=== PATIENT | male | born 1955 | race Caucasian/White ===

== ENCOUNTER → 2024-02-13 10:38 | Outpatient (REF) | payer BC, SELFPAY ==
[2024-02-13 12:20] LABS: Urine Albumin Negative (Neg - Trace); Urine Bilirubin Negative (Negative); Urine Character Clear (Clear); Urine Color Yellow; Urine Glucose 3+ (Negative); Urine Ketone Negative (Negative); Urine Leukocyte Trace (Negative); Urine Nitrite Positive (Negative); Urine Occult Blood 3+ (Negative); Urine Urobilinogen Negative (Neg - 1+)
[2024-02-13 12:43] LABS: Urine Bacteria Few (Negative)
[2024-02-13 13:02] LABS: ALT (SGPT) 25 U/L (0-50); AST (SGOT) 32 U/L (17-59); Albumin 4.3 g/dl (3.5-5.0); Alkaline Phosphatase 52 U/L (38-126); Blood Urea Nitrogen 26 mg/dl (9-20); Carbon Dioxide 23 mmol/L (22-30); Chloride 101 mmol/L (98-107); Glucose 117 mg/dl (70-99); HDL Cholesterol 33 mg/dl; LDL Cholesterol, Calculated 50 mg/dl; Sodium 136 mmol/L (135-145); Total Bilirubin 0.7 mg/dl (0.2-1.3); Total Cholesterol 107 mg/dl (50-199); Total Protein 7.1 g/dl (6.3-8.2); Triglyceride 124 mg/dl (10-149); Very Low Density Lipoprotein 24 mg/dl (0-30); eGFR > 60.00
[2024-02-13 13:02] LABS: Microalbumin, Random Urine 5.5 mg/dl (0.6-1.7); Microalbumin/creatinine Ratio 38.2 mg/g
[2024-02-13 13:16] LABS: Glycohemoglobin (HgbA1c) 9.8 % (4.0-5.6)
== END ==
LOC: HWLAB 10:38
PROVIDERS: ATTENDING PHYSICIAN Internal Medicine
DX: I10 Essential (primary) hypertension (principal); E11.9 Type 2 diabetes mellitus without complications; Z79.4 Long term (current) use of insulin; E78.2 Mixed hyperlipidemia
CPT/HCPCS: 36415; 80053; 80061; 81003; 81015; 82043; 82570; 83036

== ENCOUNTER → 2024-06-02 10:12 | Outpatient (REF) | payer BC, SELFPAY ==
[2024-06-02 11:35] LABS: % Basophils 0.5 % (0-2); % Eosinophils 2.4 % (0-6); % Immature Granulocytes 0.2 % (0-0.5); % Lymphocytes 22.7 % (20.5-51.1); % Monocytes 10.3 % (1.7-9.3); % Neutrophils 63.9 % (42.2-75.2); Absolute Eosinophils 0.1 10^3/uL (0-0.7); Absolute Lymphocytes 1.3 10^3/uL (1.2-3.4); Absolute Monocytes 0.6 10^3/uL (0.1-0.6); Absolute Neutrophils 3.8 10^3/uL (1.4-6.5); Hematocrit 40.5 % (39.0-52.0); Hemoglobin 13.4 g/dL (13.0-18.0); Mean Corp Hgb Conc. 33.1 g/dL (33.0-37.0); Mean Corpuscular Hgb 29.5 pg (27.0-31.0); Mean Platelet Volume 10.1 fL (7.4-10.4); Nucleated Red Blood Cells % 0 % (-); Platelet Count 195 10^3/uL (130-400); Red Blood Cell Count 4.55 10^6/uL (4.70-6.10); Red Cell Dist. Width 13.9 % (11.5-14.5); White Blood Cell Count 5.9 10^3/uL (4.8-10.8)
[2024-06-02 12:11] LABS: ALT (SGPT) 481 U/L (0-50); AST (SGOT) 510 U/L (17-59); Albumin 4.5 g/dl (3.5-5.0); Alkaline Phosphatase 320 U/L (38-126); Blood Urea Nitrogen 21 mg/dl (9-20); Calcium 9.6 mg/dl (8.4-10.2); Carbon Dioxide 24 mmol/L (22-30); Chloride 101 mmol/L (98-107); Glucose 127 mg/dl (70-99); HDL Cholesterol 42 mg/dl; LDL Cholesterol, Calculated 44 mg/dl; Potassium 4.2 mmol/L (3.5-5.1); Sodium 137 mmol/L (135-145); Total Bilirubin 1.1 mg/dl (0.2-1.3); Total Cholesterol 117 mg/dl (50-199); Total Protein 7.2 g/dl (6.3-8.2); Triglyceride 158 mg/dl (10-149); Very Low Density Lipoprotein 31 mg/dl (0-30); eGFR > 60.00
[2024-06-02 12:15] LABS: Glycohemoglobin (HgbA1c) 8.8 % (4.0-5.6)
[2024-06-02 12:27] LABS: PSA, Total - Diagnostic 0.18 ng/ml (0.0-4.0)
[2024-06-02 15:21] LABS: Urine Albumin Trace (Neg - Trace); Urine Bilirubin Negative (Negative); Urine Character Clear (Clear); Urine Color Yellow; Urine Glucose 3+ (Negative); Urine Ketone Negative (Negative); Urine Leukocyte Trace (Negative); Urine Nitrite Positive (Negative); Urine Occult Blood Trace (Negative); Urine Specific Gravity 1.015 (<1.030); Urine Urobilinogen Negative (Neg - 1+)
[2024-06-02 15:53] LABS: Urine Bacteria Few (Negative); Urine Mucus Moderate; Urine Red Blood Cell 0-2 /HPF (0-2); Urine White Cell 30-40 /HPF (0-5)
[2024-06-02 16:37] LABS: Microalbumin, Random Urine 16.5 mg/dl (0.6-1.7); Microalbumin/creatinine Ratio 230.1 mg/g
== END ==
LOC: HWLAB 10:12
PROVIDERS: ATTENDING PHYSICIAN Family Medicine Geriatric Medicine; FAMILY PHYSICIAN Internal Medicine
DX: C61 Malignant neoplasm of prostate (principal); I10 Essential (primary) hypertension; E78.2 Mixed hyperlipidemia; E11.9 Type 2 diabetes mellitus without complications; Z79.4 Long term (current) use of insulin; R33.9 Retention of urine, unspecified
CPT/HCPCS: 36415; 80053; 80061; 81003; 81015; 82043; 82570; 83036; 84153; 85025

== ENCOUNTER → 2024-06-15 12:00 | Outpatient (REF) | payer BC, SELFPAY ==
[2024-06-15 16:00] LABS: % Basophils 0.3 % (0-2); % Eosinophils 1.3 % (0-6); % Immature Granulocytes 0.5 % (0-0.5); % Lymphocytes 14.3 % (20.5-51.1); % Monocytes 9.3 % (1.7-9.3); % Neutrophils 74.3 % (42.2-75.2); Absolute Eosinophils 0.1 10^3/uL (0-0.7); Absolute Lymphocytes 0.9 10^3/uL (1.2-3.4); Absolute Monocytes 0.6 10^3/uL (0.1-0.6); Absolute Neutrophils 4.7 10^3/uL (1.4-6.5); Hematocrit 37.9 % (39.0-52.0); Hemoglobin 12.8 g/dL (13.0-18.0); Mean Corp Hgb Conc. 33.8 g/dL (33.0-37.0); Mean Platelet Volume 11.8 fL (7.4-10.4); Nucleated Red Blood Cells % 0 % (-); Platelet Count 223 10^3/uL (130-400); Red Blood Cell Count 4.26 10^6/uL (4.70-6.10); Urine Albumin Trace (Neg - Trace); Urine Bilirubin 3+ (Negative); Urine Character Clear (Clear); Urine Color Yellow; Urine Glucose 3+ (Negative); Urine Ketone 1+ (Negative); Urine Leukocyte Trace (Negative); Urine Nitrite Positive (Negative); Urine Occult Blood 1+ (Negative); Urine Urobilinogen 1+ (Neg - 1+); White Blood Cell Count 6.4 10^3/uL (4.8-10.8)
[2024-06-15 16:13] LABS: Urine Bacteria Few (Negative)
[2024-06-15 16:15] LABS: ALT (SGPT) 370 U/L (0-50); AST (SGOT) 274 U/L (17-59); Albumin 4.3 g/dl (3.5-5.0); Alkaline Phosphatase 736 U/L (38-126); Blood Urea Nitrogen 28 mg/dl (9-20); Calcium 9.6 mg/dl (8.4-10.2); Carbon Dioxide 17 mmol/L (22-30); Chloride 107 mmol/L (98-107); Glucose 87 mg/dl (70-99); HDL Cholesterol 32 mg/dl; LDL Cholesterol, Calculated 138 mg/dl; Potassium 4.4 mmol/L (3.5-5.1); Sodium 139 mmol/L (135-145); Total Bilirubin 11.5 mg/dl (0.2-1.3); Total Cholesterol 221 mg/dl (50-199); Total Protein 7.5 g/dl (6.3-8.2); Triglyceride 257 mg/dl (10-149); Very Low Density Lipoprotein 51 mg/dl (0-30)
[2024-06-16 09:07] LABS: Glycohemoglobin (HgbA1c) 8.2 % (4.0-5.6)
== END ==
LOC: HWLAB 12:00
PROVIDERS: ATTENDING PHYSICIAN Internal Medicine
DX: E11.9 Type 2 diabetes mellitus without complications (principal); E78.2 Mixed hyperlipidemia; I10 Essential (primary) hypertension
CPT/HCPCS: 36415; 80053; 80061; 81003; 81015; 83036; 84443; 85025

== ENCOUNTER 2024-06-16 09:57 | Inpatient (IN) | payer BC, SELFPAY ==
[2024-06-16 05:46] VITALS: BP 138/78
--- NOTE | 2024-06-16 06:24 | ED.GENMED ---
History of Present Illness
General
Chief Complaint: Abdominal Symptoms
Source: patient, records, spouse, previous radiology exam and previous hospital records
Exam Limitations: none
Time Seen by Provider: 06/16/24 06:00
Nursing documentation reviewed up to this point in time: agreed with
History of Present Illness
History of Present Illness:
68-year-old male hypertensive diabetic CAD stents AAA nondrinker non-smoker presents with jaundice onset at least a week or so ago has had some dark urine, blood work yesterday was done abnormal referred to the ER for evaluation by his PCP patient
overall feels well, no history of hepatitis,
Past History
Past History
ED Past Medical History: HTN, Hypercholesterolemia and NIDDM
ED Past Surgical History: Cardiac and Other (Eye surgery. [place] teeth, AAA repair)
Social History
Tobacco: Non-smoker
Alcohol: None
Drug: None
Personal:
Living: with family
Employment: Employed
Family History
Family History: Other (Non Contributory)
Review of Systems
Review of Systems
All Other Systems: Not applicable
EENT: Reports other (Yellowing of the)
Respiratory: Reports no symptoms
Cardiac: Reports no symptoms
ABD/GI: Denies abdominal pain
: Reports dark urine
Musculoskeletal: Reports no symptoms
Skin: Reports other (Yellow skin); Denies itching
Neurological: Reports no symptoms
Endocrine: Reports no symptoms
Phy Exam
Physical Exam
Physical Exam:
Physical Exam
General: 68-year-old male looks jaundiced normal mental status
Neck: Yellow sclera
Heart: s1/s2 regular rate and rhythm, no murmur. equal radial pulses.
Lungs: no acute respiratory distress. clear bilaterally
Abdomen: Distended nontender
Neuro: alert and oriented. no focal neurological deficits
Skin: no rash
Psychiatric: well kept. interactive and cooperative
Extremities: no edema.
Course
Orders/Labs/Results
Orders:
Orders
06/16/24 06:19
US Abdomen Complete/Upper Urgent
Comment:
Reason For Exam: new jaundice
06/16/24 06:30
0.9% Sodium Chloride 1000 ml [Nss] 1,000 ml IV BOLUS
Vital Signs
Initial and Last Documented VS:
Initial Vital Signs
Temp Pulse Resp BP Pulse Ox
98.0 F 66 22 138/78 98
06/16/24 05:46 06/16/24 05:46 06/16/24 05:46 06/16/24 05:46 06/16/24 05:46
Last Documented Vital Signs
Temp Pulse Resp BP Pulse Ox
98.0 F 66 22 138/78 98
06/16/24 05:46 06/16/24 05:46 06/16/24 05:46 06/16/24 05:46 06/16/24 05:46
MDM/Problems Addressed
Differential Diagnosis Includes:
Labs from yesterday noted, will order imaging
*Critical Care Note
Total Time (30-74mins, 75-104mins- exclusive of procedures): Not Applicable
Update Note
Update Note:
Update labs yesterday noted ultrasound from today noted radiology suggested MRI MRCP for dilated CBD, message sent to hospitalist will admit for facilitated workup advanced imaging etc. this diagnosis is still not clear
ED Attending Note
-
Portions of this chart may have been created with voice recognition software.� Occasional wrong word or��sound alike� substitutions may have occurred due to the inherent limitations of voice recognition software.
Discharge Plan
Departure
Patient Disposition: Admit
Date of Disposition: 06/16/24
Time of Disposition: 07:39
Admit to: Med/Surg
Presentation/result/management discussed w/ accepting MD/DO: Hospitalist
Patient with high blood pressure during this ER visit?: No
Condition: Fair
Discharge Problem:
Painless jaundice
Prescriptions:
No Action
atorvastatin 40 MG tablet
40 mg PO DAILY
aspirin 81 MG tablet,delayed release (DR/EC)
81 mg PO DAILY
ferrous sulfate [FeroSul] 325 MG tablet
325 mg PO DAILY
metoprolol succinate [Toprol XL] 25 MG tablet extended release 24 hr
50 mg PO BID
hydralazine 50 MG tablet
50 mg PO BID
cholecalciferol (vitamin D3) 2,000 UNITS tablet
2,000 units PO DAILY
Xultophy 100/3.6 3 ML insulin pen
40 units SC DAILY
clopidogrel 75 MG tablet
75 mg PO DAILY Qty: 30 11RF
tamsulosin 0.4 MG capsule
0.4 mg PO DAILY Qty: 30 3RF
metformin 1,000 mg Tablet
1,000 mg PO BID
losartan 25 mg Tablet
25 mg PO DAILY
furosemide 20 mg Tablet
20 mg PO DAILY
icosapent ethyl [Vascepa] 1 gram Capsule
1 g PO BID
cephalexin 500 mg Capsule
500 mg PO Q6H
Jardiance 10 mg Tablet
10 mg PO DAILY
Referrals:
Gomez Gunderson MD [Family Provider] -
Interventions
Interventions:
*Risk Screen - Suicide Last Done: 06/16/24 05:46
*General Assessment Last Done: 06/16/24 06:42
*Neglect/Abuse Screening Last Done: 06/16/24 05:46
ED- Fall Risk Assessment Last Done: 06/16/24 06:42
QI-Cpqtkx-Wekrdnggca Assessment Last Done: 06/16/24 06:42
Discharge Date and Time
Print Language: CAP[place]
[2024-06-16] MEDS: NSS 1000 IV ×2 (07:33→11:56)
--- NOTE | 2024-06-16 08:58 | W.PN.UPDATE ---
Addendum entered and electronically signed by Sara Linda MD 06/17/24 14:15:
.
Original Note:
Update Note
Progress Note Update
68-year-old male with abdominal pain. He has jaundice for the past 1 week with dark urine. Blood work yesterday was abnormal therefore referred to ER.
Echo 223-normal LV size. Mild concentric LVH. Borderline normal. Left ventricular systolic function. Ejection fraction 50 to 52%. Hypokinesis of the basal to mid inferolateral and inferior dykes. Stage II diastolic dysfunction suggestive of
abnormal relaxation. Trace MR. Mild TR. Pulmonary artery pressure 41 mmHg.
I personally performed a history and physical exam of the patient and discussed management with the resident. I reviewed the resident's note and agree with the documented findings and plan of care HPI/CC.
Icterus
CVS: S1-S2 normal,SSM apex
Chest: CTA B/L
Abdomen: Soft, NT Bowel sounds present
Extremities: No edema, normal pulses
MATTRESS STRIPPER: Non focal exam
# Painless jaundice
Ultrasound Abdomen 06/16/2024-gallbladder sludge.
Confirmed cholelithiasis, gallbladder wall thickening or intrahepatic biliary duct dilatation. Enlarged CBD.
Will proceed with MRI/MRCP
N.p.o. until MRI done
GI evaluation
# Hyperlipidemia/atherosclerosis-hold atorvastatin. Continue with Vascepa, patient may need to supply on his own
# Diabetes-hold Jardiance, Ozempic and metformin as n.p.o.
Continue Lantus at a lower dose
Hemoglobin A1c 8.8
Patient took Ozempic this morning . Also took Jardiance, metformin and Lantus.
Watch Sugars while NPO
Check CA 19-9
# History of AAA repair March 2019 with redo July 2019 for leak and infection.Patient is on Keflex-continue twice daily
# Sleep apnea-continue CPAP
# Coronary artery disease with stents.Continue aspirin, atorvastatin.Hold Plavix in anticipation for GI procedure
# Chronic heart failure with preserved ejection fraction-Hold Lasix and Jardiance.Continue losartan
# Hypertension-continue losartan
# History of prostate cancer-Status post radiation-radiation oncology. Patient is in remission.continue Flomax.
# History of GI bleed
# Obesity per BMI
# DVT prophylaxis-Lovenox
# CODE STATUS-Full code
[2024-06-16 10:42] LABS: Hematocrit 37.4 % (39.0-52.0); Hemoglobin 12.8 g/dL (13.0-18.0); Mean Corp Hgb Conc. 34.2 g/dL (33.0-37.0); Mean Corpuscular Hgb 30.3 pg (27.0-31.0); Mean Corpuscular Volume 88.4 fL (80.0-94.0); Mean Platelet Volume 10.6 fL (7.4-10.4); Platelet Count 218 10^3/uL (130-400); Red Blood Cell Count 4.23 10^6/uL (4.70-6.10); Red Cell Dist. Width 16.9 % (11.5-14.5); White Blood Cell Count 6.7 10^3/uL (4.8-10.8)
[2024-06-16 10:45] VITALS: BP 144/72
[2024-06-16 10:54] VITALS: BP 133/70
[2024-06-16 10:55] VITALS: BMI 34.8
[2024-06-16 11:06] LABS: ALT (SGPT) 345 U/L (0-50); AST (SGOT) 252 U/L (17-59); Albumin 4.2 g/dl (3.5-5.0); Alkaline Phosphatase 653 U/L (38-126); Blood Urea Nitrogen 28 mg/dl (9-20); Calcium 9.2 mg/dl (8.4-10.2); Carbon Dioxide 20 mmol/L (22-30); Chloride 108 mmol/L (98-107); Estimated Creatinine Clearance 62 ml/min; Glucose 87 mg/dl (70-99); Potassium 4.3 mmol/L (3.5-5.1); Sodium 140 mmol/L (135-145); Total Bilirubin 11.4 mg/dl (0.2-1.3); Total Protein 7.3 g/dl (6.3-8.2)
--- NOTE | 2024-06-16 12:56 | CON.GI ---
Addendum entered and electronically signed by Andreina Ramos Do, MD 06/16/24 17:33:
I saw and examined the patient.
The NEEDLE STRAIGHTENER's note was reviewed and I agree with the note.
Comment: Fili is a 68yo M with h/o CAD s/p remote stents on plavix and remote prostate ca s/p XRT 2022 and DM on ozempic who was advise to come in for admission by PCP for elevated LFTs and painless jaundice. Denies wt loss. No abd pain. Vitals
stable. NTTP, NABS jaundice scleral icterus. Labs reviewed LFTs elevated mostly in cholestatic picture
Impression
- Painless jaundice
Ddx is pancreaticobiliary malignancy or infiltrative process
- CAD s/p stents
Last dose plavix 06/16 AM
- DM
- Remote prostate cancer
Recommendations
- Await MRI results
- Hold plavix. If ERCP/EUS is indicated would need 5 day washout
- Low fat diet post MRI
- Serial LFTs
Will follow with you
Original Note:
Consultation
-
Date/Time Consultation Requested: 06/16/24 0950
Date/Time Consultation Performed: 06/16/24 1300
Requesting Provider: Sara Sal MD
Performing Provider: WINSTON Call, Andreina Wilson MD
Reason for Consultation: painless jaundice
Medical History
Chief Complaint / HPI
Chief Complaint: jaundice
History of Present Illness:
Pt is 68yo presents with hx CAD with prior stents on Plavix, prostate CA with radiation in 2022, AAA repair, MSSA infection 2019 with chronic abx therapy, HTN, hypercholesterolemia, NIDDM on Ozempic with onset of jaundice, dark urine and pale
stools. On admission labs noted with bili 11.4, AST 252, ALT 345, and alk phos 653. 06/16 US abdomen Gallbladder sludge. No findings to confirm cholelithiasis, gallbladder wall thickening or intrahepatic biliary tract dilatation. Enlarged common
bile duct. Suggest MRI/MRCP for more complete evaluation. Pt denies hx liver issues in past. Intentional wt loss 40 lbs over last 5 years since cardiac stents.
Pt states he noted change in skin last week but symptoms persisted. He denies abdominal pain, nausea, vomiting, diarrhea, fever, diarrhea, constipation or bleeding. No prior EGD. Colonoscopy - walp with hemorrhoids, diverticulosis, 4 mm polyp
bx TA.
Past Medical History
Past Medical History: CAD, Cancer (prostate CA), HTN, NIDDM and Other (chronic abx use from infection in 2019 - MSSA)
Past Surgical History: Cardiac (stents ) and Other (eye surgery, wisdom teeth, AAA repair )
Social History
Tobacco: Non-Smoker
Alcohol: Former (years ago)
Drug: None
Personal:
Living: With Family
Employment: Employed
Family History
Family History: Other (no family hx colon CA, pancreatic CA)
Allergies / Home Medications
Allergy/AdvReac Type Severity Reaction Status Date / Time
cat dander Allergy SNEEZING/STUFFY Verified 06/16/24 05:48
NOSE
dog dander Allergy SNEEZING/STUFFY Verified 06/16/24 05:48
NOSE
house dust Allergy Nasal Verified 06/16/24 05:48
congestion/sneezing
ibuprofen [From Advil] Allergy ANGIOEDEMA Verified 06/16/24 05:48
lisinopril Allergy ANGIOEDEMA Verified 06/16/24 05:48
olmesartan [From Benicar] Allergy ANGIOEDEMA Verified 06/16/24 05:48
tomato Allergy ANGIOEDEMA Verified 06/16/24 05:48
�Medication �Instructions �Recorded
aspirin 81 mg tablet,delayed 81 mg PO DAILY 09/22/19
release
atorvastatin 40 mg tablet 40 mg PO DAILY 09/22/19
cholecalciferol (vitamin D3) 50 2,000 units PO DAILY 09/22/19
mcg (2,000 unit) tablet
ferrous sulfate 325 mg (65 mg 325 mg PO HS 09/22/19
iron) tablet (FeroSul)
hydralazine 50 mg tablet 50 mg PO BID 09/22/19
metoprolol succinate 25 mg 50 mg PO BID 09/22/19
tablet,extended release 24 hr
(Toprol XL)
clopidogrel 75 mg tablet 75 mg PO DAILY #30 tabs 09/25/19
cephalexin 500 mg capsule 500 mg PO TID 01/15/23
empagliflozin 10 mg tablet 10 mg PO DAILY 01/15/23
(Jardiance)
furosemide 20 mg tablet 20 mg PO DAILY 01/15/23
icosapent ethyl 1 gram capsule 2 g PO BID 01/15/23
(Vascepa)
losartan 25 mg tablet 25 mg PO DAILY 01/15/23
metformin 1,000 mg tablet 1,000 mg PO BID 01/15/23
insulin glargine 100 unit/mL (3 40 unit SC BID 06/16/24
mL) subcutaneous pen
semaglutide 1 mg/dose (4 mg/3 mL) 1 mg SC TU 06/16/24
subcutaneous pen injector (Ozempic)
tamsulosin 0.4 mg capsule 0.4 mg PO BID 06/16/24
therapeutic multivitamin 1 tab PO DAILY 06/16/24
Review of Systems
-
History Source: Patient
Constitutional: Reports Weight Loss (over time intentional loss)
EENT: Reports No Symptoms
Respiratory: Reports No Symptoms
Cardiac: Reports No Symptoms
Abdomen/GI: Reports Other (charles stools)
: Reports Dark Urine and Other (occasional difficulty with urinary stream)
Musculoskeletal: Reports No Symptoms
Skin: Reports Other (change in skin color )
Neurological: Reports Weakness
Endocrine: Reports No Symptoms
Hematologic/Lymphatic: Reports No Symptoms
Vital Signs
Temp Pulse Resp BP Pulse Ox
97.9 F 66 18 133/70 99
06/16/24 10:54 06/16/24 10:54 06/16/24 10:54 06/16/24 10:54 06/16/24 10:54
Physical Exam
Exam
General: Well Developed, Well Nourished and No Apparent Distress
HEENT: Normocephalic and Anicteric
Respiratory: Clear
Cardiac: Regular Rhythm
GI: Soft, Non Tender and Non Distended
Musculoskeletal: No Clubbing and No Cyanosis
Skin: Warm and Dry
Neuro: Awake, Alert and AO x 3
Psych: Calm
Results
WBC 6.7 10^3/uL (4.8-10.8) 06/16/24 10:34
Hgb 12.8 g/dL (13.0-18.0) L 06/16/24 10:34
Hct 37.4 % (39.0-52.0) L 06/16/24 10:34
MCV 88.4 fL (80.0-94.0) 06/16/24 10:34
Plt Count 218 10^3/uL (130-400) 06/16/24 10:34
Sodium 140 mmol/L (135-145) 06/16/24 10:34
Potassium 4.3 mmol/L (3.5-5.1) 06/16/24 10:34
Chloride 108 mmol/L (98-107) H 06/16/24 10:34
Carbon Dioxide 20 mmol/L (22-30) L 06/16/24 10:34
BUN 28 mg/dl (9-20) H 06/16/24 10:34
Creatinine 1.3 mg/dL (0.7-1.3) 06/16/24 10:34
Calcium 9.2 mg/dl (8.4-10.2) 06/16/24 10:34
Total Bilirubin 11.4 mg/dl (0.2-1.3) H 06/16/24 10:34
AST 252 U/L (17-59) H 06/16/24 10:34
ALT 345 U/L (0-50) H 06/16/24 10:34
Alkaline Phosphatase 653 U/L (38-126) H 06/16/24 10:34
Diagnostic Image Results:
06/16 US abdomen Gallbladder sludge. No findings to confirm cholelithiasis, gallbladder wall thickening or intrahepatic biliary tract dilatation. Enlarged common bile duct. Suggest MRI/MRCP for more complete evaluation.
12/19/22 CT Abd/pelvis W/wo Iv Cont
1. Stable tiny lucent lesion within the posterior left 10th rib with a well-circumscribed sclerotic rim, not significantly changed dating back to 03/04/2019 and favored benign.
2. No other suspicious osseous lesions or evidence for metastatic disease in the abdomen or pelvis.
Prior GI Procedures:
EGD: none
Colonoscopy: 12/29/2020 - Hemorrhoids found on perianal exam.
- Diverticulosis in the sigmoid colon.
- One 4 mm polyp at the hepatic flexure, removed with
a [employer] cold forceps. Resected and retrieved.
Assessment / Plan
-
Pt is 68yo presents with hx CAD with prior stents on Plavix, prostate CA with radiation in 2022, AAA repair, HTN, hypercholesterolemia, MSSA infection 2018 with chronic abx therapy, NIDDM on Ozempic with onset of jaundice, dark urine and pale
stools. On admission labs noted with bili 11.4, AST 252, ALT 345, and alk phos 653. 06/16 US abdomen Gallbladder sludge. No findings to confirm cholelithiasis, gallbladder wall thickening or intrahepatic biliary tract dilatation. Enlarged common
bile duct. Suggest MRI/MRCP for more complete evaluation. Pt denies hx liver issues in past. Intentional wt loss 40 lbs over last 5 years since cardiac stents.
-painless jaundice
-enlarged CBD on US
-CAD with prior stent on Plavix
-prostate Ca with radiation 2022
-NIDDM on Ozempic
-HTN
- hypercholesterolemia
-AAA repair
-pt with chronic abx therapy from MSSA infection in 2019
PLAN:
etiology of symptoms with concern for CBD obstructive process, stone, mass vs other
trend labs
await MRI for further evaluation
NPO
pending MRI results likely will need EUS/ERCP
Plavix hold last dose 06/16 per patient
pt remains on chronic abx since 2018
-
-
Thank you for consultation and allowing me to participate in the patient's care. Please call the cable installation manager GI physician during the after hours with any questions or concerns.
[2024-06-16 13:07] LABS: Glucose - Point of Care 91 mg/dl (70-99)
[2024-06-16] MEDS: NOVOLOG FLEXPEN-LOW RESISTANCE SC ×2 (13:18→18:06)
--- NOTE | 2024-06-16 13:32 | HPS.HSE ---
Family Physician
<Everett Cherry MD, Resident - Last Filed: 06/16/24 17:16>
-
Family Physician: Gomez Gunderson
Chief Complaint
<Everett Cherry MD, Resident - Last Filed: 06/16/24 17:16>
-
Jaundice/ Abnormal labs
History of Present Illness
68 year-old male with known past medical history of hypertension, diabetes, CAD s/p stents, AAA s/p repair and hyperlipidemia presented to the emergency department as per the recommendations from family doctor after he received abnormal blood work
results. Patient reports that he has been noticing yellowing of his skin and dark urination for more than 1 week now. He he had few straw-colored stools during last week. He denies any history of liver disease, hepatitis or alcohol abuse.
Patient reports overall he feels well except the yellowing of for his skin. He denies abdominal pain, nausea, vomiting, diarrhea, fever, diarrhea, constipation or bleeding. Intentional wt loss 40 lbs over last 5 years since cardiac stents.
Medical History
<Everett Cherry MD, Resident - Last Filed: 06/16/24 17:16>
Past Medical History
Past Medical History: Reports CAD (S/p stent), HTN, Hypercholesterolemia, NIDDM and Other (AAA s/p repair)
Past Surgical History: Reports Cardiac (Stent) and Other (AAA repair, wisdom tooth extraction, eye surgeries)
Social History
Tobacco: Non-smoker
Alcohol: None
Drug: None
Personal:
Living: With Family
Employment: Employed
Family History
Family History: Not pertinent
Allergies / Home Medications
Allergies reflects when Allergies were last updated in [facility].
Home Medications with original date entered in [facility]
Allergy/Medication List:
Home meds: Aspirin 81 mg p.o. daily
Atorvastatin 40 mg p.o. daily
Cephalexin 500 mg p.o. 3 times daily
Vitamin D3 2000 units p.o. daily
Clopidogrel 75 mg p.o. daily
Jardiance 10 mg p.o. daily
Ferrous sulfate 325 mg p.o. at bedtime
Furosemide 20 mg p.o. daily
Hydralazine 50 mg p.o. twice daily
Vascepa 2 g p.o. twice daily
Insulin glargine 40 units twice daily
Losartan 25 mg p.o. daily
Metformin 1000 mg p.o. twice daily
Metoprolol 50 mg p.o. twice daily
Ozempic 1 mg
Tamsulosin 0.4 mg p.o. twice daily
Multivitamin 1 tablet p.o. daily
Allergies:
Lisinopril, olmesartan, ibuprofen
Review of Systems
<Everett Cherry MD, Resident - Last Filed: 06/16/24 17:16>
-
History Source: Patient
Constitutional: Denies Fever or Sleep Disturbance
EENT: Denies Mouth Swelling
Respiratory: Denies Cough
Cardiac: Denies Chest Pain
Abdomen/GI: Denies Abdominal Pain
: Denies Dysuria or Frequency
Musculoskeletal: Denies Joint Pain
Neurological: Denies Dizzy or Headache
Endocrine: Denies Polyuria
Hematologic/Lymphatic: Denies Bleeding
Psych: Reports Calm
Physical Exam
<Everett Cherry MD, Resident - Last Filed: 06/16/24 17:16>
Vital Signs
Vital Signs
Temp Pulse Resp BP Pulse Ox
97.9 F 66 18 133/70 99
06/16/24 10:54 06/16/24 10:54 06/16/24 10:54 06/16/24 10:54 06/16/24 10:54
Physical Exam
General: Well Developed, Well Nourished, No Apparent Distress, Comfortable and Other (Yellowish discoloration of skin and sclera)
HEENT: NormoCephalic
Respiratory: Clear
Cardiac: S1/S2 and Regular Rhythm
GI: Soft and Non Tender
Skin: Warm and Dry
Neuro: Awake, Alert, Oriented and AO x 3
Psych: Calm
<Bobby Nayan Germain MD, Resident - Last Filed: 06/17/24 07:32>
Vital Signs
Home Medications
�Medication �Instructions �Recorded
aspirin 81 mg tablet,delayed 81 mg PO DAILY Blood Clot 09/22/19
release Prevention/Tx
atorvastatin 40 mg tablet 40 mg PO DAILY High Cholesterol 09/22/19
cholecalciferol (vitamin D3) 50 2,000 units PO DAILY Supplement 09/22/19
mcg (2,000 unit) tablet
ferrous sulfate 325 mg (65 mg 325 mg PO HS Supplement 09/22/19
iron) tablet (FeroSul)
hydralazine 50 mg tablet 50 mg PO BID Blood Pressure 09/22/19
metoprolol succinate 25 mg 50 mg PO BID Blood Pressure 09/22/19
tablet,extended release 24 hr
(Toprol XL)
cephalexin 500 mg capsule 500 mg PO TID Infection 01/15/23
empagliflozin 10 mg tablet 10 mg PO DAILY diabetes 01/15/23
(Jardiance)
furosemide 20 mg tablet 20 mg PO DAILY Fluid 01/15/23
Retention/Swelling
icosapent ethyl 1 gram capsule 2 g PO BID High Cholesterol 01/15/23
(Vascepa)
losartan 25 mg tablet 25 mg PO DAILY Blood Pressure 01/15/23
metformin 1,000 mg tablet 1,000 mg PO BID diabetes 01/15/23
clopidogrel 75 mg tablet 75 mg PO DAILY Blood Clot 06/16/24
Prevention/Tx
insulin glargine 100 unit/mL (3 40 unit SC BID diabetes 06/16/24
mL) subcutaneous pen
semaglutide 1 mg/dose (4 mg/3 mL) 1 mg SC TU diabetes 06/16/24
subcutaneous pen injector (Ozempic)
tamsulosin 0.4 mg capsule 0.4 mg PO BID Urinary Issue 06/16/24
therapeutic multivitamin 1 tab PO DAILY Supplement 06/16/24
Vital Signs
Temp Pulse Resp BP Pulse Ox
97.9 F 66 18 133/70 99
06/16/24 10:54 06/16/24 10:54 06/16/24 10:54 06/16/24 10:54 06/16/24 10:54
Laboratory Results
<Everett Cherry MD, Resident - Last Filed: 06/16/24 17:16>
-
06/16/24 10:34
06/16/24 10:34
Laboratory Results
Total Bilirubin 11.4 mg/dl (0.2-1.3) H 06/16/24 10:34
AST 252 U/L (17-59) H 06/16/24 10:34
ALT 345 U/L (0-50) H 06/16/24 10:34
Alkaline Phosphatase 653 U/L (38-126) H 06/16/24 10:34
Data Reviewed
<Everett Cherry MD, Resident - Last Filed: 06/16/24 17:16>
-
Ultrasound: Report Reviewed by me, Discussed with Physician and Discussed with Patient
Lab Data: Labs Reviewed by me, Discussed with Physician and Discussed with Patient
Impression/Plan
<Everett Cherry MD, Resident - Last Filed: 06/16/24 17:16>
-
#Painless Jaundice- unclear etiology
- stone vs mass?
- USG: Gallbladder sludge. No findings to confirm cholelithiasis, gallbladder wall thickening or intrahepatic biliary tract dilatation. Enlarged common bile duct.
- pending MRI
- Likely need EUS/ERCP
# Elevated LFTs
- Likely secondary to cholestatic jaundice
# UTI
- Patient on chronic Keflex s/p AAA repair 2018
# [id number] diabetes
# Hypertension
# CAD s/p stent
# AAA s/p repair�Keflex long-term
Code : Full
DVT prophylaxis: Lovenox
[2024-06-16 15:00] VITALS: BP 128/67
[2024-06-16] MEDS: NSS (PRESERVATIVE FREE) 0.25 ML IV (16:20)
[2024-06-16] MEDS: ATIVAN 0.5 MG IV (16:21)
[2024-06-16 17:57] LABS: Glucose - Point of Care 71 mg/dl (70-99)
[2024-06-16] MEDS: KEFLEX 500 MG PO ×2 (18:16→20:44)
[2024-06-16] MEDS: LOVENOX 40 MG SC (18:16)
[2024-06-16] MEDS: FLOMAX 0.4 MG PO (20:44)
[2024-06-16] MEDS: APRESOLINE 50 MG PO (20:44)
[2024-06-16] MEDS: TOPROL XL 50 MG PO (20:46)
[2024-06-16 21:50] LABS: Glucose - Point of Care 142 mg/dl (70-99)
[2024-06-16 23:34] VITALS: BP 109/65
--- NOTE | 2024-06-17 03:25 | DOWNTIME ---
There was a [employer] Client Gate Keeper Downtime on 06/17/2024 from 0100 to 06/17/2024 at 0255. Downtime documentation of patient's care, including medication administrations, has been reconciled in the electronic record per guidelines. Refer to the
patient's paper chart under the miscellaneous tab to see printed paper medication records and downtime forms.
--- NOTE | 2024-06-17 06:36 | W.PN.HOSP.TC ---
Addendum entered and electronically signed by Sara Linda MD 06/17/24 14:24:
.
Addendum entered and electronically signed by Sara Linda MD 06/17/24 14:18:
68-year-old male with abdominal pain. He has jaundice for the past 1 week with dark urine. Blood work yesterday was abnormal therefore referred to ER.
Echo 223-normal LV size. Mild concentric LVH. Borderline normal. Left ventricular systolic function. Ejection fraction 50 to 52%. Hypokinesis of the basal to mid inferolateral and inferior dykes. Stage II diastolic dysfunction suggestive of
abnormal relaxation. Trace MR. Mild TR. Pulmonary artery pressure 41 mmHg.
I personally performed a history and physical exam of the patient and discussed management with the resident. I reviewed the resident's note and agree with the documented findings and plan of care HPI/CC.
Icterus
Icterus
CVS: S1-S2 normal,SSM apex
Chest: CTA B/L
Abdomen: Soft, NT Bowel sounds present
Extremities: No edema, normal pulses
DELIVERY AIDE: Non focal exam
# Painless jaundice
Ultrasound Abdomen 06/16/2024-gallbladder sludge.
MRI indicated for pancreatic mass.
EUS scheduled for 06/22/2024
Holding Plavix till after the procedure patient also advised to hold Jardiance, Ozempic, metformin the day prior to the procedure
Hold Vascepa, statin
Patient to follow-up directions from scheduling regarding Lantus dosage
# Hyperlipidemia/atherosclerosis-hold atorvastatin. Hold Vascepa.
# Diabetes-hold Jardiance, Ozempic and metformin as n.p.o.
Continue Lantus at a lower dose
Hemoglobin A1c 8.8
Patient took Ozempic 06/16/2024.
# History of AAA repair March 2019 with redo July 2019 for leak and infection.Patient is on Keflex-continue twice daily
# Sleep apnea-continue CPAP
# Coronary artery disease with stents.Continue aspirin, hold atorvastatin.Hold Plavix in anticipation for GI procedure
# Chronic heart failure with preserved ejection fraction-Hold Lasix and continue Jardiance.Continue losartan
# Hypertension-continue losartan
# History of prostate cancer-Status post radiation-. Patient is in remission.continue Flomax.
# History of GI bleed
# Obesity per BMI
# DVT prophylaxis-Lovenox
# CODE STATUS-Full code
Discussed with GI
Discussed with patient's daughter and patient's at bedside
Plan of care EUS discussed
Total discharge coordination time more than 35 minutes
Original Note:
Today's Communication/Plan
-
ERCP as OP with GI
Assessment / Plan
Assessment / Plan
68yo M with h/o CAD s/p stents-on plavix and prostate ca s/p XRT 2022 and DM on ozempic, referred by PCP for elevated LFTs and painless jaundice.
#Painless Jaundice-
- likely pancreatic mass
- USG: Gallbladder sludge. No findings to confirm cholelithiasis, gallbladder wall thickening or intrahepatic biliary tract dilatation. Enlarged common bile duct.
- MRI: MR findings are highly suggestive of a mass lesion within the pancreatic neck and head, with resultant obstruction of the pancreatic duct..
- PET/ CT?
- GI recs: If ERCP/EUS OP
# Elevated LFTs
- Likely secondary to cholestatic jaundice
- AST, ALT trending down
# UTI
- Patient on chronic Keflex s/p AAA repair 2018
# Yer-bekpwot-kohbhzmbl diabetes
# Hypertension
# CAD s/p stent
# AAA s/p repair�Keflex long-term
Code : Full
DVT prophylaxis: Lovenox
Anticipated Discharge: Today
Subjective/Interval History
-
Date of Service: June 17, 2024
Objective Data
-
Labs:
Laboratory Results
06/17/24
06:00
WBC Pending
Hgb Pending
Hct Pending
Plt Count Pending
Sodium Pending
Potassium Pending
Chloride Pending
Carbon Dioxide Pending
BUN Pending
Creatinine Pending
Glucose Pending
Calcium Pending
Total Bilirubin Pending
AST Pending
ALT Pending
Alkaline Phosphatase Pending
Vital Signs:
Vital Signs
Temp Pulse Resp BP Pulse Ox
97.7 F 66 20 109/65 97
06/16/24 23:34 06/16/24 23:34 06/16/24 23:34 06/16/24 23:34 06/16/24 23:34
I&O
06/15/24 06/16/24 06/17/24
06:59 06:59 06:59
Intake Total 560 / 560
Balance 560 / 560
Review of Systems
-
History Source: Patient
Constitutional: Denies Fever
Respiratory: Denies Cough
Cardiac: Denies Chest Pain
Abdomen/GI: Denies Abdominal Pain
Genitourinary: Denies Dysuria
Musculoskeletal: Denies Joint Pain
Neuro: Denies Headache
Physical Exam
-
General: Well Developed, Well Nourished and Other (Yellowish discoloration of skin and sclera)
HEENT: Normocephalic and Atraumatic
Respiratory: Clear to Auscultation
Cardiac: Regular Rhythm and S1/S2
GI: Nontender
Skin: Warm and Dry
Neuro: Awake, Alert and Oriented
Psych: Calm
Data Reviewed
-
MRI: Report Reviewed by me, Discussed with Physician and Discussed with Patient
Labs: Labs Reviewed by me, Discussed with Physician and Discussed with Patient
[2024-06-17 07:00] VITALS: BP 140/75
[2024-06-17 07:35] LABS: ALT (SGPT) 293 U/L (0-50); AST (SGOT) 192 U/L (17-59); Albumin 3.6 g/dl (3.5-5.0); Alkaline Phosphatase 655 U/L (38-126); Blood Urea Nitrogen 24 mg/dl (9-20); Calcium 9.2 mg/dl (8.4-10.2); Carbon Dioxide 19 mmol/L (22-30); Chloride 110 mmol/L (98-107); Estimated Creatinine Clearance 73 ml/min; Glucose 97 mg/dl (70-99); Magnesium 2.1 mg/dl (1.6-2.3); Potassium 4.1 mmol/L (3.5-5.1); Sodium 140 mmol/L (135-145); Total Protein 6.6 g/dl (6.3-8.2); eGFR > 60.00
[2024-06-17 07:48] LABS: % Basophils 0.4 % (0-2); % Eosinophils 2.7 % (0-6); % Immature Granulocytes 0.4 % (0-0.5); % Lymphocytes 18.1 % (20.5-51.1); % Monocytes 12.1 % (1.7-9.3); % Neutrophils 66.3 % (42.2-75.2); Absolute Eosinophils 0.2 10^3/uL (0-0.7); Absolute Monocytes 0.7 10^3/uL (0.1-0.6); Absolute Neutrophils 3.8 10^3/uL (1.4-6.5); Hematocrit 34.3 % (39.0-52.0); Hemoglobin 11.6 g/dL (13.0-18.0); Mean Corp Hgb Conc. 33.8 g/dL (33.0-37.0); Mean Corpuscular Hgb 29.4 pg (27.0-31.0); Mean Corpuscular Volume 86.8 fL (80.0-94.0); Mean Platelet Volume 11.5 fL (7.4-10.4); Nucleated Red Blood Cells % 0 % (-); Platelet Count 225 10^3/uL (130-400); Red Blood Cell Count 3.95 10^6/uL (4.70-6.10); Red Cell Dist. Width 16.4 % (11.5-14.5); White Blood Cell Count 5.6 10^3/uL (4.8-10.8)
[2024-06-17 08:11] LABS: Glucose - Point of Care 212 mg/dl (70-99)
[2024-06-17] MEDS: TOPROL XL 50 MG PO (08:38)
[2024-06-17] MEDS: APRESOLINE 50 MG PO (08:38)
[2024-06-17] MEDS: VITAMIN D3 (cholecalciferol) 50 MCG PO (08:38)
[2024-06-17] MEDS: COZAAR 25 MG PO (08:38)
[2024-06-17] MEDS: ASPIR LOW (ENTERIC COATED) 81 MG PO (08:38)
[2024-06-17] MEDS: THERAGRAN 1 TABLET PO (08:38)
[2024-06-17] MEDS: KEFLEX 500 MG PO (08:38)
[2024-06-17] MEDS: FLOMAX 0.4 MG PO (08:38)
[2024-06-17] MEDS: LANTUS 0.2 UNITS SC (08:39)
[2024-06-17] MEDS: NOVOLOG FLEXPEN-LOW RESISTANCE 2 UNITS SC (08:48)
[2024-06-17] MEDS: NSS 1000 IV (10:40)
[2024-06-17 12:02] LABS: Glucose - Point of Care 156 mg/dl (70-99)
[2024-06-17] MEDS: NOVOLOG FLEXPEN-LOW RESISTANCE 1 UNITS SC (12:32)
--- NOTE | 2024-06-17 12:48 | W.PN.GI.CBS2 ---
Today's Communication / Plan
-
D/c today
OP ERCP/EUS with Dr Burgos has been scheduled for Friday 06/22
Continue to hold plavix
Assessment / Plan
-
Pt is 68yo presents with hx CAD with prior stents on Plavix, prostate CA with radiation in 2022, AAA repair, HTN, hypercholesterolemia, MSSA infection 2019 with chronic abx therapy, NIDDM on Ozempic with onset of jaundice, dark urine and pale
stools. On admission labs noted with bili 11.4, AST 252, ALT 345, and alk phos 653. 06/16 US abdomen Gallbladder sludge. No findings to confirm cholelithiasis, gallbladder wall thickening or intrahepatic biliary tract dilatation. Enlarged common
bile duct. Suggest MRI/MRCP for more complete evaluation. Pt denies hx liver issues in past. Intentional wt loss 40 lbs over last 5 years since cardiac stents.
Impression
-painless jaundice from pancreatic mass
-enlarged CBD on US
-CAD with prior stent on Plavix
-prostate Ca with radiation 2022
-NIDDM on Ozempic
-HTN
- hypercholesterolemia
-AAA repair
-pt with chronic abx therapy from MSSA infection in 2018
Recommendations
- Results of MRI d/w pt. and daughter who are also employees at updated as well by me
- Given concern for new pancreatic cancer recommend ERCP and EUS with Dr Burgos
- Will need plavix 5 day washout
- Scheduled outpatient for Friday 06/22
- He is known to oncology for his prosate ca and will follow up with them. OP PET if indicated can be coordinated through their offices.
Pt family and hospitalist updated. Ok from GI perspective for hosp d/c today off plavix
GI will sign off please call for questions
Total Time Spent with Patient (in minutes): 58 mins of d/c planning done with coordinating with family and Dr Burgos
Subjective
Subjective
Date of Service: June 17, 2024
Tolerating diet. No abd pain/N/V. Denies itching.
Objective
Data Reviewed
Laboratory Data:
Laboratory Results
06/17/24 06:44
06/17/24 06:44
Laboratory Results
Magnesium 2.1 mg/dl (1.6-2.3) 06/17/24 06:44
Total Bilirubin 11.0 mg/dl (0.2-1.3) H 06/17/24 06:44
AST 192 U/L (17-59) H 06/17/24 06:44
ALT 293 U/L (0-50) H 06/17/24 06:44
Alkaline Phosphatase 655 U/L (38-126) H 06/17/24 06:44
Vital Signs and I&O:
Vital Signs
Temp Pulse Resp BP Pulse Ox
97.8 F 66 18 140/75 99
06/17/24 07:00 06/17/24 07:00 06/17/24 07:00 06/17/24 07:00 06/17/24 11:08
I&O
06/16/24 06/17/24 06/18/24
06:59 06:59 06:59
Intake Total 560 / 560
Balance 560 / 560
Physical Exam
Physical Exam
GEN: No acute distress, conversant, pleasant
HEENT: +icteric, extraocular movements intact, clear oropharynx without exudates
GI: soft, non-distended, obese not tender to palpation, normal active bowel sounds, no hepatosplenomegaly
EXT: warm, well perfused, no edema bilaterally
NEURO: AAOx3, non-focal
--- NOTE | 2024-06-17 13:36 | W.DCSUMMARY ---
Discharge Summary
Discharge Data
Date of Admission: 06/16/24
Date of Discharge: 06/17/24
-
Pending Results: Yes
Additional Pending Results:
CA 19-9
Hospital Course
Discharging Physician : Everett Cherry MD ; Sara Linda MD
Disposition : Home
Primary care physician : Gomez Gunderson
Principal Discharge diagnosis : Painless jaundice�pancreatic mass
Chronic Discharge diagnosis : Coronary artery disease s/p stent, hypertension, hypercholesterolemia, diabetes, AAA s/p repair
Hospital Course : 68-year-old male presented to the ER with yellowing of his skin and dark urination for more than 1 week, recent abnormal blood work results and further recommendations from the family doctor. Physical exam showed visible
yellowing of his skin and sclera. Labs showed elevated LFTs and bilirubin of 11.4. Ultrasound was performed which showed gallbladder sludge, MRI was done for further evaluation which showed mass within pancreatic neck and head, further workup was
warranted. He was followed by GI during his stay and he was scheduled an outpatient EUS/ERCP appointment with Dr. Burgos on 06/22. He was advised to hold Plavix Ozempic with Cipro until after the procedure Jardiance and metformin on the day of the
procedure and day before. He verified understanding
Important imaging findings : Abdominal ultrasound:
FINDINGS: The liver is top normal in size, measuring 17.1 cm with a smooth capsular contour and homogeneous echogenicity. There is no focal hepatic lesion or intrahepatic biliary dilation. The gallbladder is physiologically distended with fluid and
shows no shadowing calculi or wall thickening. Some gallbladder sludge is noted. No sonographic Sal's sign was elicited with examination. The common duct is enlarged at 1.2 cm. The pancreas, abdominal aorta and IVC are obscured, most likely by
overlying bowel gas. The spleen is normal in size and shows no focal abnormality. No signs of hydronephrosis, mass or calculi are seen in either kidney. The right kidney measured 10.3 cm in greatest length; the left kidney measured 12.6 cm in
greatest length. No free fluid is seen in the abdomen.
IMPRESSION: Gallbladder sludge. No findings to confirm cholelithiasis, gallbladder wall thickening or intrahepatic biliary tract dilatation. Enlarged common bile duct. Suggest MRI/MRCP for more complete evaluation.
Pancreas, abdominal aorta and IVC significantly obscured, most likely by overlying bowel gas.
Abdominal MRI:
FINDINGS: MRI of the abdomen is performed, consisting of navigator triggered coronal thin section fast spin-echo T2, respiratory triggered axial fast spin-echo T2 without and with fat saturation, axial T1-weighted gradient-echo in phase and out of
phase, axial diffusion-weighted, and dynamic contrast-enhanced axial fat saturated 3-D T1 weighted gradient echo sequence. Additionally, MRCP images are obtained, consisting of thin section heavily T2-weighted images, and multiple radial thick
section coronal oblique heavily T2-weighted images.
Trace amount of pleural fluid within the dependent portion of the lower chest bilaterally. There is no significant pericardial effusion identified.
Best seen on dynamic postcontrast images, within the head and neck of the pancreas, there is a focal area of decreased enhancement, with adjacent obstruction of the pancreatic duct, with the pancreatic duct measuring up to 5.8 mm in diameter.
The area of decreased enhancement within the pancreas measures approximately 3.7 cm AP by 2.5 cm transverse by 3.0 cm craniocaudal. There is tapered narrowing of the distal common bile duct within the head of the pancreas with dilation of the common
hepatic duct and the intrahepatic bile ducts as well as the gallbladder.
These findings very likely represent pancreatic carcinoma with resultant obstruction of the pancreatic duct. The carcinoma probably infiltrates around the common bile duct in the head of the pancreas resulting in tapered narrowing.
Additionally, the presumed carcinoma has mass effect upon the junction of the SMV with the main portal vein, along its right anterior margin, and appears to slightly invade the SMV.
There is no evidence for mass effect or encasement of the SMA.
The splenic vein remains patent. The main portal vein remains patent. The more inferior SMV is also patent
Small foci of decreased T2-weighted signal along the posterior aspect of the gallbladder, which probably corresponds to sludge seen on earlier ultrasound. Thin rim of increased T2-weighted signal surrounding the gallbladder lumen, suggesting mild
gallbladder wall thickening and/or pericholecystic edema, which is nonspecific.
On diffusion-weighted sequence image 120 of series 701, there is a subtle 3 mm focus of slightly increased diffusion-weighted signal. No corresponding finding can be seen within the liver on T2 weighted images or postcontrast images. Additionally,
there is a subtle 4 mm focus of increased diffusion-weighted signal in the right anterolateral liver, on page 25 of diffusion-weighted images, and appears to have subtle increased T2-weighted signal on image 25 of series 401, and a small focus of
arterial phase enhancement. This is nonspecific, but a small metastatic lesion cannot be excluded.
No other focal hepatic lesions are evident by MRI.
Spleen appears within normal limits.
Both adrenal glands appear normal.
No significant abnormality of the kidneys.
There is tortuosity of the abdominal aorta and evidence for atherosclerotic disease with no significant dilation.
There is a lymph node in the portal caval region, and this lymph node measures 2.7 cm transverse by 1.3 cm AP. This lymph node is slightly enlarged although still nonspecific, and could be a neoplastic lymph node, but could also be a reactive
inflammatory lymph node, especially in this region.
No other significantly enlarged abdominal lymph nodes are identified.
Mild levoconvex scoliosis of the lumbar spine. No gross evidence to suggest bony metastatic disease.
IMPRESSION: MR findings are highly suggestive of a mass lesion within the pancreatic neck and head, with resultant obstruction of the pancreatic duct. This very likely represents pancreatic carcinoma.
There is narrowing of the common bile duct within the head of the pancreas, which would suggest that this presumed carcinoma likely infiltrates around the common bile duct resulting in dilation.
There is mass effect and probable invasion of the right anterolateral margin of the SMV, at the junction with the main portal vein.
There are 2 subtle foci of increased diffusion-weighted signal within the liver as described. See above description. These are nonspecific but subtle metastatic lesions to the liver cannot be excluded. As warranted, further evaluation with PET/CT
scan may be helpful.
Enlarged lymph node in the portacaval region. This lymph node is nonspecific and could represent a neoplastic lymph node but could also be a reactive inflammatory lymph node.
Procedure findings : Schedule for EUS/ERCP as outpatient since he is on Plavix and needed to be held before the procedure.
Discharge Plan
-
Patient Disposition: Home (Routine Discharge)
Discharge Diagnosis/Procedures: Painless jaundice-likely secondary to pancreatic mass
Condition: Fair
Diet: As tolerated and Regular
Activity: No restrictions
Driving Restrictions: As prior to admission
Bathing Restrictions: OK to Shower
Activity Restrictions/Additional Instructions:
Hold Plavix till procedure. Hold Jardiance and metformin day prior to and on the day of procedure. Hold Vascepa, atorvastatin, Ozempic. Also follow instructions from the jewel waxer regarding Lantus insulin dose on the night prior and day of the
procedure.
Referrals:
Gomez Gunderson MD [Family Provider] - in less than 1 week
Campos Burgos MD [Active] - (06/22 for ERCP and EUS. Office will call day prior with timing)
Additional Discharge Medication Instructions: APPT: 06/22 for ERCP and EUS. Office will call day prior with timing
Hold Plavix until after ERCP/EUS on 06/22
Hold Vascepa until after ERCP/EUS on 06/22
Hold Ozempic until after ERCP/EUS on 06/22-review with prescribing physician before resuming.
Hold metformin and Jardiance on 06/21 and 06/22 only
Prescriptions:
Continued
aspirin 81 MG tablet,delayed release (DR/EC)
81 mg PO DAILY
ferrous sulfate [FeroSul] 325 MG tablet
325 mg PO HS
metoprolol succinate [Toprol XL] 25 MG tablet extended release 24 hr
50 mg PO BID
hydralazine 50 MG tablet
50 mg PO BID
cholecalciferol (vitamin D3) 2,000 UNITS tablet
2,000 units PO DAILY
losartan 25 mg Tablet
25 mg PO DAILY
furosemide 20 mg Tablet
20 mg PO DAILY
cephalexin 500 mg Capsule
500 mg PO TID
therapeutic multivitamin Tablet
1 tab PO DAILY
insulin glargine 100 unit/mL (3 mL) Insulin Pen
40 unit SC BID
tamsulosin 0.4 MG capsule
0.4 mg PO BID
Held
atorvastatin 40 MG tablet
40 mg PO DAILY
Hold Instructions: Resume on 07/01/24. till liver tests are normal.
metformin 1,000 mg Tablet
1,000 mg PO BID
Hold Instructions: Resume on 06/23/24. Appt scheduled for eus/ercp 06/22, hold the medication for 06/21 and 06/22 only
icosapent ethyl [Vascepa] 1 gram Capsule
2 g PO BID
Hold Instructions: Resume on 06/23/24. Appt scheduled for eus/ercp 06/22
Jardiance 10 mg Tablet
10 mg PO DAILY
Hold Instructions: Resume on 06/23/24. Hold the medication for 06/21 adnd06/22 only
Ozempic 1 mg/dose (4 mg/3 mL) Pen Injector
1 mg SC TU
Hold Instructions: Resume on 06/23/24. eus/ercp appt scheduled for 06/22
clopidogrel 75 MG tablet
75 mg PO DAILY
Hold Instructions: Resume on 06/22/24. Then resume when OK with GI doctor
Discharge Orders:
Discharge Patient (As Directed); Ordered 06/17/24
Ordered By: Everett Cherry
Discharge Date and Time
Discharge Date/Time: 06/17/24 15:02
Print Language: LATVIAN
[2024-06-17 14:49] VITALS: BP 147/83
--- NOTE | 2024-06-17 14:54 | CM ---
IA obtained by case management manager.
Lives in split level home. Independent and drives.
Will be driving home. No needs at this time.
PCP: Gomez Gunderson
Pharmacy: [facility]
Plan: Patient to return to home. No needs at this time.
--- NOTE | 2024-06-17 15:05 | PTCARENOTE ---
Discharge instructions and medication list reviewed to patients satisfaction. No further questions. IV site removed. Pt ambulated off floor with .
== END 2024-06-17 15:02 | disposition home or self-care (01) | DRG 442 ==
LOC: 3 WEST ACU 09:57
PROVIDERS: ADMITTING PHYSICIAN Hospitalist; CONSULT PHYSICIAN Internal Medicine Gastroenterology; EMERGENCY PHYSICIAN Emergency Medicine; FAMILY PHYSICIAN Internal Medicine
DX: R17 Unspecified jaundice (principal); N39.0 Urinary tract infection, site not specified
CPT/HCPCS: 74183; 76700; 80053; 82962; 83735; 85025; 85027; 86301; 96360; 99285; A9575

== ENCOUNTER 2024-06-22 09:37 | Day surgery (SDC) | payer BC, SELFPAY ==
[2024-06-22 12:09] VITALS: BMI 34.5
[2024-06-22 12:12] VITALS: BMI 34.5
[2024-06-22 12:20] VITALS: BP 137/69
[2024-06-22 12:33] LABS: Glucose - Point of Care 164 mg/dl (70-99)
[2024-06-22 15:57] VITALS: BP 133/72; BP 137/69
[2024-06-22 16:00] VITALS: BP 134/80
[2024-06-22 16:06] LABS: Glucose - Point of Care 146 mg/dl (70-99)
[2024-06-22 16:15] VITALS: BP 126/68
[2024-06-22 16:35] VITALS: BP 140/72
[2024-06-22 17:10] VITALS: BP 138/71
== END 2024-06-22 17:17 | disposition home or self-care (01) ==
LOC: SDS 09:37
PROVIDERS: ATTENDING PHYSICIAN Internal Medicine Gastroenterology
DX: C25.0 Malignant neoplasm of head of pancreas (principal); K86.89 Other specified diseases of pancreas; K83.8 Other specified diseases of biliary tract; R74.8 Abnormal levels of other serum enzymes; R17 Unspecified jaundice; R93.3 Abnormal findings on diagnostic imaging of other parts of digestive tract
CPT/HCPCS: 43274; 43238; 43262; 88172; 88173; 88305; 74330; 76000; 82962; 88177; 93005; C1769; C2617

== ENCOUNTER → 2024-06-29 11:28 | Outpatient (REF) | payer BC, SELFPAY ==
[2024-06-29 16:13] LABS: ALT (SGPT) 169 U/L (0-50); AST (SGOT) 67 U/L (17-59); Albumin 4.3 g/dl (3.5-5.0); Alkaline Phosphatase 362 U/L (38-126); Blood Urea Nitrogen 21 mg/dl (9-20); Calcium 9.6 mg/dl (8.4-10.2); Carbon Dioxide 25 mmol/L (22-30); Chloride 104 mmol/L (98-107); Glucose 174 mg/dl (70-99); Potassium 4.5 mmol/L (3.5-5.1); Sodium 138 mmol/L (135-145); Total Bilirubin 3.4 mg/dl (0.2-1.3); Total Protein 7.3 g/dl (6.3-8.2); eGFR > 60.00
== END ==
LOC: HWLAB 11:28
PROVIDERS: ATTENDING PHYSICIAN Internal Medicine Gastroenterology; FAMILY PHYSICIAN Internal Medicine
DX: K83.1 Obstruction of bile duct (principal)
CPT/HCPCS: 36415; 80053

== ENCOUNTER → 2024-07-08 11:25 | Outpatient (REF) | payer BC, SELFPAY ==
[2024-07-08 16:12] LABS: % Basophils 0.3 % (0-2); % Eosinophils 1.9 % (0-6); % Immature Granulocytes 0.3 % (0-0.5); % Lymphocytes 28.1 % (20.5-51.1); % Monocytes 9.8 % (1.7-9.3); % Neutrophils 59.6 % (42.2-75.2); Absolute Eosinophils 0.1 10^3/uL (0-0.7); Absolute Lymphocytes 1.6 10^3/uL (1.2-3.4); Absolute Monocytes 0.6 10^3/uL (0.1-0.6); Absolute Neutrophils 3.4 10^3/uL (1.4-6.5); Hematocrit 35.1 % (39.0-52.0); Hemoglobin 11.4 g/dL (13.0-18.0); Mean Corp Hgb Conc. 32.5 g/dL (33.0-37.0); Mean Corpuscular Hgb 30.7 pg (27.0-31.0); Mean Corpuscular Volume 94.6 fL (80.0-94.0); Mean Platelet Volume 10.4 fL (7.4-10.4); Nucleated Red Blood Cells % 0 % (-); Platelet Count 226 10^3/uL (130-400); Red Blood Cell Count 3.71 10^6/uL (4.70-6.10); Red Cell Dist. Width 16.1 % (11.5-14.5); White Blood Cell Count 5.7 10^3/uL (4.8-10.8)
[2024-07-08 16:22] LABS: ALT (SGPT) 61 U/L (0-50); AST (SGOT) 45 U/L (17-59); Albumin 4.2 g/dl (3.5-5.0); Alkaline Phosphatase 159 U/L (38-126); Blood Urea Nitrogen 24 mg/dl (9-20); Calcium 9.2 mg/dl (8.4-10.2); Carbon Dioxide 26 mmol/L (22-30); Chloride 103 mmol/L (98-107); Glucose 171 mg/dl (70-99); Potassium 4.2 mmol/L (3.5-5.1); Sodium 136 mmol/L (135-145); Total Bilirubin 2.1 mg/dl (0.2-1.3); Total Protein 6.9 g/dl (6.3-8.2); eGFR > 60.00
[2024-07-11 10:04] LABS: CA 19-9 <2 U/mL (<=35)
== END ==
LOC: HWLAB 11:25
PROVIDERS: ATTENDING PHYSICIAN Internal Medicine Hematology & Oncology; FAMILY PHYSICIAN Internal Medicine
DX: C25.0 Malignant neoplasm of head of pancreas (principal)
CPT/HCPCS: 36415; 80053; 85025; 86301

== ENCOUNTER → 2024-07-23 12:57 | Outpatient (REF) | payer BC, SELFPAY | LOC: PET 12:57 | PROVIDERS: ATTENDING PHYSICIAN Internal Medicine Hematology & Oncology | DX: C25.0 Malignant neoplasm of head of pancreas (principal) | CPT/HCPCS: 78815; A9552 ==

== ENCOUNTER → 2024-07-24 08:39 | Outpatient (REF) | payer BC, SELFPAY ==
[2024-07-24 08:58] VITALS: BP 150/83; BP_SYST 71
[2024-07-24] MEDS: ANCEF 10 IV (09:18)
[2024-07-24 11:13] VITALS: BP 137/70; BP_SYST 70
== END ==
LOC: RADI 08:39
PROVIDERS: ATTENDING PHYSICIAN Internal Medicine Hematology & Oncology; FAMILY PHYSICIAN Internal Medicine
DX: C25.0 Malignant neoplasm of head of pancreas (principal)
CPT/HCPCS: 36561; 76937; 77001; 99152; 99153; C1788

== ENCOUNTER → 2024-08-25 16:15 | Outpatient (REF) | payer BC, SELFPAY ==
[2024-08-25 15:19] LABS: % Basophils 0.1 % (0-2); % Eosinophils 1.5 % (0-6); % Lymphocytes 18.1 % (20.5-51.1); % Neutrophils 72.3 % (42.2-75.2); Absolute Eosinophils 0.1 10^3/uL (0-0.7); Absolute Lymphocytes 1.2 10^3/uL (1.2-3.4); Absolute Monocytes 0.5 10^3/uL (0.1-0.6); Absolute Neutrophils 4.9 10^3/uL (1.4-6.5); Hemoglobin 13.3 g/dL (13.0-18.0); Mean Corp Hgb Conc. 33.3 g/dL (33.0-37.0); Mean Corpuscular Hgb 31.5 pg (27.0-31.0); Mean Corpuscular Volume 94.8 fL (80.0-94.0); Mean Platelet Volume 10.1 fL (7.4-10.4); Platelet Count 172 10^3/uL (130-400); Red Blood Cell Count 4.22 10^6/uL (4.70-6.10); Red Cell Dist. Width 12.7 % (11.5-14.5); White Blood Cell Count 6.8 10^3/uL (4.8-10.8)
[2024-08-25 15:57] LABS: ALT (SGPT) 32 U/L (0-50); AST (SGOT) 33 U/L (17-59); Albumin 4.3 g/dl (3.5-5.0); Alkaline Phosphatase 70 U/L (38-126); Blood Urea Nitrogen 15 mg/dl (9-20); Calcium 9.1 mg/dl (8.4-10.2); Carbon Dioxide 27 mmol/L (22-30); Chloride 101 mmol/L (98-107); Glucose 186 mg/dl (70-99); Potassium 4.2 mmol/L (3.5-5.1); Sodium 141 mmol/L (135-145); Total Bilirubin 0.5 mg/dl (0.2-1.3); Total Protein 6.7 g/dl (6.3-8.2); eGFR > 60.00
== END ==
LOC: OIDL 16:15
PROVIDERS: ATTENDING PHYSICIAN Internal Medicine Hematology & Oncology
DX: C25.0 Malignant neoplasm of head of pancreas (principal)
CPT/HCPCS: 80053; 85025

== ENCOUNTER → 2024-09-11 10:13 | Outpatient (REF) | payer MEDICARE, OTHER, SELFPAY ==
[2024-09-11 12:40] LABS: Hematocrit 40.7 % (39.0-52.0); Hemoglobin 13.3 g/dL (13.0-18.0); Mean Corp Hgb Conc. 32.7 g/dL (33.0-37.0); Mean Corpuscular Hgb 29.8 pg (27.0-31.0); Mean Corpuscular Volume 91.1 fL (80.0-94.0); Mean Platelet Volume 10.3 fL (7.4-10.4); Platelet Count 166 10^3/uL (130-400); Red Blood Cell Count 4.47 10^6/uL (4.70-6.10); Red Cell Dist. Width 12.5 % (11.5-14.5); White Blood Cell Count 9.9 10^3/uL (4.8-10.8)
[2024-09-11 12:42] LABS: Urine Albumin Trace (Neg - Trace); Urine Bilirubin Negative (Negative); Urine Character Clear (Clear); Urine Color Yellow; Urine Glucose 3+ (Negative); Urine Ketone Negative (Negative); Urine Leukocyte Negative (Negative); Urine Nitrite Positive (Negative); Urine Occult Blood 2+ (Negative); Urine Specific Gravity 1.015 (<1.030); Urine Urobilinogen Negative (Neg - 1+)
[2024-09-11 12:51] LABS: Urine Hyaline Cast 0-2 /LPF (0-2)
[2024-09-11 12:52] LABS: Urine Bacteria Many (Negative); Urine White Cell 16-20 /HPF (0-5)
[2024-09-11 13:34] LABS: Absolute Neutrophils -Man Diff 6.3 10^3/uL (1.4-6.5); Band Neutrophils 12 % (0-3); Eosinophils 1 % (0-6); Lymphocytes 27 % (20-51); Metamyelocytes 1 % (-); Monocytes 7 % (2-9); Segmented Neutrophils 52 % (42-75)
[2024-09-11 13:35] LABS: Platelets Checked YES
[2024-09-11 13:37] LABS: ALT (SGPT) 24 U/L (0-50); AST (SGOT) 26 U/L (17-59); Alkaline Phosphatase 109 U/L (38-126); Blood Urea Nitrogen 13 mg/dl (9-20); Calcium 9.1 mg/dl (8.4-10.2); Carbon Dioxide 25 mmol/L (22-30); Chloride 102 mmol/L (98-107); Glucose 131 mg/dl (70-99); HDL Cholesterol 21 mg/dl; LDL Cholesterol, Calculated 6 mg/dl; Normal RBC Morphology Yes; Potassium 4.3 mmol/L (3.5-5.1); Sodium 141 mmol/L (135-145); Total Bilirubin 0.1 mg/dl (0.2-1.3); Total Cholesterol 64 mg/dl (50-199); Total Protein 6.5 g/dl (6.3-8.2); Triglyceride 185 mg/dl (10-149); Very Low Density Lipoprotein 37 mg/dl (0-30); eGFR > 60.00
[2024-09-11 13:40] LABS: Total Cells Counted 100
[2024-09-11 13:55] LABS: TSH Reflex To Free T4 2.68 uIU/ml (0.47-4.68)
[2024-09-11 14:15] LABS: Glycohemoglobin (HgbA1c) 7.6 % (4.0-5.6)
== END ==
LOC: HWLAB 10:13
PROVIDERS: ATTENDING PHYSICIAN Internal Medicine Hematology & Oncology; FAMILY PHYSICIAN Internal Medicine
DX: E11.9 Type 2 diabetes mellitus without complications (principal); E78.2 Mixed hyperlipidemia; I10 Essential (primary) hypertension; C25.0 Malignant neoplasm of head of pancreas
CPT/HCPCS: 36415; 80053; 80061; 81003; 81015; 83036; 84443; 85025

== ENCOUNTER → 2024-09-18 09:24 | Outpatient (REF) | payer MEDICARE, OTHER, SELFPAY ==
[2024-09-18 13:09] LABS: Urine Albumin Trace (Neg - Trace); Urine Bilirubin Negative (Negative); Urine Character Clear (Clear); Urine Color Yellow; Urine Glucose 3+ (Negative); Urine Ketone Negative (Negative); Urine Leukocyte Negative (Negative); Urine Nitrite Positive (Negative); Urine Occult Blood Trace (Negative); Urine Specific Gravity 1.015 (<1.030); Urine Urobilinogen Negative (Neg - 1+)
[2024-09-18 15:06] LABS: Urine Mucus Few
[2024-09-18 15:07] LABS: Urine Amorphous Seen; Urine Squamous Cell 0-2 /LPF (Few)
[2024-09-18 15:08] LABS: Urine Red Blood Cell 0-2 /HPF (0-2)
[2024-09-18 15:09] LABS: Urine Bacteria Moderate (Negative)
== END ==
LOC: HWLAB 09:24
PROVIDERS: ATTENDING PHYSICIAN Nurse Practitioner Adult Health; FAMILY PHYSICIAN Internal Medicine
DX: C25.0 Malignant neoplasm of head of pancreas (principal); E78.00 Pure hypercholesterolemia, unspecified
CPT/HCPCS: 81003; 81015; 87077; 87086; 87186

== ENCOUNTER → 2024-09-25 10:06 | Outpatient (REF) | payer MEDICARE, OTHER, SELFPAY ==
[2024-09-25 11:38] LABS: Hematocrit 39.4 % (39.0-52.0); Hemoglobin 13.2 g/dL (13.0-18.0); Mean Corp Hgb Conc. 33.5 g/dL (33.0-37.0); Mean Corpuscular Hgb 30.8 pg (27.0-31.0); Mean Corpuscular Volume 92.1 fL (80.0-94.0); Mean Platelet Volume 11.3 fL (7.4-10.4); Platelet Count 107 10^3/uL (130-400); Red Blood Cell Count 4.28 10^6/uL (4.70-6.10); Red Cell Dist. Width 12.3 % (11.5-14.5); White Blood Cell Count 4.8 10^3/uL (4.8-10.8)
[2024-09-25 11:40] LABS: ALT (SGPT) 23 U/L (0-50); AST (SGOT) 25 U/L (17-59); Albumin 3.8 g/dl (3.5-5.0); Alkaline Phosphatase 95 U/L (38-126); Blood Urea Nitrogen 17 mg/dl (9-20); Calcium 8.9 mg/dl (8.4-10.2); Carbon Dioxide 26 mmol/L (22-30); Chloride 101 mmol/L (98-107); Glucose 198 mg/dl (70-99); Potassium 4.1 mmol/L (3.5-5.1); Sodium 140 mmol/L (135-145); Total Bilirubin 0.2 mg/dl (0.2-1.3); Total Protein 6.3 g/dl (6.3-8.2); eGFR > 60.00
[2024-09-25 12:03] LABS: % Basophils 0.4 % (0-2); % Eosinophils 6.2 % (0-6); % Immature Granulocytes 5.4 % (0-0.5); % Lymphocytes 38.3 % (20.5-51.1); % Monocytes 14.8 % (1.7-9.3); % Neutrophils 34.9 % (42.2-75.2); Absolute Eosinophils 0.3 10^3/uL (0-0.7); Absolute Immature Granulocytes 0.3 10^3/uL (0-0.05); Absolute Lymphocytes 1.8 10^3/uL (1.2-3.4); Absolute Monocytes 0.7 10^3/uL (0.1-0.6); Absolute Neutrophils 1.7 10^3/uL (1.4-6.5); Nucleated Red Blood Cells % 0.4 % (-)
== END ==
LOC: HWLAB 10:06
PROVIDERS: ATTENDING PHYSICIAN Internal Medicine Hematology & Oncology; FAMILY PHYSICIAN Internal Medicine
DX: C25.0 Malignant neoplasm of head of pancreas (principal)
CPT/HCPCS: 36415; 80053; 85025

== ENCOUNTER 2024-10-01 20:47 | Inpatient (IN) | payer MEDICARE, OTHER, SELFPAY ==
[2024-10-01] VITALS (11 sets, daily range): BP systolic 81–152; BP diastolic 46–89; BMI 33.8; BMI 33.1
--- NOTE | 2024-10-01 17:26 | EDRN ---
Attempt to place acuna x4 failed. DAWNA Leon made aware.
[2024-10-01] MEDS: DILAUDID 0.5 MG IV (17:36)
--- NOTE | 2024-10-01 17:39 | EDRN ---
When RN scanned medication order placed for IV Dilaudid would not save when scanning patient's bracelet. When going to save medication it would state Dr. Mott was in chart. Dr. Mott is not signed up for patient. Medication
order was placed by DAWNA Villalobos, Verbal order entered by RN per verbal order from DAWNA Villalobos.
--- NOTE | 2024-10-01 17:49 | ED.GENMED ---
History of Present Illness
General
Chief Complaint: Urinary Symptoms
Source: patient
Time Seen by Provider: 10/01/24 17:38
History of Present Illness
History of Present Illness:
68yoM with a history of pancreatic cancer on chemotherapy as well as prior prostate cancer s/p radiation which finished in May 2023 presenting for evaluation of urinary retention. He has been unable to urinate since 10am this morning. He states he
has the urge to urinate but he is unable to. He is also having suprapubic discomfort. He is chronically on Flomax for urinary issues. He is chronically on Keflex and was recently on Cipro from 09/23/24-09/27/24 for a Pseudomonas UTI. He denies any
fevers, chills, vomiting.
Past History
Past History
ED Past Medical History: HTN, Hypercholesterolemia and NIDDM
ED Past Surgical History: Cardiac and Other (Eye surgery. [place] teeth, AAA repair)
Social History
Tobacco: Non-smoker
Alcohol: None
Drug: None
Personal:
Living: with family
Employment: Employed
Family History
Family History: Other (Non Contributory)
Phy Exam
Physical Exam
Physical Exam:
See above
General Physical Exam
General age: appears stated age
General Skin: warm and dry
General Habitus: elderly
General Mental: alert
ENT Exam
ENT Exam: normocephalic
Pulmonary Exam
Pulmonary Exam: no respiratory distress
Gastrointestinal Exam
Gastrointestinal Exam: soft and other (+Suprapubic tenderness with palpable bladder)
Genitourinary Exam Male
Exam Male: circumcised and other (Blood noted at urethral meatus)
[place] Coma Scale
Eye Opening: Spontaneous
Verbal Response: Oriented
Motor Response: Obeys Commands
GCS Total Score: 15
Skin Exam
Skin Exam: normal color and warm/dry
Psychiatric Exam
Psychiatric Exam: normal mood/affect
Course
Orders/Labs/Results
Orders:
Orders
10/01/24 17:02
Lidocaine 2% [Lidocaine Uro-Jet 2%] 1 syringe .ROUTE .STK-MED ONE
10/01/24 17:22
HYDROmorphone [Dilaudid] 0.5 mg IV NOW STA
10/01/24 17:35
HYDROmorphone [Dilaudid] 0.5 mg IV NOW STA
10/01/24 18:07
Electrocardiogram (*1) Urgent
Reason for Study: Syncope
EKG- Treatment ONCE
10/01/24 18:20
Complete Blood Count/With Diff Urgent
Comprehensive Metabolic Panel Urgent
PTT Urgent
Prothrombin Time Urgent
10/01/24 18:25
0.9% Sodium Chloride 500 ml [Nss] 500 ml IV BOLUS
10/01/24 19:32
Ciprofloxacin 400 mg/[id number] [Cipro 400 mg] 200 ml IV NOW
10/01/24 19:48
0.9% Sodium Chloride 500 ml [Nss] 500 ml IV BOLUS
10/01/24 20:24
Admit/Transfer Patient As Directed
Co-Sign Provider:
Level of Care: Inpatient admission
Assign to:: Medical/Surgical
Physician / Group: antolin
Diagnosis: urinary retention
Reason for Hospitalization: urinary retention
Expected length of stay greater than two midnights?: Yes
ELOS- Estimated Length of Stay in days: 2
I certify the patient meets the requirements for IP care: Yes
Code Status As Directed
Resuscitation Status: Full Code
PRN Pain Medication Management As Directed
May give lesser potent ordered pain med per pt: Yes
preference::
Protocol:: Medication orders for pain may be administered in a
manner that supports deferring to patient preference
when the pt is:
- Requesting an ordered lesser potent pain medication.
Least to most potent pain medications are defined
as: acetaminophen < NSAID < tramadol < opioids
(morphine, oxycodone, hydromorphone).
- Requesting a lesser dose of the same medication IF
ORDERED.
- Requesting a less intrusive route of administration
if both routes are prescribed by the provider (PO <
IV).
10/01/24 21:26
Urinalysis Reflex To Culture Urgent
Date Specimen was Collected: 10/01/24
Time Specimen was Collected: 20:00
Urine Microscopic Reflex Cult Urgent
Abnormal Lab Results
10/01/24 10/01/24
18:20 18:22
WBC 49.2 H* 10^3/uL
(4.8-10.8)
RBC 4.35 L 10^6/uL
(4.70-6.10)
Hct 38.4 L %
(39.0-52.0)
MPV 10.5 H fL
(7.4-10.4)
Abs Immat Gran (auto) 2.5 H 10^3/uL
(0-0.05)
Absolute Neuts (auto) 41.9 H 10^3/uL
(1.4-6.5)
Absolute Lymphs (auto) 3.9 H 10^3/uL
(1.2-3.4)
Absolute Monos (auto) 0.9 H 10^3/uL
(0.1-0.6)
Immature Gran % 5.0 H %
(0-0.5)
Neutrophils % 85.2 H %
(42.2-75.2)
Lymphocytes % 7.8 L %
(20.5-51.1)
Carbon Dioxide 19 L mmol/L
(22-30)
BUN 25 H mg/dl
(9-20)
Glucose 189 H mg/dl
(70-99)
Alkaline Phosphatase 152 H U/L
(38-126)
POC Glucose 205 H mg/dl
(70-99)
10/01/24 18:20
10/01/24 18:20
Vital Signs
Initial and Last Documented VS:
Initial Vital Signs
Temp Pulse Resp BP Pulse Ox
98.0 F 83 16 152/89 98
10/01/24 16:32 10/01/24 16:32 10/01/24 16:32 10/01/24 16:32 10/01/24 16:32
Last Documented Vital Signs
Temp Pulse Resp BP Pulse Ox
98.0 F 77 21 102/59 96
10/01/24 16:32 10/01/24 21:30 10/01/24 21:30 10/01/24 21:30 10/01/24 21:30
MDM/Problems Addressed
Differential Diagnosis Includes:
68yoM here with acute urinary retention. Has not urinated since 10am this morning. Hx of prostate cancer s/p radiation. Recent Pseudomonas UTI treated with Cipro. Currently undergoing chemotherapy for pancreatic cancer. VSS. He appears uncomfortable
but is non-toxic. Palpable bladder on exam. Bladder scan >640cc. Nursing staff attempted multiple times to place Combs catheter prior to my initial assessment without success. Blood noted at urethral meatus. Differential diagnosis includes but is
not limited to: urinary retention, BPH, urethral stricture
Initial ED plan: Urology consulted for catheter placement. Will avoid further attempts in ED to minimize trauma.
*EKG
Interpreted by ED Provider?: Yes
EKG Intrepretation Date: 10/01/24
Heart Rate: 76
Rate: normal
Rhythm: sinus, PAC's and PVC's
[place]: left axis deviation
Interval: normal interval
QRS Pattern: normal QRS
Ischemia: non-specific ST changes
*Critical Care Note
Total Time (30-74mins, 75-104mins- exclusive of procedures): Not Applicable
Update Note
Update Note:
While waiting for urology to come to bedside, patient had a syncopal episode while on the toilet. Patient noted to be pale and diaphoretic after this incident. Labs and EKG obtained. White count is significantly elevated at 49 although he did
receive Rolvedon injection earlier today. EKG shows NSR with PVCs without acute ischemic changes. Urology able to place Combs catheter and urine is dark yellow. IV Cipro given for prophylaxis given manipulation per urology recommendation. BP
remains soft 80s/50s while in ED. Fluid bolus ordered. Will admit for observation.
ED Attending Note
-
Portions of this chart may have been created with voice recognition software.� Occasional wrong word or��sound alike� substitutions may have occurred due to the inherent limitations of voice recognition software.
Discharge Plan
Departure
Patient Disposition: Admit
Date of Disposition: 10/01/24
Time of Disposition: 19:53
Presentation/result/management discussed w/ accepting MD/DO: Hospitalist
Discharge Problem:
Acute urinary retention, Syncope, Hypotension
Interventions
Interventions:
*Risk Screen - Suicide Last Done: 10/01/24 16:32
*General Assessment Last Done: 10/01/24 17:37
*Neglect/Abuse Screening Last Done: 10/01/24 16:32
ED- Fall Risk Assessment Last Done: 10/01/24 18:01
ED-Male Genitourinary Assessment Last Done: 10/01/24 17:41
--- NOTE | 2024-10-01 18:21 | EDRN ---
This RN called to room, pt sitting on toilet leaning head against 's abdomen. Pt diaphoretic and pale in color. Pt responding slowly to verbal stimuli. This RN called for assistance in room, stretcher brought into BR and with assistance of 4
other staff members patient moved to stretcher. Pt was able to stand by self and move to strecher with assistance of staff. Pt reports that he was attempting to urinate and was baring down, large amount of hematuria noted in toliet. EKG performed
and pt placed on monitor, LABs sent and 500 bolus ordered d/t MAP of 61. Pt currently pending urologist consult.
[2024-10-01 18:24] LABS: Glucose - Point of Care 205 mg/dl (70-99)
[2024-10-01] MEDS: NSS 500 IV ×2 (18:25→20:05)
[2024-10-01 18:41] LABS: Hematocrit 38.4 % (39.0-52.0); Mean Corp Hgb Conc. 33.9 g/dL (33.0-37.0); Mean Corpuscular Hgb 29.9 pg (27.0-31.0); Mean Corpuscular Volume 88.3 fL (80.0-94.0); Mean Platelet Volume 10.5 fL (7.4-10.4); Platelet Count 142 10^3/uL (130-400); Red Blood Cell Count 4.35 10^6/uL (4.70-6.10); Red Cell Dist. Width 13.2 % (11.5-14.5); White Blood Cell Count 49.2 10^3/uL (4.8-10.8)
--- NOTE | 2024-10-01 18:42 | EDRN ---
Dr. Wen at bedside.
[2024-10-01 18:45] LABS: INR 1.14; PT 14.6 Sec (11.4-14.6)
[2024-10-01 18:46] LABS: APTT 29.9 Sec (23.4-35.0)
[2024-10-01 18:50] LABS: ALT (SGPT) 34 U/L (0-50); AST (SGOT) 54 U/L (17-59); Alkaline Phosphatase 152 U/L (38-126); Blood Urea Nitrogen 25 mg/dl (9-20); Calcium 8.7 mg/dl (8.4-10.2); Carbon Dioxide 19 mmol/L (22-30); Chloride 103 mmol/L (98-107); Glucose 189 mg/dl (70-99); Potassium 3.8 mmol/L (3.5-5.1); Sodium 142 mmol/L (135-145); Total Bilirubin 0.3 mg/dl (0.2-1.3); Total Protein 6.6 g/dl (6.3-8.2); eGFR > 60.00
[2024-10-01 19:13] LABS: % Basophils 0.1 % (0-2); % Eosinophils 0.1 % (0-6); % Lymphocytes 7.8 % (20.5-51.1); % Monocytes 1.8 % (1.7-9.3); % Neutrophils 85.2 % (42.2-75.2); Absolute Eosinophils 0.1 10^3/uL (0-0.7); Absolute Immature Granulocytes 2.5 10^3/uL (0-0.05); Absolute Lymphocytes 3.9 10^3/uL (1.2-3.4); Absolute Monocytes 0.9 10^3/uL (0.1-0.6); Absolute Neutrophils 41.9 10^3/uL (1.4-6.5); Nucleated Red Blood Cells % 0 % (-)
--- NOTE | 2024-10-01 19:44 | CONS.URO ---
Consultation
-
Performing Provider: Peffer
Reason for Consultation: Difficult acuna
Medical History
History of Present Illness
68M hx of prostate cancer s/p radiation
Now on chemotherapy for pancreatic cancer
Had chemo today and unable to void for most of the day
Presented to ER and staff unable to place a catheter after multiple tries. Significant blood per meatus after.
He has not had significant voiding issues recently but was treated for a positive urine culture (asymptomatic) in the past two weeks - pseudomonas
He had one prior day of voiding trouble recently but most of the time feels his stream is good and he empties well
Past Medical History
Past Medical History: Hypercholesterolemia, NIDDM and Other (Prostate cancer, pancreatic cancer)
Social History
Tobacco: Non-smoker
Alcohol: None
Drug: None
Family History
Family History: Reviewed & Not Pertinent
Allergies/Home Medications
Allergies
Allergy/AdvReac Type Severity Reaction Status Date / Time
cat dander Allergy SNEEZING/STUFFY Verified 10/01/24 16:34
NOSE
dog dander Allergy SNEEZING/STUFFY Verified 10/01/24 16:34
NOSE
house dust Allergy Nasal Verified 10/01/24 16:34
congestion/sneezing
ibuprofen [From Advil] Allergy ANGIOEDEMA Verified 10/01/24 16:34
lisinopril Allergy ANGIOEDEMA Verified 10/01/24 16:34
olmesartan [From Benicar] Allergy ANGIOEDEMA Verified 10/01/24 16:34
tomato Allergy ANGIOEDEMA Verified 10/01/24 16:34
Home Medications
�Medication �Instructions �Recorded �Confirmed �Type
aspirin 81 mg tablet,delayed 81 mg PO DAILY Blood Clot 09/22/19 10/01/24 History
release Prevention/Tx
atorvastatin 40 mg tablet 40 mg PO DAILY High Cholesterol 09/22/19 10/01/24 History
ferrous sulfate 325 mg (65 mg 325 mg PO HS Supplement 09/22/19 10/01/24 History
iron) tablet (FeroSul)
hydralazine 50 mg tablet 50 mg PO BID Blood Pressure 09/22/19 10/01/24 History
metoprolol succinate 25 mg 50 mg PO BID Blood Pressure 09/22/19 10/01/24 History
tablet,extended release 24 hr
(Toprol XL)
cephalexin 500 mg capsule 500 mg PO TID Infection 01/15/23 10/01/24 History
empagliflozin 10 mg tablet 10 mg PO DAILY diabetes 01/15/23 10/01/24 History
(Jardiance)
furosemide 20 mg tablet 20 mg PO DAILY Fluid 01/15/23 10/01/24 History
Retention/Swelling
icosapent ethyl 1 gram capsule 2 g PO BID High Cholesterol 01/15/23 10/01/24 History
(Vascepa)
losartan 25 mg tablet 25 mg PO DAILY Blood Pressure 01/15/23 10/01/24 History
metformin 1,000 mg tablet 1,000 mg PO BID diabetes 01/15/23 10/01/24 History
clopidogrel 75 mg tablet 75 mg PO DAILY Blood Clot 06/16/24 10/01/24 History
Prevention/Tx
semaglutide 1 mg/dose (4 mg/3 mL) 1 mg SC TU diabetes 06/16/24 10/01/24 History
subcutaneous pen injector (Ozempic)
tamsulosin 0.4 mg capsule 0.4 mg PO BID Urinary Issue 06/16/24 10/01/24 History
therapeutic multivitamin 1 tab PO DAILY Supplement 06/16/24 10/01/24 History
cholecalciferol (vitamin D3) 50 50 mcg PO QPM 10/01/24 10/01/24 History
mcg (2,000 unit) tablet
insulin glargine-yfgn 100 unit/mL 40 unit SC BID 10/01/24 10/01/24 History
(3 mL) subcutaneous pen (Semglee
(insulin glargine-yfgn) Pen)
Physical Exam
Vital Signs
Vital Signs
Temp Pulse Resp BP Pulse Ox
98.0 F 76 7 100/49 96
10/01/24 16:32 10/01/24 19:00 10/01/24 19:00 10/01/24 19:00 10/01/24 19:00
Lab / Testing Results
Laboratory Results
10/01/24 18:20
10/01/24 18:20
Physical Exam
General: Well Developed, Well Nourished and No Apparent Distress
Respiratory: Clear
GI: Soft and Non Tender
Genito-urinary: Other (blood per meatus)
Neuro: AO x 3
Psych: Calm and Intact Judgement
Assessment / Plan
-
68M with prostate cancer s/p radiation
On chemotherapy for pancreatic cancer and recently treated asymptomatic pseudomonas urine colonization
Presenting with acute urinary retention due to urethral stricture, likely radiation induced
- Bedside cystoscopy performed showing large posterior false passage at bulbar urethra and low to moderate grade 12Fr urethral stricture which was dilated to 20Fr before placement of 18Fr [place] catheter
- Some blood per meatus around the catheter or hematuria can be expected
- Okay to resume Plavix if bleeding stops by tomorrow AM, otherwise hold x5 days
- Maintain catheter for 2 weeks prior to trial of void in the office
- May require further procedures to manage stricture disease depending on voiding function post catheter removal
- Recommend dose of cipro or levaquin for prophylaxis from manipulation
- Send UA/culture. Urine does not appear infected
Data Reviewed
-
Lab Data: Labs Reviewed
--- NOTE | 2024-10-01 20:27 | HPS.HSE ---
Family Physician
-
Family Physician: Gomez Gunderson
Chief Complaint
-
urinary retention
History of Present Illness
68-year-old male past medical history of prostate cancer status post radiation, pancreatic answer on chemotherapy currently which he received from Saturday to , CAD status post stent, abdominal aortic aneurysm status post repair,
hypertension, hypercholesterolemia, diabetes, presenting for urinary retention. He has been unable to urinate since 10 AM this morning. He has the urge to urinate but is unable to.
He takes chronic Keflex and was recently treated with ciprofloxacin from 09/23 to 09/27 for Pseudomonas UTI he denies any urinary symptoms, fevers or chills or nausea or vomiting.
He was given a dose of Rolvedon injection today.
Patient denies smoking or alcohol use.
Medical History
Past Medical History
Past Medical History: Reports Other (prostate cancer status post radiation, pancreatic answer on chemotherapy currently which he received from Saturday to , CAD status post stent, abdominal aortic aneurysm status post repair, hypertension,
hypercholesterolemia, diabetes)
Past Surgical History: Reports Other (Cardiac stents, AAA repair )
Social History
Tobacco: Non-smoker
Alcohol: None
Drug: None
Family History
Family History: Not pertinent
Allergies / Home Medications
Allergies reflects when Allergies were last updated in [facility].
Home Medications with original date entered in [facility]
Allergy/Medication List:
Allergies
Allergy/AdvReac Type Severity Reaction Status Date / Time
cat dander Allergy SNEEZING/STUFFY Verified 10/01/24 16:34
NOSE
dog dander Allergy SNEEZING/STUFFY Verified 10/01/24 16:34
NOSE
house dust Allergy Nasal Verified 10/01/24 16:34
congestion/sneezing
ibuprofen [From Advil] Allergy ANGIOEDEMA Verified 10/01/24 16:34
lisinopril Allergy ANGIOEDEMA Verified 10/01/24 16:34
olmesartan [From Benicar] Allergy ANGIOEDEMA Verified 10/01/24 16:34
tomato Allergy ANGIOEDEMA Verified 10/01/24 16:34
Home Medications
aspirin 81 mg tablet,delayed release 81 mg PO DAILY Blood Clot Prevention/Tx 09/22/19
atorvastatin 40 mg tablet 40 mg PO DAILY High Cholesterol 09/22/19
ferrous sulfate 325 mg (65 mg iron) tablet (FeroSul) 325 mg PO HS Supplement 09/22/19
hydralazine 50 mg tablet 50 mg PO BID Blood Pressure 09/22/19
metoprolol succinate 25 mg tablet,extended release 24 hr (Toprol XL) 50 mg PO BID Blood Pressure 09/22/19
cephalexin 500 mg capsule 500 mg PO TID Infection 01/15/23
empagliflozin 10 mg tablet (Jardiance) 10 mg PO DAILY diabetes 01/15/23
furosemide 20 mg tablet 20 mg PO DAILY Fluid Retention/Swelling 01/15/23
icosapent ethyl 1 gram capsule (Vascepa) 2 g PO BID High Cholesterol 01/15/23
losartan 25 mg tablet 25 mg PO DAILY Blood Pressure 01/15/23
metformin 1,000 mg tablet 1,000 mg PO BID diabetes 01/15/23
clopidogrel 75 mg tablet 75 mg PO DAILY Blood Clot Prevention/Tx 06/16/24
semaglutide 1 mg/dose (4 mg/3 mL) subcutaneous pen injector (Ozempic) 1 mg SC TU diabetes 06/16/24
tamsulosin 0.4 mg capsule 0.4 mg PO BID Urinary Issue 06/16/24
therapeutic multivitamin 1 tab PO DAILY Supplement 06/16/24
cholecalciferol (vitamin D3) 50 mcg (2,000 unit) tablet 50 mcg PO QPM 10/01/24
insulin glargine-yfgn 100 unit/mL (3 mL) subcutaneous pen (Semglee (insulin glargine-yfgn) Pen) 40 unit SC BID 10/01/24
Review of Systems
-
History Source: Patient
A 12 point ROS was completed and negative except as noted: Yes
Constitutional: Reports No Symptoms
EENT: Reports No Symptoms
Respiratory: Reports No Symptoms
Cardiac: Reports No Symptoms
Abdomen/GI: Reports No Symptoms
: Reports See HPI
Musculoskeletal: Reports No Symptoms
Skin: Reports No Symptoms
Neurological: Reports No Symptoms
Endocrine: Reports No Symptoms
Hematologic/Lymphatic: Reports No Symptoms
Psych: Reports No Symptoms
Physical Exam
Vital Signs
Vital Signs
Temp Pulse Resp BP Pulse Ox
98.0 F 76 7 100/49 96
10/01/24 16:32 10/01/24 19:00 10/01/24 19:00 10/01/24 19:00 10/01/24 19:00
Physical Exam
General: Well Developed, Well Nourished and No Apparent Distress
HEENT: NormoCephalic, Moist mucous membranes and Atraumatic
Respiratory: Clear
Cardiac: S1/S2 and Regular Rhythm; No Murmur or Rub
GI: Soft, Non Tender, Non Distended and Normal Bowel Sounds; No Organomegaly
Rectal: Deferred by Provider
Musculoskeletal: No Clubbing, No Cyanosis and No Edema
Skin: No Rash
Neuro: Nonfocal/grossly intact
Laboratory Results
-
10/01/24 18:20
10/01/24 18:20
Laboratory Results
PT 14.6 Sec (11.4-14.6) 10/01/24 18:20
INR 1.14 10/01/24 18:20
APTT 29.9 Sec (23.4-35.0) 10/01/24 18:20
Total Bilirubin 0.3 mg/dl (0.2-1.3) 10/01/24 18:20
AST 54 U/L (17-59) 10/01/24 18:20
ALT 34 U/L (0-50) 10/01/24 18:20
Alkaline Phosphatase 152 U/L (38-126) H 10/01/24 18:20
Data Reviewed
-
Lab Data: Labs Reviewed by me
Old Records: Reviewed
Impression/Plan
-
IMPRESSION:
PLAN:
# Acute urinary retention secondary to urethral stricture likely secondary to radiation
# History of prostate cancer status post radiation
-Urology performed bedside cystoscopy showing large posterior false passage bulbar urethra and low to moderate grade 12 [place] urethral stricture which was dilated to 20 [place] before placement of 18 [place] catheter with some hematuria after
-Urinalysis pending
-Ciprofloxacin dose given for manipulation prophylaxis
-Urology recommending to hold Plavix for 5 days unless bleeding stops by tomorrow in which case can be resumed
-Maintain catheter for 2 weeks
-Continue tamsulosin
-Continue chronic Keflex
# Leukocytosis secondary to Rolvedon versus less likely UTI
-Urinalysis pending
# Recent Pseudomonas UTI
-Completed 5-day course of ciprofloxacin
-Urinalysis pending
CAD status post stent
-Continue aspirin
-Hold Plavix
History of abdominal aortic aneurysm status post repair
Essential hypertension
-Hold hydralazine, losartan
-Continue metoprolol
Hypercholesterolemia
-Continue statin
-Continue Vascepa
Type 2 diabetes
-Continue Semglee 40 units twice daily
-Insulin sliding scale
-Hold metformin
-Hold Jardiance
Chronic lower extremity edema
-Hold Lasix
Full code
DVT prophylaxis�SCDs
Diabetic diet
[2024-10-01 21:35] LABS: Urine Albumin Trace (Neg - Trace); Urine Bilirubin Negative (Negative); Urine Character Clear (Clear); Urine Color Yellow; Urine Glucose 3+ (Negative); Urine Ketone Negative (Negative); Urine Leukocyte Negative (Negative); Urine Nitrite Negative (Negative); Urine Occult Blood 4+ (Negative); Urine Urobilinogen Negative (Neg - 1+)
[2024-10-01 21:55] LABS: Urine Red Blood Cell >100 /HPF (0-2)
[2024-10-01 21:56] LABS: Urine White Cell 0-2 /HPF (0-5)
--- NOTE | 2024-10-01 23:18 | PTCARENOTE ---
Pt arrived onto floor @2318. Pt AAOx3 and able to walk into room without assistance. Pt with no complaints of pain or SOB at this time. Pt oriented to room and call wen; will continue to monitor
[2024-10-01] MEDS: KEFLEX 500 MG PO (23:49)
[2024-10-01] MEDS: CIPRO 400 MG 200 IV (23:50)
[2024-10-01] MEDS: FEOSOL 325 MG PO (23:50)
[2024-10-02 00:13] VITALS: BP 112/71
[2024-10-02 06:39] LABS: Glucose - Point of Care 140 mg/dl (70-99)
[2024-10-02] MEDS: NOVOLOG FLEXPEN-LOW RESISTANCE SC (06:58)
[2024-10-02] MEDS: TOPROL XL PO (07:39)
[2024-10-02] MEDS: LIPITOR 40 MG PO (07:39)
[2024-10-02] MEDS: ASPIR LOW (ENTERIC COATED) 81 MG PO (07:39)
[2024-10-02] MEDS: FLOMAX 0.4 MG PO ×2 (07:39→20:59)
[2024-10-02] MEDS: THERAGRAN 1 TABLET PO (07:39)
[2024-10-02] MEDS: KEFLEX 500 MG PO ×3 (07:39→21:00)
[2024-10-02 07:45] VITALS: BP 120/63
[2024-10-02 08:25] LABS: ALT (SGPT) 29 U/L (0-50); AST (SGOT) 39 U/L (17-59); Alkaline Phosphatase 150 U/L (38-126); Blood Urea Nitrogen 22 mg/dl (9-20); Calcium 8.4 mg/dl (8.4-10.2); Carbon Dioxide 24 mmol/L (22-30); Chloride 104 mmol/L (98-107); Estimated Creatinine Clearance 71 ml/min; Glucose 117 mg/dl (70-99); Potassium 3.6 mmol/L (3.5-5.1); Sodium 141 mmol/L (135-145); Total Bilirubin < 0.1 mg/dl (0.2-1.3); Total Protein 5.3 g/dl (6.3-8.2); eGFR > 60.00
[2024-10-02 08:27] LABS: Hematocrit 32.3 % (39.0-52.0); Mean Corp Hgb Conc. 34.1 g/dL (33.0-37.0); Mean Corpuscular Hgb 31.1 pg (27.0-31.0); Mean Corpuscular Volume 91.2 fL (80.0-94.0); Red Blood Cell Count 3.54 10^6/uL (4.70-6.10); Red Cell Dist. Width 12.9 % (11.5-14.5); White Blood Cell Count 37.7 10^3/uL (4.8-10.8)
[2024-10-02] MEDS: NSS 1000 IV ×2 (10:04)
[2024-10-02 10:43] LABS: Platelet Count 84 10^3/uL (130-400)
[2024-10-02 10:46] LABS: % Basophils 0.4 % (0-2); % Eosinophils 0.2 % (0-6); % Immature Granulocytes 2.4 % (0-0.5); % Lymphocytes 5.3 % (20.5-51.1); % Monocytes 0.8 % (1.7-9.3); % Neutrophils 90.9 % (42.2-75.2); Absolute Basophils 0.2 10^3/uL (0-0.2); Absolute Eosinophils 0.1 10^3/uL (0-0.7); Absolute Immature Granulocytes 0.9 10^3/uL (0-0.05); Absolute Monocytes 0.3 10^3/uL (0.1-0.6); Absolute Neutrophils 34.3 10^3/uL (1.4-6.5); Nucleated Red Blood Cells % 0 % (-)
--- NOTE | 2024-10-02 10:55 | CM ---
regional commercial sales manager reviewed patient's chart and met with patient and patient lives with spouse in a split level home, patient is independent with adl's and ambulation, no dme, patient drives, patient to return to home at discharge and may benefit from
visiting nurses, employment evaluator/case manager reached out to [facility] liaison.
PCP: Dr. Gomez Gunderson
Pharmacy: [facility] in [place]
Plan; [facility]
[2024-10-02 11:36] LABS: Glucose - Point of Care 210 mg/dl (70-99)
--- NOTE | 2024-10-02 11:38 | VNURNOTE ---
Home Health Liaison met with patient and Andria at bedside to discuss [facility] nurse/therapy, visits, schedule and homebound status. Patient is agreeable and understands that visits at home will be 2-3 x per week to assess and teach medical
management and acuna care.
[facility] brochure provided with contact information. Patient is aware that [facility] will contact them for start of care in 1-2 days after discharge from .
[facility] referral completed in [facility].
--- NOTE | 2024-10-02 12:42 | W.PN.HOSP.TC ---
Today's Communication/Plan
-
DC planning
Assessment / Plan
Assessment / Plan
# Acute urinary retention secondary to urethral stricture likely secondary to radiation
# History of prostate cancer status post radiation
-Urology performed bedside cystoscopy 10/01 showing large posterior false passage bulbar urethra and low to moderate grade 12 [place] urethral stricture which was dilated to 20 [place] before placement of 18 [place] catheter with some hematuria after
-Urinalysis shows hematuria but no pyuria.
-Ciprofloxacin dose given for manipulation prophylaxis
-Urology recommending to hold Plavix for 5 days unless bleeding stops by today in which case can be resumed
-Maintain catheter for 2 weeks
-Continue tamsulosin
- Pt on chronic Keflex prophylaxis after bacteremia infection apparently
# Leukocytosis secondary to Rolvedon versus less likely UTI
-Urinalysis pending
# Recent Pseudomonas UTI
-Completed 5-day course of ciprofloxacin
CAD status post stent
-Continue aspirin
-Hold Plavix
History of abdominal aortic aneurysm status post repair
Essential hypertension
-Hold hydralazine, losartan for now .
-Continue metoprolol
Hypercholesterolemia
-Continue statin
-Continue Vascepa
Type 2 diabetes
-Continue Semglee 40 units twice daily
-Insulin sliding scale
-Hold metformin
-Hold Jardiance
Chronic lower extremity edema
-Hold Lasix
Full code
DVT prophylaxis�SCDs
Diabetic diet
DC home when ok from urology standpoint.
Anticipated Discharge: Today
Subjective/Interval History
-
Date of Service: October 02, 2024
Denies any fresh bleeding from penile urethra.
No fever or chills.
No nausea vomiting.
No abdominal pain.
Objective Data
-
Labs:
Laboratory Results
10/02/24
07:03
WBC 37.7 H
Hgb 11.0 L
Hct 32.3 L
Plt Count 84 L D
Sodium 141
Potassium 3.6
Chloride 104
Carbon Dioxide 24
BUN 22 H
Creatinine 1.1
Glucose 117 H
Calcium 8.4
Total Bilirubin < 0.1 L
AST 39
ALT 29
Alkaline Phosphatase 150 H
Vital Signs:
Vital Signs
Temp Pulse Resp BP Pulse Ox
98.4 F 72 18 120/63 95
10/02/24 07:45 10/02/24 07:45 10/02/24 07:45 10/02/24 07:45 10/02/24 07:45
I&O
10/01/24 10/02/24 10/03/24
06:59 06:59 06:59
Output Total 2199 / 2199
Balance -0 / -2199
Review of Systems
-
Respiratory: Denies Trouble Breathing
Cardiac: Denies Chest Pain
Neuro: Denies Dizzy
Physical Exam
-
General: No Apparent Distress
HEENT: Moist Mucous Membranes
Respiratory: Non Labored Respirations; Negative Accessory Resp Muscle Use
Cardiac: Regular Rhythm and S1/S2
GI: Soft and Nontender
Genito-urinary: Bloody Urine; Negative Combs
Neuro: AO x 3
Psych: Calm; Negative Confused
Data Reviewed
-
Labs: Labs Reviewed by me
[2024-10-02] MEDS: NOVOLOG FLEXPEN-LOW RESISTANCE 2 UNITS SC ×2 (12:47→17:55)
[2024-10-02 15:42] VITALS: BP 133/71
[2024-10-02 16:50] LABS: Glucose - Point of Care 238 mg/dl (70-99)
[2024-10-02] MEDS: VITAMIN D3 (cholecalciferol) 50 MCG PO (17:54)
[2024-10-02] MEDS: TOPROL XL 50 MG PO (20:59)
[2024-10-02] MEDS: FEOSOL 325 MG PO (21:00)
[2024-10-02 21:56] LABS: Glucose - Point of Care 297 mg/dl (70-99)
[2024-10-02] MEDS: NSS IV (22:10)
[2024-10-02] MEDS: LANTUS 0.4 UNITS SC (22:11)
[2024-10-02 23:00] VITALS: BP 142/79
--- NOTE | 2024-10-03 06:10 | PTCARENOTE ---
Pt slept well overnight with at bedside. No issues to report. Combs draining clear yellow urine. Vital signs stable. Pt tolerating PO, IVF capped. Will continue to monitor.
[2024-10-03] MEDS: NSS IV (06:11)
[2024-10-03 06:12] LABS: Hematocrit 31.9 % (39.0-52.0); Hemoglobin 10.6 g/dL (13.0-18.0); Mean Corp Hgb Conc. 33.2 g/dL (33.0-37.0); Mean Corpuscular Hgb 30.3 pg (27.0-31.0); Mean Corpuscular Volume 91.1 fL (80.0-94.0); Mean Platelet Volume 10.8 fL (7.4-10.4); Red Cell Dist. Width 12.8 % (11.5-14.5); White Blood Cell Count 30.4 10^3/uL (4.8-10.8)
[2024-10-03 06:13] LABS: Platelet Count 65 10^3/uL (130-400)
[2024-10-03 07:00] VITALS: BP 143/74
[2024-10-03 07:44] LABS: Glucose - Point of Care 158 mg/dl (70-99)
[2024-10-03] MEDS: NOVOLOG FLEXPEN-LOW RESISTANCE 1 UNITS SC ×2 (07:46→12:32)
[2024-10-03] MEDS: KEFLEX 500 MG PO (07:47)
[2024-10-03] MEDS: LANTUS 0.4 UNITS SC (07:47)
[2024-10-03] MEDS: ASPIR LOW (ENTERIC COATED) 81 MG PO (07:47)
[2024-10-03] MEDS: FLOMAX 0.4 MG PO (07:48)
[2024-10-03] MEDS: THERAGRAN 1 TABLET PO (07:48)
[2024-10-03] MEDS: TOPROL XL 50 MG PO (07:48)
[2024-10-03] MEDS: LIPITOR 40 MG PO (07:48)
--- NOTE | 2024-10-03 11:33 | CM ---
Plan: Discharge to Home today with [facility]
will transport home
IMM benefit explained; form signed @ 1130
[2024-10-03 11:48] LABS: Glucose - Point of Care 193 mg/dl (70-99)
--- NOTE | 2024-10-03 14:13 | W.PN.HOSP.TC ---
Today's Communication/Plan
-
DC
Assessment / Plan
Assessment / Plan
# Acute urinary retention secondary to urethral stricture likely secondary to radiation
# History of prostate cancer status post radiation
-Urology performed bedside cystoscopy 10/01 showing large posterior false passage bulbar urethra and low to moderate grade 12 Somali urethral stricture which was dilated to 20 Somali before placement of 18 Somali catheter with some hematuria after
-Urinalysis shows hematuria but no pyuria.
-Ciprofloxacin dose given for manipulation prophylaxis
-Urology recommending to hold Plavix for 5 days unless bleeding stops. With min bleeding at tip , will hold plavix till 5 days and resume.
-Maintain catheter for 2 weeks
-Continue tamsulosin
- Pt on chronic Keflex prophylaxis after bacteremia infection apparently
# Leukocytosis secondary to Rolvedon versus less likely UTI
-Urinalysis with hematuria only, no pyuria
# Thrombocytopenia - suspect sec to chemo. Has blood work next week . Advised to follow with onc.
# Recent Pseudomonas UTI
-Completed 5-day course of ciprofloxacin
CAD status post stent
-Continue aspirin
-Hold Plavix 5 days
History of abdominal aortic aneurysm status post repair
Essential hypertension
-Hold hydralazine, losartan for now .
-Continue metoprolol
Hypercholesterolemia
-Continue statin
-Continue Vascepa
Type 2 diabetes
-Continue Semglee 40 units twice daily
-Insulin sliding scale
-cw metformin
-With UTI issue ,i would dc Jardiance
Chronic lower extremity edema
-cw Lasix
Full code
DVT prophylaxis�SCDs
Diabetic diet
DC home today
Total time of dc 32 min
Anticipated Discharge: Today
Subjective/Interval History
-
Date of Service: October 03, 2024
Very min bleeding from penile urethra this morning
No fever or chills
Objective Data
-
Labs:
Laboratory Results
10/03/24
04:57
WBC 30.4 H
Hgb 10.6 L
Hct 31.9 L
Plt Count 65 L D
Vital Signs:
Vital Signs
Temp Pulse Resp BP Pulse Ox
98.4 F 76 21 142/79 95
10/02/24 23:00 10/02/24 23:00 10/02/24 23:00 10/02/24 23:00 10/03/24 00:27
I&O
10/02/24 10/03/24 10/04/24
06:59 06:59 05:59
Intake Total 1860 / 1860
Output Total 2200 / 0 2099 / 2099
Balance -2200 / -2200 -240 / -240
Review of Systems
-
Constitutional: Denies Fever
EENT: Denies Sore Throat
Respiratory: Denies Cough or Trouble Breathing
Cardiac: Denies Chest Pain
Abdomen/GI: Denies Abdominal Pain, Nausea, Vomiting or Diarrhea
Neuro: Denies Dizzy
Physical Exam
-
General: Comfortable
Respiratory: Non Labored Respirations; Negative Accessory Resp Muscle Use
Cardiac: Regular Rhythm and S1/S2
GI: Soft, Nontender, Nondistended and Normal Bowel Sounds
Genito-urinary: Clear Urine, Combs and Other (tip of the catheter with old dried up blood)
Neuro: AO x 3
Data Reviewed
-
Labs: Labs Reviewed by me
[2024-10-03 15:52] VITALS: BP 136/82
== END 2024-10-03 16:00 | disposition home health service (06) | DRG 436 ==
LOC: 4 WEST ACU 20:47
PROVIDERS: Physician Assistant; ADMITTING PHYSICIAN Hospitalist; ATTENDING PHYSICIAN Internal Medicine; EMERGENCY PHYSICIAN Emergency Medicine; FAMILY PHYSICIAN Internal Medicine; OTHER PHYSICIAN Urology
DX: C25.9 Malignant neoplasm of pancreas, unspecified (principal); N39.0 Urinary tract infection, site not specified; Z95.5 Presence of coronary angioplasty implant and graft; I25.10 Atherosclerotic heart disease of native coronary artery without angina pectoris; I10 Essential (primary) hypertension; E78.00 Pure hypercholesterolemia, unspecified; E11.9 Type 2 diabetes mellitus without complications; D69.6 Thrombocytopenia, unspecified; N35.919 Unspecified urethral stricture, male, unspecified site; Z85.46 Personal history of malignant neoplasm of prostate; Z92.3 Personal history of irradiation
CPT/HCPCS: 51798; 80053; 81003; 81015; 82962; 85025; 85027; 85610; 85730; 93005; 96361; 96374; 99285

== ENCOUNTER → 2024-10-09 12:11 | Outpatient (REF) | payer MEDICARE, OTHER, SELFPAY ==
[2024-10-09 16:21] LABS: ALT (SGPT) 23 U/L (0-50); AST (SGOT) 31 U/L (17-59); Albumin 3.9 g/dl (3.5-5.0); Alkaline Phosphatase 123 U/L (38-126); Blood Urea Nitrogen 12 mg/dl (9-20); Calcium 9.1 mg/dl (8.4-10.2); Carbon Dioxide 23 mmol/L (22-30); Chloride 103 mmol/L (98-107); Glucose 130 mg/dl (70-99); Potassium 4.5 mmol/L (3.5-5.1); Sodium 139 mmol/L (135-145); Total Bilirubin 0.3 mg/dl (0.2-1.3); Total Protein 6.6 g/dl (6.3-8.2); eGFR > 60.00
[2024-10-09 16:32] LABS: Hematocrit 33.3 % (39.0-52.0); Hemoglobin 11.1 g/dL (13.0-18.0); Mean Corp Hgb Conc. 33.3 g/dL (33.0-37.0); Mean Corpuscular Hgb 30.6 pg (27.0-31.0); Mean Corpuscular Volume 91.7 fL (80.0-94.0); Mean Platelet Volume 12.2 fL (7.4-10.4); Platelet Count 122 10^3/uL (130-400); Red Blood Cell Count 3.63 10^6/uL (4.70-6.10); Red Cell Dist. Width 13.2 % (11.5-14.5); White Blood Cell Count 7.1 10^3/uL (4.8-10.8)
[2024-10-09 16:33] LABS: Absolute Neutrophils -Man Diff 3.6 10^3/uL (1.4-6.5); Band Neutrophils 10 % (0-3); Eosinophils 3 % (0-6); Lymphocytes 24 % (20-51); Metamyelocytes 4 % (-); Monocytes 16 % (2-9); Myelocytes 1 % (-); Normal RBC Morphology No; Nucleated Red Blood Cells 3 (-); Platelets Checked Yes; Segmented Neutrophils 42 % (42-75)
[2024-10-09 16:34] LABS: Macrocytosis Slight; Total Cells Counted 100
== END ==
LOC: HWLAB 12:11
PROVIDERS: ATTENDING PHYSICIAN Internal Medicine Hematology & Oncology; FAMILY PHYSICIAN Internal Medicine
DX: C25.0 Malignant neoplasm of head of pancreas (principal)
CPT/HCPCS: 36415; 80053; 85025

== ENCOUNTER 2024-10-19 06:20 | Inpatient (IN) | payer MEDICARE, OTHER, SELFPAY ==
[2024-10-19] VITALS (11 sets, daily range): BP systolic 112–180; BP diastolic 62–100
--- NOTE | 2024-10-19 03:12 | ED.GENMED ---
History of Present Illness
General
Chief Complaint: Abdominal Pain
Source: patient, spouse and previous hospital records (Hospitalization June of this year for evaluation of painless jaundice, diagnosed with pancreatic carcinoma. Hospitalization October 01 of this year for acute urinary retention related to
urethral stricture)
Exam Limitations: none
Time Seen by Provider: 10/19/24 03:03
Nursing documentation reviewed up to this point in time: agreed with
History of Present Illness
History of Present Illness:
This is a 68-year-old gentleman who has history of prostate cancer status post radiation 2022. More recently diagnosed with pancreatic cancer June of this year receives chemotherapy from Saturday to and just completed his fourth round of
chemotherapy this past , October 15.
Most recently hospitalized here October 01 with acute urinary retention related to urethral stricture requiring urology instrumentation for urethral dilation and Combs catheter placement.
Combs catheter was removed on October 14. He has been voiding uneventfully since.
He presents this morning with complaints of severe right upper quadrant pain radiating to his right flank region that began around 9:30 PM last night, persistent throughout the night, unrelieved with antiacid/Gas-X. He passed a normal/large bowel
movement yesterday morning proceeded with some loose stool but has been passing his stools normally throughout the day. He denies nausea nor vomiting, no cough nor shortness of breath, no fever no chills. No history of similar episodes of right
upper quadrant pain. Patient describes the pain as 'an air bubble that will not move'
Past History
Past History
ED Past Medical History: Asthma, CAD, Cancer (Prostate cancer, pancreatic cancer), HTN, Hypercholesterolemia, IDDM, NIDDM and Other (Obstructive sleep apnea)
ED Past Surgical History: Cardiac and Other (Eye surgery. [place] teeth, AAA repair)
Social History
Tobacco: Non-smoker
Alcohol: None
Drug: None
Personal:
Living: with family
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
Family History
Family History: Other (Non Contributory)
Phy Exam
Physical Exam
Physical Exam:
GENERAL: 68-year-old gentleman appears his stated age, awake and alert, pleasant, appears in moderate distress related to pain. Cooperative. is accompanying.
EYE: pupils equal and reactive. anicteric
NECK: Supple, nontender, no meningismus, no significant adenopathy.
ENT: oral mucosa is moist. No rhinorrhea.
CARDIAC: Regular rate and rhythm. no murmur.
LUNGS: Clear breath sounds bilaterally, no acute respiratory distress, no wheezes/rales/rhonchi
ABDOMEN: Rotund, soft, nondistended, minimal tenderness right upper quadrant with deep palpation only, no r/g, no cvat. normoactive BS.
NEUROLOGICAL: Alert and oriented x3, no focal neuro deficits.
SKIN: Warm and dry, mildly pale in color, skin intact. No rash.
MUSCULOSKELETAL: No C/C/E. peripheral pulses are full and equal b/l. No palpable tenderness.
PSYCH: Normal and appropriate interaction.
Course
Orders/Labs/Results
Orders:
Orders
10/19/24 02:28
Electrocardiogram (*1) Urgent
Reason for Study: Abdominal Pain
EKG- Treatment ONCE
IV Insert/Care/Rem.- Treatment PRN
10/19/24 02:50
Complete Blood Count/With Diff Urgent
Urinalysis Reflex To Culture Urgent
Date Specimen was Collected: 10/19/24
Time Specimen was Collected: 02:28
10/19/24 03:12
0.9% Sodium Chloride 1000 ml [Nss] 1,000 ml IV BOLUS
HYDROmorphone [Dilaudid] 1 mg .ROUTE .STK-MED ONE
HYDROmorphone [Dilaudid] 1 mg IV NOW STA
10/19/24 03:27
CT Angio Abd/Pelvis w/wo IV [CT Abd/pelvis Angio W/wo Iv] Urgent
Comment:
Reason For Exam: severe RUQ-R back pain hx AAA, pancreatic ca
10/19/24 03:41
Comprehensive Metabolic Panel Urgent
Comment: REDRAW
Lactic Acid Urgent
Lipase Urgent
10/19/24 04:58
HYDROmorphone [Dilaudid] 1 mg IV NOW STA
10/19/24 05:20
0.9% Sodium Chloride 1000 ml [Nss] 1,000 ml IV 200 mls/hr
Piperacillin/Tazo 4.5 Gram [Zosyn] 4.5 gram in 100 ml IV NOW
10/19/24 06:09
Admit/Transfer Patient As Directed
Co-Sign Provider:
Level of Care: Inpatient admission
Assign to:: Telemetry
Physician / Group: Martin
Diagnosis: Acute Cholecystitis
Reason for Telemetry: Arrhythmia
Date to Stop Telemetry: 10/22/24
Time to Stop Telemetry: 11:00
Reason for Hospitalization: Acute Cholecystitis
Expected length of stay greater than two midnights?: Yes
ELOS- Estimated Length of Stay in days: 3
I certify the patient meets the requirements for IP care: Yes
PRN Pain Medication Management As Directed
May give lesser potent ordered pain med per pt: Yes
preference::
Protocol:: Medication orders for pain may be administered in a
manner that supports deferring to patient preference
when the pt is:
- Requesting an ordered lesser potent pain medication.
Least to most potent pain medications are defined
as: acetaminophen < NSAID < tramadol < opioids
(morphine, oxycodone, hydromorphone).
- Requesting a lesser dose of the same medication IF
ORDERED.
- Requesting a less intrusive route of administration
if both routes are prescribed by the provider (PO <
IV).
10/19/24 06:11
Code Status As Directed
Resuscitation Status: Full Code
10/19/24 07:14
Acetaminophen [Tylenol] 650 mg PO Q4HPRN PRN
10/22/24 11:00
DC Protocol for Telemetry ONCE
Abnormal Lab Results
10/19/24 10/19/24
02:50 03:41
WBC 30.8 H 10^3/uL
(4.8-10.8)
RBC 3.72 L 10^6/uL
(4.70-6.10)
Hgb 11.5 L g/dL
(13.0-18.0)
Hct 33.3 L %
(39.0-52.0)
Plt Count 62 L 10^3/uL
(130-400)
MPV 11.8 H fL
(7.4-10.4)
Abs Immat Gran (auto) 0.9 H 10^3/uL
(0-0.05)
Absolute Neuts (auto) 28.7 H 10^3/uL
(1.4-6.5)
Absolute Lymphs (auto) 0.7 L 10^3/uL
(1.2-3.4)
Immature Gran % 2.8 H %
(0-0.5)
Neutrophils % 93.3 H %
(42.2-75.2)
Lymphocytes % 2.2 L %
(20.5-51.1)
Monocytes % 0.7 L %
(1.7-9.3)
BUN 21 H mg/dl
(9-20)
Glucose 236 H mg/dl
(70-99)
Calcium 8.2 L mg/dl
(8.4-10.2)
Alkaline Phosphatase 264 H U/L
(38-126)
Total Protein 6.2 L g/dl
(6.3-8.2)
Lipase 18 L U/L
(23-300)
10/19/24 02:50
10/19/24 03:41
Vital Signs
Initial and Last Documented VS:
Initial Vital Signs
Temp Pulse Resp BP Pulse Ox
97.7 F 101 18 180/98 97
10/19/24 02:22 10/19/24 02:22 10/19/24 02:22 10/19/24 02:22 10/19/24 02:22
Last Documented Vital Signs
Temp Pulse Resp BP Pulse Ox
97.7 F 105 20 158/96 98
10/19/24 02:22 10/19/24 06:00 10/19/24 06:00 10/19/24 06:00 10/19/24 06:00
MDM/Problems Addressed
Differential Diagnosis Includes:
Concern for acute biliary colic/cholecystitis, renal colic, small bowel obstruction, ischemic bowel, diverticulitis, progression of pancreatic cancer.
Patient has history of AAA repair 2019. Concern for recurrent AAA is a possibility.
Will medicate for pain.
Labs are pending. Will add lactic acid.
Will plan for CT angiogram abdomen pelvis with and without contrast
Chronic conditions affecting care: DM, HTN, Previous abdomnial surgery, Immunosuppressed and Cancer
*Radiology
Radiology exam reviewed: radiology read reviewed (CAT scan shows plastic, bile duct stent in place with mild pneumobilia. Ill-defined mass consistent with pancreatic cancer in the pancreatic head. There is a new moderate wall thickening of the
gallbladder with surrounding inflammatory changes concerning for developing acute cholecystitis.)
*Pulse Oximetry
Patient hypoxic: no
*EKG
Interpreted by ED Provider?: Yes
Comparison EKG: no changes
Rate: normal
Rhythm: sinus and PVC's (Frequent unifocal PVCs)
[place]: normal axis
Interval: normal interval
QRS Pattern: normal QRS
Ischemia: no ischemia
*Team Assembly Line Machine Operator Interpretation
Rate: normal
Interpretation: normal
Rhythm: sinus and PVC's
*Critical Care Note
Total Time (30-74mins, 75-104mins- exclusive of procedures): Not Applicable
Update Note
Update Note:
Patient is much more comfortable after 2 IV doses of Dilaudid.
Labs are remarkable for significantly elevated white blood cell count of 30 but similar sporadic elevations noted and generally related to his Neupogen like medication he receives after chemo.
Alkaline phosphatase moderately elevated 264, was normal earlier this month. All other LFTs within normal limits.
CAT scan concerning for new finding of acute cholecystitis. Moderate wall thickening of the gallbladder with surrounding inflammatory changes.
Will initiate IV antibiotic and plan to admit to hospitalist service.
ED Attending Note
-
Portions of this chart may have been created with voice recognition software.� Occasional wrong word or��sound alike� substitutions may have occurred due to the inherent limitations of voice recognition software.
Discharge Plan
Departure
Patient Disposition: Admit
Date of Disposition: 10/19/24
Time of Disposition: 05:34
Admit to: Med/Surg
Admit to doctor: Martin
Presentation/result/management discussed w/ accepting MD/DO: Hospitalist
Condition: Fair
Discharge Problem:
Acute cholecystitis, Pancreatic cancer
Interventions
Interventions:
*Risk Screen - Suicide Last Done: 10/19/24 02:17
*General Assessment Last Done: 10/19/24 03:15
*Neglect/Abuse Screening Last Done: 10/19/24 02:17
ED- Fall Risk Assessment Last Done: 10/19/24 03:15
*ED COVID-19 Vaccine History Last Done: 10/19/24 03:15
LP-Ggbuec-Wihjoxrhts Assessment Last Done: 10/19/24 03:15
[2024-10-19 03:16] LABS: % Basophils 0.6 % (0-2); % Eosinophils 0.4 % (0-6); % Immature Granulocytes 2.8 % (0-0.5); % Lymphocytes 2.2 % (20.5-51.1); % Monocytes 0.7 % (1.7-9.3); % Neutrophils 93.3 % (42.2-75.2); Absolute Basophils 0.2 10^3/uL (0-0.2); Absolute Eosinophils 0.1 10^3/uL (0-0.7); Absolute Immature Granulocytes 0.9 10^3/uL (0-0.05); Absolute Lymphocytes 0.7 10^3/uL (1.2-3.4); Absolute Monocytes 0.2 10^3/uL (0.1-0.6); Absolute Neutrophils 28.7 10^3/uL (1.4-6.5); Hematocrit 33.3 % (39.0-52.0); Hemoglobin 11.5 g/dL (13.0-18.0); Mean Corp Hgb Conc. 34.5 g/dL (33.0-37.0); Mean Corpuscular Hgb 30.9 pg (27.0-31.0); Mean Corpuscular Volume 89.5 fL (80.0-94.0); Mean Platelet Volume 11.8 fL (7.4-10.4); Nucleated Red Blood Cells % 0 % (-); Platelet Count 62 10^3/uL (130-400); Red Blood Cell Count 3.72 10^6/uL (4.70-6.10); Red Cell Dist. Width 13.9 % (11.5-14.5); White Blood Cell Count 30.8 10^3/uL (4.8-10.8)
[2024-10-19] MEDS: DILAUDID 1 MG IV ×4 (03:16→18:38)
[2024-10-19] MEDS: NSS 1000 IV ×2 (03:16→05:31)
[2024-10-19 04:18] LABS: Lactic Acid 1.6 mmol/L (0.7-2.0)
[2024-10-19 04:19] LABS: ALT (SGPT) 25 U/L (0-50); AST (SGOT) 39 U/L (17-59); Albumin 3.7 g/dl (3.5-5.0); Alkaline Phosphatase 264 U/L (38-126); Blood Urea Nitrogen 21 mg/dl (9-20); Calcium 8.2 mg/dl (8.4-10.2); Carbon Dioxide 22 mmol/L (22-30); Chloride 103 mmol/L (98-107); Glucose 236 mg/dl (70-99); Lipase 18 U/L (23-300); Potassium 4.4 mmol/L (3.5-5.1); Sodium 138 mmol/L (135-145); Total Bilirubin 0.5 mg/dl (0.2-1.3); Total Protein 6.2 g/dl (6.3-8.2); eGFR > 60.00
[2024-10-19] MEDS: ZOSYN 100 IV (05:31)
--- NOTE | 2024-10-19 06:14 | HPS.HSE ---
Family Physician
-
Family Physician: Gomez Gunderson
Chief Complaint
-
Abd Pain
History of Present Illness
Patient is a 68y M with PMH significant for hypertension, DM-II and pancreatic cancer on chemotherapy who presents to ED complaining of RUQ pain. Patient states that he started to have pain on the R of his abdomen last PM around 21:00. He felt
'bloated' and took meds in an attempt to move his bowels - including Fleets enema. This resulted in a very small BM, but no change in his pain. Patient relates that he had had a single loose BM on Saturday morning and he took Imodium following this.
He complained of nausea without emesis. He noted that pain seemed to localize to the RUQ with radiation straight through to the R flank.
With persistent pain throughout the night, patient presented to the ED for further evaluation and treatment.
Patient has complicated PMH with pancreatic cancer, prior CBD stent, AAA repair, etc - however, he notes that he has never had symptoms similar to these in the past.
In the ED, patient is resting comfortably s/p narcotic pain medication.
Medical History
Past Medical History
Past Medical History: Reports Other
Additional Past Medical History:
Pancreatic Cancer Currently on Chemo
Prostate Cancer s/p XRT
Hypertension
DM-II
Urinary Retention
ASCVD
AAA / Infected AAA Graft
Past Surgical History: Reports Other
Additional Past Surgical History:
PTCA with Stent
AAA Endostent
Open AAA Repair
EUS with Pancreatic Biopsy
ERCP with CBD Stent
Social History
Tobacco: Non-smoker
Alcohol: None
Drug: None
Family History
Family History: Not pertinent
Allergies / Home Medications
Allergies reflects when Allergies were last updated in [facility].
Home Medications with original date entered in [facility]
Allergy/Medication List:
Allergies
Allergy/AdvReac Type Severity Reaction Status Date / Time
cat dander Allergy SNEEZING/STUFFY Verified 10/19/24 02:17
NOSE
dog dander Allergy SNEEZING/STUFFY Verified 10/19/24 02:17
NOSE
house dust Allergy Nasal Verified 10/19/24 02:17
congestion/sneezing
ibuprofen [From Advil] Allergy ANGIOEDEMA Verified 10/19/24 02:17
lisinopril Allergy ANGIOEDEMA Verified 10/19/24 02:17
olmesartan [From Benicar] Allergy ANGIOEDEMA Verified 10/19/24 02:17
tomato Allergy ANGIOEDEMA Verified 10/19/24 02:17
Home Medications
aspirin 81 mg tablet,delayed release 81 mg PO DAILY Blood Clot Prevention/Tx 09/22/19
atorvastatin 40 mg tablet 40 mg PO DAILY High Cholesterol 09/22/19
ferrous sulfate 325 mg (65 mg iron) tablet (FeroSul) 325 mg PO HS Supplement 09/22/19
metoprolol succinate 25 mg tablet,extended release 24 hr (Toprol XL) 50 mg PO BID PRN Blood Pressure 09/22/19
cephalexin 500 mg capsule 500 mg PO TID Infection 01/15/23
empagliflozin 10 mg tablet (Jardiance) 10 mg PO DAILY diabetes 01/15/23
furosemide 20 mg tablet 20 mg PO DAILY Fluid Retention/Swelling 01/15/23
icosapent ethyl 1 gram capsule (Vascepa) 2 g PO BID High Cholesterol 01/15/23
losartan 25 mg tablet 25 mg PO DAILY Blood Pressure 01/15/23
metformin 1,000 mg tablet 1,000 mg PO BID diabetes 01/15/23
clopidogrel 75 mg tablet 75 mg PO DAILY Blood Clot Prevention/Tx 06/16/24
semaglutide 1 mg/dose (4 mg/3 mL) subcutaneous pen injector (Ozempic) 1 mg SC WE diabetes 06/16/24
tamsulosin 0.4 mg capsule 0.4 mg PO BID Urinary Issue 06/16/24
therapeutic multivitamin 1 tab PO DAILY Supplement 06/16/24
cholecalciferol (vitamin D3) 50 mcg (2,000 unit) tablet 50 mcg PO QPM Supplement 10/01/24
insulin glargine-yfgn 100 unit/mL (3 mL) subcutaneous pen (Semglee (insulin glargine-yfgn) Pen) 40 unit SC BID PRN Diabetes 10/01/24
Review of Systems
-
History Source: Patient
A 12 point ROS was completed and negative except as noted: Yes
Constitutional: Denies Fever or Chills
Respiratory: Denies Cough or Trouble Breathing
Cardiac: Denies Chest Pain or Palpitations
Abdomen/GI: Reports Abdominal Pain and Nausea; Denies Vomiting or Diarrhea
: Reports Flank Pain; Denies Dysuria or Frequency
Neurological: Denies Dizzy or Headache
Psych: Denies Depression or Anxiety
Physical Exam
Vital Signs
Vital Signs
Temp Pulse Resp BP Pulse Ox
97.7 F 105 20 158/96 98
10/19/24 02:22 10/19/24 06:00 10/19/24 06:00 10/19/24 06:00 10/19/24 06:00
Physical Exam
General: Other (68y M in no acute distress.)
HEENT: Moist mucous membranes and PERRLA
Respiratory: Other (Decreased at bases - otherwise clear.)
Cardiac: S1/S2 and Tachycardia; No Murmur
GI: Soft, Non Distended, Normal Bowel Sounds and Other (Mild RUQ tenderness without rebound / guarding.)
Musculoskeletal: No Clubbing, No Cyanosis and No Edema
Neuro: AO x 3
Laboratory Results
-
10/19/24 02:50
10/19/24 03:41
Laboratory Results
Lactic Acid 1.6 mmol/L (0.7-2.0) 10/19/24 03:41
Total Bilirubin 0.5 mg/dl (0.2-1.3) 10/19/24 03:41
AST 39 U/L (17-59) 10/19/24 03:41
ALT 25 U/L (0-50) 10/19/24 03:41
Alkaline Phosphatase 264 U/L (38-126) H 10/19/24 03:41
Lipase 18 U/L (23-300) L 10/19/24 03:41
Impression/Plan
-
A/P: Patient is a 68y M with PMH significant for HTN, DM-II and pancreatic cancer on chemotherapy who presents to ED complaining of abdominal pain since last PM.
Acute Cholecystitis
Sepsis secondary to the above
- Admit for further evaluation and treatment.
- Patient presents with leukocytosis, tachycardia, tachypnea and CT scan / symptoms suggestive of acute cholecystitis.
- Has known pancreatic head mass / cancer and plastic stent in the CBD (placed 06/22/24).
- NPO, IVFs, supportive care.
- IV abx with Zosyn for now.
- Surgery evaluation for additional recommendations. ? cholecystectomy v IR for percutaneous drainage.
- Follow for any new / worsening symptoms.
Pancreatic Cancer on Chemotherapy
Leukocytosis
Thrombocytopenia
- Stable. Most recent chemo was this past week - ending on .
- He did receive Rolvedon on as well (G-CSF) which is likely contributing to his current leukocytosis.
- Low platelets likely secondary to chemo - follow levels and consider transfusion if needed prior to procedure(s).
- Follow for any new issues/ complaints.
Benign Hypertension
- Stable. Patient states that he stopped taking his metoprolol as his BP at home was running low.
- Will continue to hold for now.
- Follow BP and restart medications if needed.
DM-II
- Stable. Similarly, patient notes that he stopped taking his insulin 'unless needed'.
- Glucose is elevated on today's labs.
- A1C during last visit (09/2024) was 7.6%.
- Resume basal insulin at decreased dose for now.
- Follow glucose and cover with SSI as needed.
- Adjust regimen for glycemic control.
- Hold PO medications for now.
- Would discontinue Ozempic entirely in this patient with pancreatic cancer, biliary disease, etc.
Infected AAA
- History of endovascular repair complicated by bacteremia and requiring open repair.
- Now on lifelong suppression abx with cephalexin.
- Hold acutely while on alternate abx - resume cephalexin once Zosyn stopped / completed.
ASCVD
- Stable. No chest pain, dyspnea, etc.
- Continue ASA without interruption.
- Hold Plavix for now pending intervention(s).
- Monitor on telemetry.
Urinary Retention
History of Prostate Cancer s/p XRT
- Recent hospitalization for urinary retention requiring Combs decompression.
- Patient states that Combs was removed on 10/14 and he has been urinating without difficulty since that time.
- Continue tamsulosin.
- Bladder scan protocol.
DVT Prophylaxis: SCDs
Code Status: Full
[2024-10-19] MEDS: TYLENOL 650 MG PO ×3 (07:27→23:14)
--- NOTE | 2024-10-19 08:10 | PTCARENOTE ---
pt arrive to unit AAOx[facility]. pt ambulated from stretcher, to bathroom, voided, then returned to bed with no difficulty. history obtained, telemetry applied. -. pt c/o 05/11 pain in RUQ
--- NOTE | 2024-10-19 09:01 | CON.GS ---
Addendum entered and electronically signed by Michele Bradley MD 10/19/24 16:22:
Correction the patient is not on Eliquis but Plavix alone and his last dose was 10/18/2024.
Addendum entered and electronically signed by Michele Bradley MD 10/19/24 16:14:
I saw and examined the patient independently.
The [employer] Administrator's note was reviewed and I agree with the note, assessment and plan except where noted below.
Comment: This is a 5-year-old male with a history of prostate cancer, CAD on Eliquis and Plavix (last doses were Saturday morning), open AAA repair, known pancreatic cancer with abutment of the SMV (making this borderline resectable) on neoadjuvant
chemotherapy with plastic biliary stent placed in June who now presents with right upper quadrant pain and tenderness with CT imaging concerning for cholelithiasis and questionable acute cholecystitis. On exam there is no abdominal tenderness
present.
Somewhat difficult picture given questionable ACC in the setting of known pancreatic cancer. While surgical resection of the gallbladder might be extensive the most expedient, it would certainly delay his chemotherapy which given the extent of his
disease is the brady to possible surgical rule resection. I did reach out to his surgeon at [place], Dr Wiley to discuss his case over the phone. His preference would be to manage this with antibiotics alone and if necessary percutaneous
cholecystostomy tube, which I think is reasonable.
HIDA scan is positive however given the presence of a biliary stent this does not confirm that the cystic duct is truly obstructed.
Continue IV antibiotics.
Okay for full liquid low-fat diet
Continue to trend CBC, CMP.
Continue to hold anticoagulation, okay for DVT prophylaxis.
General surgery will continue to follow
Original Note:
Medical History
-
Chief Complaint: RUQ pain
History of Present Illness:
68 yo male with a history of prostate ca tx with XRT, CAD tx with stent, AAA repaired surgically, pancreatic cancer on active chemo (last chemo was with Rolvedon on 10/15) with prior ERCP for placement of stent in June for malignant
obstruction following with [facility] for chemo with plans to follow up for likely surgery after chemotherapy at [facility] who presents with RUQ which began last night around 2100. He also was feeling bloated and tried an enema to see if having a
BM would help but it did not. He had nausea but no vomiting. He notes that the pain is persistent and feels like somebody hit him in the upper abdomen. On exam, there is no abdominal tenderness present. He denies bladder or bowel changes. No
jaundice is present.
Past Medical History
Past Medical History: CAD (s/p stent (on plavix LD 10/18)), Cancer (prostate s/p XRT, pancreatic on chemotherapy), HTN, Hypercholesterolemia, NIDDM and Other (urinary retention, SAM, Pulmonary HTN)
Past Surgical History: Cardiac (stents, AAA endostent and open repair), Tonsilectomy and Other (EUS with pancreatic biopsy, ERCP with stent placement for malignant obstruction 06/2024)
Social History
Tobacco: Non-Smoker
Alcohol: None
Family History
Family History: Reviewed & Not Pertinent
Allergies / Home Medications
Allergy/AdvReac Type Severity Reaction Status Date / Time
cat dander Allergy SNEEZING/STUFFY Verified 10/19/24 02:17
NOSE
dog dander Allergy SNEEZING/STUFFY Verified 10/19/24 02:17
NOSE
house dust Allergy Nasal Verified 10/19/24 02:17
congestion/sneezing
ibuprofen [From Advil] Allergy ANGIOEDEMA Verified 10/19/24 02:17
lisinopril Allergy ANGIOEDEMA Verified 10/19/24 02:17
olmesartan [From Benicar] Allergy ANGIOEDEMA Verified 10/19/24 02:17
tomato Allergy ANGIOEDEMA Verified 10/19/24 02:17
�Medication �Instructions �Recorded �Confirmed �Type
aspirin 81 mg tablet,delayed 81 mg PO DAILY Blood Clot 09/22/19 10/19/24 History
release Prevention/Tx
atorvastatin 40 mg tablet 40 mg PO DAILY High Cholesterol 09/22/19 10/19/24 History
ferrous sulfate 325 mg (65 mg 325 mg PO HS Supplement 09/22/19 10/19/24 History
iron) tablet (FeroSul)
metoprolol succinate 25 mg 50 mg PO BIDPRN PRN Blood Pressure 09/22/19 10/19/24 History
tablet,extended release 24 hr
(Toprol XL)
cephalexin 500 mg capsule 500 mg PO TID Infection 01/15/23 10/19/24 History
empagliflozin 10 mg tablet 10 mg PO DAILY diabetes 01/15/23 10/19/24 History
(Jardiance)
furosemide 20 mg tablet 20 mg PO DAILY Fluid 01/15/23 10/19/24 History
Retention/Swelling
icosapent ethyl 1 gram capsule 2 g PO BID High Cholesterol 01/15/23 10/19/24 History
(Vascepa)
losartan 25 mg tablet 25 mg PO DAILY Blood Pressure 01/15/23 10/19/24 History
metformin 1,000 mg tablet 1,000 mg PO BID diabetes 01/15/23 10/19/24 History
semaglutide 1 mg/dose (4 mg/3 mL) 1 mg SC WE diabetes 06/16/24 10/19/24 History
subcutaneous pen injector (Ozempic)
tamsulosin 0.4 mg capsule 0.4 mg PO BID Urinary Issue 06/16/24 10/19/24 History
therapeutic multivitamin 1 tab PO DAILY Supplement 06/16/24 10/19/24 History
cholecalciferol (vitamin D3) 50 50 mcg PO QPM Supplement 10/01/24 10/19/24 History
mcg (2,000 unit) tablet
insulin glargine-yfgn 100 unit/mL 40 unit SC BIDPRN PRN Diabetes 10/01/24 10/19/24 History
(3 mL) subcutaneous pen (Semglee
(insulin glargine-yfgn) Pen)
Folfirinox 1 dose SC Q14D 10/19/24 10/19/24 History
clopidogrel 75 mg tablet (Plavix) 75 mg PO DAILY 10/19/24 10/19/24 History
eflapegrastim-xnst 13.2 mg/0.6 mL 13.2 mg SC Q14D 10/19/24 10/19/24 History
subcutaneous syringe (Rolvedon)
loperamide 2 mg tablet 2 mg PO BIDPRN PRN diarrhea 10/19/24 10/19/24 History
simethicone 80 mg chewable tablet 80 mg PO BIDPRN PRN gas 10/19/24 10/19/24 History
Review of Systems
-
History Source: Patient
All other systems: Negative unless noted
A 10 point review of systems was completed, and was negative except as per HPI.
Physical Exam
Vital Signs
Temp Pulse Resp BP Pulse Ox
98.4 F 105 18 160/98 93
10/19/24 08:09 10/19/24 08:09 10/19/24 08:09 10/19/24 08:09 10/19/24 08:09
10/18/24 10/19/24 10/20/24
06:59 06:59 06:59
Actual Weight 96.3 kg
Body Mass Index (BMI) 0.0
Lab Results
10/19/24 02:50
10/19/24 03:41
WBC 30.8 10^3/uL (4.8-10.8) H 10/19/24 02:50
Hgb 11.5 g/dL (13.0-18.0) L 10/19/24 02:50
Hct 33.3 % (39.0-52.0) L 10/19/24 02:50
Plt Count 62 10^3/uL (130-400) L 10/19/24 02:50
Abs Immat Gran (auto) 0.9 10^3/uL (0-0.05) H 10/19/24 02:50
Neutrophils % 93.3 % (42.2-75.2) H 10/19/24 02:50
Physical Exam
General: No Apparent Distress and Other (Chronically ill appearing)
HEENT: Normocephalic
Respiratory: Non Labored Respirations
GI: Soft, Non Tender and Non Distended
Skin: Warm, Dry and Other (pale)
Neuro: Awake, Alert and AO x 3
Psych: Calm
Assessment / Plan
-
68 yo male with a history of prostate ca tx with XRT, CAD tx with stent, CAD on plavix (LD 10/18), AAA repaired surgically, pancreatic cancer on active chemo (last chemo was with Rolvedon on 10/15) with prior ERCP for placement of stent in
June for malignant obstruction following with [facility] for chemo with plans to follow up for likely surgery after chemotherapy at [facility] with Dr Devin Wiley who presents with RUQ which began last night around 2100. He also was feeling
bloated and tried an enema to see if having a BM would help but it did not. He had nausea but no vomiting. Abdominal exam without tenderness present.
CT imaging reviewed: Cholelithiasis present with possible inflammatory changes, but not significant. Stent in good position. Not tender on exam
Leukocytosis present in the setting of recent Rolvedon dosing and similar to prior levels after this medication. Unreliable as marker for infection.
Normal bilirubin and transaminases
Afebrile. Stable VS but does have mild tachycardia initially which has resolved (He did report he missed dose of Toprol [facility])
Unclear his pain is secondary to cholecystitis given his exam and CT imaging findings.
--Keep NPO for testing
--Recommend additional imaging with MRCP vs HIDA. Given history of claustrophobia with mris, will check HIDA and follow
--Analgesics as needed
--Hold Plavix in case procedure warranted
[2024-10-19] MEDS: NOVOLOG FLEXPEN-MODERATE RESISTANCE SC (09:16)
[2024-10-19] MEDS: ASPIR LOW (ENTERIC COATED) 81 MG PO (09:16)
[2024-10-19] MEDS: PROTONIX IV 40 MG IV (09:16)
[2024-10-19] MEDS: FLOMAX 0.4 MG PO ×2 (09:16→20:50)
[2024-10-19] MEDS: LR 1000 IV ×2 (09:19→18:39)
[2024-10-19 11:55] LABS: Glucose - Point of Care 161 mg/dl (70-99)
[2024-10-19] MEDS: NOVOLOG FLEXPEN-MODERATE RESISTANCE 1 UNITS SC ×3 (12:02→23:01)
[2024-10-19] MEDS: ZOSYN 50 IV ×3 (12:02→23:16)
--- NOTE | 2024-10-19 12:26 | CM ---
Adm dx - acute cholecystitis
Met with pt and his at bedside
Pt reports he lives with his in a split-level home; 1 step to enter, 10 steps to 2nd fl
Retired, active, drives
DME - none
SNF - denies past hx
HH - [facility] in past
Has ride at discharge
PCP - [facility] Gunderson
Pharm - [facility] - [address]
Plan - anticipate home no needs when medically ready
--- NOTE | 2024-10-19 13:30 | W.PN.HOSP.TC ---
Today's Communication/Plan
-
Antibiotics
HIDA scan
Assessment / Plan
Assessment / Plan
Physical Exam
General: Other (68y M in no acute distress.)
HEENT: Moist mucous membranes and PERRLA
Respiratory: CTAB
Cardiac: S1/S2 and Tachycardia; No Murmur
GI: Soft, Non Distended, Normal Bowel Sounds and Other (Mild RUQ tenderness without rebound / guarding.)
Musculoskeletal: No Clubbing, No Cyanosis and No Edema
Neuro: AO x 3
A/P: Patient is a 68y M with PMH significant for HTN, DM-II and pancreatic cancer on chemotherapy who presents to ED complaining of abdominal pain since last PM.
Suspected Acute Cholecystitis
Transaminitis
Sepsis secondary to the above
- Has known pancreatic head mass / cancer and plastic stent in the CBD (placed 06/22/24).
- NPO, IVFs, supportive care.
- IV abx with Zosyn for now
- HIDA scan for better visualization
- Plavix on Hold
- Surgery evaluation for additional recommendations. ? cholecystectomy v IR for percutaneous drainage.
- Follow for any new / worsening symptoms.
Pancreatic Cancer on Chemotherapy
Leukocytosis
Thrombocytopenia
- Stable. Most recent chemo was this past week - ending on .
- He did receive Rolvedon on as well (G-CSF) which is likely contributing to his current leukocytosis.
- Low platelets likely secondary to chemo - follow levels and consider transfusion if needed prior to procedure(s).
- Follow for any new issues/ complaints.
Benign Hypertension
- Stable. Patient states that he stopped taking his metoprolol as his BP at home was running low.
- Will continue to hold for now.
- Follow BP and restart medications if needed.
DM-II
- Stable. Similarly, patient notes that he stopped taking his insulin 'unless needed'.
- A1C during last visit (09/2024) was 7.6%.
- Resume basal insulin at decreased dose for now.
- Follow glucose and cover with SSI as needed.
- Adjust regimen for glycemic control.
- Hold PO medications for now.
- Would discontinue Ozempic entirely in this patient with pancreatic cancer, biliary disease, etc.
Infected AAA
- History of endovascular repair complicated by bacteremia and requiring open repair.
- Now on lifelong suppression abx with cephalexin.
- Hold acutely while on alternate abx - resume cephalexin once Zosyn stopped / completed.
ASCVD
- Stable. No chest pain, dyspnea, etc.
- Continue ASA without interruption.
- Hold Plavix for now pending intervention(s).
- Monitor on telemetry.
Urinary Retention
History of Prostate Cancer s/p XRT
- Recent hospitalization for urinary retention requiring Combs decompression.
- Patient states that Combs was removed on 10/14 and he has been urinating without difficulty since that time.
- Continue tamsulosin.
- Bladder scan protocol.
DVT Prophylaxis: HSQ
Code Status: Full
Anticipated Discharge: > 48 hours
Subjective/Interval History
-
Date of Service: October 19, 2024
ruq pain - going towards the back
Objective Data
-
Labs:
Laboratory Results
10/19/24 10/19/24
02:50 03:41
WBC 30.8 H
Hgb 11.5 L
Hct 33.3 L
Plt Count 62 L
Sodium Cancelled 138
Potassium Cancelled 4.4
Chloride Cancelled 103
Carbon Dioxide Cancelled 22
BUN Cancelled 21 H
Creatinine Cancelled 0.9
Glucose Cancelled 236 H
Calcium Cancelled 8.2 L
Total Bilirubin Cancelled 0.5
AST Cancelled 39
ALT Cancelled 25
Alkaline Phosphatase Cancelled 264 H
Vital Signs:
Vital Signs
Temp Pulse Resp BP Pulse Ox
99.2 F 96 18 156/83 96
10/19/24 11:18 10/19/24 11:18 10/19/24 11:18 10/19/24 11:18 10/19/24 11:18
Review of Systems
-
History Source: Patient
All other systems: Not reviewed unless documented
Data Reviewed
-
CT Scan: Image personally visualized and interpreted and Report Reviewed by me
Labs: Labs Reviewed by me
--- NOTE | 2024-10-19 16:07 | PTCARENOTE ---
1551 HIDA Scan pre medication vital signs Temp 99.0 HR 96 RR 18 Bp 141/85 pox room air 94%. Morphine 2mg IV given as per order at 1553. Vital signs post medication administration at 1555 HR 98 RR 18 Bp 138/78 pox room air 92%. Patient denies
complaints.
[2024-10-19 18:12] LABS: Glucose - Point of Care 196 mg/dl (70-99)
[2024-10-19] MEDS: HEPARIN 5000 UNITS SC (20:49)
[2024-10-19 22:50] LABS: Glucose - Point of Care 175 mg/dl (70-99)
[2024-10-19] MEDS: LANTUS 0.2 UNITS SC (22:53)
[2024-10-20 04:00] VITALS: BP 124/69
[2024-10-20] MEDS: LR 1000 IV (04:01)
[2024-10-20 04:36] VITALS: BMI 32.1
[2024-10-20] MEDS: ZOSYN 50 IV ×2 (05:13→12:05)
[2024-10-20 05:36] LABS: Hematocrit 28.5 % (39.0-52.0); Hemoglobin 9.3 g/dL (13.0-18.0); Mean Corp Hgb Conc. 32.6 g/dL (33.0-37.0); Mean Corpuscular Hgb 29.9 pg (27.0-31.0); Mean Corpuscular Volume 91.6 fL (80.0-94.0); Mean Platelet Volume 12.5 fL (7.4-10.4); Platelet Count 39 10^3/uL (130-400); Red Blood Cell Count 3.11 10^6/uL (4.70-6.10); White Blood Cell Count 6.6 10^3/uL (4.8-10.8)
[2024-10-20 05:57] LABS: ALT (SGPT) 19 U/L (0-50); AST (SGOT) 26 U/L (17-59); Albumin 3.1 g/dl (3.5-5.0); Alkaline Phosphatase 148 U/L (38-126); Blood Urea Nitrogen 17 mg/dl (9-20); Calcium 7.9 mg/dl (8.4-10.2); Carbon Dioxide 24 mmol/L (22-30); Chloride 103 mmol/L (98-107); Direct Bilirubin 0.3 mg/dl (0.0-0.4); Estimated Creatinine Clearance 78 ml/min; Glucose 145 mg/dl (70-99); Potassium 4.6 mmol/L (3.5-5.1); Sodium 138 mmol/L (135-145); Total Bilirubin 0.9 mg/dl (0.2-1.3); Total Protein 5.5 g/dl (6.3-8.2); eGFR > 60.00
[2024-10-20 06:17] LABS: Glucose - Point of Care 148 mg/dl (70-99)
[2024-10-20] MEDS: NOVOLOG FLEXPEN-MODERATE RESISTANCE SC (06:39)
[2024-10-20 07:16] VITALS: BP 135/77
--- NOTE | 2024-10-20 07:41 | W.PN.GS2 ---
Today's Communication / Plan
-
-- Clears, ADAT to LFD
-- Abx: Zosyn, though symptoms have resolved would tentatively plan for 10 day course of Augmentin, consider ID consult given current suppressive outpatient regimen with Keflex
-- OK to resume Plavix if tolerating diet
-- Outpatient follow-up with Surg Onc at [facility]
Assessment / Plan
-
Patient is a 68 yo M p/w symptomatic cholelithiasis, likely biliary colic given current resolution of symptoms
AVSS
Labs notable for normalization and WBC, bilirubin and LFTs remain normal, downtrending ALP
The natural history and pathophysiology of biliary stone disease previously discussed. Current workup was reviewed including CT scan and HIDA scan. Discussions yesterday with Surgical Dncologist at [place] (Dr. Wiley) recommendation for
management with antibiotics and if symptoms recur, persist, or worsen recommend management of his gallbladder with a cholecystostomy tube.
-- Clears, ADAT to LFD
-- Abx: Zosyn, though symptoms have resolved would tentatively plan for 10 day course of Augmentin, consider ID consult given current suppressive outpatient regimen with Keflex
-- OK to resume Plavix if tolerating diet
-- Outpatient follow-up with Surg Onc at [facility]
Subjective Data
-
Date of Service: October 20, 2024
No complaints. Pain improved and resolved. No nausea or vomiting. No fevers. Initial tach began on Saturday evening resolved yesterday evening, approximately 24 hours. No history of prior attacks. No jaundice, pale stools, or tea colored urine.
Objective Data
-
Intake and Output
10/19/24 10/20/24 10/21/24
06:59 06:59 06:59
Intake Total 1300 / 1300
Balance 1300 / 1300
Intake:
IV fluids (Total) 1200 / 1200
IV piggybacks 100 / 100
Other:
Number of approximated LARGE 2
amounts of urine
Vital Signs
Temp Pulse Resp BP Pulse Ox
98.8 F 87 18 124/69 95
10/20/24 04:00 10/20/24 04:00 10/20/24 04:00 10/20/24 04:00 10/20/24 04:00
Lab Results
10/20/24 04:37
10/20/24 04:37
Calcium 7.9 mg/dl (8.4-10.2) L 10/20/24 04:37
Total Bilirubin 0.9 mg/dl (0.2-1.3) 10/20/24 04:37
Direct Bilirubin 0.3 mg/dl (0.0-0.4) 10/20/24 04:37
AST 26 U/L (17-59) 10/20/24 04:37
ALT 19 U/L (0-50) 10/20/24 04:37
Alkaline Phosphatase 148 U/L (38-126) H 10/20/24 04:37
Total Protein 5.5 g/dl (6.3-8.2) L 10/20/24 04:37
Albumin 3.1 g/dl (3.5-5.0) L 10/20/24 04:37
Physical Exam
-
Gen: NAD
Abd: soft, NT/ND/obese, non-peritoneal, negative Sal's sign, prior midline incision well healed
[2024-10-20] MEDS: NSS (PRESERVATIVE FREE) 10 ML IV (08:37)
[2024-10-20] MEDS: FLOMAX 0.4 MG PO (08:37)
[2024-10-20] MEDS: ASPIR LOW (ENTERIC COATED) 81 MG PO (08:37)
[2024-10-20] MEDS: PROTONIX IV 40 MG IV (08:37)
[2024-10-20] MEDS: HEPARIN 5000 UNITS SC (08:38)
[2024-10-20 09:50] LABS: Glucose - Point of Care 159 mg/dl (70-99)
[2024-10-20 11:20] VITALS: BP 113/61
--- NOTE | 2024-10-20 11:52 | W.PN.HOSP.TC ---
Today's Communication/Plan
-
Surgery spoke to [facility] for further plans - recommendation for management with antibiotics and if symptoms recur, persist, or worsen recommend management of his gallbladder with a cholecystostomy tube
- Augmentin x 10 days
-OK to resume Plavix if tolerating diet
-- Outpatient follow-up with Surg Onc at [facility]
-Spoke to ID; can resume cephalexin once Augmentin course has been completed
F/u CBC outpatient monitoring plt
Hold lasix, losartan
F/u PCP, Surg/Onc outpatient
Assessment / Plan
Assessment / Plan
Physical Exam
General: Other (68y M in no acute distress.)
HEENT: Moist mucous membranes and PERRLA
Respiratory: CTAB
Cardiac: S1/S2 and Tachycardia; No Murmur
GI: Soft, Non Distended, Normal Bowel Sounds and Other (Mild RUQ tenderness without rebound / guarding.)
Musculoskeletal: No Clubbing, No Cyanosis and No Edema
Neuro: AO x 3
A/P: Patient is a 68y M with PMH significant for HTN, DM-II and pancreatic cancer on chemotherapy who presents to ED complaining of abdominal pain since last PM.
symptomatic cholelithiasis, likely biliary colic
Transaminitis
Sepsis secondary to the above
- Has known pancreatic head mass / cancer and plastic stent in the CBD (placed 06/22/24).
-Pain resolved
- Surgery spoke to [facility] for further plans - recommendation for management with antibiotics and if symptoms recur, persist, or worsen recommend management of his gallbladder with a cholecystostomy tube
- Augmentin x 10 days
-OK to resume Plavix if tolerating diet
-- Outpatient follow-up with Surg Onc at [facility]
-Spoke to ID; can resume cephalexin once Augmentin course has been completed
Pancreatic Cancer on Chemotherapy
Leukocytosis
Thrombocytopenia
- Stable. Most recent chemo was this past week - ending on .
- He did receive Rolvedon on as well (G-CSF) which is likely contributing to his current leukocytosis.
- Low platelets likely secondary to chemo - follow levels and consider transfusion if needed prior to procedure(s).
- Follow for any new issues/ complaints.
Follow-up CBC outpatient
Benign Hypertension
- Stable. Patient states that he stopped taking his metoprolol as his BP at home was running low.
- Hold losartan, Lasix for now
� Metoprolol is already on as needed
� Can restart Lasix if noticing lower extremity edema, weight gain
- Follow BP and restart medications if needed.
DM-II
- Stable. Similarly, patient notes that he stopped taking his insulin 'unless needed'.
- A1C during last visit (09/2024) was 7.6%.
- Follow glucose and cover with SSI as needed.
- Adjust regimen for glycemic control.
- Resume home medications as patient now eating normally
- Would discontinue Ozempic entirely in this patient with pancreatic cancer, biliary disease, etc.
Infected AAA
- History of endovascular repair complicated by bacteremia and requiring open repair.
- Now on lifelong suppression abx with cephalexin.
- Hold acutely while on Augmentin; resume cephalexin once Augmentin completed; spoke to ID, called patient to reaffirm plan.
ASCVD
- Stable. No chest pain, dyspnea, etc.
- Continue ASA without interruption.
- Plavix
- Monitor on telemetry.
Urinary Retention
History of Prostate Cancer s/p XRT
- Recent hospitalization for urinary retention requiring Combs decompression.
- Patient states that Combs was removed on 10/14 and he has been urinating without difficulty since that time.
- Continue tamsulosin.
- Bladder scan protocol.
DVT Prophylaxis: HSQ
Code Status: Full
More than 30 minutes spent in discharge including
Final examination of the patient
Summarizing hospital stay
Instructions for continuing care to all relevant caregivers
Preparation of discharge records, prescriptions, and referral forms
Total time spent (37 in minutes):
Anticipated Discharge: Today
Subjective/Interval History
-
Date of Service: October 20, 2024
pain resolved
Objective Data
-
Labs:
Laboratory Results
10/20/24
04:37
WBC 6.6
Hgb 9.3 L
Hct 28.5 L
Plt Count 39 L D
Sodium 138
Potassium 4.6
Chloride 103
Carbon Dioxide 24
BUN 17
Creatinine 1.0
Glucose 145 H
Calcium 7.9 L
Total Bilirubin 0.9
AST 26
ALT 19
Alkaline Phosphatase 148 H
Vital Signs:
Vital Signs
Temp Pulse Resp BP Pulse Ox
98 F 94 16 113/61 95
10/20/24 11:20 10/20/24 11:20 10/20/24 11:20 10/20/24 11:20 10/20/24 11:20
I&O
10/19/24 10/20/24 10/21/24
06:59 06:59 06:59
Intake Total 1300 / 1300
Balance 1300 / 1300
Review of Systems
-
History Source: Patient
All other systems: Not reviewed unless documented
Data Reviewed
-
CT Scan: Image personally visualized and interpreted and Report Reviewed by me
Labs: Labs Reviewed by me
[2024-10-20] MEDS: NOVOLOG FLEXPEN-MODERATE RESISTANCE 1 UNITS SC (12:07)
--- NOTE | 2024-10-20 12:08 | W.DS.TRANS ---
DC Summary - [employer]
-
Discharge Instructions:
Discharge Diagnosis/Procedures symptomatic cholelithiasis, likely biliary colic
Diet Low Fat,Diabetic, Carb Controlled
Activity As tolerated
Blood Work cbc in 3 days with PCP/Oncology (Platelets Lower
- 39 on day of DC(has been seen in 60s lately))
Other Services OT,PT
Instructions:
Stand-Alone Forms:
Changes to Home Medications: Yes
Discharge Medications:
DC Medications w/original date entered in [facility]
aspirin 81 mg tablet,delayed release 81 mg PO DAILY Blood Clot Prevention/Tx 09/22/19
atorvastatin 40 mg tablet 40 mg PO DAILY High Cholesterol 09/22/19
ferrous sulfate 325 mg (65 mg iron) tablet (FeroSul) 325 mg PO HS Supplement 09/22/19
metoprolol succinate 25 mg tablet,extended release 24 hr (Toprol XL) 50 mg PO BIDPRN PRN Blood Pressure 09/22/19
cephalexin 500 mg capsule 500 mg PO TID Infection 01/15/23
empagliflozin 10 mg tablet (Jardiance) 10 mg PO DAILY diabetes 01/15/23
furosemide 20 mg tablet 20 mg PO DAILY Fluid Retention/Swelling 01/15/23
icosapent ethyl 1 gram capsule (Vascepa) 2 g PO BID High Cholesterol 01/15/23
losartan 25 mg tablet 25 mg PO DAILY Blood Pressure 01/15/23
metformin 1,000 mg tablet 1,000 mg PO BID diabetes 01/15/23
tamsulosin 0.4 mg capsule 0.4 mg PO BID Urinary Issue 06/16/24
therapeutic multivitamin 1 tab PO DAILY Supplement 06/16/24
cholecalciferol (vitamin D3) 50 mcg (2,000 unit) tablet 50 mcg PO QPM Supplement 10/01/24
insulin glargine-yfgn 100 unit/mL (3 mL) subcutaneous pen (Semglee (insulin glargine-yfgn) Pen) 40 unit SC BIDPRN PRN Diabetes 10/01/24
Folfirinox 1 dose SC Q14D 10/19/24
clopidogrel 75 mg tablet (Plavix) 75 mg PO DAILY 10/19/24
eflapegrastim-xnst 13.2 mg/0.6 mL subcutaneous syringe (Rolvedon) 13.2 mg SC Q14D 10/19/24
loperamide 2 mg tablet 2 mg PO BIDPRN PRN diarrhea 10/19/24
simethicone 80 mg chewable tablet 80 mg PO BIDPRN PRN gas 10/19/24
acetaminophen 325 mg tablet 650 mg (2 x 325 mg) PO Q4HPRN PRN Mild Pain / Temp > 101F #60 tabs 10/20/24
amoxicillin 875 mg-potassium clavulanate 125 mg tablet 1 tab PO Q12H 10 days #20 tabs 10/20/24
Home Medication Changes
acetaminophen 325 mg tablet 650 mg (2 x 325 mg) PO Q4HPRN PRN Mild Pain / Temp > 101F #60 tabs 10/20/24
amoxicillin 875 mg-potassium clavulanate 125 mg tablet 1 tab PO Q12H 10 days #20 tabs 10/20/24
Pending Results: No
--- NOTE | 2024-10-20 12:56 | CM ---
Pt for discharge today
Has ride home -
Discussed IMM
Plan - home no needs
== END 2024-10-20 14:07 | disposition home or self-care (01) | DRG 872 ==
LOC: 2 SOUTH 06:20
PROVIDERS: ADMITTING PHYSICIAN Hospitalist; ATTENDING PHYSICIAN Internal Medicine; CONSULT PHYSICIAN Surgery; EMERGENCY PHYSICIAN Emergency Medicine; FAMILY PHYSICIAN Internal Medicine
DX: A41.9 Sepsis, unspecified organism (principal); C25.9 Malignant neoplasm of pancreas, unspecified; I10 Essential (primary) hypertension; E11.65 Type 2 diabetes mellitus with hyperglycemia; I25.10 Atherosclerotic heart disease of native coronary artery without angina pectoris; Z95.5 Presence of coronary angioplasty implant and graft; D69.6 Thrombocytopenia, unspecified; Z79.82 Long term (current) use of aspirin; I71.40 Abdominal aortic aneurysm, without rupture, unspecified; K80.20 Calculus of gallbladder without cholecystitis without obstruction
CPT/HCPCS: 74174; 78226; 80053; 82248; 82962; 83605; 83690; 85025; 85027; 87040; 93005; 96361; 96365; 96375; 96376; 99285; A9537; Q9967

== ENCOUNTER → 2024-10-23 09:56 | Outpatient (REF) | payer MEDICARE, OTHER, SELFPAY ==
[2024-10-23 11:24] LABS: ALT (SGPT) 33 U/L (0-50); AST (SGOT) 35 U/L (17-59); Albumin 3.6 g/dl (3.5-5.0); Alkaline Phosphatase 184 U/L (38-126); Blood Urea Nitrogen 10 mg/dl (9-20); Calcium 8.6 mg/dl (8.4-10.2); Carbon Dioxide 20 mmol/L (22-30); Chloride 106 mmol/L (98-107); Glucose 187 mg/dl (70-99); Potassium 4.1 mmol/L (3.5-5.1); Sodium 139 mmol/L (135-145); Total Bilirubin 0.3 mg/dl (0.2-1.3); Total Protein 6.3 g/dl (6.3-8.2); eGFR > 60.00
[2024-10-23 11:42] LABS: % Basophils 1.4 % (0-2); % Eosinophils 7.9 % (0-6); % Immature Granulocytes 2.8 % (0-0.5); % Lymphocytes 34.7 % (20.5-51.1); % Monocytes 16.7 % (1.7-9.3); % Neutrophils 36.5 % (42.2-75.2); Absolute Eosinophils 0.2 10^3/uL (0-0.7); Absolute Immature Granulocytes 0.1 10^3/uL (0-0.05); Absolute Lymphocytes 0.8 10^3/uL (1.2-3.4); Absolute Monocytes 0.4 10^3/uL (0.1-0.6); Absolute Neutrophils 0.8 10^3/uL (1.4-6.5); Hematocrit 28.2 % (39.0-52.0); Hemoglobin 9.5 g/dL (13.0-18.0); Mean Corp Hgb Conc. 33.7 g/dL (33.0-37.0); Mean Corpuscular Hgb 30.4 pg (27.0-31.0); Mean Corpuscular Volume 90.1 fL (80.0-94.0); Mean Platelet Volume 11.1 fL (7.4-10.4); Nucleated Red Blood Cells % 0.9 % (-); Platelet Count 90 10^3/uL (130-400); Red Blood Cell Count 3.13 10^6/uL (4.70-6.10); Red Cell Dist. Width 14.1 % (11.5-14.5); White Blood Cell Count 2.2 10^3/uL (4.8-10.8)
== END ==
LOC: HWLAB 09:56
PROVIDERS: ATTENDING PHYSICIAN Internal Medicine Hematology & Oncology; FAMILY PHYSICIAN Internal Medicine
DX: C25.0 Malignant neoplasm of head of pancreas (principal)
CPT/HCPCS: 36415; 80053; 85025

== ENCOUNTER → 2024-10-26 16:10 | Outpatient (REF) | payer MEDICARE, OTHER, SELFPAY ==
[2024-10-26 09:40] LABS: % Basophils 0.6 % (0-2); % Eosinophils 2.9 % (0-6); % Immature Granulocytes 3.8 % (0-0.5); % Lymphocytes 10.8 % (20.5-51.1); % Neutrophils 71.9 % (42.2-75.2); Absolute Basophils 0.1 10^3/uL (0-0.2); Absolute Eosinophils 0.4 10^3/uL (0-0.7); Absolute Immature Granulocytes 0.5 10^3/uL (0-0.05); Absolute Lymphocytes 1.4 10^3/uL (1.2-3.4); Absolute Monocytes 1.3 10^3/uL (0.1-0.6); Hematocrit 30.5 % (39.0-52.0); Hemoglobin 9.8 g/dL (13.0-18.0); Mean Corp Hgb Conc. 32.1 g/dL (33.0-37.0); Mean Corpuscular Hgb 30.2 pg (27.0-31.0); Mean Corpuscular Volume 93.8 fL (80.0-94.0); Mean Platelet Volume 10.8 fL (7.4-10.4); Nucleated Red Blood Cells % 0.4 % (-); Platelet Count 149 10^3/uL (130-400); Red Blood Cell Count 3.25 10^6/uL (4.70-6.10); Red Cell Dist. Width 14.5 % (11.5-14.5); White Blood Cell Count 12.5 10^3/uL (4.8-10.8)
== END ==
LOC: OIDL 16:10
PROVIDERS: ATTENDING PHYSICIAN Nurse Practitioner Adult Health
DX: C25.0 Malignant neoplasm of head of pancreas (principal)
CPT/HCPCS: 85025

== ENCOUNTER → 2024-11-06 10:03 | Outpatient (REF) | payer MEDICARE, OTHER, SELFPAY ==
[2024-11-06 13:13] LABS: % Basophils 0.8 % (0-2); % Immature Granulocytes 0.8 % (0-0.5); % Lymphocytes 13.3 % (20.5-51.1); % Monocytes 9.4 % (1.7-9.3); % Neutrophils 72.7 % (42.2-75.2); Absolute Basophils 0.1 10^3/uL (0-0.2); Absolute Eosinophils 0.4 10^3/uL (0-0.7); Absolute Immature Granulocytes 0.1 10^3/uL (0-0.05); Absolute Lymphocytes 1.8 10^3/uL (1.2-3.4); Absolute Monocytes 1.2 10^3/uL (0.1-0.6); Absolute Neutrophils 9.6 10^3/uL (1.4-6.5); Hematocrit 35.2 % (39.0-52.0); Hemoglobin 11.2 g/dL (13.0-18.0); Mean Corp Hgb Conc. 31.8 g/dL (33.0-37.0); Mean Corpuscular Hgb 29.6 pg (27.0-31.0); Mean Corpuscular Volume 93.1 fL (80.0-94.0); Mean Platelet Volume 10.9 fL (7.4-10.4); Nucleated Red Blood Cells % 0.2 % (-); Platelet Count 191 10^3/uL (130-400); Red Blood Cell Count 3.78 10^6/uL (4.70-6.10); Red Cell Dist. Width 16.2 % (11.5-14.5); White Blood Cell Count 13.2 10^3/uL (4.8-10.8)
[2024-11-06 16:24] LABS: ALT (SGPT) 25 U/L (0-50); AST (SGOT) 32 U/L (17-59); Albumin 4.4 g/dl (3.5-5.0); Alkaline Phosphatase 245 U/L (38-126); Blood Urea Nitrogen 19 mg/dl (9-20); Calcium 9.1 mg/dl (8.4-10.2); Carbon Dioxide 23 mmol/L (22-30); Chloride 102 mmol/L (98-107); Glucose 154 mg/dl (70-99); Potassium 4.7 mmol/L (3.5-5.1); Sodium 140 mmol/L (135-145); Total Bilirubin 0.3 mg/dl (0.2-1.3); Total Protein 7.3 g/dl (6.3-8.2); eGFR > 60.00
== END ==
LOC: HWLAB 10:03
PROVIDERS: ATTENDING PHYSICIAN Internal Medicine Hematology & Oncology; FAMILY PHYSICIAN Internal Medicine
DX: C25.0 Malignant neoplasm of head of pancreas (principal)
CPT/HCPCS: 36415; 80053; 85025

== ENCOUNTER → 2024-11-23 11:46 | Outpatient (REF) | payer MEDICARE, OTHER, SELFPAY ==
[2024-11-23 16:25] LABS: ALT (SGPT) 93 U/L (0-50); AST (SGOT) 94 U/L (17-59); Albumin 3.9 g/dl (3.5-5.0); Alkaline Phosphatase 363 U/L (38-126); Blood Urea Nitrogen 12 mg/dl (9-20); Calcium 8.6 mg/dl (8.4-10.2); Carbon Dioxide 23 mmol/L (22-30); Chloride 101 mmol/L (98-107); Glucose 196 mg/dl (70-99); Potassium 3.6 mmol/L (3.5-5.1); Sodium 135 mmol/L (135-145); Total Bilirubin 0.3 mg/dl (0.2-1.3); Total Protein 6.7 g/dl (6.3-8.2); eGFR > 60.00
[2024-11-23 17:13] LABS: Hematocrit 31.3 % (39.0-52.0); Hemoglobin 9.6 g/dL (13.0-18.0); Mean Corp Hgb Conc. 30.7 g/dL (33.0-37.0); Mean Corpuscular Hgb 29.8 pg (27.0-31.0); Mean Corpuscular Volume 97.2 fL (80.0-94.0); Mean Platelet Volume 10.9 fL (7.4-10.4); Platelet Count 115 10^3/uL (130-400); Red Blood Cell Count 3.22 10^6/uL (4.70-6.10); Red Cell Dist. Width 20.3 % (11.5-14.5); White Blood Cell Count 9.1 10^3/uL (4.8-10.8)
[2024-11-23 17:20] LABS: Absolute Neutrophils -Man Diff 5.4 10^3/uL (1.4-6.5); Band Neutrophils 0 % (0-3); Eosinophils 10 % (0-6); Lymphocytes 16 % (20-51); Monocytes 14 % (2-9); Platelets Checked Yes; Segmented Neutrophils 60 % (42-75)
[2024-11-23 17:22] LABS: Anisocytosis 2+; Macrocytosis 1+; Normal RBC Morphology No
[2024-11-23 17:23] LABS: Total Cells Counted 100
== END ==
LOC: HWLAB 11:46
PROVIDERS: ATTENDING PHYSICIAN Internal Medicine Hematology & Oncology; FAMILY PHYSICIAN Internal Medicine
DX: C25.0 Malignant neoplasm of head of pancreas (principal)
CPT/HCPCS: 36415; 80053; 85025

== ENCOUNTER → 2024-12-01 11:11 | Outpatient (REF) | payer MEDICARE, OTHER, SELFPAY ==
[2024-12-01 16:19] LABS: Hematocrit 29.4 % (39.0-52.0); Hemoglobin 8.8 g/dL (13.0-18.0); Mean Corp Hgb Conc. 29.9 g/dL (33.0-37.0); Mean Corpuscular Hgb 29.5 pg (27.0-31.0); Mean Corpuscular Volume 98.7 fL (80.0-94.0); Mean Platelet Volume 11.5 fL (7.4-10.4); Platelet Count 162 10^3/uL (130-400); Red Blood Cell Count 2.98 10^6/uL (4.70-6.10); Red Cell Dist. Width 21.1 % (11.5-14.5)
[2024-12-01 16:31] LABS: ALT (SGPT) 177 U/L (0-50); AST (SGOT) 97 U/L (17-59); Albumin 3.9 g/dl (3.5-5.0); Alkaline Phosphatase 1184 U/L (38-126); Blood Urea Nitrogen 14 mg/dl (9-20); Calcium 8.6 mg/dl (8.4-10.2); Carbon Dioxide 25 mmol/L (22-30); Chloride 100 mmol/L (98-107); Glucose 139 mg/dl (70-99); HDL Cholesterol 44 mg/dl; Iron 67 ug/dl (49-181); Sodium 136 mmol/L (135-145); Total Bilirubin 0.4 mg/dl (0.2-1.3); Total Cholesterol 100 mg/dl (50-199); Total Protein 6.9 g/dl (6.3-8.2); eGFR > 60.00
[2024-12-01 16:41] LABS: Percent Saturation 19 % (20-50); Total Iron Binding Capacity 341 ug/dl (261-462)
[2024-12-01 16:46] LABS: Urine Albumin Negative (Neg - Trace); Urine Bilirubin Negative (Negative); Urine Character Clear (Clear); Urine Color Yellow; Urine Glucose 3+ (Negative); Urine Ketone Negative (Negative); Urine Leukocyte Negative (Negative); Urine Nitrite Negative (Negative); Urine Occult Blood Negative (Negative); Urine Urobilinogen Negative (Neg - 1+)
[2024-12-01 16:58] LABS: PSA, Total - Diagnostic 0.14 ng/ml (0.0-4.0); TSH Reflex To Free T4 2.51 uIU/ml (0.47-4.68)
[2024-12-01 17:07] LABS: % Basophils 0.9 % (0-2); % Eosinophils 3.9 % (0-6); % Immature Granulocytes 1.9 % (0-0.5); % Lymphocytes 9.5 % (20.5-51.1); % Monocytes 6.6 % (1.7-9.3); % Neutrophils 77.2 % (42.2-75.2); Absolute Basophils 0.1 10^3/uL (0-0.2); Absolute Eosinophils 0.4 10^3/uL (0-0.7); Absolute Immature Granulocytes 0.2 10^3/uL (0-0.05); Absolute Lymphocytes 1.1 10^3/uL (1.2-3.4); Absolute Monocytes 0.7 10^3/uL (0.1-0.6); Absolute Neutrophils 8.5 10^3/uL (1.4-6.5); Nucleated Red Blood Cells % 0 % (-)
[2024-12-01 17:34] LABS: Folate > 20.0 ng/ml (2.76-20); Vitamin B12 > 1000 pg/ml (239-931)
[2024-12-01 17:57] LABS: LDL Cholesterol, Calculated 22 mg/dl; Triglyceride 174 mg/dl (10-149); Very Low Density Lipoprotein 34 mg/dl (0-30)
[2024-12-02 08:14] LABS: Glycohemoglobin (HgbA1c) 7.6 % (4.0-5.6)
== END ==
LOC: HWLAB 11:11
PROVIDERS: ATTENDING PHYSICIAN Internal Medicine Hematology & Oncology; FAMILY PHYSICIAN Internal Medicine; REFERRING PHYSICIAN Family Medicine Geriatric Medicine
DX: C61 Malignant neoplasm of prostate (principal); C25.0 Malignant neoplasm of head of pancreas; E11.9 Type 2 diabetes mellitus without complications; E78.2 Mixed hyperlipidemia; I10 Essential (primary) hypertension; C25.9 Malignant neoplasm of pancreas, unspecified
CPT/HCPCS: 36415; 80053; 80061; 81003; 82607; 82728; 82746; 83036; 83540; 83550; 84153; 84443; 85025

== ENCOUNTER → 2024-12-14 13:04 | Outpatient (REF) | payer MEDICARE, OTHER, SELFPAY ==
[2024-12-14 14:19] LABS: % Basophils 0.5 % (0-2); % Eosinophils 8.2 % (0-6); % Immature Granulocytes 0.5 % (0-0.5); % Lymphocytes 6.7 % (20.5-51.1); % Monocytes 9.1 % (1.7-9.3); Absolute Basophils 0.1 10^3/uL (0-0.2); Absolute Eosinophils 1.1 10^3/uL (0-0.7); Absolute Immature Granulocytes 0.1 10^3/uL (0-0.05); Absolute Lymphocytes 0.9 10^3/uL (1.2-3.4); Absolute Monocytes 1.2 10^3/uL (0.1-0.6); Absolute Neutrophils 9.6 10^3/uL (1.4-6.5); Hematocrit 27.6 % (39.0-52.0); Hemoglobin 8.7 g/dL (13.0-18.0); Mean Corp Hgb Conc. 31.5 g/dL (33.0-37.0); Mean Corpuscular Hgb 31.4 pg (27.0-31.0); Mean Corpuscular Volume 99.6 fL (80.0-94.0); Mean Platelet Volume 11.3 fL (7.4-10.4); Nucleated Red Blood Cells % 0 % (-); Platelet Count 160 10^3/uL (130-400); Red Blood Cell Count 2.77 10^6/uL (4.70-6.10); Red Cell Dist. Width 20.9 % (11.5-14.5); White Blood Cell Count 12.8 10^3/uL (4.8-10.8)
[2024-12-14 14:54] LABS: ALT (SGPT) 67 U/L (0-50); AST (SGOT) 48 U/L (17-59); Albumin 3.5 g/dl (3.5-5.0); Alkaline Phosphatase 651 U/L (38-126); Blood Urea Nitrogen 11 mg/dl (9-20); Calcium 8.7 mg/dl (8.4-10.2); Carbon Dioxide 20 mmol/L (22-30); Chloride 104 mmol/L (98-107); Glucose 112 mg/dl (70-99); Total Bilirubin 0.4 mg/dl (0.2-1.3); Total Protein 6.5 g/dl (6.3-8.2); eGFR > 60.00
[2024-12-14 14:59] LABS: Sodium 136 mmol/L (135-145)
== END ==
LOC: REG 13:04
PROVIDERS: ATTENDING PHYSICIAN Internal Medicine Gastroenterology; FAMILY PHYSICIAN Internal Medicine; OTHER PHYSICIAN Internal Medicine Hematology & Oncology
DX: R19.7 Diarrhea, unspecified (principal); C25.0 Malignant neoplasm of head of pancreas
CPT/HCPCS: 36415; 80053; 85025

== ENCOUNTER → 2024-12-16 07:20 | Outpatient (REF) | payer MEDICARE, OTHER, SELFPAY ==
[2024-12-18 14:12] LABS: Pancreatic Elastase, Fecal <10 ug/g (>=100)
== END ==
LOC: RCS 07:20
PROVIDERS: ATTENDING PHYSICIAN Internal Medicine Cardiovascular Disease; FAMILY PHYSICIAN Internal Medicine Gastroenterology
DX: I42.9 Cardiomyopathy, unspecified (principal)
CPT/HCPCS: 36415; 82653; 87324; 87449; 93306; 93356

== ENCOUNTER → 2024-12-16 17:34 | Outpatient (REF) | payer MEDICARE, OTHER, SELFPAY | LOC: MRI 17:34 | PROVIDERS: ATTENDING PHYSICIAN Radiology Radiation Oncology; FAMILY PHYSICIAN Internal Medicine | DX: C25.0 Malignant neoplasm of head of pancreas (principal) | CPT/HCPCS: 74183; A9575 ==

== ENCOUNTER 2024-12-18 06:45 | Day surgery (SDC) | payer MEDICARE, OTHER, SELFPAY ==
--- NOTE | 2024-12-16 15:14 | PTCARENOTE ---
Patients 12/14 hgb 8.7- reviewed by Dr. Conte- no additional interventions required
[2024-12-18] VITALS (7 sets, daily range): BP systolic 110–149; BP diastolic 73–84
[2024-12-18] MEDS: NORMOSOL-R/PLASMALYTE-A 1000 IV (09:22)
[2024-12-18 09:23] LABS: Glucose - Point of Care 197 mg/dl (70-99)
[2024-12-18] MEDS: NOVOLOG vial 2 UNITS SC (09:41)
[2024-12-18 12:04] LABS: Glucose - Point of Care 175 mg/dl (70-99)
== END 2024-12-18 13:30 | disposition home or self-care (01) ==
LOC: SDS 06:45
PROVIDERS: ATTENDING PHYSICIAN Urology
DX: C61 Malignant neoplasm of prostate (principal); N35.919 Unspecified urethral stricture, male, unspecified site; R33.9 Retention of urine, unspecified
CPT/HCPCS: 52284; 52276; C1889; 82962; C1726; C1769

== ENCOUNTER 2024-12-29 22:29 | Inpatient (IN) | payer MEDICARE, OTHER, SELFPAY ==
--- NOTE | 2024-12-29 14:34 | ED.GENMED ---
ED Provider Triage
<Kaylan Butterfield SPRING FORMER - Last Filed: 12/29/24 14:37>
-
Patient seen by provider in Triage?: Seen in Triage
Attestation: A medical screening examination has been initiated by a qualified medical provider. Based on the assessment performed at this time, it has been determined that an emergent medical condition may exist and the patient has been informed
that further medical evaluation and possible additional diagnostic testing may be needed.
HPI: 69-year-old male receiving radiation treatment for pancreatic cancer at [facility], was getting his radiation treatment earlier but could not tolerate laying down for the radiation yesterday due to an upper respiratory infection. He states
cough started 4 days ago. Denies nausea vomiting, denies fever or chills. He feels short of breath when he lays down. Pulse ox in triage is 89% on room air O2 2 L nasal cannula
GENERAL: Alert , in no apparent distress
EYE: No visual abnormalities.
NECK: Trachea midline
ENT: No visible abnormalities.
LUNGS: No acute respiratory distress
NEUROLOGICAL: Alert and oriented
SKIN: Skin intact. No visible changes.
MUSCULOSKELETAL: Moving extremities normally
PSYCH: Normal and appropriate interaction.
This is a medical evaluation conducted in person to initiate diagnostic evaluation and provide initial therapeutics. Please see further documentation by the treating clinician.
History of Present Illness
<Kaylan Butterfield SPRING FORMER - Last Filed: 12/29/24 14:37>
General
Chief Complaint: Breathing Problem
Time Seen by Provider: 12/29/24 16:27
<Ayo Roberto PA-C - Last Filed: 12/29/24 19:35>
General
Source: patient, records and physician
History of Present Illness
History of Present Illness:
69-year-old male with past medical history of prostate cancer with possible metastases to the liver, AAA status postrepair, CAD, hypertension, hyperlipidemia, diabetes presenting to the ER from his radiation oncology appointment for evaluation of
worsening shortness of breath, found to be hypoxic to 85% on room air and was unable to tolerate laying flat. Patient notes that over the last 4 or 5 days he has been having gradually worsening shortness of breath, bilateral lower extremity edema
and inability to tolerate laying down. He also endorses some exertional dyspnea. At nighttime patient reports that when he would put his CPAP machine on he would have significant relief of his shortness of breath. He has been having fluctuating
weight but is not sure what to attribute this to. Denies any fevers or other infectious symptoms. No known sick contacts. Patient does note he recently had a surgical procedure to fix a urethral stricture last week as well.
Past History
<Kaylan Butterfield SPRING FORMER - Last Filed: 12/29/24 14:37>
Past History
ED Past Medical History: Asthma, CAD, Cancer (Prostate cancer, pancreatic cancer), HTN, Hypercholesterolemia, IDDM, NIDDM and Other (Obstructive sleep apnea)
ED Past Surgical History: Cardiac and Other (Eye surgery. [place] teeth, AAA repair)
Social History
Tobacco: Non-smoker
Alcohol: None
Drug: None
Personal:
Living: with family
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
Family History
Family History: Other (Non Contributory)
Review of Systems
<Ayo Roberto PA-C - Last Filed: 12/29/24 19:35>
Review of Systems
All Other Systems: ROS reviewed and negative except as documented in HPI and ROS
Phy Exam
<Ayo Roberto PA-C - Last Filed: 12/29/24 19:35>
Physical Exam
Physical Exam:
GENERAL: Alert , in no apparent distress
HEAD: NCAT
EYE: clear conjunctiva
NECK: Supple
ENT: o/p clr, mmm.
CARDIAC: Borderline tachycardic rate and rhythm, no murmur
LUNGS: Diminished lung sounds at the bases bilateral, increased respiratory rate, no accessory muscle use, speaking full sentences. 85% O2 on room air, currently on 4 L via nasal cannula satting at 96%
ABDOMEN: Soft, without focal tenderness, no r/g, no cvat
NEUROLOGICAL: Alert and oriented
SKIN: Warm and dry, skin intact.
MUSCULOSKELETAL: Bilateral 1+ pitting edema to the knees, well perfused.
PSYCH: Normal and appropriate interaction.
Scores
<Ayo Roberto PA-C - Last Filed: 12/29/24 19:35>
Heart Failure Risk
Heart Failure Risk Score: Yes
History of Stroke or TIA: No
History of intubation for respiratory distress: No
Heart rate on ED arrival >/= 110: No
SaO2 <90% on arrival on room air: Yes
HR >/=110 during 3min walk test (or too ill to perform test): Yes
ECG has acute ischemic changes: No
Urea >/=12mmol/L (BUN 33.6mg/dL): No
Serum CO2>/=35mmol/L: No
Troponin I or T elevated to SC Level (0.4mg/dL): No
NT-proBNP >/=5,000ng/L (5,000pg/ml): No
HF Risk Score: 3
Admission Status: HIGH RISK 15.9% Consider SNF treatment or admission to hospital
Heart Score for Chest Pain Patients
STEMI patient?: Not applicable
Withdrawal Assessment of Alcohol
Withdrawal Assessment Completed?: Not applicable
Sepsis
<Ayo Roberto PA-C - Last Filed: 12/29/24 19:35>
Sepsis Screening
Sepsis Assessment: Sepsis Ruled Out
Sepsis Screen
Sepsis Screen: Sepsis Ruled Out
Date: 12/29/24
Time: 19:35
Course
<Kayaln Butterfield SPRING FORMER - Last Filed: 12/29/24 14:37>
Orders/Labs/Results
Orders:
Orders
12/29/24 14:47
Complete Blood Count/With Diff Urgent
Comprehensive Metabolic Panel Urgent
12/29/24 16:27
COVID-19 Antigen Urgent
Source: Nasal Swab
Influenza A+B Rapid Molecular Urgent
SHANTAL Source: Nasal Swab
Specimen Description:
Respiratory Syncytial Virus Urgent
SHANTAL Source: Nasal Swab
Specimen Description:
Date Specimen was Collected: 12/29/24
Time Specimen was Collected: 16:11
12/29/24 16:39
CT Chest PE Study Urgent
Comment:
Reason For Exam: cough, hypoxia, SOB, edema, hx cancer
NT-proBNP Urgent
12/29/24 16:47
Electrocardiogram (*1) Urgent
Reason for Study: Shortness of Breath
EKG- Treatment ONCE
12/29/24 19:00
Furosemide [Lasix] 40 mg IV NOW STA
Abnormal Lab Results
12/29/24
14:47
WBC 4.7 L 10^3/uL
(4.8-10.8)
RBC 3.12 L 10^6/uL
(4.70-6.10)
Hgb 9.8 L g/dL
(13.0-18.0)
Hct 31.7 L %
(39.0-52.0)
MCV 101.6 H fL
(80.0-94.0)
MCH 31.4 H pg
(27.0-31.0)
MCHC 30.9 L g/dL
(33.0-37.0)
RDW 17.9 H %
(11.5-14.5)
Absolute Lymphs (auto) 0.8 L 10^3/uL
(1.2-3.4)
Lymphocytes % 16.3 L %
(20.5-51.1)
Glucose 263 H mg/dl
(70-99)
Alkaline Phosphatase 212 H U/L
(38-126)
12/29/24 14:47
12/29/24 14:47
Vital Signs
Initial and Last Documented VS:
Initial Vital Signs
Temp Pulse Resp BP Pulse Ox
97.6 F 97 23 159/79 89
12/29/24 14:36 12/29/24 14:36 12/29/24 14:36 12/29/24 14:36 12/29/24 14:36
Last Documented Vital Signs
Temp Pulse Resp BP Pulse Ox
97.6 F 88 23 159/79 90
12/29/24 14:36 12/29/24 17:35 12/29/24 14:36 12/29/24 14:36 12/29/24 17:35
<Ayo Roberto PA-C - Last Filed: 12/29/24 19:35>
Orders/Labs/Results
Orders:
Orders
12/29/24 14:47
Complete Blood Count/With Diff Urgent
Comprehensive Metabolic Panel Urgent
12/29/24 16:27
COVID-19 Antigen Urgent
Source: Nasal Swab
Influenza A+B Rapid Molecular Urgent
SHANTAL Source: Nasal Swab
Specimen Description:
Respiratory Syncytial Virus Urgent
SHANTAL Source: Nasal Swab
Specimen Description:
Date Specimen was Collected: 12/29/24
Time Specimen was Collected: 16:11
12/29/24 16:39
CT Chest PE Study Urgent
Comment:
Reason For Exam: cough, hypoxia, SOB, edema, hx cancer
NT-proBNP Urgent
12/29/24 16:47
Electrocardiogram (*1) Urgent
Reason for Study: Shortness of Breath
EKG- Treatment ONCE
12/29/24 19:00
Furosemide [Lasix] 40 mg IV NOW STA
Abnormal Lab Results
12/29/24
14:47
WBC 4.7 L 10^3/uL
(4.8-10.8)
RBC 3.12 L 10^6/uL
(4.70-6.10)
Hgb 9.8 L g/dL
(13.0-18.0)
Hct 31.7 L %
(39.0-52.0)
MCV 101.6 H fL
(80.0-94.0)
MCH 31.4 H pg
(27.0-31.0)
MCHC 30.9 L g/dL
(33.0-37.0)
RDW 17.9 H %
(11.5-14.5)
Absolute Lymphs (auto) 0.8 L 10^3/uL
(1.2-3.4)
Lymphocytes % 16.3 L %
(20.5-51.1)
Glucose 263 H mg/dl
(70-99)
Alkaline Phosphatase 212 H U/L
(38-126)
12/29/24 14:47
12/29/24 14:47
Vital Signs
Initial and Last Documented VS:
Initial Vital Signs
Temp Pulse Resp BP Pulse Ox
97.6 F 97 23 159/79 89
12/29/24 14:36 12/29/24 14:36 12/29/24 14:36 12/29/24 14:36 12/29/24 14:36
Last Documented Vital Signs
Temp Pulse Resp BP Pulse Ox
97.6 F 88 23 159/79 90
12/29/24 14:36 12/29/24 17:35 12/29/24 14:36 12/29/24 14:36 12/29/24 17:35
<Ayo Roberto PA-C - Last Filed: 12/29/24 19:35>
MDM/Problems Addressed
Differential Diagnosis Includes:
DVT/PE high on differential given patient's known cancer history combined with recent surgical procedure, CHF, valvular dysfunction, cardiomyopathy, peripheral vascular disease, infectious etiology such as flu or pneumonia
MDM/Problems Addressed:
69-year-old male presenting the emergency department at request of his radiation oncologist for evaluation of hypoxia and inability to lay flat during his radiation treatment today. Patient found to be 85% on room air at radiation oncology
appointment and was the same here. Placed on 4 L via nasal cannula with good response. Patient does still remain tachypneic however. He endorses cough over the last for 5 days. No fevers or infectious symptoms. Stat CT chest to rule out PE
ordered given his risk factor. Anticipate admission given his hypoxia on arrival.
Chronic conditions affecting care: CAD and Cancer
Acute Exacerbation and/or Progression of Chronic Illness: Cancer
<Ayo Roberto PA-C - Last Filed: 12/29/24 19:35>
*Radiology
Radiology exam reviewed: radiology read reviewed
*Pulse Oximetry
Patient hypoxic: yes
*Critical Care Note
Total Time (30-74mins, 75-104mins- exclusive of procedures): Not Applicable
<Ayo Roberto PA-C - Last Filed: 12/29/24 19:35>
Patient Management
Discussion with other providers: Hospitalist
Escalation/DeEscalation of care consider admission/obs:
Patient CT scan shows bilateral pleural effusions. No evidence for pulmonary embolism. Lasix ordered. Hospitalist team was notified and accepts for continued evaluation and treatment. Patient remained stable on 4 L nasal cannula.
ED Attending Note
<Kaylan Butterfield NP - Last Filed: 12/29/24 14:37>
-
Portions of this chart may have been created with voice recognition software.� Occasional wrong word or��sound alike� substitutions may have occurred due to the inherent limitations of voice recognition software.
Discharge Plan
Departure
Patient Disposition: Admit
Date of Disposition: 12/29/24
Time of Disposition: 19:20
Presentation/result/management discussed w/ accepting MD/DO: Hospitalist
Discharge Problem:
Pleural effusion, Hypoxia, Prostate cancer
Prescriptions:
No Action
aspirin 81 MG tablet,delayed release (DR/EC)
81 mg PO DAILY
ferrous sulfate [FeroSul] 325 MG tablet
325 mg PO HS
metoprolol succinate [Toprol XL] 25 MG tablet extended release 24 hr
25 mg PO BIDPRN PRN (Reason: Blood Pressure)
metformin 1,000 mg Tablet
1,000 mg PO BID
losartan 25 mg Tablet
25 mg PO DAILY
furosemide 20 mg Tablet
20 mg PO DAILY
icosapent ethyl [Vascepa] 1 gram Capsule
2 g PO BID
cephalexin 500 mg Capsule
500 mg PO TID
Jardiance 10 mg Tablet
10 mg PO DAILY
therapeutic multivitamin Tablet
1 tab PO DAILY
tamsulosin 0.4 MG capsule
0.4 mg PO BID
cholecalciferol (vitamin D3) 50 mcg (2,000 unit) Tablet
50 mcg PO QPM
insulin glargine-yfgn [Semglee(insulin glarg-yfgn)Pen] 100 unit/mL (3 mL) insulin pen
20 unit SC BIDPRN PRN (Reason: Diabetes)
loperamide 2 mg Tablet
2 mg PO BIDPRN PRN (Reason: diarrhea)
clopidogrel [Plavix] 75 mg Tablet
75 mg PO DAILY
simethicone 80 mg Tablet,Chewable
80 mg PO BIDPRN PRN (Reason: gas)
Rolvedon 13.2 mg/0.6 mL Syringe
13.2 mg SC Q14D
Folfirinox liquid
1 dose SC Q14D
Rx Instructions:
(FOLFIRINOX): Oxaliplatin 182mg IV, Leucovorin 856mg IV, Irinotecan 320mg IV, and Fluorouracil pump 5140mg IV which is over 46hrs every 14 days, last doses were 10/13/24, next doses 10/27/24
acetaminophen 325 mg Tablet
650 mg PO Q4HPRN PRN (Reason: Mild Pain / Temp > 101F) Qty: 60 0RF
atorvastatin 20 mg Tablet
20 mg PO DAILY
Referrals:
Gomez Gunderson MD [Family Provider] -
Interventions
Interventions:
*Risk Screen - Suicide Last Done: 12/29/24 17:00
*General Assessment Last Done: 12/29/24 17:00
*Neglect/Abuse Screening Last Done: 12/29/24 17:00
ED- Cardiac Assessment Last Done: 12/29/24 17:00
ED- Pulmonary Assessment Last Done: 12/29/24 17:00
Discharge Date and Time
Print Language: FIJIAN
[2024-12-29 14:36] VITALS: BP 159/79
[2024-12-29 15:02] LABS: % Basophils 0.6 % (0-2); % Eosinophils 5.9 % (0-6); % Immature Granulocytes 0.2 % (0-0.5); % Lymphocytes 16.3 % (20.5-51.1); % Monocytes 8.2 % (1.7-9.3); % Neutrophils 68.8 % (42.2-75.2); Absolute Eosinophils 0.3 10^3/uL (0-0.7); Absolute Lymphocytes 0.8 10^3/uL (1.2-3.4); Absolute Monocytes 0.4 10^3/uL (0.1-0.6); Absolute Neutrophils 3.3 10^3/uL (1.4-6.5); Hematocrit 31.7 % (39.0-52.0); Hemoglobin 9.8 g/dL (13.0-18.0); Mean Corp Hgb Conc. 30.9 g/dL (33.0-37.0); Mean Corpuscular Hgb 31.4 pg (27.0-31.0); Mean Corpuscular Volume 101.6 fL (80.0-94.0); Mean Platelet Volume 10.3 fL (7.4-10.4); Nucleated Red Blood Cells % 0 % (-); Platelet Count 177 10^3/uL (130-400); Red Blood Cell Count 3.12 10^6/uL (4.70-6.10); Red Cell Dist. Width 17.9 % (11.5-14.5); White Blood Cell Count 4.7 10^3/uL (4.8-10.8)
[2024-12-29 15:46] LABS: ALT (SGPT) 24 U/L (0-50); AST (SGOT) 35 U/L (17-59); Albumin 3.6 g/dl (3.5-5.0); Alkaline Phosphatase 212 U/L (38-126); Blood Urea Nitrogen 15 mg/dl (9-20); Calcium 8.5 mg/dl (8.4-10.2); Carbon Dioxide 23 mmol/L (22-30); Chloride 103 mmol/L (98-107); Glucose 263 mg/dl (70-99); Potassium 4.2 mmol/L (3.5-5.1); Sodium 137 mmol/L (135-145); Total Bilirubin 0.4 mg/dl (0.2-1.3); Total Protein 6.6 g/dl (6.3-8.2); eGFR > 60.00
[2024-12-29 16:19] LABS: Anisocytosis 2+; Macrocytosis 2+; Normal RBC Morphology No
[2024-12-29 16:20] LABS: Ovalocytes Occasional; Tear Drop Red Blood Cells 1+
[2024-12-29 17:05] LABS: NT-proBNP 1630 pg/ml
[2024-12-29 17:14] LABS: COVID-19 Antigen Negative (Negative)
[2024-12-29 17:31] VITALS: BMI 35.9
[2024-12-29] MEDS: LASIX 40 MG IV (19:29)
--- NOTE | 2024-12-29 20:26 | HPS.HSE ---
Family Physician
-
Family Physician: Gomez Gunderson
Chief Complaint
-
cough tickle in throat when lying down unable to complete radiation
History of Present Illness
69-year-old male complaining of cough with tickle in his throat for the past 2 days. He reports he was due to have radiation yesterday and today but was unable to lie flat due to cough and tickle in his throat. He had outpatient CT PE study
showing bilateral pleural effusions. He was diagnosed with pancreatic cancer June 15, 2024 he had a 3 drug regimen chemotherapy starting August to November 2024 he started Xeloda 3 times in the morning and 3 times in the p.m. along with
supposing to have radiation yesterday and today. He also had recent urethral stricture repair on 12/18 complicated with blood clots and prolonged Combs catheter until 12/26 when he passed his void study after removal. He had history of prostate
cancer with prostate XRT, Urethral strictures, CAD status post stent, HTN, HLD, DM2, AAA repair status post infection with washout on chronic lifelong Keflex, pancreatic cancer Dx June 15, 2024 chemo August to November 2024 was due for radiation
12/28/2024 unable to complete due to bilateral pleural effusions however he did start his Xeloda 3 times in the a.m. and 3 times in the p.m., anxiety
Medical History
Past Medical History
Past Medical History: Reports Other
Additional Past Medical History:
Pancreatic Cancer Dx June 15, 2024 3 drug regimen chemo due for radiation 12/28/2024 unable due to bilateral pleural effusions
Urethral restriction status post stricture repair 12/18/2024 complicated with clots prolonged catheter until
Prostate Cancer s/p XRT
Hypertension
DM-II
Urinary Retention
ASCVD
AAA / Infected AAA Graft on lifelong Keflex
Anxiety
Past Surgical History: Reports Other
Additional Past Surgical History:
PTCA with Stent
AAA Endostent
Open AAA Repair
EUS with Pancreatic Biopsy
ERCP with CBD Stent
Social History
Tobacco: Non-smoker
Alcohol: None
Drug: None
Personal:
Living: With Family ( Shazia)
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
Family History
Family History: Not pertinent
Allergies / Home Medications
Allergies reflects when Allergies were last updated in [employer].
Home Medications with original date entered in [employer]
Allergy/Medication List:
Allergies
Allergy/AdvReac Type Severity Reaction Status Date / Time
cat dander Allergy SNEEZING/STUFFY Verified 12/29/24 14:39
NOSE
dog dander Allergy SNEEZING/STUFFY Verified 12/29/24 14:39
NOSE
house dust Allergy Nasal Verified 12/29/24 14:39
congestion/sneezing
ibuprofen [From Advil] Allergy ANGIOEDEMA Verified 12/29/24 14:39
lisinopril Allergy ANGIOEDEMA Verified 12/29/24 14:39
olmesartan [From Benicar] Allergy ANGIOEDEMA Verified 12/29/24 14:39
tomato Allergy ANGIOEDEMA Verified 12/29/24 14:39
Home Medications
aspirin 81 mg tablet,delayed release 81 mg PO DAILY Blood Clot Prevention/Tx 09/22/19
ferrous sulfate 325 mg (65 mg iron) tablet (FeroSul) 325 mg PO HS Supplement 09/22/19
metoprolol succinate 25 mg tablet,extended release 24 hr (Toprol XL) 25 mg PO BIDPRN PRN Blood Pressure 09/22/19
empagliflozin 10 mg tablet (Jardiance) 10 mg PO DAILY diabetes 01/15/23
icosapent ethyl 1 gram capsule (Vascepa) 2 g PO BID High Cholesterol 01/15/23
metformin 1,000 mg tablet 1,000 mg PO BID diabetes 01/15/23
tamsulosin 0.4 mg capsule 0.4 mg PO BID Urinary Issue 06/16/24
therapeutic multivitamin 1 tab PO DAILY Supplement 06/16/24
cholecalciferol (vitamin D3) 50 mcg (2,000 unit) tablet 50 mcg PO QPM Supplement 10/01/24
insulin glargine-yfgn 100 unit/mL (3 mL) subcutaneous pen (Semglee (insulin glargine-yfgn) Pen) 20 unit SC BIDPRN PRN Diabetes 10/01/24
clopidogrel 75 mg tablet (Plavix) 75 mg PO DAILY 10/19/24
loperamide 2 mg tablet 2 mg PO BIDPRN PRN diarrhea 10/19/24
simethicone 80 mg chewable tablet 80 mg PO BIDPRN PRN gas 10/19/24
acetaminophen 325 mg tablet 650 mg (2 x 325 mg) PO Q4HPRN PRN Mild Pain / Temp > 101F #60 tabs 10/20/24
atorvastatin 20 mg tablet 20 mg PO DAILY 12/17/24
cephalexin 500 mg capsule 500 mg PO TID 12/29/24
furosemide 20 mg tablet (Lasix) 20 mg PO DAILY 12/29/24
lorazepam 0.5 mg tablet 0.5 mg PO DAILYPRN PRN anxiety 12/29/24
Review of Systems
-
History Source: Patient and Family ( at bedside)
A 12 point ROS was completed and negative except as noted: Yes
Constitutional: Denies Fever or Chills
EENT: Denies Tearing or Mouth Swelling
Respiratory: Reports Cough, Trouble Breathing and Other (Orthopnea)
Cardiac: Denies Chest Pain, Diaphoresis or Palpitations
Abdomen/GI: Denies Abdominal Pain, Nausea, Vomiting, Diarrhea or Constipated
: Denies Dysuria, Frequency, Flank Pain, Incontinence or Difficulty Voiding
Musculoskeletal: Denies Joint Pain or Edema
Skin: Denies Itching or Rash
Neurological: Denies Dizzy, Headache or Weakness
Endocrine: Reports No Symptoms
Hematologic/Lymphatic: Reports No Symptoms
Psych: Reports Calm
Physical Exam
Vital Signs
Vital Signs
Temp Pulse Resp BP Pulse Ox
97.6 F 88 23 159/79 90
12/29/24 14:36 12/29/24 17:35 12/29/24 14:36 12/29/24 14:36 12/29/24 17:35
Physical Exam
General: Comfortable and Conversant; No Pain, Fever or Chills
HEENT: NormoCephalic, Anicteric, Moist mucous membranes, PERRLA, [place] Conjunctivae, No Ptosis and Other (Port present right upper chest wall)
Respiratory: Rales (Bilateral bases of lungs)
Cardiac: S1/S2 and Regular Rhythm; No Murmur, Rub, Gallop or Peripheral Edema
Breast: Deferred by me
GI: Soft, Non Tender, Non Distended, Normal Bowel Sounds and No Hepatosplenomegaly
Rectal: Deferred by Provider
Genito-urinary: Deferred by me
Musculoskeletal: No Clubbing, No Cyanosis and No Edema
Skin: Warm and Dry; No Rash or Jaundice
Neuro: AO x 3, No Motor Deficits, Nonfocal/grossly intact and Cranial Nerves Intact; No Slurred Speech, Facial Droop, Tremors or Sedated
Psych: Calm
Laboratory Results
-
12/29/24 14:47
12/29/24 14:47
Laboratory Results
Total Bilirubin 0.4 mg/dl (0.2-1.3) 12/29/24 14:47
AST 35 U/L (17-59) 12/29/24 14:47
ALT 24 U/L (0-50) 12/29/24 14:47
Alkaline Phosphatase 212 U/L (38-126) H 12/29/24 14:47
Data Reviewed
-
Lab Data: Labs Reviewed by me
Impression/Plan
-
Impression/plan:
Admit to telemetry
#Acute hypoxic respiratory insufficiency secondary to bilateral pleural effusion
-Consult IR for thoracentesis with cytology
-I/O, daily weights
-Monitor pulse oximetry
-cont Lasix [address] chest PE study:
1. Suboptimal opacification of the pulmonary arteries. No evidence for central pulmonary embolism.
2. Moderate bilateral pleural effusions, new since examination of October 19, 2024.
3. Groundglass and parenchymal airspace opacities within both lungs, findings highly suggestive of pulmonary edema pattern.
4. 6 mm nodule within the lingula, stable from examination of October 19, 2024. This nodule is also stable compared to examination of
December 19, 2022 and likely a benign pulmonary nodule.
#Pancreatic cancer Dx June 15, 2024
Status post chemo August - November 2024 3 drug regimen per patient
-Started Xeloda 12/27/2024 3 times in the a.m., 3 times p.m.
-Was due for radiation to start 12/27/2024 and 12/28/24 unable to lie down due to bilateral pleural effusions
-Consult ONC
#Urethral stricture
#Status post urethral stricture repair on 12/18/[address] Talavera
-required Combs catheter until 12/23/24 complicated with clots and post void studies
#History of prostate cancer status post XRT
#Hx urinary retention
-Continue Flomax 0.4 mg at bedtime
-Bladder scan protocol
#Anemia macrocytic
Hgb 9.8 appears baseline
-Follow CBC
#HTN�benign
BP 159/79
2D echo 12/16/2024 EF 50-55%, stage II diastolic dysfunction, mild LVH, basal to mid inferior and inferior lateral hypokinesis mild to moderate TR pulm arterial pressure 47 mmHg
#DM 2
BS263
Accu-Cheks with SSI low, check HgbA1c
HgbA1c was 7.6 on 09/20/2024
-Continue Lantus 10 units at bedtime versus twice daily Lantus 20 units as needed(pharmacy will need to clarify this Lantus dose)
Patient had Ozempic DC'd in October in setting of pancreatic cancer
-Hold metformin 2000 mg twice daily, Jardiance 10 mg daily
#CAD status post cardiac stent
Continue Plavix, aspirin, statin
#Infected AAA Hx
History of endovascular repair complicated by bacteremia requiring open repair
On lifelong cephalexin 500 mg 3 times daily
#HLD
-Continue Vascepa 2 g twice daily, atorvastatin 20 mg daily
#Anxiety
Continue lorazepam 0.5 mg daily as needed anxiety
DVT prophylaxis
Subcu Lovenox
Full code
--- NOTE | 2024-12-29 22:15 | W.PN.UPDATE ---
Update Note
Progress Note Update
This is an addendum to the H&P written by Bee Benjamin on 12/29/2024.� Patient seen and examined independently with GED TUTOR.
69-year-old male past medical history of pancreatic cancer status post therapy on Xeloda, ureteral stricture status post suture repair, prostate cancer status post radiation, urinary retention, macrocytic anemia, hypertension, type 2 diabetes, CAD
status post and, infected abdominal aortic aneurysm history status post endovascular repair complicated by bacteremia and open repair, hyperlipidemia, anxiety, presenting with tickle in throat and orthopnea and cough.
He was supposed to have radiation yesterday but could not lie down for radiation.�
CT PE chest shows moderate bilateral pleural effusions, groundglass parenchymal airspace opacities in both lungs suggestive of pulm edema.
Cardiac BNP of 1600.
Patient with bilateral pleural effusions/pulm edema secondary to acute CHF exacerbation.� 40 IV Lasix daily.� IR for thoracentesis.
[2024-12-29 23:35] VITALS: BP 144/82; BMI 34.1
[2024-12-30] VITALS (8 sets, daily range): BP systolic 82–146; BP diastolic 62–87; BMI 34.1; BMI 33.8
[2024-12-30 00:18] LABS: Glucose - Point of Care 368 mg/dl (70-99)
[2024-12-30] MEDS: KEFLEX 500 MG PO ×4 (00:54→22:13)
[2024-12-30] MEDS: FEOSOL 325 MG PO ×2 (00:55→22:13)
[2024-12-30] MEDS: FLOMAX 0.4 MG PO ×3 (00:55→22:13)
[2024-12-30] MEDS: LANTUS 0.1 UNITS SC (00:56)
--- NOTE | 2024-12-30 05:44 | PTCARENOTE ---
pt is aaox3, no c/o pain. ekg completed. pt is on 2L at 98%. pt original agreed to wear cpap, but then stated he would bring in his own. instructed to bring in home chemo medication. pt is oriented to rom w/ call wen in reach
--- NOTE | 2024-12-30 07:02 | PTCARENOTE ---
pt was sitting in chair and had a 10 beat run of v-tach. VSS. pt states he feels fine.
--- NOTE | 2024-12-30 08:02 | CON.ONC ---
Impression
Impression
Moderate pleural effusions
Locally advanced pancreatic cancer
History of prostate cancer
Plan
Plan
Patient started on diuretic therapy and IR has been consulted for diagnostic and therapeutic thoracentesis.
FOLFIRINOX itself is not typically associated with pleural effusions although still we need to rule out nonmalignant causes such as CHF, etc.
Await cytology. If malignant cytology found, this would clearly make patient stage IV and ineligible for curative surgery and ineligible for continuing total neoadjuvant therapy CINDY prior to curative surgery.
He would most likely need to switch to alternative salvage systemic therapy either gemcitabine + Abraxane or potentially a targeted therapy depending on his NexGen sequencing.
If pleural effusions however are benign (fani with elevated pro-BNP), recommend optimizing treatment so that he can resume radiation with the potential for curative intent treatment. For now agree with diuretic therapy and thoracentesis. Cardiology
has also been consulted.
Patient History
History of Present Illness
CC: Shortness of breath and cough while lying flat. Unable to tolerate radiation
HPI: 69-year-old male with locally advanced pancreatic cancer June 2024 when he presented with painless jaundice. He had encasement of the SMV. Patient was treated with 7 cycles of FOLFIRINOX chemotherapy 09/01-11/27/2024 and according to patient,
follow-up MRI ordered by his surgeon showed a radiographic improvement of the PET is consistent with a partial remission (I do not see that report suspect done at outside institution, suspect [facility]). Plan was to initiate chemoradiation with
capecitabine to continue to allow for improvement in possible eventual surgical resection with curative intent. Patient was evaluated by Dr. Devin Wiley at [facility] surgical oncology 11/23/2024.
Patient was evaluated and seen by Dr. Inga Domingo ([facility]) and was complaining of cough with tickle in his throat for the past 2 days. He reports he was due to have radiation but was unable to lie flat due to cough and tickle in
his throat. He had outpatient CT PE study showing bilateral pleural effusions. H
He also had recent urethral stricture repair on 12/18 complicated with blood clots and prolonged Combs catheter until 12/26 when he passed his void study after removal. He had history of prostate cancer with prostate XRT.
Past-Medical/Surgical History
PMH:
Locally advanced pancreatic cancer
Prostate cancer status post radiation
Urethral strictures
CAD status post stent
Hypertension
DM-II
Urinary Retention
ASCVD
AAA / Infected AAA Graft on lifelong Keflex
Anxiety
SAM on CPAP
PSH:
AAA stents
AAA graft
Cardiac stents
Social History
Patient denies ever using tobacco.
Current alcohol user. Patient reports an average of <1 drinks per week.
Denies any illicit drug use.
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
Patient has not had any occupational exposure.
Marital Status: Patient is
Family Medical History
mother and grandmother - lung cancer
Patient Medication
�Medication �Instructions �Recorded �Confirmed �Last Taken �Type
aspirin 81 mg tablet,delayed 81 mg PO DAILY Blood Clot 09/22/19 12/29/24 12/29/24 History
release Prevention/Tx
ferrous sulfate 325 mg (65 mg 325 mg PO HS Supplement 09/22/19 12/29/24 12/28/24 History
iron) tablet (FeroSul)
metoprolol succinate 25 mg 25 mg PO BIDPRN PRN Blood Pressure 09/22/19 12/29/24 10/14/24 History
tablet,extended release 24 hr
(Toprol XL)
empagliflozin 10 mg tablet 10 mg PO DAILY diabetes 01/15/23 12/29/24 12/29/24 History
(Jardiance)
icosapent ethyl 1 gram capsule 2 g PO BID High Cholesterol 01/15/23 12/29/24 12/29/24 History
(Vascepa)
metformin 1,000 mg tablet 1,000 mg PO BID diabetes 01/15/23 12/29/24 12/29/24 History
tamsulosin 0.4 mg capsule 0.4 mg PO BID Urinary Issue 06/16/24 12/29/24 12/29/24 History
therapeutic multivitamin 1 tab PO DAILY Supplement 06/16/24 12/29/24 12/29/24 History
cholecalciferol (vitamin D3) 50 50 mcg PO QPM Supplement 10/01/24 12/29/24 12/28/24 History
mcg (2,000 unit) tablet
insulin glargine-yfgn 100 unit/mL 20 unit SC BIDPRN PRN Diabetes 10/01/24 12/29/24 12/16/24 18:00 History
(3 mL) subcutaneous pen (Semglee
(insulin glargine-yfgn) Pen)
clopidogrel 75 mg tablet (Plavix) 75 mg PO DAILY 10/19/24 12/29/24 12/29/24 History
loperamide 2 mg tablet 2 mg PO BIDPRN PRN diarrhea 10/19/24 12/29/24 12/29/24 History
simethicone 80 mg chewable tablet 80 mg PO BIDPRN PRN gas 10/19/24 12/29/24 12/13/24 History
acetaminophen 325 mg tablet 650 mg (2 x 325 mg) PO Q4HPRN PRN 10/20/24 12/29/24 12/27/24 Rx
Mild Pain / Temp > 101F #60 tabs
atorvastatin 20 mg tablet 20 mg PO DAILY 12/17/24 12/29/24 12/29/24 History
cephalexin 500 mg capsule 500 mg PO TID 12/29/24 12/29/24 12/29/24 History
furosemide 20 mg tablet (Lasix) 20 mg PO DAILY 12/29/24 12/29/24 12/29/24 History
lorazepam 0.5 mg tablet 0.5 mg PO DAILYPRN PRN anxiety 12/29/24 12/29/24 12/29/24 History
Active Medications
Generic Name Dose Route Start Last Admin
Trade Name Freq PRN Reason Stop Dose Admin
Acetaminophen 650 mg 12/29/24 23:49
Acetaminophen 325 Mg Tablet PO 01/26/25 23:48
Q4HPRN PRN
Mild Pain / Temp > 101F
Aspirin 81 mg 12/30/24 08:00
Aspirin 81 Mg (Enteric Coated) Tablet PO 01/27/25 07:59
DAILY DELILAH
Atorvastatin Calcium 20 mg 12/30/24 08:00
Atorvastatin (Lipitor) 20 Mg Tablet PO 01/27/25 07:59
DAILY DELILAH
Cephalexin HCl 500 mg 12/30/24 08:00
Cephalexin 500 Mg Capsule PO
TID DELILAH
Cholecalciferol 50 mcg 12/30/24 18:00
Cholecalciferol (Vitamin D3) 50 Mcg Tablet (2,000 Units) PO 01/27/25 17:59
QPM DELILAH
Clopidogrel Bisulfate 75 mg 12/30/24 08:00
Clopidogrel 75 Mg Tablet PO 01/27/25 07:59
DAILY DELILAH
Dextrose 12.5 grams 12/29/24 23:49
Dextrose 50% (0.5 Grams/Ml) 50 Ml Syringe IV 01/26/25 23:48
[id number] PRN
hypoglycemia
Protocol
Enoxaparin Sodium 40 mg 12/30/24 18:00
Enoxaparin Sodium 40 Mg/0.4 Ml Syringe SC 01/27/25 17:59
QPM DELILAH
Ferrous Sulfate 325 mg 12/30/24 22:00
Ferrous Sulfate 325 Mg Tablet PO 01/27/25 21:59
HS DELILAH
Furosemide 40 mg 12/30/24 08:00
Furosemide 40 Mg (10 Mg/Ml) 4 Ml Vial IV 01/27/25 07:59
DAILY DELILAH
Glucagon 1 mg 12/29/24 23:49
Glucagon 1 Mg Vial IM 01/26/25 23:48
PRN PRN
hypoglycemia
Protocol
Insulin Glargine 10 units/ 0.1 mls @ 0 mls/hr 12/30/24 22:00
Device SC 01/27/25 21:59
HS DELILAH
As Directed
Insulin Aspart 0 units 12/30/24 07:30
Insulin Aspart Low Resistance 300 Units/3 Ml Pen.Injctr SC 01/27/25 07:29
AC DELILAH
Protocol
Lorazepam 0.5 mg 12/29/24 23:49
Lorazepam 0.5 Mg Tablet PO 01/26/25 23:48
DAILYPRN PRN
anxiety
Metoprolol Succinate 25 mg 12/29/24 23:49
Metoprolol 25 Mg Extended Release Tablet PO 01/26/25 23:48
BIDPRN PRN
Blood Pressure
Multivitamins Therapeutic 1 tablet 12/30/24 08:00
Multivitamin Tablet PO 01/27/25 07:59
DAILY DELILAH
Non-Formulary Medication 2 grams 12/30/24 08:00
Icosapent Ethyl [Vascepa] PO 01/27/25 07:59
BID DELILAH
Sodium Chloride 0 flush 12/30/24 05:00
Sodium Chloride 0.9% (Flush) Syringe IV 01/27/25 04:59
PER PROTOCOL DELILAH
Tamsulosin HCl 0.4 mg 12/30/24 08:00
Tamsulosin 0.4 Mg Capsule PO 01/27/25 07:59
BID DELILAH
Physical Exam
-
General: Well Developed, Well Nourished, No Apparent Distress and Comfortable
HEENT: Negative Jaundice
Cardiology: S1 and S2
Pulmonary: Other (Decreased and dull 1/3 B/L)
GI: Soft and Normal Bowel Sounds
Extremities: No C/C/E
Psych: Calm
Labs
Lab Results
WBC 4.7 10^3/uL (4.8-10.8) L 12/29/24 14:47
RBC 3.12 10^6/uL (4.70-6.10) L 12/29/24 14:47
Hgb 9.8 g/dL (13.0-18.0) L 12/29/24 14:47
Hct Cancelled 12/30/24 15:00
MCV 101.6 fL (80.0-94.0) H 12/29/24 14:47
MCH 31.4 pg (27.0-31.0) H 12/29/24 14:47
MCHC 30.9 g/dL (33.0-37.0) L 12/29/24 14:47
RDW 17.9 % (11.5-14.5) H 12/29/24 14:47
Plt Count 177 10^3/uL (130-400) 12/29/24 14:47
MPV 10.3 fL (7.4-10.4) 12/29/24 14:47
Abs Immat Gran (auto) 0.0 10^3/uL (0-0.05) 12/29/24 14:47
Absolute Neuts (auto) 3.3 10^3/uL (1.4-6.5) 12/29/24 14:47
Absolute Lymphs (auto) 0.8 10^3/uL (1.2-3.4) L 12/29/24 14:47
Absolute Monos (auto) 0.4 10^3/uL (0.1-0.6) 12/29/24 14:47
Absolute Eos (auto) 0.3 10^3/uL (0-0.7) 12/29/24 14:47
Absolute Basos (auto) 0.0 10^3/uL (0-0.2) 12/29/24 14:47
Immature Gran % 0.2 % (0-0.5) 12/29/24 14:47
Neutrophils % 68.8 % (42.2-75.2) 12/29/24 14:47
Lymphocytes % 16.3 % (20.5-51.1) L 12/29/24 14:47
Monocytes % 8.2 % (1.7-9.3) 12/29/24 14:47
Eosinophils % 5.9 % (0-6) 12/29/24 14:47
Basophils % 0.6 % (0-2) 12/29/24 14:47
Creatinine 0.9 mg/dL (0.7-1.3) 12/29/24 14:47
Laboratory Tests
12/29/24
16:39
Unm-[id number] Pept 1630
Vital Signs
Vital Signs
Temp Pulse Resp BP Pulse Ox
98.1 F 73 18 122/62 95
12/30/24 07:00 12/30/24 07:00 12/30/24 07:00 12/30/24 07:00 12/30/24 07:00
[2024-12-30 08:20] LABS: % Basophils 0.5 % (0-2); % Eosinophils 9.5 % (0-6); % Immature Granulocytes 0.3 % (0-0.5); % Lymphocytes 22.9 % (20.5-51.1); % Monocytes 10.3 % (1.7-9.3); % Neutrophils 56.5 % (42.2-75.2); Absolute Eosinophils 0.4 10^3/uL (0-0.7); Absolute Lymphocytes 0.9 10^3/uL (1.2-3.4); Absolute Monocytes 0.4 10^3/uL (0.1-0.6); Absolute Neutrophils 2.2 10^3/uL (1.4-6.5); Hematocrit 29.2 % (39.0-52.0); Mean Corp Hgb Conc. 30.8 g/dL (33.0-37.0); Mean Corpuscular Hgb 31.3 pg (27.0-31.0); Mean Corpuscular Volume 101.4 fL (80.0-94.0); Mean Platelet Volume 10.9 fL (7.4-10.4); Nucleated Red Blood Cells % 0 % (-); Platelet Count 171 10^3/uL (130-400); Red Blood Cell Count 2.88 10^6/uL (4.70-6.10); Red Cell Dist. Width 17.5 % (11.5-14.5); White Blood Cell Count 3.9 10^3/uL (4.8-10.8)
[2024-12-30 08:40] LABS: ALT (SGPT) 23 U/L (0-50); AST (SGOT) 32 U/L (17-59); Albumin 3.6 g/dl (3.5-5.0); Alkaline Phosphatase 192 U/L (38-126); Blood Urea Nitrogen 14 mg/dl (9-20); Calcium 8.6 mg/dl (8.4-10.2); Carbon Dioxide 28 mmol/L (22-30); Chloride 102 mmol/L (98-107); Estimated Creatinine Clearance 87 ml/min; Glucose 201 mg/dl (70-99); HDL Cholesterol 38 mg/dl; LDL Cholesterol, Calculated 44 mg/dl; Magnesium 2.3 mg/dl (1.6-2.3); Sodium 139 mmol/L (135-145); Total Bilirubin 0.3 mg/dl (0.2-1.3); Total Cholesterol 111 mg/dl (50-199); Total Protein 6.6 g/dl (6.3-8.2); Triglyceride 149 mg/dl (10-149); Very Low Density Lipoprotein 29 mg/dl (0-30); eGFR > 60.00
[2024-12-30] MEDS: ASPIR LOW (ENTERIC COATED) 81 MG PO (09:06)
[2024-12-30] MEDS: THERAGRAN 1 TABLET PO (09:06)
[2024-12-30] MEDS: LIPITOR 20 MG PO (09:06)
[2024-12-30] MEDS: PLAVIX 75 MG PO (09:07)
[2024-12-30 09:18] LABS: Glucose - Point of Care 212 mg/dl (70-99)
[2024-12-30 09:20] LABS: LDH 189 U/L (120-246)
[2024-12-30 10:28] LABS: Body Fluid pH 7.43
[2024-12-30 10:33] LABS: Body Fluid Mononuclear 92.3 %; Body Fluid Polymorphonuclear 7.7 %; Body Fluid WBC 908 /CUMM
[2024-12-30 10:40] LABS: Body Fluid Second Tech EM
[2024-12-30 10:46] LABS: Body Fluid Amylase < 30 U/L; Body Fluid Glucose 214 mg/dl; Body Fluid LDH 173 U/L; Body Fluid Protein 2.7 g/dl; Body Fluid Triglycerides < 30 mg/dl
[2024-12-30] MEDS: NON-FORMULARY ITEM 2 GRAMS PO ×2 (10:46→16:53)
[2024-12-30] MEDS: LASIX 40 MG IV (10:47)
[2024-12-30] MEDS: NOVOLOG FLEXPEN-LOW RESISTANCE 2 UNITS SC (11:11)
--- NOTE | 2024-12-30 11:39 | CM ---
Patient off floor.
IA completed with spouse.
Patient lives with spouse in a split level home with 1 step to enter.
Patient works and drives.
Patient independent prior to admission.
Had [facility] in the past.
Denies home care needs at this time.
PCP: Jalyn
Pharmacy: [facility]
Plan: home no needs anticipated.
--- NOTE | 2024-12-30 12:00 | CON.CAR ---
Consultation
Consultation Request
Date/Time Consultation Requested: 12/30/2024 8: 00
Date/Time Consultation Performed: 12/30/2024 11: 40
Requesting Provider: Pedro
Performing Provider: Branden
Reason for Consultation: CHF
Medical History
-
Chief Complaint: Cough and shortness of breath with lying flat
History of Present Illness:
Fili has history of stage IIb pancreatic cancer, CAD status post stent of mid circumflex and RCA in 2019, AAA s/p repair in 2019, CHF, hypertension, nonsustained V. tach, diabetes, MSSA bacteremia, sleep apnea, prostate cancer, ureteral stricture.
He has had approximately 15 pound weight gain over the past couple weeks. He also has noted difficulty with coughing and short of breath with lying flat. He was getting radiation therapy was unable to lie flat. Subsequent CAT scan revealed
evidence of CHF. He feels better since admission. He is status post left thoracentesis.
Past Medical History
Past Medical History: Other (See HPI)
Past Surgical History: Other (Eye strabismus surgery, tonsillectomy, AAA repair 2019)
Social History
Tobacco: Non-Smoker
Alcohol: None
Drug: None
Personal:
Living: With Family
Employment: Employed
Family History
Family History: Other (Mother of lung cancer, father at age 44 from [place])
Allergies / Home Medications
Allergy/AdvReac Type Severity Reaction Status Date / Time
cat dander Allergy SNEEZING/STUFFY Verified 12/29/24 14:39
NOSE
dog dander Allergy SNEEZING/STUFFY Verified 12/29/24 14:39
NOSE
house dust Allergy Nasal Verified 12/29/24 14:39
congestion/sneezing
ibuprofen [From Advil] Allergy ANGIOEDEMA Verified 12/29/24 14:39
lisinopril Allergy ANGIOEDEMA Verified 12/29/24 14:39
olmesartan [From Benicar] Allergy ANGIOEDEMA Verified 12/29/24 14:39
tomato Allergy ANGIOEDEMA Verified 12/29/24 14:39
�Medication �Instructions �Recorded �Confirmed �Type
aspirin 81 mg tablet,delayed 81 mg PO DAILY Blood Clot 09/22/19 12/29/24 History
release Prevention/Tx
ferrous sulfate 325 mg (65 mg 325 mg PO HS Supplement 09/22/19 12/29/24 History
iron) tablet (FeroSul)
metoprolol succinate 25 mg 25 mg PO BIDPRN PRN Blood Pressure 09/22/19 12/29/24 History
tablet,extended release 24 hr
(Toprol XL)
empagliflozin 10 mg tablet 10 mg PO DAILY diabetes 01/15/23 12/29/24 History
(Jardiance)
icosapent ethyl 1 gram capsule 2 g PO BID High Cholesterol 01/15/23 12/29/24 History
(Vascepa)
metformin 1,000 mg tablet 1,000 mg PO BID diabetes 01/15/23 12/29/24 History
tamsulosin 0.4 mg capsule 0.4 mg PO BID Urinary Issue 06/16/24 12/29/24 History
therapeutic multivitamin 1 tab PO DAILY Supplement 06/16/24 12/29/24 History
cholecalciferol (vitamin D3) 50 50 mcg PO QPM Supplement 10/01/24 12/29/24 History
mcg (2,000 unit) tablet
insulin glargine-yfgn 100 unit/mL 20 unit SC BIDPRN PRN Diabetes 10/01/24 12/29/24 History
(3 mL) subcutaneous pen (Semglee
(insulin glargine-yfgn) Pen)
clopidogrel 75 mg tablet (Plavix) 75 mg PO DAILY 10/19/24 12/29/24 History
loperamide 2 mg tablet 2 mg PO BIDPRN PRN diarrhea 10/19/24 12/29/24 History
simethicone 80 mg chewable tablet 80 mg PO BIDPRN PRN gas 10/19/24 12/29/24 History
acetaminophen 325 mg tablet 650 mg (2 x 325 mg) PO Q4HPRN PRN 10/20/24 12/29/24 Rx
Mild Pain / Temp > 101F #60 tabs
atorvastatin 20 mg tablet 20 mg PO DAILY 12/17/24 12/29/24 History
cephalexin 500 mg capsule 500 mg PO TID 12/29/24 12/29/24 History
furosemide 20 mg tablet (Lasix) 20 mg PO DAILY 12/29/24 12/29/24 History
lorazepam 0.5 mg tablet 0.5 mg PO DAILYPRN PRN anxiety 12/29/24 12/29/24 History
Review of Systems
-
History Source: Patient
All other systems: Negative unless noted
Constitutional: Weight Gain
EENT: No Symptoms
Respiratory: Cough and Trouble Breathing
Cardiac: No Symptoms
Abdomen/GI: No Symptoms
: Other (He had recent ureteral stricture surgery)
Musculoskeletal: No Symptoms
Skin: No Symptoms
Neurological: No Symptoms
Endocrine: No Symptoms
Hematologic/Lymphatic: No Symptoms
Physical Exam
Vital Signs
Temp Pulse Resp BP Pulse Ox
98.1 F 82 14 143/75 94
12/30/24 09:48 12/30/24 09:48 12/30/24 09:48 12/30/24 10:47 12/30/24 09:48
Lab Results
12/30/24 15:00
12/30/24 15:00
Ffn-E-Fkrdygmdgyd Pept 1630 pg/ml 12/29/24 16:39
General: Well developed, well nourished in NAD.
Neck: Supple, no JVD, HJR, carotids +2 B/L, no bruits bilaterally.
Heart: Non displaced PMI, RRR, no murmurs, No S3, S4, no rubs.
Lungs: Scattered rhonchi
Abdomen: Normal bowel sounds, soft, non-tender, non-distended.
Extremities: No clubbing, cyanosis or edema bilaterally.
Neuro: Grossly nonfocal, awake, alert and oriented x3.
Impression / Plan
-
Impression:
Acute diastolic CHF
Pleural effusion status post thoracentesis
Stage IIb pancreatic cancer
Hyperlipidemia
Hypertension
Diabetes
History of nonsustained V. tach
CAD status post RCA and circumflex stent 2018
AAA status postrepair in 2019
Sleep apnea
Prostate cancer
Echocardiogram 12/16/2024: Ejection fraction 50 to 55%, basal to mid inferior and inferolateral hypokinesis, PA systolic 47 mmHg with mild to moderate TR
Plan:
Continue IV Lasix and assess response
His weight went up as high as 232 pounds at home and is currently 222 pounds. His dry weight is approximately 215 pounds
Discussed with patient and family at bedside
Data Reviewed
-
EKG: Tracing Personally Visualized and interpreted
Radiology: Report Reviewed by me
CT Scan: Report Reviewed by me
Medical Tests (Nuc Med, Echo etc): Report Reviewed by me
Labs: Labs Reviewed by me
Old Records: Reviewed
[2024-12-30 12:55] LABS: Glucose - Point of Care 460 mg/dl (70-99)
[2024-12-30 13:32] LABS: Glucose 404 mg/dl (70-99)
[2024-12-30] MEDS: NOVOLOG FLEXPEN-LOW RESISTANCE 6 UNITS SC (14:04)
[2024-12-30] MEDS: NOVOLOG FLEXPEN 3 UNITS SC (14:04)
--- NOTE | 2024-12-30 15:01 | W.PN.HOSP.TC ---
Today's Communication/Plan
-
see outlined plan below
Assessment / Plan
Assessment / Plan
Assessment:
Acute hypoxic respiratory insufficiency secondary to bilateral pleural effusion, acute CHF
- wean O2 as able
- s/p L thoracentesis 12/30, 750 cc removed
Acute HFpEF
- Echocardiogram 12/16/2024: Ejection fraction 50 to 55%, basal to mid inferior and inferolateral hypokinesis, PA systolic 47 mmHg with mild to moderate TR
- continue IV Lasix; requires intensive monitoring of I/Os, weights, lytes
Stage IIb pancreatic cancer
- follows with Dr. Campbell
- on Xeloda
- radiation planned
- Whipple planned with [facility]
- Onc following
type 2 DM
- uncontrolled
- A1c: pending
- SSI
- continue Lantus, add aspart
- holding Metformin, Jardiance for now
- ADVERTISING ASSISTANT consulted
Hx of urethral stricture s/p stricture repair 12/18/24 (Dr. Talavera)
History of prostate cancer status post XRT
- continue Flomax; Bladder scans
Anemia macrocytic
- follow CBC
Essential HTN
- continue BB
CAD s/p stents
- continue ASA/Plavix/Statin/BB
HX of infected AAA
History of endovascular repair complicated by bacteremia requiring open repair
- on lifelong Keflex suppression therapy
HLD
Anxiety
DVT ppx: Lovenox
Code: Full
Anticipated Discharge: > 48 hours
Subjective/Interval History
-
Date of Service: December 30, 2024
s/p L thoracentesis
feels much improved but still having LE edema
no SOB or CP
Objective Data
-
Labs:
Laboratory Results
01/29/25 01/29/25 01/29/25
07:54 12:53 15:00
WBC 3.9 L
Hgb 9.0 L
Hct 29.2 L Cancelled
Plt Count 171
Sodium 139
Potassium 4.0
Chloride 102
Carbon Dioxide 28
BUN 14
Creatinine 0.9
Glucose 201 H 404 H Cancelled
Calcium 8.6
Total Bilirubin 0.3
AST 32
ALT 23
Alkaline Phosphatase 192 H
Vital Signs:
Vital Signs
Temp Pulse Resp BP Pulse Ox
98.3 F 86 18 129/68 98
12/30/24 12:00 12/30/24 12:00 12/30/24 12:00 12/30/24 12:00 12/30/24 12:00
I&O
12/29/24 12/30/24 12/31/24
06:59 06:59 06:59
Intake Total 960 / 960
Balance 960 / 960
Physical Exam
-
General: No Apparent Distress
HEENT: Normocephalic and Atraumatic
Respiratory: Crackles and Decreased Breath Sounds
Cardiac: Regular Rhythm and S1/S2
GI: Soft
Musculoskeletal: Edema, Right Lower Extrem and Edema, Left Lower Extrem
Neuro: AO x 3
Psych: Calm
Data Reviewed
-
Total Time Spent with Patient (in minutes): 51
Labs: Labs Reviewed by me
[2024-12-30] MEDS: LOVENOX 40 MG SC (16:53)
[2024-12-30] MEDS: VITAMIN D3 (cholecalciferol) 50 MCG PO (16:53)
[2024-12-30 17:03] LABS: Glucose - Point of Care 261 mg/dl (70-99)
[2024-12-30] MEDS: ROBITUSSIN DM 10 ML PO ×2 (17:07→22:20)
[2024-12-30] MEDS: NOVOLOG FLEXPEN-LOW RESISTANCE 3 UNITS SC (18:16)
[2024-12-30] MEDS: NOVOLOG FLEXPEN 5 UNITS SC (18:16)
[2024-12-30] MEDS: OCEAN, SALINE MIST 2 SPRAYS NASAL (18:31)
[2024-12-30] MEDS: DUONEB 3 ML INH (18:37)
[2024-12-30 21:50] LABS: Glucose - Point of Care 188 mg/dl (70-99)
[2024-12-30] MEDS: LANTUS 0.15 UNITS SC (22:13)
--- NOTE | 2024-12-30 23:45 | PTCARENOTE ---
Pt assessed as per flow sheet. Pt denies pain and SOB. Tubigrips removed HS. Pt states he sleeps in recliner and will elevate legs. Instructed to move extremities periodically. No s/s of distress assessed. Will continue to monitor.
[2024-12-31] VITALS (8 sets, daily range): BP systolic 113–132; BP diastolic 61–73; BMI 33.2
--- NOTE | 2024-12-31 07:28 | PN.DE.MGMTRT ---
Insulin Management
- -
12/31/2024 Diabetes Management Consult
Patient admitted 12/29 c/o SOB, unable to lay flat, found to have acute hypoxic respiratory insufficiency, pleural effusions. PMH Prostate CA, Pancreatic CA, asthma, HTN, HCL, diabetes, SAM, AAA. Prior to admission was taking Semglee 20 units BID,
Jardiance 10 mg daily and metformin 1000 BID. A1C in 2023 7.6. Cr .9, eGFR > 60 today.
Patient is awake, alert and oriented, oob in chair, at bedside able to discuss diabetes care. He states since he has not been taking Semglee. There was one evening he took it because his HS blood sugar was > 150 but has not taken it
since. He has a working glucose monitor and has been testing regularly and reporting his results to Dr Velazquez, primary.
Currently he is receiving 5 units of novolog AC and 15 units lantus @ hs. Glucose range 12/30 was 188 to 460.
Will restart Farxiga 10 mg now and daily ( Jardiance 25 mg at home) and resume metformin 1000 mg BID with dinner.
Discussed with patients nurse.
Will follow
Diabetes History
- -
Type of Diabetes: 2
Pre-Admission Diabetes Regimen
12/30/24
07:54
Creatinine 0.9
Insulin Pump Settings
IP Diabetes Regimen
12/30/24 12/30/24 12/30/24
07:54 09:07 12:44
Glucose 201 H
POC Glucose 212 H 460 H*
12/30/24 12/30/24 12/30/24
12:53 15:00 16:52
Glucose 404 H Cancelled
POC Glucose 261 H
12/30/24
21:38
Glucose
POC Glucose 188 H
Meal type: Breakfast
Meal type: Breakfast
Amount consumed: 100%
Amount consumed: 100%
Patient Education
[2024-12-31 07:54] LABS: % Basophils 0.4 % (0-2); % Eosinophils 8.2 % (0-6); % Immature Granulocytes 0.4 % (0-0.5); % Lymphocytes 21.5 % (20.5-51.1); % Monocytes 11.1 % (1.7-9.3); % Neutrophils 58.4 % (42.2-75.2); Absolute Eosinophils 0.4 10^3/uL (0-0.7); Absolute Monocytes 0.5 10^3/uL (0.1-0.6); Absolute Neutrophils 2.7 10^3/uL (1.4-6.5); Hematocrit 27.7 % (39.0-52.0); Hemoglobin 8.2 g/dL (13.0-18.0); Mean Corp Hgb Conc. 29.6 g/dL (33.0-37.0); Mean Corpuscular Hgb 29.9 pg (27.0-31.0); Mean Corpuscular Volume 101.1 fL (80.0-94.0); Mean Platelet Volume 10.7 fL (7.4-10.4); Nucleated Red Blood Cells % 0 % (-); Platelet Count 163 10^3/uL (130-400); Red Blood Cell Count 2.74 10^6/uL (4.70-6.10); Red Cell Dist. Width 17.2 % (11.5-14.5); White Blood Cell Count 4.6 10^3/uL (4.8-10.8)
[2024-12-31] MEDS: ASPIR LOW (ENTERIC COATED) 81 MG PO (08:00)
[2024-12-31] MEDS: FLOMAX 0.4 MG PO ×2 (08:00→19:58)
[2024-12-31] MEDS: PLAVIX 75 MG PO (08:00)
[2024-12-31] MEDS: LIPITOR 20 MG PO (08:00)
[2024-12-31] MEDS: THERAGRAN 1 TABLET PO (08:00)
[2024-12-31] MEDS: LASIX 40 MG IV (08:01)
[2024-12-31] MEDS: KEFLEX 500 MG PO ×3 (08:01→22:36)
[2024-12-31] MEDS: NON-FORMULARY ITEM 2 GRAMS PO ×2 (08:06→18:00)
[2024-12-31 08:16] LABS: ALT (SGPT) 22 U/L (0-50); AST (SGOT) 32 U/L (17-59); Albumin 3.3 g/dl (3.5-5.0); Alkaline Phosphatase 176 U/L (38-126); Blood Urea Nitrogen 14 mg/dl (9-20); Calcium 8.1 mg/dl (8.4-10.2); Carbon Dioxide 30 mmol/L (22-30); Chloride 101 mmol/L (98-107); Estimated Creatinine Clearance 77 ml/min; Glucose 151 mg/dl (70-99); Magnesium 2.2 mg/dl (1.6-2.3); Potassium 4.1 mmol/L (3.5-5.1); Sodium 137 mmol/L (135-145); Total Bilirubin 0.5 mg/dl (0.2-1.3); Total Protein 6.2 g/dl (6.3-8.2); eGFR > 60.00
--- NOTE | 2024-12-31 08:20 | W.PN.ONC2 ---
Documented by User: WINSTON Zambrano 12/31/24 10:46
Today's Communication / Plan
-
follow pleural fluid cytology
Impression
Impression
Moderate pleural effusions
Locally advanced pancreatic cancer
History of prostate cancer
Plan
Plan
Patient started on diuretic therapy and IR has been consulted for diagnostic and therapeutic thoracentesis.
FOLFIRINOX itself is not typically associated with pleural effusions although still we need to rule out nonmalignant causes such as CHF, etc.
Await cytology. If malignant cytology found, this would clearly make patient stage IV and ineligible for curative surgery and ineligible for continuing total neoadjuvant therapy CINDY prior to curative surgery.
He would most likely need to switch to alternative salvage systemic therapy either gemcitabine + Abraxane or potentially a targeted therapy depending on his NexGen sequencing.
If pleural effusions however are benign (fani with elevated pro-BNP), recommend optimizing treatment so that he can resume radiation with the potential for curative intent treatment. For now agree with diuretic therapy and thoracentesis. Cardiology
has also been consulted.
Subjective/Objective
Subjective
no new complaints
Vital Signs:
Vital Signs
Temp Pulse Resp BP Pulse Ox
97.5 F 85 16 130/72 96
12/31/24 07:30 12/31/24 08:01 12/31/24 07:30 12/31/24 08:01 12/31/24 07:30
Lab Results:
Laboratory Data
WBC 4.6 10^3/uL (4.8-10.8) L 12/31/24 07:20
Hgb 8.2 g/dL (13.0-18.0) L 12/31/24 07:20
Plt Count 163 10^3/uL (130-400) 12/31/24 07:20
eGFR > 60.00 12/31/24 07:20
Physical Exam
General: Well Developed, Well Nourished, No Apparent Distress and Comfortable
HEENT: Negative Jaundice
Cardiology: S1 and S2
Pulmonary: Other (Decreased and dull 1/3 B/L)
GI: Soft and Normal Bowel Sounds
Extremities: No C/C/E
Psych: Calm

Documented by User: Josué Campbell DO 12/31/24 11:12
Today's Communication / Plan
-
Follow pleural fluid cytology
Patient's respond has been dramatic in the most recent month decreasing from nearly 4 cm to 1.1 as imaged on MRI we will discuss with surgery [facility] if cytology negative
Subjective/Objective
Subjective
No new complaints. Sitting in a chair no significant shortness of breath.
[2024-12-31 08:39] LABS: Glucose - Point of Care 165 mg/dl (70-99)
--- NOTE | 2024-12-31 08:48 | PTOTSP ---
Patient independent with all transfers and ambulation. No skilled PT needs, will sign off.
[2024-12-31] MEDS: NOVOLOG FLEXPEN-LOW RESISTANCE 1 UNITS SC (09:25)
[2024-12-31] MEDS: NOVOLOG FLEXPEN 5 UNITS SC ×3 (09:26→17:59)
[2024-12-31] MEDS: FARXIGA 10 MG PO (10:19)
[2024-12-31] MEDS: ROBITUSSIN DM 10 ML PO ×3 (10:19→22:43)
[2024-12-31] MEDS: DUONEB 3 ML INH (10:24)
[2024-12-31 12:58] LABS: Glucose - Point of Care 373 mg/dl (70-99)
[2024-12-31] MEDS: NOVOLOG FLEXPEN-LOW RESISTANCE 5 UNITS SC (13:02)
--- NOTE | 2024-12-31 13:06 | CM ---
Patient seen bedside with spouse.
Patient denies home care needs.
Plan: home once medically stable, no needs anticipated.
--- NOTE | 2024-12-31 14:38 | W.PN.HOSP.TC ---
Today's Communication/Plan
-
continue IV Lasix
possible dc in 24 hours
Assessment / Plan
Assessment / Plan
Assessment:
Acute hypoxic respiratory insufficiency secondary to bilateral pleural effusion, acute CHF
- now weaned to RA
- s/p L thoracentesis 12/30, 750 cc removed
Acute HFpEF
- Echocardiogram 12/16/2024: Ejection fraction 50 to 55%, basal to mid inferior and inferolateral hypokinesis, PA systolic 47 mmHg with mild to moderate TR
- continue IV Lasix; requires intensive monitoring of I/Os, weights, lytes
- dry weight 215 lbs, currently 217 lbs
Stage IIb pancreatic cancer
- follows with Dr. Campbell
- on Xeloda
- radiation planned
- Whipple planned with [facility]
- Onc following
- await thora cytology
type 2 DM
- uncontrolled
- A1c: 8.1%
- SSI
- continue Lantus, continue aspart
- resume Metformin, Jardiance
- STRATEGY INTERN following
Hx of urethral stricture s/p stricture repair 12/18/24 (Dr. Talavera)
History of prostate cancer status post XRT
- continue Flomax; Bladder scans
Anemia macrocytic
- follow CBC
Essential HTN
- continue BB
CAD s/p stents
- continue ASA/Plavix/Statin/BB
HX of infected AAA
History of endovascular repair complicated by bacteremia requiring open repair
- on lifelong Keflex suppression therapy
HLD
Anxiety
DVT ppx: Lovenox
Code: Full
Anticipated Discharge: Within 24 hours
Subjective/Interval History
-
Date of Service: December 31, 2024
no complaints
off O2
Objective Data
-
Labs:
Laboratory Results
12/31/24
07:20
WBC 4.6 L
Hgb 8.2 L
Hct 27.7 L
Plt Count 163
Sodium 137
Potassium 4.1
Chloride 101
Carbon Dioxide 30
BUN 14
Creatinine 1.0
Glucose 151 H
Calcium 8.1 L
Total Bilirubin 0.5
AST 32
ALT 22
Alkaline Phosphatase 176 H
Vital Signs:
Vital Signs
Temp Pulse Resp BP Pulse Ox
98.0 F 85 18 129/61 98
12/31/24 11:42 12/31/24 11:42 12/31/24 11:42 12/31/24 11:42 12/31/24 11:42
I&O
12/30/24 12/31/24 01/01/25
06:59 06:59 06:59
Intake Total 960 / 960 960 / 960
Balance 960 / 960 960 / 960
Physical Exam
-
General: No Apparent Distress
HEENT: Normocephalic and Atraumatic
Respiratory: Negative Wheezes
Cardiac: Regular Rhythm
GI: Soft
Genito-urinary: No Costovertebral Tender
Musculoskeletal: Edema, Right Lower Extrem and Edema, Left Lower Extrem
Neuro: AO x 3
Psych: Calm
Data Reviewed
-
Total Time Spent with Patient (in minutes): 51
Labs: Labs Reviewed by me
--- NOTE | 2024-12-31 15:52 | W.PN.CARDCBS ---
Today's Communication / Plan
-
RECOMMENDATIONS
-Discharge on 40mg of furosemide
-We will try to arrange followup
Impression / Plan
-
Impression:
Acute diastolic CHF
Pleural effusion status post thoracentesis
Stage IIb pancreatic cancer
Hyperlipidemia
Hypertension
Diabetes
History of nonsustained V. tach
CAD status post RCA and circumflex stent 2018
AAA status postrepair in 2019
Sleep apnea
Prostate cancer
Echocardiogram 12/16/2024: Ejection fraction 50 to 55%, basal to mid inferior and inferolateral hypokinesis, PA systolic 47 mmHg with mild to moderate TR
Plan:
Can probably switch to p.o. furosemide as he is close to his baseline weight.
Would probably discharge on 40 mg of furosemide. The patient is quite vigilant with monitoring his home blood pressures and home weights.
Family states that he has not been urinating a lot with the 20 mg dose we will see how he does on the 40 mg dose with close follow-up of home weights.
Will try to get him in for HF followup
Discussed with patient and family at bedside
Progress Note - Lamina Searcher
Subjective
Date of Service: December 31, 2024
Feeling well. Close to baseline
Objective
Labs:
12/31/24 07:20
12/31/24 07:20
Labs
Hgb 8.2 g/dL (13.0-18.0) L 12/31/24 07:20
Hct 27.7 % (39.0-52.0) L 12/31/24 07:20
Plt Count 163 10^3/uL (130-400) 12/31/24 07:20
Sodium 137 mmol/L (135-145) 12/31/24 07:20
Potassium 4.1 mmol/L (3.5-5.1) 12/31/24 07:20
BUN 14 mg/dl (9-20) 12/31/24 07:20
Creatinine 1.0 mg/dL (0.7-1.3) 12/31/24 07:20
Glucose 151 mg/dl (70-99) H 12/31/24 07:20
Vital Signs and I&O:
Vital Signs
Temp Pulse Resp BP Pulse Ox
98.0 F 85 18 129/61 98
12/31/24 11:42 12/31/24 11:42 12/31/24 11:42 12/31/24 11:42 12/31/24 11:42
Vital Signs
Temp Pulse Resp BP Pulse Ox
98.0 F 85 18 129/61 98
12/31/24 11:42 12/31/24 11:42 12/31/24 11:42 12/31/24 11:42 12/31/24 11:42
Intake & Output
12/28/24 12/29/24 12/30/24 12/31/24
23:59 23:59 23:59 23:59
Intake Total 1440 / 1440 480 / 480
Balance 1440 / 1440 480 / 480
Physical Exam
Physical Exam
GEN: AAO x 3. No acute distress
HEENT: NC/AT, sclera are anicteric
LUNGS: Clear. No wheezing
CV: Regular rate and rhythm. Normal S1/S2. No S3, No S4. Murmur: None
EXT: No CCE
[2024-12-31 17:34] LABS: Glucose - Point of Care 268 mg/dl (70-99)
[2024-12-31] MEDS: GLUCOPHAGE 1000 MG PO (17:58)
[2024-12-31] MEDS: VITAMIN D3 (cholecalciferol) 50 MCG PO (17:58)
[2024-12-31] MEDS: LOVENOX 40 MG SC (17:58)
[2024-12-31] MEDS: NOVOLOG FLEXPEN-LOW RESISTANCE 3 UNITS SC (17:59)
[2024-12-31] MEDS: FEOSOL 325 MG PO (22:36)
[2024-12-31] MEDS: LANTUS 0.15 UNITS SC (22:40)
[2024-12-31 22:54] LABS: Glucose - Point of Care 194 mg/dl (70-99)
[2025-01-01 03:24] VITALS: BP 114/59
[2025-01-01 05:46] VITALS: BMI 32.8
--- NOTE | 2025-01-01 07:18 | PN.DE.MGMTRT ---
Insulin Management
- -
01/01/2025 Diabetes Management follow up
Patient admitted 12/29 c/o SOB, unable to lay flat, found to have acute hypoxic respiratory insufficiency, pleural effusions. PMH Prostate CA, Pancreatic CA, asthma, HTN, HCL, diabetes, SAM, AAA. Prior to admission was taking Semglee 20 units BID,
Jardiance 10 mg daily and metformin 1000 BID. He states since he has not been taking Semglee. There was one evening he took it because his HS blood sugar was > 150 but has not taken it since. He has a working glucose monitor and has been
testing regularly and reporting his results to Dr Velazquez, primary. A1C in 2023 was 7.6%, Cr .9, eGFR > 60 today.
Patient is awake, alert and oriented, oob in chair, at bedside able to discuss diabetes care.
Farxiga 10mg daily (Jardiance 25 mg at home) and Metformin 1000 mg BID were resumed yesterday.
Currently he is receiving 5 units of NovoLog AC and 15 units Lantus @ hs.
Glucose range 12/31 was 165 to 373, requiring additional corrective insulin.
Will increase Lantus to 18 units @ HS and AC NovoLog to 8 units. cont low corrective with meals
Will cont to follow. Dose change discussed with pt and .
Diabetes History
- -
Type of Diabetes: 2 requiring insulin
Pre-Admission Diabetes Regimen
12/31/24
07:20
Creatinine 1.0
Insulin Pump Settings
IP Diabetes Regimen
12/31/24 12/31/24 12/31/24
07:20 08:27 12:47
Glucose 151 H
POC Glucose 165 H 373 H
12/31/24 12/31/24
17:22 22:42
Glucose
POC Glucose 268 H 194 H
Meal type: Dinner
Meal type: Breakfast
Amount consumed: 100%
Amount consumed: 100%
Patient Education
[2025-01-01 07:33] VITALS: BP 111/64
--- NOTE | 2025-01-01 07:59 | W.PN.ONC2 ---
Today's Communication / Plan
-
-
Impression
Impression
Moderate pleural effusions
Locally advanced pancreatic cancer
History of prostate cancer
Plan
Plan
Patient started on diuretic therapy and IR has been consulted for diagnostic and therapeutic thoracentesis.
FOLFIRINOX itself is not typically associated with pleural effusions although still we need to rule out nonmalignant causes such as CHF, etc.
Await cytology. If malignant cytology found, this would clearly make patient stage IV and ineligible for curative surgery and ineligible for continuing total neoadjuvant therapy CINDY prior to curative surgery.
He would most likely need to switch to alternative salvage systemic therapy either gemcitabine + Abraxane or potentially a targeted therapy depending on his NexGen sequencing.
If pleural effusions however are benign (fani with elevated pro-BNP), recommend optimizing treatment so that he can resume radiation with the potential for curative intent treatment. For now agree with diuretic therapy and thoracentesis. Cardiology
has also been consulted.
Subjective/Objective
Subjective
no new complaints
Vital Signs:
Vital Signs
Temp Pulse Resp BP Pulse Ox
97.8 F 73 14 111/64 98
01/01/25 07:33 01/01/25 07:33 01/01/25 07:33 01/01/25 07:33 01/01/25 07:33
Lab Results:
Laboratory Data
WBC 4.6 10^3/uL (4.8-10.8) L 12/31/24 07:20
Hgb 8.2 g/dL (13.0-18.0) L 12/31/24 07:20
Plt Count 163 10^3/uL (130-400) 12/31/24 07:20
eGFR > 60.00 12/31/24 07:20
Physical Exam
General: Well Developed, Well Nourished, No Apparent Distress and Comfortable
HEENT: Negative Jaundice
Cardiology: S1 and S2
Pulmonary: Other (Decreased and dull 1/3 B/L)
GI: Soft and Normal Bowel Sounds
Extremities: No C/C/E
Psych: Calm
[2025-01-01 08:38] LABS: % Basophils 0.6 % (0-2); % Eosinophils 8.3 % (0-6); % Immature Granulocytes 0.3 % (0-0.5); % Lymphocytes 26.1 % (20.5-51.1); % Monocytes 10.8 % (1.7-9.3); % Neutrophils 53.9 % (42.2-75.2); Absolute Eosinophils 0.3 10^3/uL (0-0.7); Absolute Lymphocytes 0.9 10^3/uL (1.2-3.4); Absolute Monocytes 0.4 10^3/uL (0.1-0.6); Absolute Neutrophils 1.9 10^3/uL (1.4-6.5); Hematocrit 27.6 % (39.0-52.0); Hemoglobin 8.5 g/dL (13.0-18.0); Mean Corp Hgb Conc. 30.8 g/dL (33.0-37.0); Mean Corpuscular Hgb 30.5 pg (27.0-31.0); Mean Corpuscular Volume 98.9 fL (80.0-94.0); Mean Platelet Volume 10.7 fL (7.4-10.4); Nucleated Red Blood Cells % 0 % (-); Platelet Count 164 10^3/uL (130-400); Red Blood Cell Count 2.79 10^6/uL (4.70-6.10); Red Cell Dist. Width 16.8 % (11.5-14.5); White Blood Cell Count 3.6 10^3/uL (4.8-10.8)
[2025-01-01] MEDS: FARXIGA 10 MG PO (08:57)
[2025-01-01] MEDS: KEFLEX 500 MG PO (08:57)
[2025-01-01] MEDS: GLUCOPHAGE 1000 MG PO (08:57)
[2025-01-01] MEDS: NOVOLOG FLEXPEN-LOW RESISTANCE 2 UNITS SC (08:57)
[2025-01-01] MEDS: THERAGRAN 1 TABLET PO (08:58)
[2025-01-01] MEDS: LIPITOR 20 MG PO (08:58)
[2025-01-01] MEDS: FLOMAX 0.4 MG PO (08:58)
[2025-01-01] MEDS: ASPIR LOW (ENTERIC COATED) 81 MG PO (08:58)
[2025-01-01] MEDS: PLAVIX 75 MG PO (08:58)
[2025-01-01] MEDS: LASIX 40 MG IV (08:58)
[2025-01-01] MEDS: NON-FORMULARY ITEM 2 GRAMS PO (08:59)
[2025-01-01 09:04] LABS: ALT (SGPT) 24 U/L (0-50); AST (SGOT) 34 U/L (17-59); Albumin 3.7 g/dl (3.5-5.0); Alkaline Phosphatase 174 U/L (38-126); Blood Urea Nitrogen 17 mg/dl (9-20); Calcium 8.1 mg/dl (8.4-10.2); Carbon Dioxide 27 mmol/L (22-30); Chloride 101 mmol/L (98-107); Estimated Creatinine Clearance 85 ml/min; Glucose 194 mg/dl (70-99); Potassium 4.1 mmol/L (3.5-5.1); Sodium 136 mmol/L (135-145); Total Bilirubin 0.6 mg/dl (0.2-1.3); Total Protein 6.7 g/dl (6.3-8.2); eGFR > 60.00
[2025-01-01 09:05] LABS: Glucose - Point of Care 225 mg/dl (70-99)
[2025-01-01] MEDS: NOVOLOG FLEXPEN 5 UNITS SC (09:08)
--- NOTE | 2025-01-01 09:49 | W.PN.HOSP.TC ---
Today's Communication/Plan
-
dc home
Assessment / Plan
Assessment / Plan
Assessment:
Acute hypoxic respiratory insufficiency secondary to bilateral pleural effusion, acute CHF
- now weaned to RA
- s/p L thoracentesis 12/30, 750 cc removed
Acute HFpEF
- Echocardiogram 12/16/2024: Ejection fraction 50 to 55%, basal to mid inferior and inferolateral hypokinesis, PA systolic 47 mmHg with mild to moderate TR
- s/p IV Lasix course; now on oral Lasix 40mg daily
- OP Cardiology f/u
Stage IIb pancreatic cancer
- follows with Dr. Campbell
- on Xeloda
- radiation planned
- [facility] planned with [facility]
- Onc following
- await thora cytology
type 2 DM
- uncontrolled
- A1c: 8.1%
- SSI
- continue Lantus, continue aspart
- resume Metformin, Jardiance
- WELL LOGGING OPERATOR MUD ANALYSIS following
Hx of urethral stricture s/p stricture repair 12/18/24 (Dr. Talavera)
History of prostate cancer status post XRT
- continue Flomax; Bladder scans
Anemia macrocytic
- follow CBC
Essential HTN
- continue BB
CAD s/p stents
- continue ASA/Plavix/Statin/BB
HX of infected AAA
History of endovascular repair complicated by bacteremia requiring open repair
- on lifelong Keflex suppression therapy
HLD
Anxiety
DVT ppx: Lovenox
Code: Full
More than 30 minutes spent in discharge including
Final examination of the patient
Summarizing hospital stay
Instructions for continuing care to all relevant caregivers
Preparation of discharge records, prescriptions, and referral forms
Total time spent (in minutes):41
Anticipated Discharge: Today
Subjective/Interval History
-
Date of Service: January 01, 2025
denies any new complaints
Objective Data
-
Labs:
Laboratory Results
01/01/25
08:24
WBC 3.6 L
Hgb 8.5 L
Hct 27.6 L
Plt Count 164
Sodium 136
Potassium 4.1
Chloride 101
Carbon Dioxide 27
BUN 17
Creatinine 0.9
Glucose 194 H
Calcium 8.1 L
Total Bilirubin 0.6
AST 34
ALT 24
Alkaline Phosphatase 174 H
Vital Signs:
Vital Signs
Temp Pulse Resp BP Pulse Ox
97.8 F 73 14 111/62 98
01/01/25 07:33 01/01/25 07:33 01/01/25 07:33 01/01/25 08:58 01/01/25 07:33
I&O
12/31/24 01/01/25 01/02/25
06:59 06:59 06:59
Intake Total 960 / 960 960 / 960
Balance 960 / 960 960 / 960
Physical Exam
-
General: No Apparent Distress
HEENT: Normocephalic and Atraumatic
Respiratory: Negative Wheezes
Cardiac: Regular Rhythm and S1/S2
GI: Soft
Genito-urinary: No Costovertebral Tender
Musculoskeletal: No Edema
Neuro: AO x 3
Psych: Calm
Data Reviewed
-
Total Time Spent with Patient (in minutes): 41
Labs: Labs Reviewed by me
--- NOTE | 2025-01-01 09:56 | W.DS.TRANS ---
DC Summary - Herb Counselor
-
Discharge Instructions:
Discharge Diagnosis/Procedures acute CHF, uncontrolled diabetes
Diet 2 Gram Sodium,Restrict fluids to 64 oz,Diabetic,
Carb Controlled
Activity As tolerated
Specialty Instructions Weigh Daily
Instructions: *DCA Heart Failure Instructions
Stand-Alone Forms:
Changes to Home Medications: No
Discharge Medications:
DC Medications w/original date entered in [employer]
aspirin 81 mg tablet,delayed release 81 mg PO DAILY Blood Clot Prevention/Tx 09/22/19
ferrous sulfate 325 mg (65 mg iron) tablet (FeroSul) 325 mg PO HS Supplement 09/22/19
metoprolol succinate 25 mg tablet,extended release 24 hr (Toprol XL) 25 mg PO BIDPRN PRN Blood Pressure 09/22/19
empagliflozin 10 mg tablet (Jardiance) 10 mg PO DAILY diabetes 01/15/23
icosapent ethyl 1 gram capsule (Vascepa) 2 g PO BID High Cholesterol 01/15/23
metformin 1,000 mg tablet 1,000 mg PO BID diabetes 01/15/23
tamsulosin 0.4 mg capsule 0.4 mg PO BID Urinary Issue 06/16/24
therapeutic multivitamin 1 tab PO DAILY Supplement 06/16/24
cholecalciferol (vitamin D3) 50 mcg (2,000 unit) tablet 50 mcg PO QPM Supplement 10/01/24
clopidogrel 75 mg tablet (Plavix) 75 mg PO DAILY 10/19/24
loperamide 2 mg tablet 2 mg PO BIDPRN PRN diarrhea 10/19/24
simethicone 80 mg chewable tablet 80 mg PO BIDPRN PRN gas 10/19/24
acetaminophen 325 mg tablet 650 mg (2 x 325 mg) PO Q4HPRN PRN Mild Pain / Temp > 101F #60 tabs 10/20/24
atorvastatin 20 mg tablet 20 mg PO DAILY 12/17/24
cephalexin 500 mg capsule 500 mg PO TID 12/29/24
lorazepam 0.5 mg tablet 0.5 mg PO DAILYPRN PRN anxiety 12/29/24
furosemide 40 mg tablet (Lasix) 40 mg PO DAILY #30 tabs 01/01/25
insulin aspart U-100 100 unit/mL (3 mL) subcutaneous pen 8 unit (0.08 mL) SC AC #15 mL 01/01/25
insulin glargine 100 unit/mL (3 mL) subcutaneous pen (Lantus Solostar U-100 Insulin) 18 unit (0.18 mL) SC HS #18 mL 01/01/25
Home Medication Changes
Pending Results: Yes
Additional Pending Results:
thoracentesis cytology
Total time spent discharging patient (in min): 41
--- NOTE | 2025-01-01 10:52 | CM ---
Patient seen bedside.
Patient for d/c home today.
Denies home care needs.
IMM completed.
Plan: home no needs.
[2025-01-01 10:58] VITALS: BP 128/70
--- NOTE | 2025-01-04 11:48 | W.HF.CON ---
Heart Failure
- LV Function
Left ventricular function study result: LV Ejection fraction >/= 50% (ECHO 12/16/24)
Ejection Fraction Percentage: 50-55
- ARNI
Patient already on ARNI: No
Heart Failure ARNI Not Indicated: LV Ejection Fraction >/= 40%
- ACEI/ARB
Patient already on ACEI/ARB: No
Heart Failure ACEI/ARB Not Indicated: LV Ejection Fraction > 40%
- Beta Jayy
Patient already on Evidence Based Beta Jayy: Yes
- Mineralocorticord Receptor Antagonist
Patient already on MRA: No
Heart Failure MRA Not Indicated: LV Ejection Fraction > 40%
- SGLT-2 Inhibitor
Patient already on SGLT-2 Inhibitor: Yes
- NYHA CHF Classification
NYHA CHF Classification Level: Class III - Symptoms w/ min exertion, interferes w/ nml daily activity
- ACC/AHA Stage
ACC/AHA Stage: Stage C: Symptomatic Heart Failure
== END 2025-01-01 11:13 | disposition home or self-care (01) | DRG 291 ==
LOC: 1 ACUTE 22:29
PROVIDERS: Clinical Nurse Specialist Family Health; Physician Assistant Medical; Radiology Vascular & Interventional Radiology; Registered Nurse; ADMITTING PHYSICIAN Hospitalist; ATTENDING PHYSICIAN Internal Medicine; EMERGENCY PHYSICIAN Emergency Medicine; FAMILY PHYSICIAN Internal Medicine; OTHER PHYSICIAN Internal Medicine Cardiovascular Disease; OTHER PHYSICIAN Internal Medicine Hematology & Oncology
PROC: 0W9B3ZZ Drainage of Left Pleural Cavity, Percutaneous Approach (ICD-10-PCS; 2024-12-30)
PROC: 5A09357 Assistance with Respiratory Ventilation, Less than 24 Consecutive Hours, Continuous Positive Airway Pressure (ICD-10-PCS; 2025-01-01)
DX: I11.0 Hypertensive heart disease with heart failure (principal); I50.31 Acute diastolic (congestive) heart failure; C25.9 Malignant neoplasm of pancreas, unspecified; J91.8 Pleural effusion in other conditions classified elsewhere; I25.10 Atherosclerotic heart disease of native coronary artery without angina pectoris; G47.33 Obstructive sleep apnea (adult) (pediatric); F41.9 Anxiety disorder, unspecified; E78.00 Pure hypercholesterolemia, unspecified; E11.65 Type 2 diabetes mellitus with hyperglycemia; D63.0 Anemia in neoplastic disease; R09.02 Hypoxemia; R06.89 Other abnormalities of breathing; Z95.5 Presence of coronary angioplasty implant and graft; Z92.3 Personal history of irradiation; Z92.21 Personal history of antineoplastic chemotherapy; Z88.8 Allergy status to other drugs, medicaments and biological substances; Z86.79 Personal history of other diseases of the circulatory system; Z85.46 Personal history of malignant neoplasm of prostate; Z79.82 Long term (current) use of aspirin; Z79.84 Long term (current) use of oral hypoglycemic drugs; Z79.4 Long term (current) use of insulin; Z79.02 Long term (current) use of antithrombotics/antiplatelets; Z79.899 Other long term (current) drug therapy; Z95.828 Presence of other vascular implants and grafts; Z11.52 Encounter for screening for COVID-19
CPT/HCPCS: 88305; 32555; 71045; 71275; 80053; 80061; 82150; 82945; 82947; 82962; 83615; 83735; 83880; 83986; 84157; 84478; 85025; 87015; 87070; 87102; 87116; 87205; 87206; 87502; 87807; 87811; 88112; 89051; 93005; 94640; 96374; 97161; 97165; 99285; Q9967

== ENCOUNTER → 2025-01-07 10:58 | Outpatient (REF) | payer MEDICARE, OTHER, SELFPAY ==
[2025-01-07 15:27] LABS: % Basophils 0.8 % (0-2); % Eosinophils 6.8 % (0-6); % Lymphocytes 29.1 % (20.5-51.1); % Monocytes 13.3 % (1.7-9.3); Absolute Eosinophils 0.2 10^3/uL (0-0.7); Absolute Monocytes 0.5 10^3/uL (0.1-0.6); Absolute Neutrophils 1.8 10^3/uL (1.4-6.5); Hematocrit 31.2 % (39.0-52.0); Hemoglobin 9.5 g/dL (13.0-18.0); Mean Corp Hgb Conc. 30.4 g/dL (33.0-37.0); Mean Corpuscular Hgb 30.9 pg (27.0-31.0); Mean Corpuscular Volume 101.6 fL (80.0-94.0); Mean Platelet Volume 11.2 fL (7.4-10.4); Nucleated Red Blood Cells % 0 % (-); Platelet Count 149 10^3/uL (130-400); Red Blood Cell Count 3.07 10^6/uL (4.70-6.10); Red Cell Dist. Width 16.3 % (11.5-14.5); White Blood Cell Count 3.5 10^3/uL (4.8-10.8)
[2025-01-07 15:34] LABS: ALT (SGPT) 22 U/L (0-50); AST (SGOT) 30 U/L (17-59); Albumin 3.7 g/dl (3.5-5.0); Alkaline Phosphatase 168 U/L (38-126); Blood Urea Nitrogen 17 mg/dl (9-20); Calcium 8.9 mg/dl (8.4-10.2); Carbon Dioxide 29 mmol/L (22-30); Chloride 103 mmol/L (98-107); Glucose 133 mg/dl (70-99); Potassium 4.3 mmol/L (3.5-5.1); Sodium 138 mmol/L (135-145); Total Bilirubin 0.3 mg/dl (0.2-1.3); Total Protein 7.3 g/dl (6.3-8.2); eGFR > 60.00
== END ==
LOC: HWLAB 10:58
PROVIDERS: ATTENDING PHYSICIAN Internal Medicine Hematology & Oncology; FAMILY PHYSICIAN Internal Medicine; REFERRING PHYSICIAN Physician Assistant
DX: C25.0 Malignant neoplasm of head of pancreas (principal); I50.30 Unspecified diastolic (congestive) heart failure
CPT/HCPCS: 36415; 80053; 85025

== ENCOUNTER → 2025-01-15 15:01 | Outpatient (REF) | payer MEDICARE, OTHER, SELFPAY ==
[2025-01-15 15:54] LABS: % Eosinophils 4.1 % (0-6); % Immature Granulocytes 0.3 % (0-0.5); % Lymphocytes 16.9 % (20.5-51.1); % Monocytes 8.6 % (1.7-9.3); % Neutrophils 70.1 % (42.2-75.2); Absolute Eosinophils 0.1 10^3/uL (0-0.7); Absolute Lymphocytes 0.5 10^3/uL (1.2-3.4); Absolute Monocytes 0.3 10^3/uL (0.1-0.6); Absolute Neutrophils 2.2 10^3/uL (1.4-6.5); Hematocrit 30.1 % (39.0-52.0); Hemoglobin 9.6 g/dL (13.0-18.0); Mean Corp Hgb Conc. 31.9 g/dL (33.0-37.0); Mean Corpuscular Hgb 31.4 pg (27.0-31.0); Mean Corpuscular Volume 98.4 fL (80.0-94.0); Mean Platelet Volume 10.9 fL (7.4-10.4); Nucleated Red Blood Cells % 0 % (-); Platelet Count 125 10^3/uL (130-400); Red Blood Cell Count 3.06 10^6/uL (4.70-6.10); Red Cell Dist. Width 15.3 % (11.5-14.5); White Blood Cell Count 3.1 10^3/uL (4.8-10.8)
[2025-01-15 15:57] LABS: ALT (SGPT) 22 U/L (0-50); AST (SGOT) 30 U/L (17-59); Albumin 3.9 g/dl (3.5-5.0); Alkaline Phosphatase 134 U/L (38-126); Blood Urea Nitrogen 18 mg/dl (9-20); Calcium 8.6 mg/dl (8.4-10.2); Carbon Dioxide 24 mmol/L (22-30); Chloride 103 mmol/L (98-107); Glucose 208 mg/dl (70-99); Potassium 4.4 mmol/L (3.5-5.1); Sodium 136 mmol/L (135-145); Total Bilirubin 0.5 mg/dl (0.2-1.3); eGFR > 60.00
== END ==
LOC: REG 15:01
PROVIDERS: ATTENDING PHYSICIAN Internal Medicine Hematology & Oncology
DX: C25.0 Malignant neoplasm of head of pancreas (principal)
CPT/HCPCS: 36415; 80053; 85025

== ENCOUNTER → 2025-01-22 11:44 | Outpatient (REF) | payer MEDICARE, OTHER, SELFPAY ==
[2025-01-22 15:27] LABS: % Basophils 0.3 % (0-2); % Eosinophils 2.8 % (0-6); % Immature Granulocytes 0.3 % (0-0.5); % Lymphocytes 10.4 % (20.5-51.1); % Monocytes 11.1 % (1.7-9.3); % Neutrophils 75.1 % (42.2-75.2); Absolute Eosinophils 0.1 10^3/uL (0-0.7); Absolute Lymphocytes 0.3 10^3/uL (1.2-3.4); Absolute Monocytes 0.3 10^3/uL (0.1-0.6); Absolute Neutrophils 2.2 10^3/uL (1.4-6.5); Hematocrit 30.8 % (39.0-52.0); Hemoglobin 9.7 g/dL (13.0-18.0); Mean Corp Hgb Conc. 31.5 g/dL (33.0-37.0); Mean Corpuscular Hgb 30.9 pg (27.0-31.0); Mean Corpuscular Volume 98.1 fL (80.0-94.0); Mean Platelet Volume 11.1 fL (7.4-10.4); Nucleated Red Blood Cells % 0 % (-); Platelet Count 129 10^3/uL (130-400); Red Blood Cell Count 3.14 10^6/uL (4.70-6.10); Red Cell Dist. Width 15.9 % (11.5-14.5); White Blood Cell Count 2.9 10^3/uL (4.8-10.8)
[2025-01-22 15:33] LABS: ALT (SGPT) 20 U/L (0-50); AST (SGOT) 29 U/L (17-59); Albumin 3.8 g/dl (3.5-5.0); Alkaline Phosphatase 117 U/L (38-126); Blood Urea Nitrogen 14 mg/dl (9-20); Calcium 8.7 mg/dl (8.4-10.2); Carbon Dioxide 21 mmol/L (22-30); Chloride 107 mmol/L (98-107); Glucose 136 mg/dl (70-99); Potassium 3.9 mmol/L (3.5-5.1); Sodium 137 mmol/L (135-145); Total Bilirubin 0.5 mg/dl (0.2-1.3); eGFR > 60.00
== END ==
LOC: HWLAB 11:44
PROVIDERS: ATTENDING PHYSICIAN Internal Medicine Hematology & Oncology; FAMILY PHYSICIAN Internal Medicine
DX: C25.0 Malignant neoplasm of head of pancreas (principal)
CPT/HCPCS: 36415; 80053; 85025

== ENCOUNTER → 2025-01-29 11:49 | Outpatient (REF) | payer MEDICARE, OTHER, SELFPAY ==
[2025-01-29 16:00] LABS: % Eosinophils 3.2 % (0-6); % Immature Granulocytes 0.5 % (0-0.5); % Monocytes 13.6 % (1.7-9.3); % Neutrophils 72.7 % (42.2-75.2); Absolute Eosinophils 0.1 10^3/uL (0-0.7); Absolute Lymphocytes 0.2 10^3/uL (1.2-3.4); Absolute Monocytes 0.3 10^3/uL (0.1-0.6); Absolute Neutrophils 1.6 10^3/uL (1.4-6.5); Hematocrit 31.2 % (39.0-52.0); Hemoglobin 9.8 g/dL (13.0-18.0); Mean Corp Hgb Conc. 31.4 g/dL (33.0-37.0); Mean Corpuscular Hgb 31.7 pg (27.0-31.0); Mean Platelet Volume 11.1 fL (7.4-10.4); Nucleated Red Blood Cells % 0 % (-); Platelet Count 111 10^3/uL (130-400); Red Blood Cell Count 3.09 10^6/uL (4.70-6.10); Red Cell Dist. Width 16.6 % (11.5-14.5); White Blood Cell Count 2.2 10^3/uL (4.8-10.8)
[2025-01-29 16:03] LABS: ALT (SGPT) 19 U/L (0-50); AST (SGOT) 27 U/L (17-59); Albumin 3.7 g/dl (3.5-5.0); Alkaline Phosphatase 118 U/L (38-126); Blood Urea Nitrogen 20 mg/dl (9-20); Calcium 8.6 mg/dl (8.4-10.2); Carbon Dioxide 25 mmol/L (22-30); Chloride 103 mmol/L (98-107); Glucose 229 mg/dl (70-99); Potassium 4.2 mmol/L (3.5-5.1); Sodium 136 mmol/L (135-145); Total Bilirubin 0.4 mg/dl (0.2-1.3); Total Protein 6.7 g/dl (6.3-8.2); eGFR > 60.00
== END ==
LOC: HWLAB 11:49
PROVIDERS: ATTENDING PHYSICIAN Internal Medicine Hematology & Oncology; FAMILY PHYSICIAN Internal Medicine
DX: C25.0 Malignant neoplasm of head of pancreas (principal)
CPT/HCPCS: 36415; 80053; 85025

== ENCOUNTER → 2025-02-05 10:58 | Outpatient (REF) | payer MEDICARE, OTHER, SELFPAY ==
[2025-02-05 15:21] LABS: % Eosinophils 5.4 % (0-6); % Lymphocytes 12.8 % (20.5-51.1); % Monocytes 19.6 % (1.7-9.3); % Neutrophils 62.2 % (42.2-75.2); Absolute Eosinophils 0.1 10^3/uL (0-0.7); Absolute Lymphocytes 0.2 10^3/uL (1.2-3.4); Absolute Monocytes 0.3 10^3/uL (0.1-0.6); Absolute Neutrophils 0.9 10^3/uL (1.4-6.5); Hematocrit 32.2 % (39.0-52.0); Hemoglobin 10.4 g/dL (13.0-18.0); Mean Corp Hgb Conc. 32.3 g/dL (33.0-37.0); Mean Corpuscular Hgb 32.3 pg (27.0-31.0); Mean Platelet Volume 10.7 fL (7.4-10.4); Nucleated Red Blood Cells % 0 % (-); Platelet Count 77 10^3/uL (130-400); Red Blood Cell Count 3.22 10^6/uL (4.70-6.10); Red Cell Dist. Width 17.2 % (11.5-14.5); White Blood Cell Count 1.5 10^3/uL (4.8-10.8)
[2025-02-05 15:29] LABS: ALT (SGPT) 25 U/L (0-50); AST (SGOT) 36 U/L (17-59); Albumin 4.2 g/dl (3.5-5.0); Alkaline Phosphatase 123 U/L (38-126); Blood Urea Nitrogen 15 mg/dl (9-20); Calcium 8.8 mg/dl (8.4-10.2); Carbon Dioxide 24 mmol/L (22-30); Chloride 104 mmol/L (98-107); Glucose 94 mg/dl (70-99); Potassium 4.3 mmol/L (3.5-5.1); Sodium 138 mmol/L (135-145); Total Bilirubin 0.6 mg/dl (0.2-1.3); Total Protein 7.2 g/dl (6.3-8.2); eGFR > 60.00
== END ==
LOC: HWLAB 10:58
PROVIDERS: ATTENDING PHYSICIAN Internal Medicine Hematology & Oncology; FAMILY PHYSICIAN Internal Medicine
DX: C25.0 Malignant neoplasm of head of pancreas (principal)
CPT/HCPCS: 36415; 80053; 85025

== ENCOUNTER → 2025-02-12 11:24 | Outpatient (REF) | payer MEDICARE, OTHER, SELFPAY ==
[2025-02-12 16:36] LABS: Urine Albumin 1+ (Neg - Trace); Urine Bilirubin Negative (Negative); Urine Character Clear (Clear); Urine Color Yellow; Urine Glucose 4+ (Negative); Urine Ketone Negative (Negative); Urine Leukocyte Negative (Negative); Urine Nitrite Negative (Negative); Urine Occult Blood 2+ (Negative); Urine Urobilinogen Negative (Neg - 1+)
[2025-02-12 16:51] LABS: ALT (SGPT) 20 U/L (0-50); AST (SGOT) 29 U/L (17-59); Albumin 4.1 g/dl (3.5-5.0); Alkaline Phosphatase 112 U/L (38-126); Blood Urea Nitrogen 12 mg/dl (9-20); Calcium 8.7 mg/dl (8.4-10.2); Carbon Dioxide 21 mmol/L (22-30); Chloride 106 mmol/L (98-107); Glucose 129 mg/dl (70-99); HDL Cholesterol 37 mg/dl; LDL Cholesterol, Calculated 23 mg/dl; Sodium 138 mmol/L (135-145); Total Bilirubin 0.6 mg/dl (0.2-1.3); Total Cholesterol 89 mg/dl (50-199); Triglyceride 149 mg/dl (10-149); Very Low Density Lipoprotein 29 mg/dl (0-30); eGFR > 60.00
[2025-02-12 17:28] LABS: Urine Bacteria Few (Negative); Urine Red Blood Cell 26-30 /HPF (0-2); Urine Squamous Cell 0-2 /LPF (Few); Urine White Cell 0-2 /HPF (0-5)
[2025-02-12 17:30] LABS: % Basophils 0.5 % (0-2); % Eosinophils 4.4 % (0-6); % Lymphocytes 8.4 % (20.5-51.1); % Monocytes 17.7 % (1.7-9.3); Absolute Eosinophils 0.1 10^3/uL (0-0.7); Absolute Lymphocytes 0.2 10^3/uL (1.2-3.4); Absolute Monocytes 0.4 10^3/uL (0.1-0.6); Absolute Neutrophils 1.4 10^3/uL (1.4-6.5); Hematocrit 32.1 % (39.0-52.0); Hemoglobin 10.2 g/dL (13.0-18.0); Mean Corp Hgb Conc. 31.8 g/dL (33.0-37.0); Mean Corpuscular Hgb 31.8 pg (27.0-31.0); Nucleated Red Blood Cells % 0 % (-); Platelet Count 87 10^3/uL (130-400); Red Blood Cell Count 3.21 10^6/uL (4.70-6.10); Red Cell Dist. Width 17.5 % (11.5-14.5)
[2025-02-13 09:26] LABS: Glycohemoglobin (HgbA1c) 7.9 % (4.0-5.6)
== END ==
LOC: HWLAB 11:24
PROVIDERS: ATTENDING PHYSICIAN Internal Medicine Hematology & Oncology; FAMILY PHYSICIAN Internal Medicine
DX: C25.0 Malignant neoplasm of head of pancreas (principal); E11.9 Type 2 diabetes mellitus without complications; E78.2 Mixed hyperlipidemia; I10 Essential (primary) hypertension
CPT/HCPCS: 36415; 80053; 80061; 81003; 81015; 83036; 84443; 85025

== ENCOUNTER 2025-02-24 06:16 | Day surgery (SDC) | payer MEDICARE, OTHER, SELFPAY ==
[2025-02-24] VITALS (8 sets, daily range): BP systolic 99–143; BP diastolic 64–89; BMI 32.8
[2025-02-24 09:43] LABS: Glucose - Point of Care 161 mg/dl (70-99)
[2025-02-24 11:40] LABS: Glucose - Point of Care 156 mg/dl (70-99)
[2025-02-24 13:25] LABS: Glucose - Point of Care 156 mg/dl (70-99)
== END 2025-02-24 14:51 | disposition home or self-care (01) ==
LOC: SDS 06:16
PROVIDERS: ATTENDING PHYSICIAN Internal Medicine Gastroenterology
DX: C25.0 Malignant neoplasm of head of pancreas (principal); K83.1 Obstruction of bile duct; T85.590A Other mechanical complication of bile duct prosthesis, initial encounter; Y83.1 Surgical operation with implant of artificial internal device as the cause of abnormal reaction of the patient, or of later complication, without mention of misadventure at the time of the procedure
CPT/HCPCS: 43276 ×2; 74330; 76000; 82962; C1726; C1769; C1874; C2617; C2625

== ENCOUNTER → 2025-04-01 11:28 | Outpatient (REF) | payer MEDICARE, OTHER, SELFPAY | LOC: DHSLP 11:28 | PROVIDERS: ATTENDING PHYSICIAN Internal Medicine Critical Care Medicine; FAMILY PHYSICIAN Internal Medicine | DX: G47.33 Obstructive sleep apnea (adult) (pediatric) (principal) | CPT/HCPCS: 95800 ==

== ENCOUNTER → 2025-04-02 10:09 | Outpatient (REF) | payer MEDICARE, OTHER, SELFPAY ==
[2025-04-02 16:28] LABS: HDL Cholesterol 42 mg/dl; LDL Cholesterol, Calculated 33 mg/dl; Total Cholesterol 97 mg/dl (50-199); Triglyceride 110 mg/dl (10-149); Very Low Density Lipoprotein 22 mg/dl (0-30)
== END ==
LOC: HWLAB 10:09
PROVIDERS: ATTENDING PHYSICIAN Internal Medicine Cardiovascular Disease; FAMILY PHYSICIAN Internal Medicine
DX: I42.9 Cardiomyopathy, unspecified (principal); E66.9 Obesity, unspecified
CPT/HCPCS: 36415; 80061

== ENCOUNTER 2025-04-03 00:15 | Emergency (ER) | payer MEDICARE, OTHER, SELFPAY ==
[2025-04-03 00:28] VITALS: BP 121/69
--- NOTE | 2025-04-03 02:14 | ED.GENMED ---
History of Present Illness
General
Chief Complaint: Nose Bleed
Source: patient
Exam Limitations: none
Time Seen by Provider: 04/03/25 01:54
History of Present Illness
History of Present Illness:
69-year-old male with history of prostate cancer currently in clinical trial through [facility] on aspirin and Plavix presents with right sided nosebleed onset several hours prior to the exam. He states he got stop several times at home but he keeps
rebleeding. No other complaints at this time
Past History
Past History
ED Past Medical History: Asthma, CAD, Cancer (Prostate cancer, pancreatic cancer), HTN, Hypercholesterolemia, IDDM, NIDDM and Other (Obstructive sleep apnea)
ED Past Surgical History: Cardiac and Other (Eye surgery. [place] teeth, AAA repair)
Social History
Tobacco: Non-smoker
Alcohol: None
Drug: None
Personal:
Living: with family
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
Family History
Family History: Other (Non Contributory)
Phy Exam
Physical Exam
Physical Exam:
General: Well-appearing male no acute respiratory distress
HEENT normocephalic atraumatic
Right nasal cavity examined friable membranes over the anterior septal wall. There is 1 vessel that looks like the source of bleeding but not actively bleeding. No blood in the posterior pharynx
Course
Vital Signs
Initial and Last Documented VS:
Initial Vital Signs
Temp Pulse Resp BP Pulse Ox
98.8 F 70 20 121/69 98
04/03/25 00:28 04/03/25 00:28 04/03/25 00:28 04/03/25 00:28 04/03/25 00:28
Last Documented Vital Signs
Temp Pulse Resp BP Pulse Ox
98.8 F 70 18 129/76 98
04/03/25 00:28 04/03/25 02:24 04/03/25 02:24 04/03/25 02:24 04/03/25 02:24
MDM/Problems Addressed
Differential Diagnosis Includes:
Acute anterior epistaxis. The nose was packed with a piece of cotton soaked with lidocaine and epinephrine. Will attempt to cauterize
*Critical Care Note
Total Time (30-74mins, 75-104mins- exclusive of procedures): Not Applicable
Update Note
Update Note:
Attempted cauterization was unsuccessful. The patient had further bleeding. I then tried a 4.5 cm Merisel sponge however this seemed to saturate. This was replaced by a 5.5 cm anterior Rhino Rocket. No further bleeding was noted. He is not
swallowing any blood. Recommend follow-up with ENT. Stable for discharge
ED Attending Note
-
Portions of this chart may have been created with voice recognition software.� Occasional wrong word or��sound alike� substitutions may have occurred due to the inherent limitations of voice recognition software.
Discharge Plan
Departure
Patient Disposition: Home (Routine Discharge)
Date of Disposition: 04/03/25
Time of Disposition: 03:28
Patient with high blood pressure during this ER visit?: No
Discharge Problem:
Acute anterior epistaxis
Prescriptions:
No Action
aspirin 81 MG tablet,delayed release (DR/EC)
81 mg PO DAILY
ferrous sulfate [FeroSul] 325 MG tablet
325 mg PO HS
metoprolol succinate [Toprol XL] 25 MG tablet extended release 24 hr
25 mg PO BIDPRN PRN (Reason: Blood Pressure)
metformin 1,000 mg Tablet
1,000 mg PO BID
icosapent ethyl [Vascepa] 1 gram Capsule
2 g PO BID
Jardiance 10 mg Tablet
10 mg PO DAILY
therapeutic multivitamin Tablet
1 tab PO DAILY
tamsulosin 0.4 MG capsule
0.4 mg PO BID
cholecalciferol (vitamin D3) 50 mcg (2,000 unit) Tablet
50 mcg PO QPM
loperamide 2 mg Tablet
2 mg PO BIDPRN PRN (Reason: diarrhea)
clopidogrel [Plavix] 75 mg Tablet
75 mg PO DAILY
simethicone 80 mg Tablet,Chewable
80 mg PO BIDPRN PRN (Reason: gas)
acetaminophen 325 mg Tablet
650 mg PO Q4HPRN PRN (Reason: Mild Pain / Temp > 101F) Qty: 60 0RF
atorvastatin 20 mg Tablet
20 mg PO DAILY
lorazepam 0.5 mg Tablet
0.5 mg PO DAILYPRN PRN (Reason: anxiety)
cephalexin 500 mg Capsule
500 mg PO TID
furosemide [Lasix] 40 mg tablet
40 mg PO DAILY Qty: 30 0RF
insulin aspart U-100 100 unit/mL (3 mL) Insulin Pen
8 unit SC AC Qty: 15 0RF
insulin glargine [Lantus Solostar U-100 Insulin] 100 unit/mL (3 mL) insulin pen
18 unit SC HS Qty: 18 0RF
Referrals:
Gomez Gunderson MD [Family Provider] -
Nancy Carvalho MD [Active] -
Activity Restrictions/Additional Instructions:
Please follow-up with ENT for next available appointment. Return if needed otherwise. Leave packing in until seen by ENT.
Interventions
Interventions:
*Risk Screen - Suicide Last Done: 04/03/25 00:28
*General Assessment Last Done: 04/03/25 00:28
*Neglect/Abuse Screening Last Done: 04/03/25 00:28
*ED- Fall Risk Assessment Last Done: 04/03/25 00:28
*ED COVID-19 Vaccine History Last Done: 04/03/25 00:28
ED-EENT Assessment Last Done: 04/03/25 01:57
Discharge Date and Time
Print Language: ROMANIAN
[2025-04-03 02:24] VITALS: BP 129/76
[2025-04-03 05:52] VITALS: BP 126/78
[2025-04-03 05:55] VITALS: BP 126/78
== END 2025-04-03 05:56 | disposition home or self-care (01) ==
LOC: EMR 00:15
PROVIDERS: EMERGENCY PHYSICIAN Emergency Medicine; FAMILY PHYSICIAN Internal Medicine
DX: R04.0 Epistaxis (principal); J45.909 Unspecified asthma, uncomplicated; I25.10 Atherosclerotic heart disease of native coronary artery without angina pectoris; I10 Essential (primary) hypertension; E78.00 Pure hypercholesterolemia, unspecified; E11.9 Type 2 diabetes mellitus without complications; G47.33 Obstructive sleep apnea (adult) (pediatric); Z79.02 Long term (current) use of antithrombotics/antiplatelets; Z85.07 Personal history of malignant neoplasm of pancreas; Z85.46 Personal history of malignant neoplasm of prostate
CPT/HCPCS: 99282; 30901

== ENCOUNTER 2025-05-27 10:02 | Outpatient (RCR) | payer MEDICARE, OTHER, SELFPAY | END 2025-05-27 23:59 | disposition home or self-care (01) | LOC: RPT 10:02 | PROVIDERS: ATTENDING PHYSICIAN Internal Medicine Hematology & Oncology | DX: C25.0 Malignant neoplasm of head of pancreas (principal); G62.0 Drug-induced polyneuropathy; R53.0 Neoplastic (malignant) related fatigue; R15.2 Fecal urgency; Z73.6 Limitation of activities due to disability; M62.81 Muscle weakness (generalized); C78.7 Secondary malignant neoplasm of liver and intrahepatic bile duct; Z85.46 Personal history of malignant neoplasm of prostate; Z98.890 Other specified postprocedural states | CPT/HCPCS: 97014; 97110; 97112; 97140; 97163; 97530 ==

== ENCOUNTER 2025-06-28 08:48 | Outpatient (RCR) | payer MEDICARE, OTHER, SELFPAY | END 2025-06-28 23:59 | disposition home or self-care (01) | LOC: RPT 08:48 | PROVIDERS: ATTENDING PHYSICIAN Internal Medicine Hematology & Oncology | DX: C25.0 Malignant neoplasm of head of pancreas (principal); G62.0 Drug-induced polyneuropathy; R53.0 Neoplastic (malignant) related fatigue; R15.2 Fecal urgency; Z73.6 Limitation of activities due to disability; M62.81 Muscle weakness (generalized); C78.7 Secondary malignant neoplasm of liver and intrahepatic bile duct; Z85.46 Personal history of malignant neoplasm of prostate; Z98.890 Other specified postprocedural states | CPT/HCPCS: 97110; 97140; 97164; 97530 ==

== ENCOUNTER 2025-07-19 08:58 | Outpatient (RCR) | payer MEDICARE, OTHER, SELFPAY | END 2025-07-19 23:59 | disposition home or self-care (01) | LOC: RPT 08:58 | PROVIDERS: ATTENDING PHYSICIAN Internal Medicine Hematology & Oncology | DX: C25.0 Malignant neoplasm of head of pancreas (principal); G62.0 Drug-induced polyneuropathy; R53.0 Neoplastic (malignant) related fatigue; R15.2 Fecal urgency; Z73.6 Limitation of activities due to disability; M62.81 Muscle weakness (generalized); C78.7 Secondary malignant neoplasm of liver and intrahepatic bile duct; Z85.46 Personal history of malignant neoplasm of prostate; Z98.890 Other specified postprocedural states | CPT/HCPCS: 97110; 97530 ==

== ENCOUNTER 2025-07-20 06:06 | Day surgery (SDC) | payer MEDICARE, OTHER, SELFPAY ==
[2025-07-20 08:35] VITALS: BMI 32.8
[2025-07-20 08:36] VITALS: BMI 32.8
[2025-07-20 08:42] LABS: Glucose - Point of Care 130 mg/dl (70-99)
[2025-07-20 08:47] VITALS: BP 124/83
[2025-07-20 10:42] VITALS: BP 114/60
[2025-07-20 10:45] VITALS: BP 110/59
[2025-07-20 10:47] LABS: Glucose - Point of Care 149 mg/dl (70-99)
[2025-07-20 11:00] VITALS: BP 120/64
[2025-07-20 11:13] VITALS: BP 124/54
[2025-07-20 11:15] VITALS: BP 127/69
== END 2025-07-20 11:25 | disposition home or self-care (01) ==
LOC: SDS 06:06
PROVIDERS: ATTENDING PHYSICIAN Internal Medicine Gastroenterology
DX: Z46.59 Encounter for fitting and adjustment of other gastrointestinal appliance and device (principal); C25.0 Malignant neoplasm of head of pancreas; C78.7 Secondary malignant neoplasm of liver and intrahepatic bile duct
CPT/HCPCS: 43260; 74330; 76000; 82962; C1769

== ENCOUNTER → 2025-08-19 14:24 | Outpatient (REF) | payer MEDICARE, OTHER, SELFPAY | LOC: CLAB 14:24 | PROVIDERS: ATTENDING PHYSICIAN Urology | DX: N39.0 Urinary tract infection, site not specified (principal) | CPT/HCPCS: 87086 ==

== ENCOUNTER → 2025-08-26 14:59 | Outpatient (REF) | payer MEDICARE, OTHER, SELFPAY | LOC: HWRCS 14:59 | PROVIDERS: ATTENDING PHYSICIAN Physician Assistant Medical; FAMILY PHYSICIAN Internal Medicine | DX: I50.30 Unspecified diastolic (congestive) heart failure (principal) | CPT/HCPCS: 93306 ==

== ENCOUNTER → 2025-08-27 12:22 | Outpatient (REF) | payer MEDICARE, OTHER, SELFPAY ==
[2025-08-27 16:01] LABS: Blood Urea Nitrogen 17 mg/dl (9-20); Calcium 8.3 mg/dl (8.4-10.2); Carbon Dioxide 26 mmol/L (22-30); Chloride 107 mmol/L (98-107); Glucose 181 mg/dl (70-99); Potassium 4.5 mmol/L (3.5-5.1); Sodium 139 mmol/L (135-145); eGFR > 60.00
== END ==
LOC: HWLAB 12:22
PROVIDERS: ATTENDING PHYSICIAN Physician Assistant Medical; FAMILY PHYSICIAN Internal Medicine
DX: I50.30 Unspecified diastolic (congestive) heart failure (principal); E87.6 Hypokalemia
CPT/HCPCS: 36415; 80048; 83880

== ENCOUNTER 2025-11-09 05:51 | Inpatient (IN) | payer MEDICARE, OTHER, SELFPAY ==
[2025-11-09] VITALS (16 sets, daily range): BP systolic 90–131; BP diastolic 43–68; BMI 37.3; BMI 35.8
[2025-11-09 03:58] LABS: Hematocrit 22.8 % (39.0-52.0); Hemoglobin 7.4 g/dL (13.0-18.0); Mean Corp Hgb Conc. 32.5 g/dL (33.0-37.0); Mean Corpuscular Volume 95.4 fL (80.0-94.0); Platelet Count 28 10^3/uL (130-400); Red Cell Dist. Width 18.9 % (11.5-14.5)
[2025-11-09 04:17] LABS: ALT (SGPT) 56 U/L (0-50); AST (SGOT) 67 U/L (17-59); Albumin 3.3 g/dl (3.5-5.0); Alkaline Phosphatase 739 U/L (38-126); Blood Urea Nitrogen 45 mg/dl (9-20); Calcium 8.5 mg/dl (8.4-10.2); Carbon Dioxide 17 mmol/L (22-30); Chloride 108 mmol/L (98-107); Estimated Creatinine Clearance 40 ml/min; Glucose 170 mg/dl (70-99); Potassium 5.1 mmol/L (3.5-5.1); Sodium 133 mmol/L (135-145); Total Protein 6.8 g/dl (6.3-8.2); eGFR 34.81
--- NOTE | 2025-11-09 04:19 | ED.GENMED ---
History of Present Illness
General
Chief Complaint: Breathing Problem
Time Seen by Provider: 11/09/25 03:38
History of Present Illness
History of Present Illness:
70-year-old male with history of pancreatic cancer on chemotherapy, diabetes, CHF presenting to the emergency department for fluid retention. Patient reports issues with fluid retention while on chemotherapy, however usually improves over time.
Last chemotherapy was Saturday, 6 days ago. He follows with Efrem Sawant. The fluid has been persistent to the lower extremities. 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 Patient is typically on
40 mg twice daily, however has since been changed to 60 mg twice daily. He has seen no change in symptoms. He now reports some orthopnea this evening. Denies chest pain. Denies dyspnea at rest. Denies any recent fevers. Denies additional acute
medical complaints
Past History
Past History
ED Past Medical History: Asthma, CAD, Cancer (Prostate cancer, pancreatic cancer), HTN, Hypercholesterolemia, IDDM, NIDDM and Other (Obstructive sleep apnea)
ED Past Surgical History: Cardiac and Other (Eye surgery. [place] teeth, AAA repair)
Social History
Tobacco: Non-smoker
Alcohol: None
Drug: None
Personal:
Living: with family
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
Family History
Family History: Other (Non Contributory)
Phy Exam
Physical Exam
Physical Exam:
General: Well-appearing, no clinical signs of dehydration, nontoxic and in no acute distress
HEENT: protecting airway
Neck: appears supple
CV: Normal heart rate, regular rhythm
Resp: No accessory muscle use, no increased work of breathing, lungs clear to auscultation bilaterally
Abd: Soft and non-distended, no tenderness to palpation
Extremities: No deformities, +3 pitting edema bilaterally
Neuro: alert, no focal neurologic deficit
: deferred
Rectal: deferred
Psych: Normal affect
Skin: Intact
Scores
Heart Failure Risk
Heart Failure Risk Score: Yes
History of Stroke or TIA: No
History of intubation for respiratory distress: No
Heart rate on ED arrival >/= 110: No
SaO2 <90% on arrival on room air: No
HR >/=110 during 3min walk test (or too ill to perform test): No
ECG has acute ischemic changes: No
Urea >/=12mmol/L (BUN 33.6mg/dL): No
Serum CO2>/=35mmol/L: No
Troponin I or T elevated to IA Level (0.4mg/dL): Yes
NT-proBNP >/=5,000ng/L (5,000pg/ml): Yes
HF Risk Score: 3
Admission Status: HIGH RISK 15.9% Consider SNF treatment or admission to hospital
Course
Orders/Labs/Results
Orders:
Orders
11/09/25 03:32
Electrocardiogram (*1) Urgent
Reason for Study: Other
Other Reason for Exam: Respiratory Distress
Cardiac Monitoring- Treatment ONCE
EKG- Treatment ONCE
IV Insert/Care/Rem.- Treatment PRN
CR Chest - 2 Views Urgent
Comment:
Reason For Exam: respiratory distress
O2 Therapy [RESP] Urgent
Titrate/Wean O2 to maintain O2 sat greater than (%): 93
Special Instructions: TO MAINTAIN CONTINUOUS O2 SATS >/= 93%
Pulse Ox/cont/shift [RESP] Urgent
Quantity: 1
Special Instructions: continuous pulse ox
11/09/25 03:39
Complete Blood Count/With Diff Urgent
Comprehensive Metabolic Panel Urgent
NT-proBNP Urgent
Troponin I Urgent
11/09/25 04:51
Furosemide [Lasix] 40 mg IV NOW STA
11/09/25 05:39
Admit/Transfer Patient As Directed
Co-Sign Provider:
Level of Care: Inpatient admission
Assign to:: Telemetry
Physician / Group: Chuck Silva
Diagnosis: Heart failure
Reason for Telemetry: Acute Heart Failure
Date to Stop Telemetry: 11/12/25
Time to Stop Telemetry: 11:00
Reason for Hospitalization: heart failure
Expected length of stay greater than two midnights?: Yes
ELOS- Estimated Length of Stay in days: 2
I certify the patient meets the requirements for IP care: Yes
PRN Pain Medication Management As Directed
May give lesser potent ordered pain med per pt: Yes
preference::
Protocol:: Medication orders for pain may be administered in a
manner that supports deferring to patient preference
when the pt is:
- Requesting an ordered lesser potent pain medication.
Least to most potent pain medications are defined
as: acetaminophen < NSAID < tramadol < opioids
(morphine, oxycodone, hydromorphone).
- Requesting a lesser dose of the same medication IF
ORDERED.
- Requesting a less intrusive route of administration
if both routes are prescribed by the provider (PO <
IV).
11/09/25 05:42
Code Status As Directed
Resuscitation Status: Full Code
11/09/25 16:00
Furosemide [Lasix] 40 mg IV BID AT 0800,1600
11/12/25 11:00
DC Protocol for Telemetry ONCE
Abnormal Lab Results
11/09/25
03:39
WBC 21.7 H 10^3/uL
(4.8-10.8)
RBC 2.39 L 10^6/uL
(4.70-6.10)
Hgb 7.4 L g/dL
(13.0-18.0)
Hct 22.8 L %
(39.0-52.0)
MCV 95.4 H fL
(80.0-94.0)
MCHC 32.5 L g/dL
(33.0-37.0)
RDW 18.9 H %
(11.5-14.5)
Plt Count 28 L* 10^3/uL
(130-400)
Abs Immat Gran (auto) 1.0 H 10^3/uL
(0-0.05)
Absolute Neuts (auto) 19.8 H 10^3/uL
(1.4-6.5)
Absolute Lymphs (auto) 0.3 L 10^3/uL
(1.2-3.4)
Immature Gran % 4.8 H %
(0-0.5)
Neutrophils % 91.4 H %
(42.2-75.2)
Lymphocytes % 1.3 L %
(20.5-51.1)
Monocytes % 1.2 L %
(1.7-9.3)
Sodium 133 L mmol/L
(135-145)
Chloride 108 H mmol/L
(98-107)
Carbon Dioxide 17 L mmol/L
(22-30)
BUN 45 H mg/dl
(9-20)
Creatinine 2.0 H mg/dL
(0.7-1.3)
Glucose 170 H mg/dl
(70-99)
AST 67 H U/L
(17-59)
ALT 56 H U/L
(0-50)
Alkaline Phosphatase 739 H U/L
(38-126)
Troponin I 0.142 H* ng/ml
Albumin 3.3 L g/dl
(3.5-5.0)
11/09/25 03:39
11/09/25 03:39
Vital Signs
Initial and Last Documented VS:
Initial Vital Signs
Temp Pulse Resp BP Pulse Ox
97.8 F 102 24 120/66 98
11/09/25 03:25 11/09/25 03:25 11/09/25 03:25 11/09/25 03:25 11/09/25 03:25
Last Documented Vital Signs
Temp Pulse Resp BP Pulse Ox
97.8 F 91 27 106/66 97
11/09/25 03:25 11/09/25 05:45 11/09/25 05:45 11/09/25 05:31 11/09/25 05:45
MDM/Problems Addressed
MDM/Problems Addressed:
70-year-old male with history of pancreatic cancer with mets to liver on chemotherapy, CHF, diabetes presenting for fluid retention. Vital signs on arrival are significant for mild tachycardia.
On exam patient is in no acute distress, no respiratory distress. Patient however does have signs of volume overload on exam with 3+ pitting edema to the lower extremities. Concern for reaction from chemotherapy versus concomitant congestive heart
failure. Patient swelling is symmetric without concern for DVT. Plan for laboratory analysis and chest x-ray imaging. Patient notes that despite medication increase at home, no improvement of his symptoms. Likely admission for IV diuresis
04:50 - Patient's labs show elevation of creatinine and BUN. Also low platelet count and high white count which is from recent chemotherapy. Patient was able to pull up his labs from 11/03. At that time creatinine was 1.3 and platelet count was
84. Patient with elevation of troponin and BNP, again concern for rest of heart failure. Chest x-ray with mild pulmonary edema. Will start patient on IV Lasix and plan for admission
*Pulse Oximetry
SaO2: 96
Oxygen Mode of Delivery: Room air
Patient hypoxic: no
*EKG
Interpreted by ED Provider?: Yes
EKG Intrepretation Date: 11/09/25
EKG Intrepretation Time: 04:24
Interpretation: normal
Heart Rate: 95
Rate: normal
Rhythm: sinus and PVC's
[place]: normal axis
Interval: normal interval
QRS Pattern: normal QRS
Ischemia: no ischemia
*Critical Care Note
Total Time (30-74mins, 75-104mins- exclusive of procedures): Not Applicable
ED Attending Note
-
Portions of this chart may have been created with voice recognition software.� Occasional wrong word or��sound alike� substitutions may have occurred due to the inherent limitations of voice recognition software.
Discharge Plan
Departure
Patient Disposition: Admit
Date of Disposition: 11/09/25
Time of Disposition: 04:59
Presentation/result/management discussed w/ accepting MD/DO: Hospitalist
Patient with high blood pressure during this ER visit?: No
Condition: Fair
Discharge Problem:
Bilateral edema of lower extremity, Orthopnea
Interventions
Interventions:
*Risk Screen - Suicide Last Done: 11/09/25 03:25
*General Assessment Last Done: 11/09/25 03:40
*Neglect/Abuse Screening Last Done: 11/09/25 03:25
*ED COVID-19 Vaccine History Last Done: 11/09/25 03:40
*ED Influenza Vaccine History Last Done: 11/09/25 03:40
[facility] Fall Risk Assessment Tool Last Done: 11/09/25 03:46
ED- Cardiac Assessment Last Done: 11/09/25 03:41
ED- Pulmonary Assessment Last Done: 11/09/25 04:11
[2025-11-09 04:34] LABS: Nucleated Red Blood Cells % 0 % (-); Troponin I 0.142 ng/ml
--- NOTE | 2025-11-09 05:09 | HPS.HSE ---
Family Physician
-
Family Physician: Gomez Gunderson
Chief Complaint
-
edema/sob
History of Present Illness
70 male history of pancreatic cancer actively undergoing chemotherapy at [facility], diabetes, HFrEF with known EF of 40 to 45% and stage III diastolic dysfunction who presents with evidence of volume overload with bilateral lower
extremity swelling and orthopnea. Last chemotherapy on 11 03. States typically after chemotherapy he develops volume overload usually improves however at this time did not. Lasix was increased recently from 40 mg to twice daily to 60 mg twice
daily without improvement.
He states that his lowest weight was September 15 at 215 pound. Now he is 238 pounds.
Medical History
Past Medical History
Past Medical History: Reports Other
Additional Past Medical History:
Pancreatic cancer
Hypertension
Urethral stricture
Type 2 diabetes
HFpEF
CAD s/p PCI
Past Surgical History: Reports Other (triple a)
Additional Past Surgical History:
whipple procedure
Social History
Alcohol: None
Family History
Family History: Not pertinent
Allergies / Home Medications
Allergies reflects when Allergies were last updated in [facility].
Home Medications with original date entered in [facility]
Allergy/Medication List:
Allergies
Allergy/AdvReac Type Severity Reaction Status Date / Time
cat dander Allergy SNEEZING/STUFFY Verified 11/09/25 03:28
NOSE
dog dander Allergy SNEEZING/STUFFY Verified 11/09/25 03:28
NOSE
house dust Allergy Nasal Verified 11/09/25 03:28
congestion/sneezing
ibuprofen (From Advil) Allergy ANGIOEDEMA Verified 11/09/25 03:28
lisinopril Allergy ANGIOEDEMA Verified 11/09/25 03:28
olmesartan (From Benicar) Allergy ANGIOEDEMA Verified 11/09/25 03:28
tomato Allergy ANGIOEDEMA Verified 11/09/25 03:28
Home Medications
aspirin 81 mg tablet,delayed release 81 mg PO DAILY Blood Clot Prevention/Tx 09/22/19
ferrous sulfate 325 mg (65 mg iron) tablet (FeroSul) 325 mg PO HS Supplement 09/22/19
metoprolol succinate 25 mg tablet,extended release 24 hr (Toprol XL) 25 mg PO BIDPRN PRN Blood Pressure 09/22/19
empagliflozin 10 mg tablet (Jardiance) 10 mg PO DAILY diabetes 01/15/23
icosapent ethyl 1 gram capsule (Vascepa) 2 g PO BID High Cholesterol 01/15/23
metformin 1,000 mg tablet 1,000 mg PO BID diabetes 01/15/23
tamsulosin 0.4 mg capsule 0.4 mg PO BID Urinary Issue 06/16/24
therapeutic multivitamin 1 tab PO DAILY Supplement 06/16/24
cholecalciferol (vitamin D3) 50 mcg (2,000 unit) tablet 50 mcg PO QPM Supplement 10/01/24
clopidogrel 75 mg tablet (Plavix) 75 mg PO DAILY 10/19/24
loperamide 2 mg tablet 2 mg PO BIDPRN PRN diarrhea 10/19/24
simethicone 80 mg chewable tablet 80 mg PO BIDPRN PRN gas 10/19/24
acetaminophen 325 mg tablet 650 mg (2 x 325 mg) PO Q4HPRN PRN Mild Pain / Temp > 101F #60 tabs 10/20/24
atorvastatin 20 mg tablet 20 mg PO DAILY 12/17/24
cephalexin 500 mg capsule 500 mg PO TID 12/29/24
lorazepam 0.5 mg tablet 0.5 mg PO DAILYPRN PRN anxiety 12/29/24
furosemide 40 mg tablet (Lasix) 40 mg PO DAILY #30 tabs 01/01/25
insulin aspart U-100 100 unit/mL (3 mL) subcutaneous pen 8 unit (0.08 mL) SC AC #15 mL 01/01/25
insulin glargine 100 unit/mL (3 mL) subcutaneous pen (Lantus Solostar U-100 Insulin) 18 unit (0.18 mL) SC HS #18 mL 01/01/25
Review of Systems
-
A 12 point ROS was completed and negative except as noted: Yes
Physical Exam
Vital Signs
Vital Signs
Temp Pulse Resp BP Pulse Ox
97.8 F 102 24 120/66 96
11/09/25 03:25 11/09/25 03:25 11/09/25 03:25 11/09/25 03:25 11/09/25 04:24
Physical Exam
General: Well Developed, Well Nourished and No Apparent Distress
HEENT: NormoCephalic and Anicteric
Cardiac: S1/S2, Regular Rhythm and Peripheral Edema (pitting 2+)
GI: Soft, Non Tender, Non Distended and Normal Bowel Sounds
Musculoskeletal: No Clubbing and No Cyanosis
Skin: Warm and Dry
Neuro: Awake and AO x 3
Psych: Calm
Laboratory Results
-
11/09/25 03:39
11/09/25 03:39
Laboratory Results
Total Bilirubin 0.8 mg/dl (0.2-1.3) 11/09/25 03:39
AST 67 U/L (17-59) H 11/09/25 03:39
ALT 56 U/L (0-50) H 11/09/25 03:39
Alkaline Phosphatase 739 U/L (38-126) H 11/09/25 03:39
Troponin I 0.142 ng/ml H* 11/09/25 03:39
Impression/Plan
-
Acute on chronic HFrEF exacerbation, NYHA class IV
Trigger chemotherapy, steady 23lb weight gain over 3months. increased outpt diuresis without improvement
IV diuretic with lasix, no/lack of response then trial bumex
Continue SGLT2 inhibitor
Beta-sridhar
Need to complete full med rec in the morning
LAN likely cardiorenal syndrom
IV diuresis
If no improvoment check renal studies and rbus
Metabolic acidosis
seoncdary to lan
expect to improve with improving renal function
if not then will need to start light alkali therapy
Pancreatic cancer
Outpatient
BPH
Continue Flomax
Diabetes type 2
Hold metformin
SSI
Long and short acting insulin
Accu-Cheks 140-180
Carb controlled diet
TIP
Ferrous sulfate
History of infected AAA
Endovascular repair complicated by bacteremia requiring open repair
Lifelong suppression with Keflex
CAD s/p PCI
DAPT statin beta-sridhar
Thrombocytopenia
Likely related to chemo
Follow
Hold antiplts/Ac
No evidence of bleeding
Leukocytosis
Likely related to chemo, last treatment 11/03
Likely had GCSF 48hours after chemo which we would expect increase in wbc 5-10days adter GCSF
[2025-11-09] MEDS: LASIX 40 MG IV ×2 (05:31→16:18)
--- NOTE | 2025-11-09 07:54 | W.PN.HOSP.TC ---
Today's Communication/Plan
-
see bold
Assessment / Plan
Assessment / Plan
HPI: 70 male history of pancreatic cancer actively undergoing chemotherapy at [facility], diabetes, HFrEF with known EF of 40 to 45% and stage III diastolic dysfunction who presents with evidence of volume overload with bilateral lower
extremity swelling and orthopnea. Last chemotherapy on 11 03. States typically after chemotherapy he develops volume overload usually improves however at this time did not. Lasix was increased recently from 40 mg to twice daily to 60 mg twice
daily without improvement. He states that his lowest weight was September 15 at 215 pound. Now he is 238 pounds.
#Acute heart failure with reduced ejection fraction
Lowest weight in September was 215 pounds, admission weight 238 pounds
Fluid restrict, Lasix 40 mg IV twice daily, trend creatinine, trend daily weights
#Acute kidney injury
Possibly due to cardiorenal syndrome in conjunction with Bactrim use
Check urine studies, renal bladder ultrasound
Hold Bactrim, hold Jardiance, hold metformin
Consult nephrology, trend creatinine, trend daily weights
#Pancytopenia
Likely due to chemo, monitor
#Leukocytosis
Patient is afebrile, CXR neg
Check blood cultures, urine analysis with reflex culture
#Non-anion gap metabolic acidosis
Start sodium bicarb
#Pancreatic cancer
Currently undergoing active chemo at [place]
Last chemo 11/03, outpatient follow-up
#Type 2 diabetes
Hold metformin/Jardiance
Continue reduced glargine 15 units twice daily, NovoLog 8 units AC 3 times daily
Diabetic diet, sliding scale insulin
#ENT infection
Prescribed Bactrim by ENT
Will change to Augmentin while here due to LAN
Continue mupirocin
#BPH
Continue Flomax
#Iron deficiency anemia
Continue ferrous sulfate
#Hyponatremia
Monitor
#Transaminitis
Likely hepatic congestion from CHF
#Nonmyocardial injury troponin elevation
Likely from CHF
#Obesity due to excess calories
Affects all aspects of care
DVT prophylaxis�SCDs secondary to thrombocytopenia
Full code
Physical Exam
General: Obese, no acute distress
HEENT: Normocephalic, Atraumatic, EOMI, MMM
Respiratory: Clear to Auscultation bilaterally
Cardiac: Normal S1/S2, Regular Rate and Rhythm
GI: Soft, Nontender, Nondistended, Normal Bowel Sounds
Extremities: No Clubbing, Cyanosis
Severe bilateral lower extremity edema noted
Neuro: Nonfocal/Grossly Intact
Psych: Calm, Cooperative
Anticipated Discharge: > 48 hours
Subjective/Interval History
-
Date of Service: November 09, 2025
Objective Data
-
Labs:
Laboratory Results
11/09/25
03:39
WBC 21.7 H
Hgb 7.4 L
Hct 22.8 L
Plt Count 28 L*
Sodium 133 L
Potassium 5.1
Chloride 108 H
Carbon Dioxide 17 L
BUN 45 H
Creatinine 2.0 H
Glucose 170 H
Calcium 8.5
Total Bilirubin 0.8
AST 67 H
ALT 56 H
Alkaline Phosphatase 739 H
Vital Signs:
Vital Signs
Temp Pulse Resp BP Pulse Ox
97.8 F 94 23 109/67 99
11/09/25 03:25 11/09/25 07:00 11/09/25 07:00 11/09/25 07:00 11/09/25 07:00
[2025-11-09] MEDS: ASPIR LOW (ENTERIC COATED) 81 MG PO (08:59)
[2025-11-09] MEDS: PLAVIX 75 MG PO (08:59)
[2025-11-09] MEDS: PEPCID 20 MG PO (08:59)
[2025-11-09] MEDS: FEOSOL 325 MG PO ×2 (08:59→21:06)
[2025-11-09] MEDS: FLOMAX 0.4 MG PO ×2 (08:59→21:06)
[2025-11-09] MEDS: KEFLEX 500 MG PO ×3 (08:59→21:03)
[2025-11-09] MEDS: LIPITOR 20 MG PO (08:59)
[2025-11-09] MEDS: TYLENOL 650 MG PO (09:07)
[2025-11-09] MEDS: FARXIGA 10 MG PO (09:07)
[2025-11-09] MEDS: NOVOLOG FLEXPEN 8 UNITS SC ×3 (09:08→17:52)
[2025-11-09] MEDS: HEPARIN 5000 UNITS SC (09:08)
[2025-11-09] MEDS: NOVOLOG FLEXPEN-MODERATE RESISTANCE 1 UNITS SC (09:09)
[2025-11-09] MEDS: BACTRIM DS 800 MG/160 MG 1 TABLET PO (10:20)
[2025-11-09 12:20] LABS: Glucose - Point of Care 207 mg/dl (70-99)
[2025-11-09] MEDS: NOVOLOG FLEXPEN-MODERATE RESISTANCE 3 UNITS SC ×2 (13:15→17:56)
--- NOTE | 2025-11-09 14:22 | W.CON.NEPH ---
Consultation
-
Date/Time Consultation Requested: 11/09/2025 2:15 PM
Date/Time Consultation Performed: 11/09/2025 2:22 PM
Requesting Provider: Dr. Wilson
Performing Provider: Dr. Palacios
Reason for Consultation: Acute kidney injury
Medical History
-
Chief Complaint: Acute kidney injury
History of Present Illness:
The patient is a 70-year-old male with a past medical history of congestive heart failure maintained on Lasix therapy 40 mg twice daily. He has a history of known diabetes and is maintained on the combination of metformin Jardiance and insulin.
The patient has a history of pancreatic cancer undergoing chemotherapy at [facility]. He presented to the hospital with volume overload and increased lower extremity edema with associated orthopnea. Apparently his last chemotherapy session was on
11/03/2025. His Lasix had recently been increased from 40 mg twice daily to 60 mg twice daily. Apparently his weight in September was 215 pounds and now is up to 238 lbs. Nephrology was consulted as he was in acute renal failure with a creatinine of
2 off his baseline of 1.1 from August 27, 2025. The patient has also been maintained on Bactrim over the past two days. Nephrology was consulted for acute kidney injury.
Past Medical History
Pancreatic cancer undergoing active chemotherapy at [facility]
Congestive heart failure with EF of 40%
BPH
Diabetes
History of urethral stricture
Coronary artery disease status post PCI
History of Whipple procedure AAA procedure
Social History
Tobacco: Non-Smoker
Alcohol: None
Drug: None
Family History
Family History: Not Pertinent
Allergies / Home Medications
Allergy/AdvReac Type Severity Reaction Status Date / Time
cat dander Allergy SNEEZING/STUFFY Verified 11/09/25 03:28
NOSE
dog dander Allergy SNEEZING/STUFFY Verified 11/09/25 03:28
NOSE
house dust Allergy Nasal Verified 11/09/25 03:28
congestion/sneezing
ibuprofen (From Advil) Allergy ANGIOEDEMA Verified 11/09/25 03:28
lisinopril Allergy ANGIOEDEMA Verified 11/09/25 03:28
olmesartan (From Benicar) Allergy ANGIOEDEMA Verified 11/09/25 03:28
tomato Allergy ANGIOEDEMA Verified 11/09/25 03:28
�Medication �Instructions �Recorded �Confirmed �Type
aspirin 81 mg tablet,delayed 81 mg PO DAILY Blood Clot 09/22/19 11/09/25 History
release Prevention/Tx
empagliflozin 10 mg tablet 10 mg PO DAILY diabetes 01/15/23 11/09/25 History
(Jardiance)
icosapent ethyl 1 gram capsule 2 g PO BID High Cholesterol 01/15/23 11/09/25 History
(Vascepa)
metformin 1,000 mg tablet 1,000 mg PO BID diabetes 01/15/23 11/09/25 History
tamsulosin 0.4 mg capsule 0.4 mg PO HS Urinary Issue 06/16/24 11/09/25 History
cholecalciferol (vitamin D3) 50 50 mcg PO QPM Supplement 10/01/24 11/09/25 History
mcg (2,000 unit) tablet
atorvastatin 20 mg tablet 20 mg PO DAILY High Cholesterol 11/09/25 11/09/25 History
benzonatate 200 mg capsule 200 mg PO TID Cough 11/09/25 11/09/25 History
bisacodyl 5 mg tablet 5 mg PO TID Constipation 11/09/25 11/09/25 History
cephalexin 500 mg capsule 500 mg PO TID Infection 11/09/25 11/09/25 History
docusate sodium 100 mg capsule 100 mg PO DAILY Constipation 11/09/25 11/09/25 History
(Colace)
famotidine 40 mg tablet (Pepcid) 40 mg PO BID Gastrointestinal Issue 11/09/25 11/09/25 History
ferrous sulfate 325 mg (65 mg 325 mg PO HS Supplement 11/09/25 11/09/25 History
iron) tablet
furosemide 40 mg tablet (Lasix) 40 mg PO BID Fluid 11/09/25 11/09/25 History
Retention/Swelling
gabapentin 100 mg capsule 200 mg PO HS Pain 11/09/25 11/09/25 History
insulin aspart U-100 100 unit/mL 16 unit SC DAILY Diabetes 11/09/25 11/09/25 History
(3 mL) subcutaneous pen
insulin aspart U-100 100 unit/mL 20 unit SC QPM Diabetes 11/09/25 11/09/25 History
(3 mL) subcutaneous pen
insulin glargine 100 unit/mL (3 20 unit SC BID Diabetes 11/09/25 11/09/25 History
mL) subcutaneous pen (Basaglar
KwikPen U-100 Insulin)
bjgvwy-cjsojwlk-fongqjm 72,000 cap PO TID pancreatic 11/09/25 11/09/25 History
(pork)36,000-114,000-180k unit enzymes
capsule,del rel (Creon)
fgvave-inqrdquq-kvhsjqm(pork)12,000-38,000-60,000 2 cap PO BIDPRN PRN snacks 11/09/25 11/09/25 History
unit capsule,del rel (Creon)
mupirocin 2 % topical ointment 1 applic topical TID Skin Issues 11/09/25 11/09/25 History
pegfilgrastim-apgf 6 mg/0.6 mL 6 mg SC DIRECTED 11/09/25 11/09/25 History
subcutaneous syringe (Nyvepria)
potassium chloride 20 mEq 20 meq PO HS Electrolyte Repletion 11/09/25 11/09/25 History
tablet,extended release
sulfamethoxazole 800 1 tab PO BID Infection 11/09/25 11/09/25 History
mg-trimethoprim 160 mg tablet
(Bactrim DS)
therapeutic multivitamin 1 tab PO DAILY Supplement 11/09/25 11/09/25 History
tramadol 50 mg tablet 50 mg PO HS Pain 11/09/25 11/09/25 History
Review of Systems
-
History Source: Patient
All other systems: Negative unless noted
Constitutional: Weight Gain
Musculoskeletal: Edema
Physical Exam
Vital Signs
Vital Signs
Temp Pulse Resp BP Pulse Ox
97.8 F 89 19 105/64 98
11/09/25 03:25 11/09/25 12:00 11/09/25 12:00 11/09/25 11:00 11/09/25 12:00
Lab Results
11/09/25 03:39
11/09/25 03:39
WBC 21.7 10^3/uL (4.8-10.8) H 11/09/25 03:39
RBC 2.39 10^6/uL (4.70-6.10) L 11/09/25 03:39
Hgb 7.4 g/dL (13.0-18.0) L 11/09/25 03:39
Hct 22.8 % (39.0-52.0) L 11/09/25 03:39
Plt Count 28 10^3/uL (130-400) L* 11/09/25 03:39
Sodium 133 mmol/L (135-145) L 11/09/25 03:39
Potassium 5.1 mmol/L (3.5-5.1) 11/09/25 03:39
Chloride 108 mmol/L (98-107) H 11/09/25 03:39
Carbon Dioxide 17 mmol/L (22-30) L 11/09/25 03:39
BUN 45 mg/dl (9-20) H 11/09/25 03:39
Creatinine 2.0 mg/dL (0.7-1.3) H 11/09/25 03:39
eGFR 34.81 11/09/25 03:39
Glucose 170 mg/dl (70-99) H 11/09/25 03:39
Calcium 8.5 mg/dl (8.4-10.2) 11/09/25 03:39
Dlx-U-Xcorvchtppl Pept 8720 pg/ml 12/09/25 03:39
Albumin 3.3 g/dl (3.5-5.0) L 11/09/25 03:39
Physical Exam
General: AOx3, Nontoxic , NAD
HEENT: PERRL, EOMI, Anicteric, Conjunctivae Clear, Ear/Nose Intact, Hearing Normal, Oropharynx Clear/Moist, Dentition Intact, Facial Symmetry, Neck Supple, Neck: Trachea Midline, No JVD and No Thyromegaly, no Bruits
Respiratory: Clear to auscultation bilaterally with normal lung exersion
Cardiac: S1/S2 and Regular Rate/Rhythm
Breast: Deferred by me
Abdomen: Soft, Nontender, Nondistended, Normal Bowel Sounds and No Hepatosplenomegaly
Rectal: Deferred by Provider
Genito-urinary: No Costovertebral Tenderness
Extremities: No Clubbing, No Cyanosis and Noted 2 plus Edema
Skin: No Rash or open lesions
Neuro: Nonfocal/Grossly Intact, CN II-XII (Intact) and Strength (Musculoskeletal exam 5 out of 5 both upper and lower extremities)
Hematologic/Lymphatic: No Cervical Lymphadenopathy, No Submandibular Lymphadenopathy and No Supraclavicular Lymphadenopathy
Psych: Mood/afflect pleasant, Insight/judgement good and Appropriate
Vascular: plus 1 pedal and radial pulses
Data Reviewed
-
Radiology: Image Personally Visualized and interpreted (Chest x-ray personally reviewed by myself possibly mild interstitial edema normal heart size)
Labs: Labs Reviewed by me ([facility])
Old Records: Reviewed (EMR reviewed 1.1 vfom 08/27)
Assessment/Plan
-
Impression:
LAN (2.0) b/l 1.1
Congestive heart failure decompensation
Metabolic acidosis
Anemia
History of pancreatic cancer undergoing active chemotherapy with our friends at [facility]
Diabetes
BPH
History of infected AAA
Coronary artery disease with history of PCI
Leukocytosis
Plan:
LAN:
- Possibly prerenal he mediated in the setting of decompensated congestive heart failure with associated hemodynamic instability
- May be related to chemotherapy (abraxane and gemzar)
-proceed forth with IV diuresis although chest x-ray is without direct evidence of congestive heart failure, nonetheless the patient is edematous with significant increasing weights
-daily weights and accurate i/os
- Hold metformin and hold Jardiance
-Would check postvoid bladder scan to assure there is no obstructive component
-with hold bactrim, checking urine eosinophils
- MAP should be maintained at 65 or greater
- Noted associated leukocytosis would prompt obtaining blood cultures and urine cultures
[2025-11-09] MEDS: AUGMENTIN 500 MG/125 MG 1 TABLET PO ×2 (14:26→20:09)
--- NOTE | 2025-11-09 14:31 | EDCM ---
Reviewed chart and met with pt and bedside in ED. Lives with in split level home, 1 [address], 3 steps down to half bath, total of 10 steps up to bedroom and full bath.
Independent in ADLs, personal care and ambulation at baseline. No assistive devices but does have walker and cane in home. Still drives.
Currently receiving treatment for pancreatic cancer at [facility].
Confirms prescription coverage.
Hx [facility], no hx SNF
PCP: Gomez Gunderson
Pharmacy: [facility]
Anticipate discharge home, CM will continue to follow for all discharge planning needs.
[2025-11-09 15:25] LABS: Body Fluid for Eosinophils No Eosinophils seen
--- NOTE | 2025-11-09 15:25 | PTCARENOTE ---
Received pt from ED via stretcher. Pt ambulated to bed with standby assist. AAox3. at bedside. radiation monitor placed. Assessed and oriented to room. Pt verbalized understanding of call wen. Call wen within close reach. Will continue to
monitor.
[2025-11-09] MEDS: TESSALON PERLES 200 MG PO ×2 (16:17→21:03)
[2025-11-09] MEDS: SODIUM BICARBONATE 1300 MG PO ×2 (16:17→21:03)
[2025-11-09] MEDS: SENOKOT-S 1 TABLET PO (16:17)
[2025-11-09] MEDS: BACTROBAN 2% OINTMENT 1 APPLIC NASAL ×2 (16:19→21:07)
[2025-11-09] MEDS: NON-FORMULARY ITEM 2 UNIT PO ×2 (16:20→20:09)
[2025-11-09 16:45] LABS: Glucose - Point of Care 233 mg/dl (70-99)
[2025-11-09 16:59] LABS: Urine Character Clear (Clear)
[2025-11-09 17:05] LABS: Urine White Cell 26-30 /HPF (0-5)
[2025-11-09] MEDS: VITAMIN D3 (cholecalciferol) 50 MCG PO (17:57)
[2025-11-09 20:25] LABS: Glucose - Point of Care 267 mg/dl (70-99)
[2025-11-09] MEDS: LANTUS 0.15 UNITS SC (20:35)
[2025-11-09] MEDS: NEURONTIN 200 MG PO (21:06)
[2025-11-09] MEDS: ROBITUSSIN DM 5 ML PO (21:06)
[2025-11-09] MEDS: ULTRAM 50 MG PO (21:07)
[2025-11-10] VITALS (14 sets, daily range): BP systolic 105–125; BP diastolic 53–68; BMI 35.5
--- NOTE | 2025-11-10 03:15 | PTCARENOTE ---
Pt urinated 310ml. PVR 3ml.
--- NOTE | 2025-11-10 04:32 | PTCARENOTE ---
Pt monitor alarmed 12 beat VTach. Pt asleep w/ CPAP, asymptomatic. NURSE CLINICIAN made aware. Order to draw AM labs now.
--- NOTE | 2025-11-10 04:32 | W.PN.UPDATE ---
Addendum entered and electronically signed by WINSTON Royal 11/10/25 06:04:
hgb 7.1/21.8 Plt 19
patient seen, oriented x3, asymptomatic, denies any blood in stool or urine, States he has had low hgb plt's before and has received transfusions before. states he has heme/onc specialist from [facility] and would like to consult with heme/onc for
transfusion
type and screen ordered, Blood consent signed and is in chart.
consult heme-onc
heme test stools
Original Note:
Update Note
Progress Note Update
[id number] 12 beats of vtach will do morning labs now. patient asymptomatic per RN stable VS.
[2025-11-10 05:07] LABS: Hematocrit 21.8 % (39.0-52.0); Hemoglobin 7.1 g/dL (13.0-18.0); Mean Corp Hgb Conc. 32.6 g/dL (33.0-37.0); Mean Corpuscular Volume 95.2 fL (80.0-94.0); Red Cell Dist. Width 19.0 % (11.5-14.5)
[2025-11-10 05:27] LABS: Platelet Count 19 10^3/uL (130-400)
[2025-11-10 05:35] LABS: Blood Urea Nitrogen 45 mg/dl (9-20); Calcium 8.3 mg/dl (8.4-10.2); Carbon Dioxide 17 mmol/L (22-30); Chloride 109 mmol/L (98-107); Estimated Creatinine Clearance 45 ml/min; Glucose 135 mg/dl (70-99); Magnesium 2.4 mg/dl (1.6-2.3); Potassium 4.8 mmol/L (3.5-5.1); Sodium 134 mmol/L (135-145); eGFR 39.50
[2025-11-10] MEDS: NON-FORMULARY ITEM 2 UNIT PO ×5 (07:31→19:49)
[2025-11-10] MEDS: AUGMENTIN 500 MG/125 MG 1 TABLET PO ×2 (07:32→19:49)
[2025-11-10] MEDS: LIPITOR 20 MG PO (07:32)
[2025-11-10] MEDS: FARXIGA 10 MG PO (07:32)
[2025-11-10] MEDS: TESSALON PERLES 200 MG PO ×3 (07:32→21:43)
[2025-11-10] MEDS: THERAGRAN 1 TABLET PO (07:32)
[2025-11-10] MEDS: ASPIR LOW (ENTERIC COATED) 81 MG PO (07:32)
[2025-11-10] MEDS: SODIUM BICARBONATE 1300 MG PO ×3 (07:33→21:43)
[2025-11-10] MEDS: BACTROBAN 2% OINTMENT 1 APPLIC NASAL ×3 (07:33→21:43)
[2025-11-10] MEDS: KEFLEX 500 MG PO ×3 (07:33→21:43)
[2025-11-10] MEDS: PEPCID 20 MG PO (07:35)
--- NOTE | 2025-11-10 07:39 | CON.ONC ---
Consultation
-
Date Consultation Requested: 11/10/25
Date Consultation Performed: 11/10/25
Requesting Provider: Anders Wilson
Performing Provider: Cecile
Reason for Consultation: Pancreatic cancer on clinical research trial, anemia
Impression
Impression
Pancreatic cancer
Chemotherapy-induced anemia/thrombocytopenia
CHF/volume overload
HFrEF
Plan
Plan
Treatment of CHF per medicine/nephrology with diuresis, etc.
Proceed with PRBC x 1 unit for Hgb = 7.1. Discussed toxicities and patient has previously received transfusions of both PRBCs x 2 and plt x 2 so he is aware of the potential for transfusion related toxicities and side effects as well as potential
for viral transmission.
Plt transfusion not required at plt count = 19,000. Okay to use transfusion threshold for <10,000.
Will give 1 unit of PRBC for Hgb = 7.1.
I have discussed the patient's case with his attending as well as his research team so they are aware of his admission for CHF.
Patient History
History of Present Illness
Family Physician: Gomez Gunderson
Primary oncologist: Dr. Orestes Silva MD ([facility])
CC: edema/sob
HPI: 70 male history of pancreatic cancer actively undergoing chemotherapy at [facility] - Dr. Orestes Silva, receiving gemcitabine + Abraxane + study drug (QUEMLICLUSTAT) vs placebo. He also has diabetes, HFrEF with known EF of 40 to 45% and stage
III diastolic dysfunction who presents with evidence of volume overload with bilateral lower extremity swelling and orthopnea. Last chemotherapy on 11/03. States typically after chemotherapy he develops volume overload usually improves however at
this time did not. Lasix was increased recently from 40 mg to twice daily to 60 mg twice daily without improvement. He states that his lowest weight was September 15 at 215 pound. Now he is 238 pounds.
His Hgb dropped to 7.1 without any subjective evidence of bleeding. The nocturnal hospitalist recommended a PRBC transfusion but patient requested oncology evaluation prior. I have notified his attending Dr. Silva as well as my research team is
talking with his research team to coordinate the fact that he has had this toxicity.
Past-Medical/Surgical History
PMH:
Pancreatic cancer
Hypertension
Urethral stricture
Type 2 diabetes
HFpEF
CAD s/p PCI
PSH:
AAA abdominal aneurysm surgery
whipple procedure
Social History
Alcohol: None
Family History
Family History: Not pertinent
Patient Medication
�Medication �Instructions �Recorded �Confirmed �Last Taken �Type
aspirin 81 mg tablet,delayed 81 mg PO DAILY Blood Clot 09/22/19 11/09/25 07/19/25 07:00 History
release Prevention/Tx
empagliflozin 10 mg tablet 10 mg PO DAILY diabetes 01/15/23 11/09/25 07/19/25 07:00 History
(Jardiance)
icosapent ethyl 1 gram capsule 2 g PO BID High Cholesterol 01/15/23 11/09/25 07/13/25 History
(Vascepa)
metformin 1,000 mg tablet 1,000 mg PO BID diabetes 01/15/23 11/09/25 07/19/25 18:00 History
tamsulosin 0.4 mg capsule 0.4 mg PO HS Urinary Issue 06/16/24 11/09/25 07/19/25 23:00 History
cholecalciferol (vitamin D3) 50 50 mcg PO QPM Supplement 10/01/24 11/09/25 07/13/25 History
mcg (2,000 unit) tablet
atorvastatin 20 mg tablet 20 mg PO DAILY High Cholesterol 11/09/25 11/09/25 Unknown History
benzonatate 200 mg capsule 200 mg PO TID Cough 11/09/25 11/09/25 Unknown History
bisacodyl 5 mg tablet 5 mg PO TID Constipation 11/09/25 11/09/25 Unknown History
cephalexin 500 mg capsule 500 mg PO TID Infection 11/09/25 11/09/25 Unknown History
docusate sodium 100 mg capsule 100 mg PO DAILY Constipation 11/09/25 11/09/25 Unknown History
(Colace)
famotidine 40 mg tablet (Pepcid) 40 mg PO BID Gastrointestinal Issue 11/09/25 11/09/25 Unknown History
ferrous sulfate 325 mg (65 mg 325 mg PO HS Supplement 11/09/25 11/09/25 Unknown History
iron) tablet
furosemide 40 mg tablet (Lasix) 40 mg PO BID Fluid 11/09/25 11/09/25 Unknown History
Retention/Swelling
gabapentin 100 mg capsule 200 mg PO HS Pain 11/09/25 11/09/25 Unknown History
insulin aspart U-100 100 unit/mL 16 unit SC DAILY Diabetes 11/09/25 11/09/25 Unknown History
(3 mL) subcutaneous pen
insulin aspart U-100 100 unit/mL 20 unit SC QPM Diabetes 11/09/25 11/09/25 Unknown History
(3 mL) subcutaneous pen
insulin glargine 100 unit/mL (3 20 unit SC BID Diabetes 11/09/25 11/09/25 Unknown History
mL) subcutaneous pen (Basaglar
KwikPen U-100 Insulin)
mdlvqy-tsgkfziy-ueljqlh 72,000 cap PO TID pancreatic 11/09/25 11/09/25 Unknown History
(pork)36,000-114,000-180k unit enzymes
capsule,del rel (Creon)
mzrhqo-koipszkz-zlbpggn(pork)12,000-38,000-60,000 2 cap PO BIDPRN PRN snacks 11/09/25 11/09/25 Unknown History
unit capsule,del rel (Creon)
mupirocin 2 % topical ointment 1 applic topical TID Skin Issues 11/09/25 11/09/25 Unknown History
pegfilgrastim-apgf 6 mg/0.6 mL 6 mg SC DIRECTED 11/09/25 11/09/25 Unknown History
subcutaneous syringe (Nyvepria)
potassium chloride 20 mEq 20 meq PO HS Electrolyte Repletion 11/09/25 11/09/25 Unknown History
tablet,extended release
sulfamethoxazole 800 1 tab PO BID Infection 11/09/25 11/09/25 Unknown History
mg-trimethoprim 160 mg tablet
(Bactrim DS)
therapeutic multivitamin 1 tab PO DAILY Supplement 11/09/25 11/09/25 Unknown History
tramadol 50 mg tablet 50 mg PO HS Pain 11/09/25 11/09/25 Unknown History
Active Medications
Generic Name Dose Route Start Last Admin
Trade Name Freq PRN Reason Stop Dose Admin
Acetaminophen 650 mg 11/09/25 08:27 11/09/25 09:07
Acetaminophen 325 Mg Tablet PO 12/07/25 08:26 650 mg
Q4HPRN PRN Administration
Mild Pain / Temp > 101F
Amoxicillin/Clavulanate Potassium 1 tablet 11/09/25 14:00 11/09/25 20:09
Amoxicillin (500 Mg)/Clavulanate (125 Mg) Tablet PO 1 tablet
Q12 DELILAH Administration
Aspirin 81 mg 11/10/25 08:00
Aspirin 81 Mg (Enteric Coated) Tablet PO 12/08/25 07:59
DAILY DELILAH
Atorvastatin Calcium 20 mg 11/10/25 08:00
Atorvastatin (Lipitor) 20 Mg Tablet PO 12/08/25 07:59
DAILY DELILAH
Benzonatate 200 mg 11/09/25 16:00 11/09/25 21:03
Benzonatate 100 Mg Capsule PO 12/07/25 15:59 200 mg
TID DELILAH Administration
Bisacodyl 10 mg 11/09/25 08:27
Bisacodyl 10 Mg Rectal Suppository RECTAL 12/07/25 08:26
[id number] PRN
constipation
Cephalexin HCl 500 mg 11/09/25 16:00 11/09/25 21:03
Cephalexin 500 Mg Capsule PO 500 mg
TID DELILAH Administration
Cholecalciferol 50 mcg 11/09/25 18:00 11/09/25 17:57
Cholecalciferol (Vitamin D3) 50 Mcg Tablet (2,000 Units) PO 12/07/25 17:59 50 mcg
QPM DELILAH Administration
Dapagliflozin 10 mg 11/09/25 09:00 11/09/25 09:07
Dapagliflozin (Farxiga) 10 Mg Tablet PO 12/07/25 08:59 10 mg
DAILY DELILAH Administration
Famotidine 20 mg 11/10/25 08:00
Famotidine 20 Mg Tablet PO 12/08/25 07:59
DAILY DELILAH
Ferrous Sulfate 325 mg 11/09/25 22:00 11/09/25 21:06
Ferrous Sulfate 325 Mg Tablet PO 12/07/25 21:59 325 mg
HS DELILAH Administration
Furosemide 40 mg 11/09/25 16:00 11/09/25 16:18
Furosemide 40 Mg (10 Mg/Ml) 4 Ml Vial IV 12/07/25 15:59 40 mg
BID AT 0800,1600 DELILAH Administration
Gabapentin 200 mg 11/09/25 22:00 11/09/25 21:06
Gabapentin 100 Mg Capsule PO 12/07/25 21:59 200 mg
HS DELILAH Administration
Insulin Glargine 15 units/ 0.15 mls @ 0 mls/hr 11/09/25 20:00 11/09/25 20:35
Device SC 12/07/25 19:59 0.15 mls
BID DELILAH Administration
As Directed
Insulin Aspart 8 units 11/09/25 08:27 11/09/25 17:52
Insulin Aspart (Novolog) 100 Units/Ml 3 Ml Flexpen SC 12/07/25 08:26 8 units
AC DELILAH Administration
Insulin Aspart 0 units 11/09/25 08:27 11/09/25 17:56
Insulin Aspart Moderate Resistance 300 Units/3 Ml Pen.Injctr SC 12/07/25 08:26 3 units
AC DELILAH Administration
Protocol
Multivitamins Therapeutic 1 tablet 11/10/25 08:00
Multivitamin Tablet PO 12/08/25 07:59
DAILY DELILAH
Mupirocin 0 applic 11/09/25 16:00 11/09/25 21:07
Mupirocin 2% (Ointment) 22 Gram Tube NASAL 1 applic
TID DELILAH Administration
Icosapent Ethyl ( 0 unit 11/09/25 20:00 11/09/25 20:09
Vascepa) 1g; 2 Caps PO 12/07/25 19:59 2 unit
Po Bid BID DELILAH Administration
Wfkxmz98p, 0 unit 11/09/25 14:04
Zwtqlqzk43f, PO 12/07/25 14:03
Stcieud15d Units ( BIDPRN PRN
Creon); 2 Cap Po SNACKS
Bidprn
Htwbon35v, 0 unit 11/09/25 16:30 11/09/25 16:20
[id number], PO 12/07/25 16:29 2 unit
Dfactzi715v Units ( AC DELILAH Administration
Creon); 2 Caps Po Ac
Polyethylene Glycol 17 grams 11/09/25 08:27
Polyethylene Glycol Powder 17 Grams Packet PO 12/07/25 08:26
DAILYPRN PRN
constipation
Senna/Docusate Sodium 1 tablet 11/09/25 08:27 11/09/25 16:17
Docusate W/Senna (Aubree-Colace) Tablet PO 12/07/25 08:26 1 tablet
BIDPRN PRN Administration
constipation
Sodium Bicarbonate 1,300 mg 11/09/25 16:00 11/09/25 21:03
Sodium Bicarbonate 650 Mg Tablet PO 12/07/25 15:59 1,300 mg
TID DELILAH Administration
Sodium Chloride 0 flush 11/09/25 09:00
Sodium Chloride 0.9% (Flush) Syringe IV 12/07/25 08:59
PER PROTOCOL DELILAH
Tamsulosin HCl 0.4 mg 11/09/25 22:00 11/09/25 21:06
Tamsulosin 0.4 Mg Capsule PO 12/07/25 21:59 0.4 mg
HS DELILAH Administration
Tramadol HCl 50 mg 11/09/25 22:00 11/09/25 21:07
Tramadol Hcl 50 Mg Tablet PO 12/07/25 21:59 50 mg
HS DELILAH Administration
Physical Exam
-
General: Well Developed, Well Nourished and No Apparent Distress
HEENT: Negative Jaundice
Cardiology: S1 and S2
Pulmonary: Clear
GI: Soft; Negative Distended
Labs
Lab Results
WBC 17.3 10^3/uL (4.8-10.8) H 11/10/25 04:46
RBC 2.29 10^6/uL (4.70-6.10) L 11/10/25 04:46
Hgb 7.1 g/dL (13.0-18.0) L 11/10/25 04:46
Hct 21.8 % (39.0-52.0) L 11/10/25 04:46
MCV 95.2 fL (80.0-94.0) H 11/10/25 04:46
MCH 31.0 pg (27.0-31.0) 11/10/25 04:46
MCHC 32.6 g/dL (33.0-37.0) L 11/10/25 04:46
RDW 19.0 % (11.5-14.5) H 11/10/25 04:46
Plt Count 19 10^3/uL (130-400) L* D 11/10/25 04:46
MPV Not Reportable 11/10/25 04:46
Abs Immat Gran (auto) 1.0 10^3/uL (0-0.05) H 11/09/25 03:39
Absolute Neuts (auto) 19.8 10^3/uL (1.4-6.5) H 11/09/25 03:39
Absolute Lymphs (auto) 0.3 10^3/uL (1.2-3.4) L 11/09/25 03:39
Absolute Monos (auto) 0.3 10^3/uL (0.1-0.6) 11/09/25 03:39
Absolute Eos (auto) 0.1 10^3/uL (0-0.7) 11/09/25 03:39
Absolute Basos (auto) 0.2 10^3/uL (0-0.2) 11/09/25 03:39
Immature Gran % 4.8 % (0-0.5) H 11/09/25 03:39
Neutrophils % 91.4 % (42.2-75.2) H 11/09/25 03:39
Lymphocytes % 1.3 % (20.5-51.1) L 11/09/25 03:39
Monocytes % 1.2 % (1.7-9.3) L 11/09/25 03:39
Eosinophils % 0.4 % (0-6) 11/09/25 03:39
Basophils % 0.9 % (0-2) 11/09/25 03:39
Creatinine 1.8 mg/dL (0.7-1.3) H 11/10/25 04:46
Vital Signs
Vital Signs
Temp Pulse Resp BP Pulse Ox
98.2 F 94 18 114/63 99
11/10/25 03:00 11/10/25 03:00 11/10/25 03:00 11/10/25 03:00 11/10/25 03:00
[2025-11-10] MEDS: LASIX 40 MG IV (08:36)
[2025-11-10] MEDS: NOVOLOG FLEXPEN 8 UNITS SC (08:37)
[2025-11-10 08:38] LABS: Glucose - Point of Care 253 mg/dl (70-99)
[2025-11-10] MEDS: NOVOLOG FLEXPEN-MODERATE RESISTANCE 5 UNITS SC (08:38)
[2025-11-10] MEDS: LANTUS 0.15 UNITS SC ×2 (08:40→19:58)
--- NOTE | 2025-11-10 08:56 | W.PN.HOSP.TC ---
Today's Communication/Plan
-
Increase Lasix to 60 mg IV twice daily
Transfuse 1 unit red blood cells
Transfuse 1 unit platelets
Assessment / Plan
Assessment / Plan
HPI: 70 male history of pancreatic cancer actively undergoing chemotherapy at [facility], diabetes, HFrEF with known EF of 40 to 45% and stage III diastolic dysfunction who presents with evidence of volume overload with bilateral lower
extremity swelling and orthopnea. Last chemotherapy on 11 03. States typically after chemotherapy he develops volume overload usually improves however at this time did not. Lasix was increased recently from 40 mg to twice daily to 60 mg twice
daily without improvement. He states that his lowest weight was September 15 at 215 pound. Now he is 238 pounds.
#Acute heart failure with reduced ejection fraction
Lowest weight in September was 215 pounds, admission weight 238 pounds
Fluid restrict, increase Lasix 60 mg IV twice daily, trend creatinine, trend daily weights
#Acute kidney injury
Possibly due to cardiorenal syndrome in conjunction with Bactrim use
RBUS unremarkable
Hold Bactrim, hold Jardiance, hold metformin
Nephrology following, trend creatinine
#Pancreatic cancer
Currently undergoing active chemo at [facility]
Last chemo 11/03, outpatient follow-up
#Leukocytosis
Patient is afebrile, CXR neg
Likely related to chemo, last treatment 11/03
Likely had GCSF 48hours after chemo which we would expect increase in wbc 5-10 days after GCSF
Blood cultures/UA negative
#Thrombocytopenia
Appreciate hematology input, will transfuse 1 unit of platelets today due to hemorrhoidal bleeding and epistaxis
#Iron deficiency anemia
Appreciate hematology input, will transfuse 1 unit red blood cells today due to hemoglobin 7.1
Continue ferrous sulfate
#ENT infection
#Epistaxis
Prescribed Bactrim by ENT
changed to Augmentin while here due to LAN
Continue mupirocin
#Hemorrhoidal bleeding
Monitor
#Non-anion gap metabolic acidosis
Continue sodium bicarb
#Type 2 diabetes
Hold metformin/Jardiance
Continue reduced glargine 15 units twice daily, increase novoLog 10 units AC 3 times daily
Diabetic diet, sliding scale insulin
#Hyponatremia
Monitor
#Transaminitis
Likely hepatic congestion from CHF
#Nonmyocardial injury troponin elevation
Likely from CHF
#History of infected AAA
#Endovascular repair complicated by bacteremia requiring open repair
Lifelong suppression with Keflex
#CAD s/p PCI
Continue aspirin, statin, vascepa
#BPH
Continue Flomax
#SAM
CPAP HS
#Obesity due to excess calories
Affects all aspects of care
DVT prophylaxis�SCDs secondary to thrombocytopenia
Full code
Updated at bedside 11/10
Total time spent to see the patient on the floor, examine the patient, review data and lab results, discuss treatment plan with patient, nursing staff around 51 minutes.
Physical Exam
General: Obese, no acute distress
HEENT: Normocephalic, Atraumatic, EOMI, MMM
Respiratory: Clear to Auscultation bilaterally
Cardiac: Normal S1/S2, Regular Rate and Rhythm
GI: Soft, Nontender, Nondistended, Normal Bowel Sounds
Extremities: No Clubbing, Cyanosis
Severe bilateral lower extremity edema noted
Neuro: Nonfocal/Grossly Intact
Psych: Calm, Cooperative
Anticipated Discharge: > 48 hours
Subjective/Interval History
-
Date of Service: November 09, 2025
Patient had hemorrhoidal bleeding with his bowel movement this morning. He also is having intermittent epistaxis. Denies shortness of breath. No lightheadedness, no dizziness. No fever, no vomiting.
Objective Data
-
Labs:
Laboratory Results
11/09/25
03:39
Sodium 133 L
Potassium 5.1
Chloride 108 H
Carbon Dioxide 17 L
BUN 45 H
Creatinine 2.0 H
Glucose 170 H
Calcium 8.5
Total Bilirubin 0.8
AST 67 H
ALT 56 H
Alkaline Phosphatase 739 H
Vital Signs:
Vital Signs
Temp Pulse Resp BP Pulse Ox
97.8 F 93 24 108/63 99
11/09/25 03:25 11/09/25 15:00 11/09/25 15:00 11/09/25 14:20 11/09/25 14:45
I&O
11/08/25 11/09/25 11/10/25
06:59 06:59 06:59
Output Total 400 / 400
Balance -400 / -400
[2025-11-10 09:55] LABS: Reticulocyte Count 0.2 % (0.4-2.8)
[2025-11-10 12:08] LABS: Glucose - Point of Care 196 mg/dl (70-99)
[2025-11-10] MEDS: NOVOLOG FLEXPEN 10 UNITS SC ×2 (12:58→16:59)
[2025-11-10] MEDS: NOVOLOG FLEXPEN-MODERATE RESISTANCE 1 UNITS SC (12:59)
--- NOTE | 2025-11-10 14:18 | W.PN.NEPH.PH ---
Today's Communication / Plan
-
see plan
Assessment/Plan
-
Impression:
LAN (2.0) b/l 1.1
Congestive heart failure decompensation
Metabolic acidosis
Anemia
History of pancreatic cancer undergoing active chemotherapy with our friends at [facility]
Diabetes
BPH
History of infected AAA
Coronary artery disease with history of PCI
Leukocytosis
Plan:
LAN:
- Possibly prerenal mediated in the setting of decompensated congestive heart failure with associated hemodynamic instability
- May be related to chemotherapy (abraxane and gemzar)
cr slightly better at 1.8 and cont with IV diuresis
UA with microhematuria wiht low plt, leucocytosis, few back only, check U PCR, PVR 3cc, neg U eosinophils
renal US non acute
agree increasing dose now that he is getting plt and PRBC
check daily weights and accurate i/os
-Cont to hold metformin, Jardiance and Bactrim
non gap met acidosis on po bicarb -started by primary
corrected rupert is normal
mild hyponatremia from hypervolemia- stable
follow LFTs
d/w pt and at bedside
labs in am
-
-
Date of Service: November 10, 2025
CC / HPI / ROS
-
Chief Complaint:
LAN
History of Present Illness:
cr slightly better at 1.8
Bp stable
wt decreasing
hb low 7.1, plt 19k-for trasnfusion today
Review of Systems:
no cp or sob
dry cough for long time
no fever
Labs
-
Labs:
WBC 17.3 10^3/uL (4.8-10.8) H 11/10/25 04:46
RBC 2.29 10^6/uL (4.70-6.10) L 11/10/25 04:46
Hgb 7.1 g/dL (13.0-18.0) L 11/10/25 04:46
Hct 21.8 % (39.0-52.0) L 11/10/25 04:46
Plt Count 19 10^3/uL (130-400) L* D 11/10/25 04:46
Sodium 134 mmol/L (135-145) L 11/10/25 04:46
Potassium 4.8 mmol/L (3.5-5.1) 11/10/25 04:46
Chloride 109 mmol/L (98-107) H 11/10/25 04:46
Carbon Dioxide 17 mmol/L (22-30) L 11/10/25 04:46
BUN 45 mg/dl (9-20) H 11/10/25 04:46
Creatinine 1.8 mg/dL (0.7-1.3) H 11/10/25 04:46
eGFR 39.50 11/10/25 04:46
Glucose 135 mg/dl (70-99) H 11/10/25 04:46
Calcium 8.3 mg/dl (8.4-10.2) L 11/10/25 04:46
Phosphorus 4.1 mg/dl (2.5-4.5) 11/10/25 04:46
Awc-B-Bkpafeojztw Pept 8720 pg/ml 11/09/25 03:39
Albumin 3.3 g/dl (3.5-5.0) L 11/09/25 03:39
Physical Exam
-
Vital Signs:
Vital Signs
Temp Pulse Resp BP Pulse Ox
98.0 F 90 18 111/58 98
11/10/25 14:02 11/10/25 14:02 11/10/25 14:02 11/10/25 14:02 11/10/25 10:42
Cardiovascular:: Regular rate and rhythm
Respiratory:: Bilateral: CTA (decreased BS)
Lung Excursion:: Normal
Abdomen:: Distended, Nontender and Soft
Extremity Edema:: +3: Bilateral:
Combs Catheter: No
[2025-11-10] MEDS: SENOKOT-S 1 TABLET PO (14:41)
[2025-11-10] MEDS: LASIX 60 MG IV (16:51)
[2025-11-10 16:56] LABS: Glucose - Point of Care 214 mg/dl (70-99)
[2025-11-10] MEDS: NOVOLOG FLEXPEN-MODERATE RESISTANCE 3 UNITS SC (16:59)
--- NOTE | 2025-11-10 17:22 | CM ---
CM following for discharge planning; patient receiving RBC and Platelets today. Pt with CHF, being treated at [facility] for pancreatic CA.
Fili is ambulatory in his room, on room air.
Anticipate discharge to home with support of , and his daughter ,who lives closeby.
[2025-11-10] MEDS: VITAMIN D3 (cholecalciferol) 50 MCG PO (18:17)
--- NOTE | 2025-11-10 19:04 | PTCARENOTE ---
This morning, pt had a medium sized bowel movement in a hat with bright red blood present in hat and on stool sample. Pt stated 'my hemorrhoid popped when I was having a bowel movement'. Pt denies continual bleeding. TT and made aware about
hemorrhoid and how it was only bleeding during bowel movement. MD was asked if Hematest stool should be tested with a stool sample without the hemorrhoid blood for a more accurate reading for internal bleeding. MD agreed. Pt told to let staff know
if they have another BM without hemorrhoid bleeding.
[2025-11-10 19:57] LABS: Glucose - Point of Care 213 mg/dl (70-99)
[2025-11-10] MEDS: FLOMAX 0.4 MG PO (21:43)
[2025-11-10] MEDS: FEOSOL 325 MG PO (21:43)
[2025-11-10] MEDS: NEURONTIN 200 MG PO (21:43)
[2025-11-10] MEDS: ULTRAM 50 MG PO (21:45)
[2025-11-11 03:00] VITALS: BP 111/59
--- NOTE | 2025-11-11 04:19 | PTCARENOTE ---
During review of patient's telemetry alarms, around midnight, patient ran a strip of Vtach but returned to Sinus Rhythm. VSS throughout this shift. Pt does not offer any complaints. FILM PAINTER made aware. Mag level added to AM labs. OK to obtain labs now.
[2025-11-11 05:12] LABS: Hematocrit 25.3 % (39.0-52.0); Hemoglobin 8.1 g/dL (13.0-18.0); Mean Corp Hgb Conc. 32.0 g/dL (33.0-37.0); Mean Corpuscular Volume 98.1 fL (80.0-94.0); Platelet Count 25 10^3/uL (130-400); Red Cell Dist. Width 18.8 % (11.5-14.5)
[2025-11-11 05:22] LABS: Blood Urea Nitrogen 43 mg/dl (9-20); Calcium 8.3 mg/dl (8.4-10.2); Carbon Dioxide 19 mmol/L (22-30); Chloride 107 mmol/L (98-107); Estimated Creatinine Clearance 47 ml/min; Glucose 105 mg/dl (70-99); Magnesium 2.4 mg/dl (1.6-2.3); Potassium 4.0 mmol/L (3.5-5.1); Sodium 135 mmol/L (135-145); eGFR 42.30
[2025-11-11 06:00] VITALS: BMI 35.5
[2025-11-11] MEDS: ASPIR LOW (ENTERIC COATED) 81 MG PO (07:28)
[2025-11-11] MEDS: TESSALON PERLES 200 MG PO ×3 (07:28→21:05)
[2025-11-11] MEDS: THERAGRAN 1 TABLET PO (07:28)
[2025-11-11] MEDS: LIPITOR 20 MG PO (07:28)
[2025-11-11] MEDS: SODIUM BICARBONATE 1300 MG PO ×3 (07:28→21:07)
[2025-11-11] MEDS: NON-FORMULARY ITEM 2 UNIT PO ×5 (07:29→21:09)
[2025-11-11] MEDS: KEFLEX 500 MG PO ×3 (07:29→21:05)
[2025-11-11] MEDS: PEPCID 20 MG PO (07:29)
[2025-11-11] MEDS: AUGMENTIN 500 MG/125 MG 1 TABLET PO ×2 (07:29→21:04)
[2025-11-11] MEDS: BACTROBAN 2% OINTMENT 1 APPLIC NASAL ×3 (07:30→21:11)
[2025-11-11] MEDS: FARXIGA 10 MG PO (07:30)
[2025-11-11] MEDS: LASIX 60 MG IV ×2 (07:40→16:52)
[2025-11-11 07:55] VITALS: BP 114/60
[2025-11-11 08:10] LABS: Glucose - Point of Care 119 mg/dl (70-99)
[2025-11-11] MEDS: NOVOLOG FLEXPEN-MODERATE RESISTANCE SC (08:25)
[2025-11-11] MEDS: NOVOLOG FLEXPEN 10 UNITS SC ×3 (08:26→16:48)
[2025-11-11] MEDS: LANTUS 0.15 UNITS SC ×2 (08:58→21:10)
--- NOTE | 2025-11-11 08:58 | W.PN.HOSP.TC ---
Today's Communication/Plan
-
see bold
Assessment / Plan
Assessment / Plan
HPI: 70 male history of pancreatic cancer actively undergoing chemotherapy at [facility], diabetes, HFrEF with known EF of 40 to 45% and stage III diastolic dysfunction who presents with evidence of volume overload with bilateral lower
extremity swelling and orthopnea. Last chemotherapy on 11 03. States typically after chemotherapy he develops volume overload usually improves however at this time did not. Lasix was increased recently from 40 mg to twice daily to 60 mg twice
daily without improvement. He states that his lowest weight was September 15 at 215 pound. Now he is 238 pounds.
#Acute heart failure with reduced ejection fraction
Lowest weight in September was 215 pounds, admission weight 238 pounds
Fluid restrict, continue Lasix 60 mg IV twice daily, trend creatinine, trend daily weights
#NSVT
08/26/25 Echo EF inferior and inferolateral hypokinesis, EF 40-45%. Stage III DD with restrictive filling
Start Coreg 6.25 mg twice a day, consult cardiology, patient known to Dr. Avery
#Acute kidney injury
Possibly due to cardiorenal syndrome in conjunction chemo/Bactrim use
Hold Bactrim, hold Jardiance, hold metformin
Nephrology following, no nephrotoxic drugs/NSAIDs, trend creatinine
#Pancreatic cancer
Currently undergoing active chemo at [facility]
Last chemo 11/03, outpatient follow-up
#Leukocytosis
Patient is afebrile, CXR neg
Likely related to chemo, last treatment 11/03
Likely had GCSF 48hours after chemo which we would expect increase in wbc 5-10 days after GCSF
Blood cultures/UA negative
#Thrombocytopenia
Appreciate hematology input, status post 1 unit platelets on 11/10 due to hemorrhoidal bleeding and epistaxis
#Iron deficiency anemia
Appreciate hematology input, hemoglobin improved to 8.1, from 7.1, status post 1 unit packed red blood cells on 11/10
Continue ferrous sulfate
#ENT infection
#Epistaxis
Prescribed Bactrim by ENT
Changed to Augmentin while here due to LAN
Epistaxis resolved, continue mupirocin
#Hemorrhoidal bleeding
Resolved, monitor
#Non-anion gap metabolic acidosis
Continue sodium bicarb
#Type 2 diabetes
Hold metformin/Jardiance
Continue reduced glargine 15 units twice daily, increased novoLog 10 units AC 3 times daily
Diabetic diet, sliding scale insulin
#Hyponatremia
Monitor
#Transaminitis
Likely hepatic congestion from CHF
#Nonmyocardial injury troponin elevation
Likely from CHF
#History of infected AAA
#Endovascular repair complicated by bacteremia requiring open repair
Lifelong suppression with Keflex
#CAD s/p PCI
Continue aspirin, statin, vascepa
#BPH
Continue Flomax
#SAM
CPAP HS
#Obesity due to excess calories
Affects all aspects of care
DVT prophylaxis�SCDs secondary to thrombocytopenia
Full code
Updated at bedside 11/11
Total time spent to see the patient on the floor, examine the patient, review data and lab results, discuss treatment plan with patient, nursing staff around 53 minutes.
Physical Exam
General: Obese, no acute distress
HEENT: Normocephalic, Atraumatic, EOMI, MMM
Respiratory: Clear to Auscultation bilaterally
Cardiac: Normal S1/S2, Regular Rate and Rhythm
GI: Soft, Nontender, Nondistended, Normal Bowel Sounds
Extremities: No Clubbing, Cyanosis
Severe bilateral lower extremity edema noted
Neuro: Nonfocal/Grossly Intact
Anticipated Discharge: > 48 hours
Subjective/Interval History
-
Date of Service: November 11, 2025
Notified by nursing staff the patient has had intermittent nonsustained V. tach overnight. He denied chest pain, shortness of breath, or palpitations. Rectal bleeding and epistaxis resolved. No fever, no vomiting.
Objective Data
-
Labs:
Laboratory Results
11/11/25
04:36
WBC 13.0 H
Hgb 8.1 L
Hct 25.3 L
Plt Count 25 L* D
Sodium 135
Potassium 4.0
Chloride 107
Carbon Dioxide 19 L
BUN 43 H
Creatinine 1.7 H
Glucose 105 H
Calcium 8.3 L
Vital Signs:
Vital Signs
Temp Pulse Resp BP Pulse Ox
97.3 F 91 16 114/60 98
11/11/25 07:55 11/11/25 07:55 11/11/25 07:55 11/11/25 07:55 11/11/25 07:55
I&O
11/10/25 11/11/25 11/12/25
06:59 06:59 06:59
Intake Total 600 / 600 2217 / 2217
Output Total 1210 / 1210 1959 / 1959
Balance -610 / -610 257 / 257
[2025-11-11] MEDS: COREG 6.25 MG PO ×2 (10:23→21:06)
--- NOTE | 2025-11-11 10:36 | W.PN.ONC ---
Today's Communication / Plan
-
Continue diuresis as per primary team
Continue transfusion of packed red blood cells for hemoglobin less than 7.5 with CHF
Continue transfusion of platelets for atypical bleeding or counts less than 10K.
Recent CT scan reviewed appears to have had a marginal response without new lesions on clinical trial
Impression
Impression
Pancreatic cancer
Chemotherapy-induced anemia/thrombocytopenia
CHF/volume overload
HFrEF
Subjective/Objective
Subjective/Objective
No new complaints today. Denies atypical bleeding.
Vital Signs:
Vital Signs
Temp Pulse Resp BP Pulse Ox
97.3 F 87 16 109/61 98
11/11/25 07:55 11/11/25 10:23 11/11/25 07:55 11/11/25 10:23 11/11/25 07:55
Physical examination unchanged from continued abdominal protuberance and lower extremity swelling
Lab Results:
Laboratory Data
WBC 13.0 10^3/uL (4.8-10.8) H 11/11/25 04:36
Hgb 8.1 g/dL (13.0-18.0) L 11/11/25 04:36
Plt Count 25 10^3/uL (130-400) L* D 11/11/25 04:36
eGFR 42.30 11/11/25 04:36
[2025-11-11 10:59] VITALS: BP 116/64
--- NOTE | 2025-11-11 11:06 | W.PN.NEPH.PH ---
Today's Communication / Plan
-
cont lasix, FR
Assessment/Plan
-
Impression:
LAN (2.0) b/l 1.1
Congestive heart failure decompensation
Metabolic acidosis
Anemia
History of pancreatic cancer undergoing active chemotherapy with our friends at [facility]
Diabetes
BPH
History of infected AAA
Coronary artery disease with history of PCI
Leukocytosis
Plan:
LAN:
- Possibly prerenal mediated in the setting of decompensated congestive heart failure with associated hemodynamic instability
- May be related to chemotherapy (abraxane and gemzar)
cr slightly better at 1.7 and cont with IV diuresis
UA with microhematuria wiht low plt, U PCR 400mg/gm of cr, PVR 3cc, neg U eosinophils
renal US non acute
wt no change but has trasnfusion on 11/10
may need uptitration of lasix if UOP not sig , cotn 60 BID
check daily weights and accurate i/os
-Cont to hold metformin, Jardiance and Bactrim
non gap met acidosis on po bicarb -started by primary -improving
corrected rupert is normal
mild hyponatremia from hypervolemia- improving
follow LFTs
d/w pt and at bedside
labs in am
-
-
Date of Service: November 11, 2025
CC / HPI / ROS
-
Chief Complaint:
LAN
History of Present Illness:
cr slightly better at 1.7
Bp stable
wt no change
hb betetr at 8.1, plt 25k-post trasnfusion 11/10
Review of Systems:
no cp or sob
dry cough for long time
no fever
Labs
-
Labs:
WBC 13.0 10^3/uL (4.8-10.8) H 11/11/25 04:36
RBC 2.58 10^6/uL (4.70-6.10) L 11/11/25 04:36
Hgb 8.1 g/dL (13.0-18.0) L 11/11/25 04:36
Hct 25.3 % (39.0-52.0) L 11/11/25 04:36
Plt Count 25 10^3/uL (130-400) L* D 11/11/25 04:36
Sodium 135 mmol/L (135-145) 11/11/25 04:36
Potassium 4.0 mmol/L (3.5-5.1) 11/11/25 04:36
Chloride 107 mmol/L (98-107) 11/11/25 04:36
Carbon Dioxide 19 mmol/L (22-30) L 11/11/25 04:36
BUN 43 mg/dl (9-20) H 11/11/25 04:36
Creatinine 1.7 mg/dL (0.7-1.3) H 11/11/25 04:36
eGFR 42.30 11/11/25 04:36
Glucose 105 mg/dl (70-99) H 11/11/25 04:36
Calcium 8.3 mg/dl (8.4-10.2) L 11/11/25 04:36
Phosphorus 4.1 mg/dl (2.5-4.5) 11/10/25 04:46
Pmj-V-Ywtxmghdenj Pept 8720 pg/ml 11/09/25 03:39
Albumin 3.3 g/dl (3.5-5.0) L 11/09/25 03:39
Physical Exam
-
Vital Signs:
Vital Signs
Temp Pulse Resp BP Pulse Ox
97.9 F 90 16 116/64 100
11/11/25 10:59 11/11/25 10:59 11/11/25 10:59 11/11/25 10:59 12/11/25 10:59
Cardiovascular:: Regular rate and rhythm
Respiratory:: Bilateral: CTA (decreased BS)
Lung Excursion:: Normal
Abdomen:: Distended, Nontender and Soft
Extremity Edema:: +3: Bilateral:
Combs Catheter: No
[2025-11-11 11:41] LABS: Glucose - Point of Care 196 mg/dl (70-99)
[2025-11-11] MEDS: NOVOLOG FLEXPEN-MODERATE RESISTANCE 1 UNITS SC (11:58)
--- NOTE | 2025-11-11 13:33 | CON.CAR ---
Addendum entered and electronically signed by Elvin Huber MD 11/11/25 16:14:
I saw and examined the patient.
The [employer]'s note was reviewed and I agree with the note.
Comment:
GEN: No distress, awake, Ox3
HEENT: supple, anicteric, mmm
LUNGS: CTA, no wheezes/rales
CV: Reg, S1/S2, 1/6 syst LSB, S3+
ABD: soft, BS+, NT/ + distened
EXT: +1 edema
NEURO: Gross non-focal
SKIN: No rash
PLan:
70-year-old male with past medical history of advanced pancreatic cancer with maintenance chemotherapy, chronic heart failure with reduced ejection fraction, nonsustained VT and PVCs presented to [facility] with a 30 pound weight gain,
shortness of breath, and orthopnea. He was found to have an increased creatinine up to 2.0. He continues with active chemotherapy treatments at [facility] with an experimental drug. He states his pancreatic cancer has been stable.
He was diuresed and weight has improved somewhat. We are asked to evaluate him regarding nonsustained ventricular tachycardia on telemetry.
I reviewed his cardiac monitor. He did have some PVCs and brief episodes of nonsustained ventricular tachycardia. He has had this in the past. With his reduced ejection fraction I agree with initiating carvedilol. We will continue to follow
him on telemetry. His electrolytes are overall stable. Potassium is 4.0 and magnesium 2.4. Creatinine has improved and down to 1.7 with diuresis.
At this point I would just continue the carvedilol for his ventricular ectopy. With his advanced pancreatic cancer I would not recommend ICD at this time until there is a clear prognosis for his cancer.
If his ventricular tachycardia persist or worsens we could consider initiation with amiodarone. For now I will initiate carvedilol.
Continue Farxiga and Lasix 60 mg IV twice daily. He has lost 8 pounds already. Continue telemetry.
Continue medical therapy for his coronary artery disease. Continue aspirin, atorvastatin, and carvedilol
No RAY/ARB with history of angioedema.
Cont to follow his pancytopenia status postchemotherapy.
Original Note:
Consultation
Consultation Request
Date/Time Consultation Requested: 11/11/2025
Date/Time Consultation Performed: 11/11/2025
Requesting Provider: Dr. Wilson
Performing Provider: Dr. Huber
Reason for Consultation: NSVT
Medical History
-
History of Present Illness:
Patient came to the ER on Saturday with weight gain and LE edema concerning for acute HF prompting admission, cardiology is now consulted for NSVT. Patient was last seen in the cardiology office on 09/14/2025, he has been seen on a regular basis due
to intermittent edema and volume overload that seems to be associated with his chemotherapy treatment he is undergoing at [facility]. Patient was diagnosed with pancreatic cancer in 2023 and originally was going to have a Whipple procedure, but at time
of surgery he was found to have liver lesions and procedure was canceled, treatment since then has been chemotherapy only. Patient is currently involved in a trial at [facility] with possible drug cocktail outlined above. Patient's reports that
treatment was supposed to be every Saturday for 3 weeks and then off 1 week, but patient has never successfully completed 3 [id number] treatments with infusions being canceled for anemia and thrombocytopenia. During the patient's last several
rounds of chemotherapy he has had increased LE edema and weight gain which has been treated with escalating doses of Lasix as an outpatient. Patient was taking Lasix 40 mg PO BID and then the dose was increased to 60 mg PO BID through this past
weekend without any improvement in edema so he came to the ER. Patient is about 30 pounds above his dry weight. Patient had LAN with Cre as high as 2.0 on admission and nephrology was consulted and has been managing volume status. Cre improved to
1.7 on my review of labs 11/11/2025. LE edema is improved and weight is down about 8 lbs with Lasix 60 mg IV BID diuresis. Cardiology was consulted today because of NSVT on telemetry. Patient also noted to have an episode of PAT. Patient has a
history of NSVT and PVCs prompting EP evaluation in the office back on 02/02/2020, at that time his EF was 40 to 45% and he was recommended EP study for consideration of ICD, but this was ultimately deferred due to his previous endovascular infection
involving his AAA endograft from 2019. In that time the EF improved to 50 to 55%. Patient had previously been treated with Toprol-XL but was intolerant due to fatigue. Patient denies any palpitations or lightheadedness.
PMH:
Chronic HFrEF
Pancreatic cancer managed at [facility]
Unable to have Whipple in 2023 due to liver mets down at time of surgery
Currently enrolled in trial at [facility] with gemcitabine, Abraxane and study drug (Quemliclustat) vs placebo since 05/2025
NSVT
PAT
h/o PVCs
Mixed ischemic and nonischemic CM EF 40 to 45% by echo 08/26/2025
EF 50 to 55% by echo 12/16/2024
CAD s/p 3 mm Xience to mid Circ and 3 mm Xience to prox RCA 09/22/19
Flash pulmonary edema at time of cath 09/22/19
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
Endovascular AAA repair with graft 03/01/19
h/o MSSA bacteremia
DM 2
Hypertension
Hyperlipidemia
Obstructive sleep apnea on CPAP
Diffuse fatty liver, hepatomegaly
Anemia
Obesity
Past Medical History
Past Medical History: Other (See HPI)
Past Surgical History: Other (Eye strabismus surgery, tonsillectomy, AAA repair 2018)
Social History
Tobacco: Non-Smoker
Alcohol: None
Drug: None
Personal:
Living: With Family
Employment: Employed
Family History
Family History: Other (Mother of lung cancer, father at age 44 from [place])
Allergies / Home Medications
Allergy/AdvReac Type Severity Reaction Status Date / Time
cat dander Allergy SNEEZING/STUFFY Verified 11/09/25 03:28
NOSE
dog dander Allergy SNEEZING/STUFFY Verified 11/09/25 03:28
NOSE
house dust Allergy Nasal Verified 11/09/25 03:28
congestion/sneezing
ibuprofen (From Advil) Allergy ANGIOEDEMA Verified 11/09/25 03:28
lisinopril Allergy ANGIOEDEMA Verified 11/09/25 03:28
olmesartan (From Benicar) Allergy ANGIOEDEMA Verified 11/09/25 03:28
tomato Allergy ANGIOEDEMA Verified 11/09/25 03:28
�Medication �Instructions �Recorded �Confirmed �Type
aspirin 81 mg tablet,delayed 81 mg PO DAILY Blood Clot 09/22/19 11/09/25 History
release Prevention/Tx
empagliflozin 10 mg tablet 10 mg PO DAILY diabetes 01/15/23 11/09/25 History
(Jardiance)
icosapent ethyl 1 gram capsule 2 g PO BID High Cholesterol 01/15/23 11/09/25 History
(Vascepa)
metformin 1,000 mg tablet 1,000 mg PO BID diabetes 01/15/23 11/09/25 History
tamsulosin 0.4 mg capsule 0.4 mg PO HS Urinary Issue 06/16/24 11/09/25 History
cholecalciferol (vitamin D3) 50 50 mcg PO QPM Supplement 10/01/24 11/09/25 History
mcg (2,000 unit) tablet
atorvastatin 20 mg tablet 20 mg PO DAILY High Cholesterol 11/09/25 11/09/25 History
benzonatate 200 mg capsule 200 mg PO TID Cough 11/09/25 11/09/25 History
bisacodyl 5 mg tablet 5 mg PO TID Constipation 11/09/25 11/09/25 History
cephalexin 500 mg capsule 500 mg PO TID Infection 11/09/25 11/09/25 History
docusate sodium 100 mg capsule 100 mg PO DAILY Constipation 11/09/25 11/09/25 History
(Colace)
famotidine 40 mg tablet (Pepcid) 40 mg PO BID Gastrointestinal Issue 11/09/25 11/09/25 History
ferrous sulfate 325 mg (65 mg 325 mg PO HS Supplement 11/09/25 11/09/25 History
iron) tablet
furosemide 40 mg tablet (Lasix) 40 mg PO BID Fluid 11/09/25 11/09/25 History
Retention/Swelling
gabapentin 100 mg capsule 200 mg PO HS Pain 11/09/25 11/09/25 History
insulin aspart U-100 100 unit/mL 16 unit SC DAILY Diabetes 11/09/25 11/09/25 History
(3 mL) subcutaneous pen
insulin aspart U-100 100 unit/mL 20 unit SC QPM Diabetes 11/09/25 11/09/25 History
(3 mL) subcutaneous pen
insulin glargine 100 unit/mL (3 20 unit SC BID Diabetes 11/09/25 11/09/25 History
mL) subcutaneous pen (Basaglar
KwikPen U-100 Insulin)
qdvnkh-zyrlkife-ugzqvek 72,000 cap PO TID pancreatic 11/09/25 11/09/25 History
(pork)36,000-114,000-180k unit enzymes
capsule,del rel (Creon)
suoptb-awwsishg-scwzegb(pork)12,000-38,000-60,000 2 cap PO BIDPRN PRN snacks 11/09/25 11/09/25 History
unit capsule,del rel (Creon)
mupirocin 2 % topical ointment 1 applic topical TID Skin Issues 11/09/25 11/09/25 History
pegfilgrastim-apgf 6 mg/0.6 mL 6 mg SC DIRECTED Cancer 11/09/25 11/09/25 History
subcutaneous syringe (Nyvepria)
potassium chloride 20 mEq 20 meq PO HS Electrolyte Repletion 11/09/25 11/09/25 History
tablet,extended release
sulfamethoxazole 800 1 tab PO BID Infection 11/09/25 11/09/25 History
mg-trimethoprim 160 mg tablet
(Bactrim DS)
therapeutic multivitamin 1 tab PO DAILY Supplement 11/09/25 11/09/25 History
tramadol 50 mg tablet 50 mg PO HS Pain 11/09/25 11/09/25 History
Review of Systems
-
History Source: Patient and Family ( sitting at bedside gives most of the HPI)
All other systems: Negative unless noted
Physical Exam
Vital Signs
Temp Pulse Resp BP Pulse Ox
97.9 F 90 16 116/64 100
11/11/25 10:59 11/11/25 10:59 11/11/25 10:59 11/11/25 10:59 11/11/25 10:59
GEN: NAD, AAO x 3
HEENT: EOMI, MMM, wearing glasses
LUNGS: Wearing CPAP while napping upon entry into the room, then RA. CTA B/L without wheeze or rales
CV: SR on telemetry. Reg with ectopy, S1/S2, 1/6 syst LSB, no gallop
ABD: ND
EXT: +1-2 B/L LE edema.
NEURO: Gross non-focal
SKIN: Warm, dry and pink. No rash
Lab Results
11/11/25 04:36
11/11/25 04:36
Troponin I 0.142 ng/ml H* 11/09/25 03:39
Tzh-Q-Ebbcyspexps Pept 8720 pg/ml 11/09/25 03:39
Impression / Plan
-
PCP: Dr. Gomez Gunderson
Cardiology: Dr. Avery
Vascular: Dr. Newell
Impression:
Admitted with acute HF 11/09/2025
Acute on chronic HFrEF
Possible chemotherapy toxicity precipitating acute HF
LAN
Pancreatic cancer managed at [facility]
Unable to have Whipple in 2023 due to liver mets down at time of surgery
Currently enrolled in trial at [facility] with gemcitabine, Abraxane and study drug (Quemliclustat) vs placebo since 05/2025
NSVT
PAT
h/o PVCs
Mixed ischemic and nonischemic CM EF 40 to 45% by echo 08/26/2025
EF 50 to 55% by echo 12/16/2024
CAD s/p 3 mm Xience to mid Circ and 3 mm Xience to prox RCA 09/22/19
Flash pulmonary edema at time of cath 09/22/19
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
Endovascular AAA repair with graft 03/01/19
h/o MSSA bacteremia
DM 2
Hypertension
Hyperlipidemia
Obstructive sleep apnea on CPAP
Diffuse fatty liver, hepatomegaly
Anemia
Obesity
Echo 12/16/2024: Ejection fraction 50 to 55%, basal to mid inferior and inferolateral hypokinesis, PA systolic 47 mmHg with mild to moderate TR
Echo 08/26/2025: EF 40 to 45%, stage III diastolic dysfunction, GLS reduced at -9.8%, mild MR, aortic sclerosis without stenosis, normal RV size and function, compared to echo 12/2024 for GLS was -11.3% and EF was 50 to 55%
Plan:
- Patient came to the ER on Saturday with weight gain and LE edema concerning for acute HF prompting admission, cardiology is now consulted for NSVT. Patient was last seen in the cardiology office on 09/14/2025, he has been seen on a regular basis
due to intermittent edema and volume overload that seems to be associated with his chemotherapy treatment he is undergoing at [facility]. Patient was diagnosed with pancreatic cancer in 2023 and originally was going to have a Whipple procedure, but at
time of surgery he was found to have liver lesions and procedure was canceled, treatment since then has been chemotherapy only. Patient is currently involved in a trial at [facility] with possible drug cocktail outlined above. Patient's reports
that treatment was supposed to be every Saturday for 3 weeks and then off 1 week, but patient has never successfully completed 3 [id number]-[id number]-ikzw treatments with infusions being canceled for anemia and thrombocytopenia. During the patient's last
several rounds of chemotherapy he has had increased LE edema and weight gain which has been treated with escalating doses of Lasix as an outpatient. Patient was taking Lasix 40 mg PO BID and then the dose was increased to 60 mg PO BID through this
past weekend without any improvement in edema so he came to the ER. Patient is about 30 pounds above his dry weight. Patient had LAN with Cre as high as 2.0 on admission and nephrology was consulted and has been managing volume status. Cre
improved to 1.7 on my review of labs 11/11/2025. LE edema is improved and weight is down about 8 lbs with Lasix 60 mg IV BID diuresis. Cardiology was consulted today because of NSVT on telemetry. Patient also noted to have an episode of PAT.
Patient has a history of NSVT and PVCs prompting EP evaluation in the office back on 02/02/2020, at that time his EF was 40 to 45% and he was recommended EP study for consideration of ICD, but this was ultimately deferred due to his previous
endovascular infection involving his AAA endograft from 2019. In that time the EF improved to 50 to 55%. Patient had previously been treated with Toprol-XL but was intolerant due to fatigue. Patient denies any palpitations or lightheadedness.
-ECG reviewed by me is SR without acute ST changes and occasional PVCs.
-Telemetry reviewed by me as PAT and an episode of NSVT, he is having occasional PVCs as well.
-Electrolytes are normal including a potassium of 4.8 and magnesium of 2.4 despite IV diuresis on my review of labs 11/11/2025
-Patient is tolerating the addition of Coreg 6.25 mg BID since this morning, will follow along as patient has previously been intolerant to metoprolol.
-EF is down to 40 to 45% on echo from 08/26/2025 compared to EF of 50 to 55% by echo 12/16/2024. Patient denies chest pain. Patient has a history of CAD with circumflex and RCA PCI in 2018 and when EF was low with PVCs and NSVT in 2019 there was
consideration for EP study and ICD implantation, but this was deferred because EF improved and there was concern for recurrent endovascular infection. EF is now down again and patient is having PVCs and NSVT. It is not clear that if patient were
to undergo another ischemic evaluation that he would be a candidate for DAPT due to thrombocytopenia, although he did tolerate DAPT up until August of this year despite thrombocytopenia. He is however now receiving intermittent transfusions of
PRBCs and platelets.
-Another consideration is to continue attempts at GDMT with the addition of Coreg. Patient cannot receive RAY/ARB due to a history of angioedema with both lisinopril and Benicar in the past. Outpatient dose of Jardiance 10 mg daily was changed to
Farxiga due to formulary reasons and Jardiance should be resumed upon discharge to home.
-Agree with ongoing attempts at IV diuresis
--- NOTE | 2025-11-11 13:43 | CM ---
Patient seen at bedside with
continue diuresis
offered vn-declined at this time
PLAN: home, declining vn at this time, CM to continue to follow for discharge planning/needs
[2025-11-11 15:20] VITALS: BP 112/58
[2025-11-11] MEDS: NOVOLOG FLEXPEN-MODERATE RESISTANCE 3 UNITS SC (16:48)
[2025-11-11 16:49] LABS: Glucose - Point of Care 241 mg/dl (70-99)
[2025-11-11] MEDS: VITAMIN D3 (cholecalciferol) 50 MCG PO (17:00)
[2025-11-11 19:20] VITALS: BP 128/61
[2025-11-11] MEDS: NEURONTIN 200 MG PO (21:05)
[2025-11-11] MEDS: FLOMAX 0.4 MG PO (21:06)
[2025-11-11] MEDS: FEOSOL 325 MG PO (21:07)
[2025-11-11] MEDS: ULTRAM 50 MG PO (21:08)
[2025-11-11 21:09] LABS: Glucose - Point of Care 211 mg/dl (70-99)
[2025-11-11] MEDS: ROBITUSSIN AC 5 ML PO (21:14)
[2025-11-11] MEDS: MYLICON 80 MG PO (21:48)
[2025-11-11 23:50] VITALS: BP 116/65
[2025-11-12 03:55] VITALS: BP 101/61
[2025-11-12 07:09] LABS: Glucose - Point of Care 149 mg/dl (70-99)
[2025-11-12] MEDS: SODIUM BICARBONATE 1300 MG PO ×2 (07:26→15:35)
[2025-11-12] MEDS: KEFLEX 500 MG PO ×3 (07:26→21:34)
[2025-11-12] MEDS: TESSALON PERLES 200 MG PO ×3 (07:26→21:35)
[2025-11-12] MEDS: THERAGRAN 1 TABLET PO (07:27)
[2025-11-12] MEDS: AUGMENTIN 500 MG/125 MG 1 TABLET PO ×2 (07:27→21:34)
[2025-11-12] MEDS: ASPIR LOW (ENTERIC COATED) 81 MG PO (07:27)
[2025-11-12] MEDS: FARXIGA 10 MG PO (07:27)
[2025-11-12] MEDS: PEPCID 20 MG PO (07:27)
[2025-11-12 07:28] LABS: Blood Urea Nitrogen 41 mg/dl (9-20); Calcium 8.4 mg/dl (8.4-10.2); Carbon Dioxide 23 mmol/L (22-30); Chloride 104 mmol/L (98-107); Estimated Creatinine Clearance 50 ml/min; Glucose 123 mg/dl (70-99); Potassium 4.0 mmol/L (3.5-5.1); Sodium 135 mmol/L (135-145); eGFR 45.50
[2025-11-12] MEDS: BACTROBAN 2% OINTMENT 1 APPLIC NASAL ×3 (07:28→21:37)
[2025-11-12] MEDS: LIPITOR 20 MG PO (07:28)
[2025-11-12 07:30] LABS: Hematocrit 26.1 % (39.0-52.0); Hemoglobin 8.5 g/dL (13.0-18.0); Mean Corp Hgb Conc. 32.6 g/dL (33.0-37.0); Mean Corpuscular Volume 95.6 fL (80.0-94.0); Platelet Count 45 10^3/uL (130-400); Red Cell Dist. Width 18.6 % (11.5-14.5)
[2025-11-12] MEDS: COREG 6.25 MG PO ×2 (07:32→21:33)
[2025-11-12] MEDS: LASIX 60 MG IV (07:33)
[2025-11-12] MEDS: NOVOLOG FLEXPEN 10 UNITS SC ×3 (07:35→17:00)
[2025-11-12] MEDS: NOVOLOG FLEXPEN-MODERATE RESISTANCE SC (07:37)
[2025-11-12] MEDS: NON-FORMULARY ITEM 2 UNIT PO ×5 (07:39→21:36)
[2025-11-12 07:47] VITALS: BP 101/61
[2025-11-12] MEDS: LANTUS 0.15 UNITS SC ×2 (07:54→21:32)
--- NOTE | 2025-11-12 08:59 | W.PN.HOSP.TC ---
Today's Communication/Plan
-
see bold
Assessment / Plan
Assessment / Plan
HPI: 70 male history of pancreatic cancer actively undergoing chemotherapy at [facility], diabetes, HFrEF with known EF of 40 to 45% and stage III diastolic dysfunction who presents with evidence of volume overload with bilateral lower
extremity swelling and orthopnea. Last chemotherapy on 11 03. States typically after chemotherapy he develops volume overload usually improves however at this time did not. Lasix was increased recently from 40 mg to twice daily to 60 mg twice
daily without improvement. He states that his lowest weight was September 15 at 215 pound. Now he is 238 pounds.
#Acute heart failure with reduced ejection fraction
Lowest weight in September was 215 pounds, admission weight 238 pounds
Fluid restrict, increase Lasix 80 mg IV twice daily, trend creatinine, trend daily weights
#NSVT
08/26/25 Echo EF inferior and inferolateral hypokinesis, EF 40-45%. Stage III DD with restrictive filling
Cardiology following, started Coreg 6.25 mg twice a day, patient known to Dr. Avery
#Acute kidney injury
Possibly due to cardiorenal syndrome in conjunction chemo/Bactrim use
Hold Bactrim, hold Jardiance, hold metformin
Nephrology following, no nephrotoxic drugs/NSAIDs, trend creatinine
#Pancreatic cancer
Currently undergoing active chemo at [place]
Last chemo 11/03, outpatient follow-up
#Leukocytosis
Patient is afebrile, CXR neg
Likely related to chemo, last treatment 11/03
Likely had GCSF 48hours after chemo which we would expect increase in wbc 5-10 days after GCSF
Blood cultures/UA negative
#Thrombocytopenia
Appreciate hematology input, status post 1 unit platelets on 11/10 due to hemorrhoidal bleeding and epistaxis
#Iron deficiency anemia
Appreciate hematology input, hemoglobin improved to 8.1, from 7.1, status post 1 unit packed red blood cells on 11/10
Hemoglobin continues to trend upward
Continue ferrous sulfate
#ENT infection
#Epistaxis
Prescribed Bactrim by ENT
Changed to Augmentin while here due to LAN
Epistaxis resolved, continue mupirocin
#Hemorrhoidal bleeding
Resolved, monitor
#Non-anion gap metabolic acidosis
Resolved status post sodium bicarb
#Type 2 diabetes
Hold metformin/Jardiance
Continue reduced glargine 15 units twice daily, increased novoLog 10 units AC 3 times daily
Diabetic diet, sliding scale insulin
#Hyponatremia
Monitor
#Transaminitis
Likely hepatic congestion from CHF
#Nonmyocardial injury troponin elevation
Likely from CHF
#History of infected AAA
#Endovascular repair complicated by bacteremia requiring open repair
Lifelong suppression with Keflex
#CAD s/p PCI
Continue aspirin, statin, vascepa
#BPH
Continue Flomax
#SAM
CPAP HS
#Obesity due to excess calories
Affects all aspects of care
DVT prophylaxis�SCDs secondary to thrombocytopenia
Full code
Updated at bedside 11/12
Total time spent to see the patient on the floor, examine the patient, review data and lab results, discuss treatment plan with patient, nursing staff around 43 minutes.
Physical Exam
General: Obese, no acute distress
HEENT: Normocephalic, Atraumatic, EOMI, MMM
Respiratory: Clear to Auscultation bilaterally
Cardiac: Normal S1/S2, Regular Rate and Rhythm
GI: Soft, Nontender, Nondistended, Normal Bowel Sounds
Extremities: No Clubbing, Cyanosis
Severe bilateral lower extremity edema noted
Neuro: Nonfocal/Grossly Intact
Anticipated Discharge: > 48 hours
Subjective/Interval History
-
Date of Service: November 12, 2025
Patient has not had any recurrence of epistaxis or rectal bleeding. Denies chest pain, shortness of breath, or palpitations. No fever, no vomiting.
Objective Data
-
Labs:
Laboratory Results
11/12/25
06:31
WBC 17.6 H
Hgb 8.5 L
Hct 26.1 L
Plt Count 45 L D
Sodium 135
Potassium 4.0
Chloride 104
Carbon Dioxide 23
BUN 41 H
Creatinine 1.6 H
Glucose 123 H
Calcium 8.4
Vital Signs:
Vital Signs
Temp Pulse Resp BP Pulse Ox
98.6 F 79 16 101/61 99
11/12/25 07:47 11/12/25 07:47 11/12/25 07:47 11/12/25 07:47 11/12/25 07:47
I&O
11/11/25 11/12/25 11/13/25
06:59 06:59 06:59
Intake Total 2217 / 2217 1270 / 1270
Output Total 1959 / 1959 3500 / 3500
Balance 257 / 257 -2230 / -2230
--- NOTE | 2025-11-12 09:46 | W.PN.NEPH.PH ---
Today's Communication / Plan
-
Escalate Lasix to 80 mg IV twice daily
Creatinine off baseline but stable somewhat improved to 1.6
Assessment/Plan
-
Impression:
LAN (2.0) b/l 1.1
Congestive heart failure decompensation
Metabolic acidosis
Anemia
History of pancreatic cancer undergoing active chemotherapy with our friends at [place]
Diabetes
BPH
History of infected AAA
Coronary artery disease with history of PCI
Leukocytosis
Plan:
LAN:
-Creatinine stable at 1.6 and grossly nonoliguric
- Possibly prerenal mediated in the setting of decompensated congestive heart failure with associated hemodynamic instability
- May be related to chemotherapy (abraxane and gemzar)
cr slightly better at 1.6 and continue with IV diuresis
UA with microhematuria wiht low plt, U PCR 400mg/gm of cr, PVR 3cc, neg U eosinophils
renal US non acute
wt no change but has trasnfusion on 11/10
may need uptitration of lasix if UOP not sig , will escalate Lasix to 80 mg IV twice daily
check daily weights and accurate i/os
-Cont to hold metformin, Jardiance and Bactrim
non gap met acidosis on po bicarb -started by primary -improving
corrected rupert is normal
mild hyponatremia from hypervolemia- improving
follow LFTs
d/w pt and at bedside
labs in am
-
-
Date of Service: November 12, 2025
CC / HPI / ROS
-
Chief Complaint:
LAN
History of Present Illness:
cr slightly better at 1.6
Bp stable
wt no change
hb betetr at 8.1, plt 25k-post trasnfusion 11/10
Review of Systems:
no cp or sob
dry cough for long time
no fever
Labs
-
Labs:
WBC 17.6 10^3/uL (4.8-10.8) H 11/12/25 06:31
RBC 2.73 10^6/uL (4.70-6.10) L 11/12/25 06:31
Hgb 8.5 g/dL (13.0-18.0) L 11/12/25 06:31
Hct 26.1 % (39.0-52.0) L 11/12/25 06:31
Plt Count 45 10^3/uL (130-400) L D 11/12/25 06:31
Sodium 135 mmol/L (135-145) 11/12/25 06:31
Potassium 4.0 mmol/L (3.5-5.1) 11/12/25 06:31
Chloride 104 mmol/L (98-107) 11/12/25 06:31
Carbon Dioxide 23 mmol/L (22-30) 11/12/25 06:31
BUN 41 mg/dl (9-20) H 11/12/25 06:31
Creatinine 1.6 mg/dL (0.7-1.3) H 11/12/25 06:31
eGFR 45.50 11/12/25 06:31
Glucose 123 mg/dl (70-99) H 11/12/25 06:31
Calcium 8.4 mg/dl (8.4-10.2) 11/12/25 06:31
Phosphorus 4.1 mg/dl (2.5-4.5) 11/10/25 04:46
Qet-Y-Vdsujgurjpc Pept 8720 pg/ml 11/09/25 03:39
Albumin 3.3 g/dl (3.5-5.0) L 11/09/25 03:39
Physical Exam
-
Vital Signs:
Vital Signs
Temp Pulse Resp BP Pulse Ox
98.6 F 79 16 101/61 99
11/12/25 07:47 11/12/25 07:47 11/12/25 07:47 11/12/25 07:47 11/12/25 07:47
Cardiovascular:: Regular rate and rhythm
Respiratory:: Bilateral: CTA (decreased BS)
Lung Excursion:: Normal
Abdomen:: Distended, Nontender and Soft
Extremity Edema:: +3: Bilateral:
Combs Catheter: No
--- NOTE | 2025-11-12 10:42 | CM ---
CM following for discharge planning. Pt is on room air, ambulating independently in the hospital room.
Pt previously offered VN and declined. Anticipate discharge to home with no needs.
[2025-11-12 10:48] LABS: Glucose - Point of Care 195 mg/dl (70-99)
[2025-11-12 11:16] VITALS: BP 112/56
[2025-11-12] MEDS: NOVOLOG FLEXPEN-MODERATE RESISTANCE 1 UNITS SC (11:40)
--- NOTE | 2025-11-12 11:44 | CM ---
Pt remains hospitalized; not cleared for discharge at this time; anticipating >48 hours per MD. Pt with CHF - refer to VN if patient agreeable; so far he has declined services at discharge.
--- NOTE | 2025-11-12 13:35 | W.PN.CARDCBS ---
Today's Communication / Plan
-
Remains volume overloaded
Lasix increased to 80 mg IV twice daily by nephrology
Impression / Plan
-
PCP: Dr. Gomez Gunderson
Cardiology: Dr. Avery
Vascular: Dr. Newell
Impression:
Admitted with acute HF 11/09/2025
Acute on chronic HFrEF
Possible chemotherapy toxicity precipitating acute HF
LAN
Pancreatic cancer managed at [facility]
Unable to have Whipple in 2023 due to liver mets down at time of surgery
Currently enrolled in trial at [facility] with gemcitabine, Abraxane and study drug (Quemliclustat) vs placebo since 05/2025
NSVT
PAT
h/o PVCs
Mixed ischemic and nonischemic CM EF 40 to 45% by echo 08/26/2025
EF 50 to 55% by echo 12/16/2024
CAD s/p 3 mm Xience to mid Circ and 3 mm Xience to prox RCA 09/22/19
Flash pulmonary edema at time of cath 09/22/19
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
Endovascular AAA repair with graft 03/01/19
h/o MSSA bacteremia
DM 2
Hypertension
Hyperlipidemia
Obstructive sleep apnea on CPAP
Diffuse fatty liver, hepatomegaly
Anemia
Obesity
Echo 12/16/2024: Ejection fraction 50 to 55%, basal to mid inferior and inferolateral hypokinesis, PA systolic 47 mmHg with mild to moderate TR
Echo 08/26/2025: EF 40 to 45%, stage III diastolic dysfunction, GLS reduced at -9.8%, mild MR, aortic sclerosis without stenosis, normal RV size and function, compared to echo 12/2024 for GLS was -11.3% and EF was 50 to 55%
Plan:
He is felt to be volume overloaded by over 30 pounds
His weight has not changed much but creatinine is stable at 1.6
Nephrology is managing diuretics and increased Lasix 80 mg IV twice daily
Will continue Coreg. Patient cannot receive RAY/ARB due to a history of angioedema with both lisinopril and Benicar in the past and also has renal insufficiency. Outpatient dose of Jardiance 10 mg daily was changed to Farxiga due to formulary
reasons and Jardiance should be resumed upon discharge to home.
PREADMIT DATA
- Patient came to the ER on Saturday with weight gain and LE edema concerning for acute HF prompting admission, cardiology is now consulted for NSVT. Patient was last seen in the cardiology office on 09/14/2025, he has been seen on a regular basis
due to intermittent edema and volume overload that seems to be associated with his chemotherapy treatment he is undergoing at [facility]. Patient was diagnosed with pancreatic cancer in 2023 and originally was going to have a Whipple procedure, but at
time of surgery he was found to have liver lesions and procedure was canceled, treatment since then has been chemotherapy only. Patient is currently involved in a trial at [facility] with possible drug cocktail outlined above. Patient's reports
that treatment was supposed to be every Saturday for 3 weeks and then off 1 week, but patient has never successfully completed 3 [id number] treatments with infusions being canceled for anemia and thrombocytopenia. During the patient's last
several rounds of chemotherapy he has had increased LE edema and weight gain which has been treated with escalating doses of Lasix as an outpatient. Patient was taking Lasix 40 mg PO BID and then the dose was increased to 60 mg PO BID through this
past weekend without any improvement in edema so he came to the ER. Patient is about 30 pounds above his dry weight. Patient had LAN with Cre as high as 2.0 on admission and nephrology was consulted and has been managing volume status. Cre
improved to 1.7 on my review of labs 11/11/2025. LE edema is improved and weight is down about 8 lbs with Lasix 60 mg IV BID diuresis. Cardiology was consulted today because of NSVT on telemetry. Patient also noted to have an episode of PAT.
Patient has a history of NSVT and PVCs prompting EP evaluation in the office back on 02/02/2020, at that time his EF was 40 to 45% and he was recommended EP study for consideration of ICD, but this was ultimately deferred due to his previous
endovascular infection involving his AAA endograft from 2019. In that time the EF improved to 50 to 55%. Patient had previously been treated with Toprol-XL but was intolerant due to fatigue. Patient denies any palpitations or lightheadedness.
Progress Note - Curriculum Assistant
Subjective
Date of Service: November 12, 2025
No complaints
Objective
Labs:
11/12/25 06:31
11/12/25 06:31
Labs
Hgb 8.5 g/dL (13.0-18.0) L 11/12/25 06:31
Hct 26.1 % (39.0-52.0) L 11/12/25 06:31
Plt Count 45 10^3/uL (130-400) L D 11/12/25 06:31
Sodium 135 mmol/L (135-145) 11/12/25 06:31
Potassium 4.0 mmol/L (3.5-5.1) 11/12/25 06:31
BUN 41 mg/dl (9-20) H 11/12/25 06:31
Creatinine 1.6 mg/dL (0.7-1.3) H 11/12/25 06:31
Glucose 123 mg/dl (70-99) H 11/12/25 06:31
Vital Signs and I&O:
Vital Signs
Temp Pulse Resp BP Pulse Ox
98.6 F 79 16 112/56 98
11/12/25 11:16 11/12/25 11:16 11/12/25 11:16 11/12/25 11:16 11/12/25 11:16
Vital Signs
Temp Pulse Resp BP Pulse Ox
98.6 F 79 16 112/56 98
11/12/25 11:16 11/12/25 11:16 11/12/25 11:16 11/12/25 11:16 11/12/25 11:16
Intake & Output
11/10/25 11/11/25 11/12/25 11/13/25
06:59 06:59 06:59 06:59
Intake Total 600 / 600 2217 / 2217 1270 / 1270
Output Total 1210 / 1210 1960 / 1960 3500 / 3500
Balance -610 / -610 257 / 257 -2230 / -2230
Physical Exam
Physical Exam
General: Well developed, well nourished in NAD.
Neck: Supple, no JVD, HJR, carotids +2 B/L, no bruits bilaterally.
Heart: Non displaced PMI, RRR, no murmurs, No S3, S4, no rubs.
Lungs: Scattered rhonchi
Extremities: No clubbing, cyanosis or edema bilaterally.
Neuro: Grossly nonfocal, awake, alert and oriented x3.
[2025-11-12 15:24] VITALS: BP 115/61
[2025-11-12] MEDS: LASIX 80 MG IV (15:36)
[2025-11-12] MEDS: ROBITUSSIN AC 5 ML PO ×2 (15:44→20:32)
[2025-11-12 16:52] LABS: Glucose - Point of Care 263 mg/dl (70-99)
[2025-11-12] MEDS: VITAMIN D3 (cholecalciferol) 50 MCG PO (16:59)
[2025-11-12] MEDS: NOVOLOG FLEXPEN-MODERATE RESISTANCE 5 UNITS SC (17:00)
[2025-11-12 19:00] VITALS: BP 123/68
[2025-11-12 21:32] LABS: Glucose - Point of Care 264 mg/dl (70-99)
[2025-11-12] MEDS: FEOSOL 325 MG PO (21:34)
[2025-11-12] MEDS: ULTRAM 50 MG PO (21:35)
[2025-11-12] MEDS: FLOMAX 0.4 MG PO (21:36)
[2025-11-12] MEDS: NEURONTIN 200 MG PO (21:37)
[2025-11-12 23:00] VITALS: BP 140/73
[2025-11-13 03:00] VITALS: BP 118/58
[2025-11-13 06:00] VITALS: BMI 35.2
[2025-11-13 07:30] VITALS: BP 116/64
--- NOTE | 2025-11-13 07:47 | W.PN.HOSP.TC ---
Today's Communication/Plan
-
see bold
Assessment / Plan
Assessment / Plan
HPI: 70 male history of pancreatic cancer actively undergoing chemotherapy at [facility], diabetes, HFrEF with known EF of 40 to 45% and stage III diastolic dysfunction who presents with evidence of volume overload with bilateral lower
extremity swelling and orthopnea. Last chemotherapy on 11 03. States typically after chemotherapy he develops volume overload usually improves however at this time did not. Lasix was increased recently from 40 mg to twice daily to 60 mg twice
daily without improvement. He states that his lowest weight was September 15 at 215 pound. Now he is 238 pounds.
#Acute heart failure with reduced ejection fraction
Lowest weight in September was 215 pounds, admission weight 238 pounds, weight is now downtrending
Nephrology increased Lasix to 80 mg IV twice daily on 11/12, and added metolazone 5 mg daily on 11/13
Fluid restrict, trend creatinine, trend daily weights
#NSVT
08/26/25 Echo EF inferior and inferolateral hypokinesis, EF 40-45%. Stage III DD with restrictive filling
Cardiology following, started Coreg 6.25 mg twice a day, patient known to Dr. Avery
#Acute kidney injury
Possibly due to cardiorenal syndrome in conjunction chemo/Bactrim use
Hold Bactrim, hold Jardiance, hold metformin
Nephrology following, no nephrotoxic drugs/NSAIDs, trend creatinine
#Pancreatic cancer
Currently undergoing active chemo at [facility]
Last chemo 11/03, outpatient follow-up
#Leukocytosis
Patient is afebrile, CXR neg
Likely related to chemo, last treatment 11/03
Likely had GCSF 48hours after chemo which we would expect increase in wbc 5-10 days after GCSF
Blood cultures/UA negative
#Thrombocytopenia
Appreciate hematology input, status post 1 unit platelets on 11/10 due to hemorrhoidal bleeding and epistaxis
#Iron deficiency anemia
Appreciate hematology input, hemoglobin improved to 8.1, from 7.1, status post 1 unit packed red blood cells on 11/10
Hemoglobin continues to trend upward
Continue ferrous sulfate
#Hypokalemia
Replete, recheck a.m. labs
#ENT infection
#Epistaxis
Prescribed Bactrim by ENT
Changed to Augmentin while here due to LAN
Epistaxis resolved, continue mupirocin
#Hemorrhoidal bleeding
Resolved, monitor
#Non-anion gap metabolic acidosis
Resolved status post sodium bicarb
#Type 2 diabetes
Hold metformin/Jardiance
Continue reduced glargine 15 units twice daily, increased novoLog 10 units AC 3 times daily
Diabetic diet, sliding scale insulin
#Hyponatremia
Monitor
#Transaminitis
Likely hepatic congestion from CHF
#Nonmyocardial injury troponin elevation
Likely from CHF
#History of infected AAA
#Endovascular repair complicated by bacteremia requiring open repair
Lifelong suppression with Keflex
#CAD s/p PCI
Continue aspirin, statin, vascepa
#BPH
Continue Flomax
#SAM
CPAP HS
#Obesity due to excess calories
Affects all aspects of care
DVT prophylaxis�SCDs secondary to thrombocytopenia
Full code
Updated at bedside 11/12
Total time spent to see the patient on the floor, examine the patient, review data and lab results, discuss treatment plan with patient, nursing staff around 40 minutes.
Physical Exam
General: Obese, no acute distress
HEENT: Normocephalic, Atraumatic, EOMI, MMM
Respiratory: Clear to Auscultation bilaterally
Cardiac: Normal S1/S2, Regular Rate and Rhythm
GI: Soft, Nontender, Nondistended, Normal Bowel Sounds
Extremities: No Clubbing, Cyanosis
Severe bilateral lower extremity edema noted
Neuro: Nonfocal/Grossly Intact
Anticipated Discharge: > 48 hours
Subjective/Interval History
-
Date of Service: November 13, 2025
No recurrence of epistaxis or rectal bleeding. Denies chest pain, denies shortness of breath. No fever, no vomiting.
Objective Data
-
Labs:
Laboratory Results
11/13/25
06:00
WBC Pending
Hgb Pending
Hct Pending
Plt Count Pending
Sodium Pending
Potassium Pending
Chloride Pending
Carbon Dioxide Pending
BUN Pending
Creatinine Pending
Glucose Pending
Calcium Pending
Vital Signs:
Vital Signs
Temp Pulse Resp BP Pulse Ox
98.0 F 71 18 118/58 98
11/13/25 03:00 11/13/25 03:00 11/13/25 03:00 11/13/25 03:00 11/13/25 03:00
I&O
11/12/25 11/13/25 11/14/25
06:59 06:59 06:59
Intake Total 1270 / 1270 1400 / 1400
Output Total 3500 / 3500 2625 / 2625
Balance -2230 / -2230 -1225 / -1225
[2025-11-13 07:56] LABS: Glucose - Point of Care 242 mg/dl (70-99)
[2025-11-13] MEDS: NOVOLOG FLEXPEN-MODERATE RESISTANCE 3 UNITS SC ×2 (08:37→12:00)
[2025-11-13] MEDS: LANTUS 0.15 UNITS SC ×2 (08:38→20:49)
[2025-11-13] MEDS: NOVOLOG FLEXPEN 10 UNITS SC ×3 (08:38→16:28)
[2025-11-13] MEDS: LASIX 80 MG IV ×2 (08:39→16:27)
[2025-11-13] MEDS: ASPIR LOW (ENTERIC COATED) 81 MG PO (08:40)
[2025-11-13] MEDS: FARXIGA 10 MG PO (08:40)
[2025-11-13] MEDS: AUGMENTIN 500 MG/125 MG 1 TABLET PO (08:40)
[2025-11-13] MEDS: PEPCID 20 MG PO (08:40)
[2025-11-13] MEDS: KEFLEX 500 MG PO ×3 (08:41→21:35)
[2025-11-13] MEDS: BACTROBAN 2% OINTMENT 1 APPLIC NASAL ×3 (08:41→21:35)
[2025-11-13] MEDS: TESSALON PERLES 200 MG PO ×3 (08:41→21:35)
[2025-11-13] MEDS: COREG 6.25 MG PO (08:41)
[2025-11-13] MEDS: THERAGRAN 1 TABLET PO (08:41)
[2025-11-13] MEDS: NON-FORMULARY ITEM 2 UNIT PO ×6 (08:42→20:48)
[2025-11-13] MEDS: LIPITOR 20 MG PO (08:44)
[2025-11-13 09:52] LABS: Hematocrit 26.5 % (39.0-52.0); Hemoglobin 8.4 g/dL (13.0-18.0); Mean Corp Hgb Conc. 31.7 g/dL (33.0-37.0); Mean Corpuscular Volume 98.1 fL (80.0-94.0); Platelet Count 68 10^3/uL (130-400); Red Cell Dist. Width 18.9 % (11.5-14.5)
--- NOTE | 2025-11-13 10:07 | W.PN.NEPH.PH ---
Today's Communication / Plan
-
Maintain Lasix 80 mg IV twice daily +5 mg of metolazone
Follow lab work
Assessment/Plan
-
Impression:
LAN (2.0) b/l 1.1
Congestive heart failure decompensation
Metabolic acidosis
Anemia
History of pancreatic cancer undergoing active chemotherapy with our friends at [place]
Diabetes
BPH
History of infected AAA
Coronary artery disease with history of PCI
Leukocytosis
Plan:
LAN:
-Creatinine was stable at 1.6 and grossly nonoliguric but weights slow to decrease in setting of volume overload
- Possibly prerenal mediated in the setting of decompensated congestive heart failure with associated hemodynamic instability
- May be related to chemotherapy (abraxane and gemzar)
-We will continue Lasix 80 mg IV twice daily but I will also provide additional metolazone 5 mg today to augment diuresis
UA with microhematuria wiht low plt, U PCR 400mg/gm of cr, PVR 3cc, neg U eosinophils
renal US no acute change
Patient underwent transfusion on 11/10/2025
Maintain daily weights and accurate i/os
Cont to hold metformin Bactrim
non gap met acidosis improved and now off sodium bicarbonate tablets
corrected rupert is normal
mild hyponatremia from hypervolemia- improving
follow LFTs
d/w pt and at bedside
labs in am
-
-
Date of Service: November 13, 2025
CC / HPI / ROS
-
Chief Complaint:
LAN
History of Present Illness:
cr was at 1.6
Bp stable
Hemoglobin improved at 8.4, plt up 68k-
Status post blood transfusion on 11/10/2025
Review of Systems:
no cp or sob
dry cough for long time
no fever
Edema
Labs
-
Labs:
WBC 25.7 10^3/uL (4.8-10.8) H 11/13/25 09:20
RBC 2.70 10^6/uL (4.70-6.10) L 11/13/25 09:20
Hgb 8.4 g/dL (13.0-18.0) L 11/13/25 09:20
Hct 26.5 % (39.0-52.0) L 11/13/25 09:20
Plt Count 68 10^3/uL (130-400) L D 11/13/25 09:20
eGFR 45.50 11/12/25 06:31
Phosphorus 4.1 mg/dl (2.5-4.5) 11/10/25 04:46
Ryv-V-Uhcofpzzlzw Pept 8720 pg/ml 11/09/25 03:39
Albumin 3.3 g/dl (3.5-5.0) L 11/09/25 03:39
Physical Exam
-
Vital Signs:
Vital Signs
Temp Pulse Resp BP Pulse Ox
97.5 F 85 18 116/64 97
11/13/25 07:30 11/13/25 07:30 11/13/25 07:30 11/13/25 07:30 11/13/25 07:30
Cardiovascular:: Regular rate and rhythm
Respiratory:: Bilateral: CTA (decreased BS)
Lung Excursion:: Normal
Abdomen:: Distended, Nontender and Soft
Extremity Edema:: +3: Bilateral:
Combs Catheter: No
[2025-11-13 10:25] LABS: Blood Urea Nitrogen 37 mg/dl (9-20); Calcium 7.9 mg/dl (8.4-10.2); Carbon Dioxide 22 mmol/L (22-30); Chloride 102 mmol/L (98-107); Estimated Creatinine Clearance 53 ml/min; Glucose 282 mg/dl (70-99); Potassium 3.4 mmol/L (3.5-5.1); Sodium 135 mmol/L (135-145); eGFR 49.16
[2025-11-13 11:30] VITALS: BP 113/64
[2025-11-13 11:54] LABS: Glucose - Point of Care 232 mg/dl (70-99)
[2025-11-13] MEDS: ZAROXOLYN 5 MG PO (11:59)
--- NOTE | 2025-11-13 12:08 | W.PN.CARDCBS ---
Today's Communication / Plan
-
Continues to diurese
Nephrology managing diuretics
Impression / Plan
-
PCP: Dr. Gomez Gunderson
Cardiology: Dr. Avery
Vascular: Dr. Newell
Impression:
Admitted with acute HF 11/09/2025
Acute on chronic HFrEF
Possible chemotherapy toxicity precipitating acute HF
LAN
Pancreatic cancer managed at [facility]
Unable to have Whipple in 2023 due to liver mets down at time of surgery
Currently enrolled in trial at [facility] with gemcitabine, Abraxane and study drug (Quemliclustat) vs placebo since 05/2025
NSVT
PAT
h/o PVCs
Mixed ischemic and nonischemic CM EF 40 to 45% by echo 08/26/2025
EF 50 to 55% by echo 12/16/2024
CAD s/p 3 mm Xience to mid Circ and 3 mm Xience to prox RCA 09/22/19
Flash pulmonary edema at time of cath 09/22/19
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
Endovascular AAA repair with graft 03/01/19
h/o MSSA bacteremia
DM 2
Hypertension
Hyperlipidemia
Obstructive sleep apnea on CPAP
Diffuse fatty liver, hepatomegaly
Anemia
Obesity
Echo 12/16/2024: Ejection fraction 50 to 55%, basal to mid inferior and inferolateral hypokinesis, PA systolic 47 mmHg with mild to moderate TR
Echo 08/26/2025: EF 40 to 45%, stage III diastolic dysfunction, GLS reduced at -9.8%, mild MR, aortic sclerosis without stenosis, normal RV size and function, compared to echo 12/2024 for GLS was -11.3% and EF was 50 to 55%
Plan:
He continues to diurese
Nephrology managing diuretics
Weight is down to 234 pounds the patient reports weight of 212 pounds at home
Stable renal function with creatinine of 1.5 which has improved
Will continue Coreg. Patient cannot receive RAY/ARB due to a history of angioedema with both lisinopril and Benicar in the past and also has renal insufficiency. Outpatient dose of Jardiance 10 mg daily was changed to Farxiga due to formulary
reasons and Jardiance should be resumed upon discharge to home.
Discussed with at bedside
PREADMIT DATA
- Patient came to the ER on Saturday with weight gain and LE edema concerning for acute HF prompting admission, cardiology is now consulted for NSVT. Patient was last seen in the cardiology office on 09/14/2025, he has been seen on a regular basis
due to intermittent edema and volume overload that seems to be associated with his chemotherapy treatment he is undergoing at [facility]. Patient was diagnosed with pancreatic cancer in 2023 and originally was going to have a Whipple procedure, but at
time of surgery he was found to have liver lesions and procedure was canceled, treatment since then has been chemotherapy only. Patient is currently involved in a trial at [facility] with possible drug cocktail outlined above. Patient's reports
that treatment was supposed to be every Saturday for 3 weeks and then off 1 week, but patient has never successfully completed 3 [id number] treatments with infusions being canceled for anemia and thrombocytopenia. During the patient's last
several rounds of chemotherapy he has had increased LE edema and weight gain which has been treated with escalating doses of Lasix as an outpatient. Patient was taking Lasix 40 mg PO BID and then the dose was increased to 60 mg PO BID through this
past weekend without any improvement in edema so he came to the ER. Patient is about 30 pounds above his dry weight. Patient had LAN with Cre as high as 2.0 on admission and nephrology was consulted and has been managing volume status. Cre
improved to 1.7 on my review of labs 11/11/2025. LE edema is improved and weight is down about 8 lbs with Lasix 60 mg IV BID diuresis. Cardiology was consulted today because of NSVT on telemetry. Patient also noted to have an episode of PAT.
Patient has a history of NSVT and PVCs prompting EP evaluation in the office back on 02/02/2020, at that time his EF was 40 to 45% and he was recommended EP study for consideration of ICD, but this was ultimately deferred due to his previous
endovascular infection involving his AAA endograft from 2019. In that time the EF improved to 50 to 55%. Patient had previously been treated with Toprol-XL but was intolerant due to fatigue. Patient denies any palpitations or lightheadedness.
Progress Note - Sponsorship Coordinator
Subjective
Date of Service: November 13, 2025
No complaints
Objective
Labs:
11/13/25 09:20
11/13/25 09:20
Labs
Hgb 8.4 g/dL (13.0-18.0) L 11/13/25 09:20
Hct 26.5 % (39.0-52.0) L 11/13/25 09:20
Plt Count 68 10^3/uL (130-400) L D 11/13/25 09:20
Sodium 135 mmol/L (135-145) 11/13/25 09:20
Potassium 3.4 mmol/L (3.5-5.1) L 11/13/25 09:20
BUN 37 mg/dl (9-20) H 11/13/25 09:20
Creatinine 1.5 mg/dL (0.7-1.3) H 11/13/25 09:20
Glucose 282 mg/dl (70-99) H 11/13/25 09:20
Vital Signs and I&O:
Vital Signs
Temp Pulse Resp BP Pulse Ox
97.5 F 85 18 116/64 97
11/13/25 07:30 11/13/25 07:30 11/13/25 07:30 11/13/25 07:30 11/13/25 07:30
Vital Signs
Temp Pulse Resp BP Pulse Ox
97.5 F 85 18 116/64 97
11/13/25 07:30 11/13/25 07:30 11/13/25 07:30 11/13/25 07:30 11/13/25 07:30
Intake & Output
11/11/25 11/12/25 11/13/25 11/14/25
06:59 06:59 06:59 06:59
Intake Total 2217 / 2217 1270 / 1270 1400 / 1400
Output Total 1960 / 1960 3500 / 3500 2625 / 2625
Balance 257 / 257 -2230 / -2230 -1225 / -1225
Physical Exam
Physical Exam
General: Well developed, well nourished in NAD.
Neck: Supple, no JVD, HJR, carotids +2 B/L, no bruits bilaterally.
Heart: Non displaced PMI, RRR, no murmurs, No S3, S4, no rubs.
Lungs: Scattered rhonchi
Extremities: No clubbing, cyanosis or edema bilaterally.
Neuro: Grossly nonfocal, awake, alert and oriented x3.
[2025-11-13] MEDS: KCL 40 MEQ PO ×2 (12:50→19:12)
[2025-11-13] MEDS: ROBITUSSIN AC 5 ML PO ×3 (12:51→23:25)
--- NOTE | 2025-11-13 14:08 | PTCARENOTE ---
Patient in AFIB. ECG obtained. Physician and Cardiology made aware
--- NOTE | 2025-11-13 14:15 | W.PN.UPDATE ---
Update Note
Progress Note Update
Patient with new onset atrial fibrillation. Will stop aspirin and start Eliquis. Will need to follow hemoglobin.
[2025-11-13 16:00] VITALS: BP 126/67
--- NOTE | 2025-11-13 16:02 | PTCARENOTE ---
Patient with 36 and 19 beat run of VT. Patient asymptomatic. Physician made aware.
[2025-11-13 16:27] LABS: Glucose - Point of Care 192 mg/dl (70-99)
[2025-11-13] MEDS: NOVOLOG FLEXPEN-MODERATE RESISTANCE 1 UNITS SC (16:28)
[2025-11-13] MEDS: VITAMIN D3 (cholecalciferol) 50 MCG PO (16:38)
[2025-11-13 19:30] VITALS: BP 118/64
[2025-11-13] MEDS: ELIQUIS 5 MG PO (20:47)
[2025-11-13] MEDS: AUGMENTIN 875 MG/125 MG 1 TABLET PO (20:47)
[2025-11-13] MEDS: COREG 12.5 MG PO (20:47)
[2025-11-13 20:52] LABS: Glucose - Point of Care 215 mg/dl (70-99)
[2025-11-13] MEDS: ULTRAM 50 MG PO (21:35)
[2025-11-13] MEDS: FEOSOL 325 MG PO (21:35)
[2025-11-13] MEDS: NEURONTIN 200 MG PO (21:35)
[2025-11-13] MEDS: FLOMAX 0.4 MG PO (21:35)
[2025-11-13 21:40] LABS: Glucose - Point of Care 212 mg/dl (70-99)
[2025-11-13 23:00] VITALS: BP 93/56
[2025-11-13] MEDS: PINK BISMUTH 525 MG PO (23:35)
[2025-11-14] VITALS (7 sets, daily range): BP systolic 105–125; BP diastolic 52–66; BMI 34.1
[2025-11-14] MEDS: MYLICON 80 MG PO ×3 (04:24→15:17)
[2025-11-14 07:19] LABS: Glucose - Point of Care 166 mg/dl (70-99)
[2025-11-14 07:36] LABS: Hematocrit 26.9 % (39.0-52.0); Hemoglobin 9.0 g/dL (13.0-18.0); Mean Corp Hgb Conc. 33.5 g/dL (33.0-37.0); Mean Corpuscular Volume 97.1 fL (80.0-94.0); Platelet Count 98 10^3/uL (130-400); Red Cell Dist. Width 18.8 % (11.5-14.5)
[2025-11-14 08:01] LABS: Blood Urea Nitrogen 34 mg/dl (9-20); Calcium 8.3 mg/dl (8.4-10.2); Carbon Dioxide 23 mmol/L (22-30); Chloride 106 mmol/L (98-107); Estimated Creatinine Clearance 52 ml/min; Glucose 143 mg/dl (70-99); Magnesium 2.3 mg/dl (1.6-2.3); Potassium 3.7 mmol/L (3.5-5.1); Sodium 138 mmol/L (135-145); eGFR 49.16
[2025-11-14] MEDS: KEFLEX 500 MG PO ×3 (08:11→21:39)
[2025-11-14] MEDS: LIPITOR 20 MG PO (08:11)
[2025-11-14] MEDS: AUGMENTIN 875 MG/125 MG 1 TABLET PO ×2 (08:11→21:36)
[2025-11-14] MEDS: ZAROXOLYN 5 MG PO (08:11)
[2025-11-14] MEDS: ELIQUIS 5 MG PO ×2 (08:11→21:37)
[2025-11-14] MEDS: THERAGRAN 1 TABLET PO (08:12)
[2025-11-14] MEDS: TESSALON PERLES 200 MG PO ×3 (08:12→21:39)
[2025-11-14] MEDS: FARXIGA 10 MG PO (08:12)
[2025-11-14] MEDS: PEPCID 20 MG PO (08:12)
[2025-11-14] MEDS: BACTROBAN 2% OINTMENT 1 APPLIC NASAL ×3 (08:13→21:41)
[2025-11-14] MEDS: NON-FORMULARY ITEM 2 UNIT PO ×5 (08:13→21:38)
[2025-11-14] MEDS: NOVOLOG FLEXPEN-MODERATE RESISTANCE 1 UNITS SC (08:14)
[2025-11-14] MEDS: NOVOLOG FLEXPEN 10 UNITS SC ×3 (08:14→16:31)
[2025-11-14] MEDS: LANTUS 0.15 UNITS SC ×2 (08:17→21:41)
--- NOTE | 2025-11-14 08:17 | W.PN.CARDCBS ---
Today's Communication / Plan
-
Continue diuresis with help of nephrology
Recheck echocardiogram with nonsustained V. tach
Coreg has been increased
remains in rate controlled A-fib and Eliquis was started
Will need to decide regarding rate control versus cardioversion but likely asymptomatic
Of note he had bleeding from hemorrhoids and epistaxis in the past and will need to follow
Impression / Plan
-
PCP: Dr. Gomez Gunderson
Cardiology: Dr. Avery
Vascular: Dr. Newell
Impression:
Admitted with acute HF 11/09/2025
Acute on chronic HFrEF
Possible chemotherapy toxicity precipitating acute HF
Atrial fibrillation starting 11/13/2025
NSVT
LAN
Pancreatic cancer managed at [facility]
Unable to have Whipple in 2023 due to liver mets down at time of surgery
Currently enrolled in trial at [facility] with gemcitabine, Abraxane and study drug (Quemliclustat) vs placebo since 05/2025
PAT
h/o PVCs
Mixed ischemic and nonischemic CM EF 40 to 45% by echo 08/26/2025
EF 50 to 55% by echo 12/16/2024
CAD s/p 3 mm Xience to mid Circ and 3 mm Xience to prox RCA 09/22/19
Flash pulmonary edema at time of cath 09/22/19
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
Endovascular AAA repair with graft 03/01/19
h/o MSSA bacteremia
DM 2
Hypertension
Hyperlipidemia
Obstructive sleep apnea on CPAP
Diffuse fatty liver, hepatomegaly
Anemia
Obesity
Echo 12/16/2024: Ejection fraction 50 to 55%, basal to mid inferior and inferolateral hypokinesis, PA systolic 47 mmHg with mild to moderate TR
Echo 08/26/2025: EF 40 to 45%, stage III diastolic dysfunction, GLS reduced at -9.8%, mild MR, aortic sclerosis without stenosis, normal RV size and function, compared to echo 12/2024 for GLS was -11.3% and EF was 50 to 55%
Plan:
He lost 7 pounds in the past 24 hours with nephrology managing diuretics
Weight is down to 227 pounds the patient reports weight of 212 pounds at home
Stable renal function with creatinine of 1.5
He went into atrial fibrillation on 11/13/2025 and Coreg was increased and Eliquis started
Likely asymptomatic and may have A-fib at home
Will need to decide regarding rate control versus anticoagulation and will discussed with primary crop quantitative geneticist
Recheck echocardiogram with more nonsustained V. tach
AICD was discussed in the past but ejection fraction was 40%.
He also has pancreatic cancer but apparently has been stable
Will continue Coreg. Patient cannot receive RAY/ARB due to a history of angioedema with both lisinopril and Benicar in the past and also has renal insufficiency. Outpatient dose of Jardiance 10 mg daily was changed to Farxiga due to formulary
reasons and Jardiance should be resumed upon discharge to home.
Discussed with at bedside
PREADMIT DATA
- Patient came to the ER on Saturday with weight gain and LE edema concerning for acute HF prompting admission, cardiology is now consulted for NSVT. Patient was last seen in the cardiology office on 09/14/2025, he has been seen on a regular basis
due to intermittent edema and volume overload that seems to be associated with his chemotherapy treatment he is undergoing at [facility]. Patient was diagnosed with pancreatic cancer in 2023 and originally was going to have a Whipple procedure, but at
time of surgery he was found to have liver lesions and procedure was canceled, treatment since then has been chemotherapy only. Patient is currently involved in a trial at [facility] with possible drug cocktail outlined above. Patient's reports
that treatment was supposed to be every Saturday for 3 weeks and then off 1 week, but patient has never successfully completed 3 [id number] treatments with infusions being canceled for anemia and thrombocytopenia. During the patient's last
several rounds of chemotherapy he has had increased LE edema and weight gain which has been treated with escalating doses of Lasix as an outpatient. Patient was taking Lasix 40 mg PO BID and then the dose was increased to 60 mg PO BID through this
past weekend without any improvement in edema so he came to the ER. Patient is about 30 pounds above his dry weight. Patient had LAN with Cre as high as 2.0 on admission and nephrology was consulted and has been managing volume status. Cre
improved to 1.7 on my review of labs 11/11/2025. LE edema is improved and weight is down about 8 lbs with Lasix 60 mg IV BID diuresis. Cardiology was consulted today because of NSVT on telemetry. Patient also noted to have an episode of PAT.
Patient has a history of NSVT and PVCs prompting EP evaluation in the office back on 02/02/2020, at that time his EF was 40 to 45% and he was recommended EP study for consideration of ICD, but this was ultimately deferred due to his previous
endovascular infection involving his AAA endograft from 2019. In that time the EF improved to 50 to 55%. Patient had previously been treated with Toprol-XL but was intolerant due to fatigue. Patient denies any palpitations or lightheadedness.
Progress Note - [facility]
Subjective
Date of Service: November 14, 2025
No chest pain or shortness of breath
Objective
Labs:
11/14/25 06:34
11/14/25 06:34
Labs
Hgb 9.0 g/dL (13.0-18.0) L 11/14/25 06:34
Hct 26.9 % (39.0-52.0) L 11/14/25 06:34
Plt Count 98 10^3/uL (130-400) L D 11/14/25 06:34
Sodium 138 mmol/L (135-145) 11/14/25 06:34
Potassium 3.7 mmol/L (3.5-5.1) 11/14/25 06:34
BUN 34 mg/dl (9-20) H 11/14/25 06:34
Creatinine 1.5 mg/dL (0.7-1.3) H 11/14/25 06:34
Glucose 143 mg/dl (70-99) H 11/14/25 06:34
Vital Signs and I&O:
Vital Signs
Temp Pulse Resp BP Pulse Ox
98.5 F 85 18 110/59 98
11/14/25 03:00 11/14/25 03:00 11/14/25 03:00 11/14/25 03:00 11/14/25 03:00
Vital Signs
Temp Pulse Resp BP Pulse Ox
98.5 F 85 18 110/59 98
11/14/25 03:00 11/14/25 03:00 11/14/25 03:00 11/14/25 03:00 11/14/25 03:00
Intake & Output
11/12/25 11/13/25 11/14/25 11/15/25
06:59 06:59 06:59 06:59
Intake Total 1270 / 1270 1400 / 1400 1440 / 1440
Output Total 3500 / 3500 2625 / 2625 3925 / 3925
Balance -2230 / -2230 -1225 / -1225 -2485 / -2485
Physical Exam
Physical Exam
General: Well developed, well nourished in NAD.
Neck: Supple, no JVD, HJR, carotids +2 B/L, no bruits bilaterally.
Heart: Non displaced PMI, RRR, no murmurs, No S3, S4, no rubs.
Lungs: Clear to auscultation bilaterally, no wheeze, rhonchi, rubs bilaterally,
normal expiratory phase.
Extremities: No clubbing, cyanosis or edema bilaterally.
Neuro: Grossly nonfocal, awake, alert and oriented x3.
--- NOTE | 2025-11-14 09:38 | W.PN.HOSP.TC ---
Today's Communication/Plan
-
see bold
Assessment / Plan
Assessment / Plan
HPI: 70 male history of pancreatic cancer actively undergoing chemotherapy at [facility], diabetes, HFrEF with known EF of 40 to 45% and stage III diastolic dysfunction who presents with evidence of volume overload with bilateral lower
extremity swelling and orthopnea. Last chemotherapy on 11 03. States typically after chemotherapy he develops volume overload usually improves however at this time did not. Lasix was increased recently from 40 mg to twice daily to 60 mg twice
daily without improvement. He states that his lowest weight was September 15 at 215 pound. Now he is 238 pounds.
#Acute heart failure with reduced ejection fraction
Lowest weight in September was 215 pounds, admission weight 238 pounds, weight is now downtrending
Nephrology increased Lasix to 80 mg IV twice daily on 11/12, and added metolazone 5 mg daily on 11/13
Fluid restrict, trend creatinine, trend daily weights
#Acute kidney injury
Possibly due to cardiorenal syndrome in conjunction chemo/Bactrim use
Hold Bactrim, hold Jardiance, hold metformin
Cr improving at 1.5 today, was 2.0 upon admission
Nephrology following, no nephrotoxic drugs/NSAIDs, trend creatinine
#New onset atrial fibrillation on 11/13
#NSVT
08/26/25 Echo EF inferior and inferolateral hypokinesis, EF 40-45%. Stage III DD with restrictive filling
Cardiology following here, he is known to Dr. Avery
Started on Eliquis 5 mg twice a day by cardiology
Coreg increased to 12.5 mg twice a day as well
#Pancreatic cancer
Currently undergoing active chemo at [facility]
Last chemo 11/03, outpatient follow-up
#Chemo-induced diarrhea
Start Lomotil as needed, continue simethicone as needed
#Leukocytosis
Patient is afebrile, CXR neg
Likely related to chemo, last treatment 11/03
Likely had GCSF 48hours after chemo which we would expect increase in wbc 5-10 days after GCSF
Blood cultures/UA negative
#Thrombocytopenia
Appreciate hematology input, status post 1 unit platelets on 11/10 due to hemorrhoidal bleeding and epistaxis
#Iron deficiency anemia
Appreciate hematology input, hemoglobin improved to 8.1, from 7.1, status post 1 unit packed red blood cells on 11/10
Hemoglobin continues to trend upward
Continue ferrous sulfate
#Hypokalemia
Repleted and resolved
#ENT infection
#Epistaxis
Prescribed Bactrim by ENT
Changed to Augmentin while here due to LAN
Epistaxis resolved, continue mupirocin
#Hemorrhoidal bleeding
Resolved, monitor
#Non-anion gap metabolic acidosis
Resolved status post sodium bicarb
#Type 2 diabetes
Hold metformin/Jardiance
Continue reduced glargine 15 units twice daily, increased novoLog 10 units AC 3 times daily
Diabetic diet, sliding scale insulin
#Hyponatremia
Monitor
#Transaminitis
Likely hepatic congestion from CHF
#Nonmyocardial injury troponin elevation
Likely from CHF
#History of infected AAA
#Endovascular repair complicated by bacteremia requiring open repair
Lifelong suppression with Keflex
#CAD s/p PCI
Continue aspirin, statin, vascepa
#BPH
Continue Flomax
#SAM
CPAP HS
#Obesity due to excess calories
Affects all aspects of care
DVT prophylaxis�SCDs secondary to thrombocytopenia
Full code
Updated at bedside 11/14
Total time spent to see the patient on the floor, examine the patient, review data and lab results, discuss treatment plan with patient, nursing staff around 51 minutes.
Physical Exam
General: Obese, no acute distress
HEENT: Normocephalic, Atraumatic, EOMI, MMM
Respiratory: Clear to Auscultation bilaterally
Cardiac: Normal S1/S2, Regular Rate and Rhythm
GI: Soft, Nontender, Nondistended, Normal Bowel Sounds
Extremities: No Clubbing, Cyanosis
Severe bilateral lower extremity edema noted
Neuro: Nonfocal/Grossly Intact
Anticipated Discharge: > 48 hours
Subjective/Interval History
-
Date of Service: November 14, 2025
Patient complains of continuous diarrhea overnight and gas pains. He states he gets this from his chemo, and takes Lomotil as needed at home. Denies chest pain, denies shortness of breath. No fever, no vomiting.
Objective Data
-
Labs:
Laboratory Results
11/14/25
06:34
WBC 27.8 H
Hgb 9.0 L
Hct 26.9 L
Plt Count 98 L D
Sodium 138
Potassium 3.7
Chloride 106
Carbon Dioxide 23
BUN 34 H
Creatinine 1.5 H
Glucose 143 H
Calcium 8.3 L
Vital Signs:
Vital Signs
Temp Pulse Resp BP Pulse Ox
98.1 F 87 16 106/52 98
11/14/25 07:30 11/14/25 08:11 11/14/25 07:30 11/14/25 08:11 11/14/25 07:30
I&O
11/13/25 11/14/25 11/15/25
06:59 06:59 06:59
Intake Total 1400 / 1400 1440 / 1440
Output Total 2625 / 2625 3925 / 3925
Balance -1225 / -1225 -2485 / -2485
[2025-11-14] MEDS: LASIX 80 MG IV ×2 (09:45→15:17)
[2025-11-14] MEDS: COREG 12.5 MG PO ×2 (09:45→21:36)
[2025-11-14] MEDS: ROBITUSSIN AC 5 ML PO ×2 (09:46→15:16)
[2025-11-14] MEDS: KCL 40 MEQ PO (10:43)
[2025-11-14 12:26] LABS: Glucose - Point of Care 212 mg/dl (70-99)
--- NOTE | 2025-11-14 12:36 | W.PN.NEPH.PH ---
Today's Communication / Plan
-
potassium repletion
maintain IV Lasix and metolazone
follow BMP
Assessment/Plan
-
Impression:
LAN (2.0) b/l 1.1
Congestive heart failure decompensation
Metabolic acidosis
Anemia
History of pancreatic cancer undergoing active chemotherapy with our friends at [facility]
Diabetes
BPH
History of infected AAA
Coronary artery disease with history of PCI
Leukocytosis
Plan:
LAN:
-Creatinine was stable at 1.5 and grossly nonoliguric but weights down 3kg
- Possibly prerenal mediated in the setting of decompensated congestive heart failure with associated hemodynamic instability
- May be related to chemotherapy (abraxane and gemzar)
-We will continue Lasix 80 mg IV twice daily but will continue additional metolazone 5 mg today to augment diuresis
potassium repleted as patient had episode of paroxysmal AFib earlier
UA with microhematuria wiht low plt, U PCR 400mg/gm of cr, PVR 3cc, neg U eosinophils
renal US no acute change
Patient underwent transfusion on 11/10/2025
Maintain daily weights and accurate i/os
Cont to hold metformin Bactrim
non gap met acidosis improved and now off sodium bicarbonate tablets
corrected rupert is normal
mild hyponatremia from hypervolemia- improving
follow LFTs
d/w pt and at bedside
labs in am
-
-
Date of Service: November 14, 2025
CC / HPI / ROS
-
Chief Complaint:
LAN
History of Present Illness:
cr down to 1.5
Bp stable
Hemoglobin improved at 8.4, plt up 68k-
Status post blood transfusion on 11/10/2025
AFib earlier today
Review of Systems:
no cp or sob
dry cough for long time
no fever
Edema
weight is down
grossly nonoliguric and excess of 5 L
Labs
-
Labs:
WBC 27.8 10^3/uL (4.8-10.8) H 11/14/25 06:34
RBC 2.77 10^6/uL (4.70-6.10) L 11/14/25 06:34
Hgb 9.0 g/dL (13.0-18.0) L 11/14/25 06:34
Hct 26.9 % (39.0-52.0) L 11/14/25 06:34
Plt Count 98 10^3/uL (130-400) L D 11/14/25 06:34
Sodium 138 mmol/L (135-145) 11/14/25 06:34
Potassium 3.7 mmol/L (3.5-5.1) 11/14/25 06:34
Chloride 106 mmol/L (98-107) 11/14/25 06:34
Carbon Dioxide 23 mmol/L (22-30) 11/14/25 06:34
BUN 34 mg/dl (9-20) H 11/14/25 06:34
Creatinine 1.5 mg/dL (0.7-1.3) H 11/14/25 06:34
eGFR 49.16 11/14/25 06:34
Glucose 143 mg/dl (70-99) H 11/14/25 06:34
Calcium 8.3 mg/dl (8.4-10.2) L 11/14/25 06:34
Phosphorus 4.1 mg/dl (2.5-4.5) 11/10/25 04:46
Ggi-L-Ownwjbzvajf Pept 8720 pg/ml 11/09/25 03:39
Albumin 3.3 g/dl (3.5-5.0) L 11/09/25 03:39
Physical Exam
-
Vital Signs:
Vital Signs
Temp Pulse Resp BP Pulse Ox
98.1 F 87 16 113/64 98
11/14/25 07:30 11/14/25 09:45 11/14/25 07:30 11/14/25 09:45 11/14/25 07:30
Cardiovascular:: Regular rate and rhythm
Respiratory:: Bilateral: CTA (decreased BS)
Lung Excursion:: Normal
Abdomen:: Distended, Nontender and Soft
Extremity Edema:: +3: Bilateral:
Combs Catheter: No
[2025-11-14] MEDS: NOVOLOG FLEXPEN-MODERATE RESISTANCE 3 UNITS SC ×2 (13:00→16:31)
[2025-11-14 16:25] LABS: Glucose - Point of Care 217 mg/dl (70-99)
[2025-11-14] MEDS: VITAMIN D3 (cholecalciferol) 50 MCG PO (17:16)
[2025-11-14] MEDS: LOMOTIL 1 TABLET PO (17:21)
[2025-11-14 21:21] LABS: Glucose - Point of Care 244 mg/dl (70-99)
[2025-11-14] MEDS: FEOSOL 325 MG PO (21:38)
[2025-11-14] MEDS: FLOMAX 0.4 MG PO (21:38)
[2025-11-14] MEDS: NEURONTIN 200 MG PO (21:39)
[2025-11-14] MEDS: ULTRAM 50 MG PO (21:40)
[2025-11-15 03:00] VITALS: BP 108/59
[2025-11-15 03:17] VITALS: BMI 33.7
[2025-11-15 06:59] LABS: Blood Urea Nitrogen 40 mg/dl (9-20); Calcium 8.3 mg/dl (8.4-10.2); Carbon Dioxide 23 mmol/L (22-30); Chloride 101 mmol/L (98-107); Estimated Creatinine Clearance 49 ml/min; Glucose 180 mg/dl (70-99); Magnesium 2.4 mg/dl (1.6-2.3); Potassium 4.0 mmol/L (3.5-5.1); Sodium 134 mmol/L (135-145); eGFR 45.50
[2025-11-15 07:00] VITALS: BP 102/57
[2025-11-15 07:01] LABS: Hematocrit 27.1 % (39.0-52.0); Hemoglobin 8.9 g/dL (13.0-18.0); Mean Corp Hgb Conc. 32.8 g/dL (33.0-37.0); Mean Corpuscular Volume 96.4 fL (80.0-94.0); Platelet Count 118 10^3/uL (130-400); Red Cell Dist. Width 19.5 % (11.5-14.5)
[2025-11-15 07:28] LABS: Glucose - Point of Care 221 mg/dl (70-99)
[2025-11-15] MEDS: NON-FORMULARY ITEM 2 UNIT PO ×5 (07:56→21:00)
[2025-11-15] MEDS: ELIQUIS 5 MG PO ×2 (08:01→20:59)
[2025-11-15] MEDS: ZAROXOLYN 5 MG PO (08:01)
[2025-11-15] MEDS: AUGMENTIN 875 MG/125 MG 1 TABLET PO ×2 (08:01→20:59)
[2025-11-15] MEDS: KEFLEX 500 MG PO ×3 (08:04→20:59)
[2025-11-15] MEDS: TESSALON PERLES 200 MG PO ×3 (08:04→20:59)
[2025-11-15] MEDS: LASIX 80 MG IV ×2 (08:04→16:15)
[2025-11-15] MEDS: FARXIGA 10 MG PO (08:05)
[2025-11-15] MEDS: COREG 12.5 MG PO ×2 (08:05→20:59)
[2025-11-15] MEDS: PEPCID 20 MG PO (08:05)
[2025-11-15] MEDS: BACTROBAN 2% OINTMENT 1 APPLIC NASAL ×3 (08:06→21:01)
[2025-11-15] MEDS: LIPITOR 20 MG PO (08:06)
[2025-11-15] MEDS: THERAGRAN 1 TABLET PO (08:06)
[2025-11-15] MEDS: NOVOLOG FLEXPEN 10 UNITS SC ×3 (08:13→17:15)
[2025-11-15] MEDS: NOVOLOG FLEXPEN-MODERATE RESISTANCE 3 UNITS SC ×2 (08:13→12:03)
[2025-11-15] MEDS: LANTUS 0.15 UNITS SC ×2 (08:18→21:01)
[2025-11-15 11:00] VITALS: BP 98/59
--- NOTE | 2025-11-15 11:05 | W.PN.ONC2 ---
Today's Communication / Plan
-
.
Impression
Impression
metastatic pancreatic cancer followed by Dr. Orestes Silva, receiving gemcitabine + Abraxane + study drug (QUEMLICLUSTAT) vs placebo, last dose 11/03 -restaging 11/05 improved/stable disease
Chemotherapy-induced anemia/thrombocytopenia s/p 1U PRBC & 1U SDP during hospitalization, counts recovering
HFrEF
new AF
Plan
Plan
Treatment of CHF per medicine/nephrology with diuresis, etc.
transfuse Hgb <7 or as needed for sxs anemia -may need diuretics with transfusion support
transfuse platelet <10,000 or as needed for bleeding
symptoms support -antidiarrheals prn, pain management
on DOAC -also on Vascepa which may increase risk of bleeding while on doac
at bedside provided updates and questions answered
Subjective/Objective
Subjective
hemorrhoidal bleeding and epistaxis resolved
using tramadol prn pain
Vital Signs:
Vital Signs
Temp Pulse Resp BP Pulse Ox
98.4 F 71 16 102/57 98
11/15/25 07:00 11/15/25 08:04 11/15/25 07:00 11/15/25 08:04 11/15/25 03:00
Lab Results:
Laboratory Data
WBC 28.6 10^3/uL (4.8-10.8) H 11/15/25 06:06
Hgb 8.9 g/dL (13.0-18.0) L 11/15/25 06:06
Plt Count 118 10^3/uL (130-400) L D 11/15/25 06:06
eGFR 45.50 11/15/25 06:06
Physical Exam
HEENT: No Jaundice
Pulmonary: Other (unlabored)
GI: Soft
Extremities: Pulses Present
[2025-11-15 11:13] LABS: Glucose - Point of Care 238 mg/dl (70-99)
[2025-11-15 11:19] VITALS: BMI 33.6
--- NOTE | 2025-11-15 12:45 | W.PN.NEPH.PH ---
Today's Communication / Plan
-
diurese
Assessment/Plan
-
Impression:
LAN (2.0) b/l 1.1
Congestive heart failure decompensation
Metabolic acidosis
Anemia
History of pancreatic cancer undergoing active chemotherapy with our friends at [facility]
Diabetes
BPH
History of infected AAA
Coronary artery disease with history of PCI
Leukocytosis
Plan:
follow BMP
metolazone daily
goal another ~15# diuresis
-
-
Date of Service: November 15, 2025
CC / HPI / ROS
-
Chief Complaint:
LAN
History of Present Illness:
LAN/Cr stable 1.6
BP stable
diuresing with lasix/metolazone
Review of Systems:
no cp or sob
Labs
-
Labs:
WBC 28.6 10^3/uL (4.8-10.8) H 11/15/25 06:06
RBC 2.81 10^6/uL (4.70-6.10) L 11/15/25 06:06
Hgb 8.9 g/dL (13.0-18.0) L 11/15/25 06:06
Hct 27.1 % (39.0-52.0) L 11/15/25 06:06
Plt Count 118 10^3/uL (130-400) L D 11/15/25 06:06
Sodium 134 mmol/L (135-145) L 11/15/25 06:06
Potassium 4.0 mmol/L (3.5-5.1) 11/15/25 06:06
Chloride 101 mmol/L (98-107) 11/15/25 06:06
Carbon Dioxide 23 mmol/L (22-30) 11/15/25 06:06
BUN 40 mg/dl (9-20) H 11/15/25 06:06
Creatinine 1.6 mg/dL (0.7-1.3) H 11/15/25 06:06
eGFR 45.50 11/15/25 06:06
Glucose 180 mg/dl (70-99) H 11/15/25 06:06
Calcium 8.3 mg/dl (8.4-10.2) L 11/15/25 06:06
Phosphorus 5.9 mg/dl (2.5-4.5) H 11/15/25 06:06
Qil-D-Hlgtxmcdfju Pept 8720 pg/ml 11/09/25 03:39
Albumin 3.3 g/dl (3.5-5.0) L 11/09/25 03:39
Physical Exam
-
Vital Signs:
Vital Signs
Temp Pulse Resp BP Pulse Ox
97.8 F 68 16 98/59 99
11/15/25 11:00 11/15/25 11:00 11/15/25 11:00 11/15/25 11:00 11/15/25 11:00
Cardiovascular:: Regular rate and rhythm
Respiratory:: Bilateral: Coarse
Lung Excursion:: Normal
Abdomen:: Nontender and Soft
Bowel Sounds:: Normal
Extremity Edema:: +3: Bilateral:
--- NOTE | 2025-11-15 13:45 | W.PN.HOSP.TC ---
Today's Communication/Plan
-
cont iv diuresis, metolazone
trial hsq
complete abx course
Assessment / Plan
Assessment / Plan
Physical Exam
General: Obese, no acute distress
HEENT: Normocephalic, Atraumatic, EOMI, MMM
Respiratory: Clear to Auscultation bilaterally
Cardiac: Normal S1/S2, Regular Rate and Rhythm
GI: Soft, Nontender, Nondistended, Normal Bowel Sounds
Extremities: No Clubbing, Cyanosis
Severe bilateral lower extremity edema noted
Neuro: Nonfocal/Grossly Intact
HPI: 70 male history of pancreatic cancer actively undergoing chemotherapy at [facility], diabetes, HFrEF with known EF of 40 to 45% and stage III diastolic dysfunction who presents with evidence of volume overload with bilateral lower
extremity swelling and orthopnea. Last chemotherapy on 11 03. States typically after chemotherapy he develops volume overload usually improves however at this time did not. Lasix was increased recently from 40 mg to twice daily to 60 mg twice
daily without improvement. He states that his lowest weight was September 15 at 215 pound. Now he is 238 pounds.
#Acute heart failure with reduced ejection fraction
EF 43%; Grade 3 Diastolic dysfunction - no sig change from 08/2025
Lowest weight in September was 215 pounds, admission weight 238 pounds, weight is now downtrending; goal another 15 lb weight loss
Nephrology increased Lasix to 80 mg IV twice daily on 11/12, and added metolazone 5 mg daily on 11/13
Fluid restrict, trend creatinine, trend daily weights
#Acute kidney injury
Possibly due to cardiorenal syndrome in conjunction chemo/Bactrim use
stop Bactrim, hold Jardiance, hold metformin
Cr improving at 1.5 today, was 2.0 upon admission
Nephrology following, no nephrotoxic drugs/NSAIDs, trend creatinine
#New onset atrial fibrillation on 11/13
#NSVT
08/26/25 Echo EF inferior and inferolateral hypokinesis, EF 40-45%. Stage III DD with restrictive filling
Cardiology following here, he is known to Dr. Avery
Started on Eliquis 5 mg twice a day
Coreg increased to 12.5 mg twice a day
#Pancreatic cancer
Currently undergoing active chemo at [place]
Last chemo 11/03, outpatient follow-up
#Chemo-induced diarrhea
Start Lomotil as needed, continue simethicone as needed
#Leukocytosis
Patient is afebrile, CXR neg
Likely related to chemo, last treatment 11/03
Likely had GCSF 48hours after chemo which we would expect increase in wbc 5-10 days after GCSF
Blood cultures/UA negative
#Thrombocytopenia
Appreciate hematology input, status post 1 unit platelets on 11/10 due to hemorrhoidal bleeding and epistaxis
Improving
#Iron deficiency anemia
Appreciate hematology input, hemoglobin improved to 8.1, from 7.1, status post 1 unit packed red blood cells on 11/10
Hemoglobin continues to trend upward
Continue ferrous sulfate
#Hypokalemia
Repleted and resolved
#ENT infection
#Epistaxis
Prescribed Bactrim by ENT
Changed to Augmentin while here due to LAN - Rxed 10 day course
Epistaxis resolved, continue mupirocin
#Hemorrhoidal bleeding
Resolved, monitor
#Non-anion gap metabolic acidosis
Resolved status post sodium bicarb
#Type 2 diabetes
Hold metformin/Jardiance
Continue reduced glargine 15 units twice daily, increased novoLog 10 units AC 3 times daily
Diabetic diet, sliding scale insulin
#Hyponatremia
Monitor
#Transaminitis
Likely hepatic congestion from CHF
#Nonmyocardial injury troponin elevation
Likely from CHF
#History of infected AAA
#Endovascular repair complicated by bacteremia requiring open repair
Lifelong suppression with Keflex
#CAD s/p PCI
Continue aspirin, statin, vascepa
#BPH
Continue Flomax
#SAM
CPAP HS
#Obesity due to excess calories
Affects all aspects of care
DVT prophylaxis�trial HSQ
Full code
Updated at bedside 11/14
Total time spent to see the patient on the floor, examine the patient, review data and lab results, discuss treatment plan with patient, nursing staff around 52 minutes.
Anticipated Discharge: > 48 hours
Subjective/Interval History
-
Date of Service: November 15, 2025
no acute events overnight
Objective Data
-
Labs:
Laboratory Results
11/15/25
06:06
WBC 28.6 H
Hgb 8.9 L
Hct 27.1 L
Plt Count 118 L D
Sodium 134 L
Potassium 4.0
Chloride 101
Carbon Dioxide 23
BUN 40 H
Creatinine 1.6 H
Glucose 180 H
Calcium 8.3 L
Vital Signs:
Vital Signs
Temp Pulse Resp BP Pulse Ox
97.8 F 68 16 98/59 99
11/15/25 11:00 11/15/25 11:00 11/15/25 11:00 11/15/25 11:00 11/15/25 11:00
I&O
11/14/25 11/15/25 11/16/25
06:59 06:59 06:59
Intake Total 1440 / 1440 2160 / 2160
Output Total 3925 / 3925 3025 / 3025
Balance -2485 / -2485 -865 / -865
Review of Systems
-
History Source: Patient
All other systems: Not reviewed unless documented
Data Reviewed
-
Total Time Spent with Patient (in minutes): 41
Medical Tests (Nuc Med, Echo etc): Report Reviewed by me
Labs: Labs Reviewed by me
--- NOTE | 2025-11-15 13:49 | W.PN.CARDCBS ---
Addendum entered and electronically signed by Candi Avery DO 11/15/25 18:04:
I saw and examined the patient.
The Livestock Speculator's note was reviewed and I agree with the note.
Comment: Patient was seen and examined with his at bedside. Chart/telemetry reviewed. Overall he is feeling better since admission with less shortness of breath and improved abdominal distention/lower extremity edema.
GEN: NAD, AAO x 3
LUNGS: Bronchovesicular breath sounds, decreased but clear. On room air
CV: Regular. Positive S1-S2. No murmur. No rub.
EXT: +2 lower extremity edema bilaterally; Patient states that this has improved since admission
NEURO: Gross non-focal
Plan:
Medically complex 70-year-old gentleman with acute heart failure with reduced ejection fraction and newly diagnosed atrial fibrillation undergoing treatment via study trial for metastatic pancreatic cancer at [facility].
- Remains a significantly volume overloaded. Would continue diuresing with Lasix and metolazone.
-Repeat echocardiogram today appears stable with ejection fraction 40-45%, mild mitral and tricuspid insufficiency, grade 3/restrictive diastolic physiology and moderate pulmonary hypertension which is slightly better when compared to August
study. He does have a trace pericardial effusion.
- Follow daily I's and O's, weights
- Follow-up basic metabolic profile/potassium/magnesium with diuresis. Keep K greater than 4, mag greater than 2
- Continue carvedilol with dose increased for NSVT/PVCs
-Continue SGLT2 inhibitor�patient had been on Jardiance 10 mg daily which was changed due to formulary to Farxiga during this hospitalization.
-Hold off RAY/ARB/Aldactone at this time given renal insufficiency
- Continue telemetry monitoring.
- Appreciate nephrology input
- Appreciate oncology input
New atrial fibrillation currently in sinus rhythm
- Continue telemetry monitoring
- Currently on new Eliquis 5 mg twice daily
- Will closely need to monitor blood counts with history of anemia/thrombocytopenia with chemotherapy.
- Continue carvedilol
Metastatic pancreatic cancer with pancytopenia and thrombocytopenia on chemotherapy with chemo induced diarrhea
- Oncology consulted.
Known coronary artery disease s/p 3 mm Xience to mid Circ and 3 mm Xience to prox RCA 09/22/19
- No symptoms suggestive of angina. Continue medical therapy
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 No active issues
Original Note:
Today's Communication / Plan
-
Ongoing diuresis
Remains in SR following spontaneous conversion 11/14/2025
New to Eliquis this admission
Impression / Plan
-
PCP: Dr. Gomez Gunderson
Cardiology: Dr. Avery
Vascular: Dr. Newell
Impression:
Admitted with acute HF 11/09/2025
Acute on chronic HFrEF
Possible chemotherapy toxicity precipitating acute HF
Newly diagnosed paroxysmal atrial fibrillation starting 11/13/2025
NSVT
LAN
Pancreatic cancer managed at [facility]
Unable to have Whipple in 2023 due to liver mets down at time of surgery
Currently enrolled in trial at [facility] with gemcitabine, Abraxane and study drug (Quemliclustat) vs placebo since 05/2025
PAT
h/o PVCs
Mixed ischemic and nonischemic CM EF 40 to 45% by echo 08/26/2025
EF 50 to 55% by echo 12/16/2024
CAD s/p 3 mm Xience to mid Circ and 3 mm Xience to prox RCA 09/22/19
Flash pulmonary edema at time of cath 09/22/19
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
Endovascular AAA repair with graft 03/01/19
h/o MSSA bacteremia
DM 2
Hypertension
Hyperlipidemia
Obstructive sleep apnea on CPAP
Diffuse fatty liver, hepatomegaly
Anemia
Obesity
Echo 12/16/2024: Ejection fraction 50 to 55%, basal to mid inferior and inferolateral hypokinesis, PA systolic 47 mmHg with mild to moderate TR
Echo 08/26/2025: EF 40 to 45%, stage III diastolic dysfunction, GLS reduced at -9.8%, mild MR, aortic sclerosis without stenosis, normal RV size and function, compared to echo 12/2024 for GLS was -11.3% and EF was 50 to 55%
Echo 11/15/2025: EF 43%, inferior and inferolateral hypokinesis, grade 3 diastolic dysfunction, normal RV size and function, aortic sclerosis without stenosis, mild MR, mild TR, trivial pericardial effusion
Plan:
-Patient was admitted with acute HF on 11/09/2025 and cardiology later consulted on 11/11/2025 for NSVT and PVCs.
-Telemetry reviewed by me 11/15/2025 shows SR and occasional PVCs
-NSVT earlier this admission was associated with normal potassium and magnesium despite IV diuresis.
-EF stable at 43% by echo 11/15/2025
-Patient is tolerating the addition of Coreg 12.5 mg BID this admission. Patient was previously intolerant to Toprol-XL back in 2019 due to fatigue.
-No plans for ischemic evaluation at this time given pancreatic cancer and current concerns for chemotherapy toxicity
-Patient has a history of CAD with circumflex and RCA PCI in 2019 and when EF was low with PVCs and NSVT in 2019 there was consideration for EP study and ICD implantation, but this was deferred because EF improved and there was concern for recurrent
endovascular infection. EF is now down again, but now receiving intermittent transfusions of PRBCs and platelets related to his cancer treatment.
-For now we will continue attempts at GDMT with the addition of Coreg.
-Patient cannot receive RAY/ARB due to a history of angioedema with both lisinopril and Benicar in the past.
-Outpatient dose of Jardiance 10 mg daily was changed to Farxiga due to formulary reasons and Jardiance should be resumed upon discharge to home.
-Weight as high as 238 lbs on admission and down to 223 lbs on my review of VS 01/24/2025. Dry weight is reportedly 212 lbs
-Patient is diuresing with Lasix 80 mg IV BID
-Patient noted to have newly diagnosed A-fib on 11/13/2025 and then spontaneously converted to SR on 11/14/2025. Patient was asymptomatic with A-fib.
-New to Eliquis 5 mg BID (age 70, Cre 1.6, wt 101.5 kg)
HPI: Patient came to the ER on Saturday with weight gain and LE edema concerning for acute HF prompting admission, cardiology is now consulted for NSVT. Patient was last seen in the cardiology office on 09/14/2025, he has been seen on a regular
basis due to intermittent edema and volume overload that seems to be associated with his chemotherapy treatment he is undergoing at [facility]. Patient was diagnosed with pancreatic cancer in 2023 and originally was going to have a Whipple procedure, but
at time of surgery he was found to have liver lesions and procedure was canceled, treatment since then has been chemotherapy only. Patient is currently involved in a trial at [facility] with possible drug cocktail outlined above. Patient's reports
that treatment was supposed to be every Saturday for 3 weeks and then off 1 week, but patient has never successfully completed 3 [id number] treatments with infusions being canceled for anemia and thrombocytopenia. During the patient's last
several rounds of chemotherapy he has had increased LE edema and weight gain which has been treated with escalating doses of Lasix as an outpatient. Patient was taking Lasix 40 mg PO BID and then the dose was increased to 60 mg PO BID through this
past weekend without any improvement in edema so he came to the ER. Patient is about 30 pounds above his dry weight. Patient had LAN with Cre as high as 2.0 on admission and nephrology was consulted and has been managing volume status. Cre
improved to 1.7 on my review of labs 11/11/2025. LE edema is improved and weight is down about 8 lbs with Lasix 60 mg IV BID diuresis. Cardiology was consulted today because of NSVT on telemetry. Patient also noted to have an episode of PAT.
Patient has a history of NSVT and PVCs prompting EP evaluation in the office back on 02/02/2020, at that time his EF was 40 to 45% and he was recommended EP study for consideration of ICD, but this was ultimately deferred due to his previous
endovascular infection involving his AAA endograft from 2019. In that time the EF improved to 50 to 55%. Patient had previously been treated with Toprol-XL but was intolerant due to fatigue. Patient denies any palpitations or lightheadedness.
Progress Note - Internal Controls Consultant
Subjective
Date of Service: November 15, 2025
Patient denies chest pain or palpitations
Objective
Labs:
11/15/25 06:06
11/15/25 06:06
Labs
Hgb 8.9 g/dL (13.0-18.0) L 11/15/25 06:06
Hct 27.1 % (39.0-52.0) L 11/15/25 06:06
Plt Count 118 10^3/uL (130-400) L D 11/15/25 06:06
Sodium 134 mmol/L (135-145) L 11/15/25 06:06
Potassium 4.0 mmol/L (3.5-5.1) 11/15/25 06:06
BUN 40 mg/dl (9-20) H 11/15/25 06:06
Creatinine 1.6 mg/dL (0.7-1.3) H 11/15/25 06:06
Glucose 180 mg/dl (70-99) H 11/15/25 06:06
Vital Signs and I&O:
Vital Signs
Temp Pulse Resp BP Pulse Ox
97.8 F 68 16 98/59 99
11/15/25 11:00 11/15/25 11:00 11/15/25 11:00 11/15/25 11:00 11/15/25 11:00
Vital Signs
Temp Pulse Resp BP Pulse Ox
97.8 F 68 16 98/59 99
11/15/25 11:00 11/15/25 11:00 11/15/25 11:00 11/15/25 11:00 11/15/25 11:00
Intake & Output
11/13/25 11/14/25 11/15/25 11/16/25
06:59 06:59 06:59 06:59
Intake Total 1400 / 1400 1440 / 1440 2160 / 2160
Output Total 2625 / 2625 3925 / 3925 3025 / 3025
Balance -1225 / -1225 -2485 / -2485 -865 / -865
Physical Exam
Physical Exam
GEN: NAD, AAO x 3
LUNGS: RA. No audible wheeze
CV: SR on telemetry. Reg
EXT: +1-2 B/L LE edema.
NEURO: Gross non-focal
SKIN: Warm, dry and pink. No rash
[2025-11-15 15:00] VITALS: BP 107/62
--- NOTE | 2025-11-15 16:31 | CM ---
patient seen at bedside with
cont iv diuresis
offered VN, doesn't feel he needs, but will decide closer to discharg
PLAN: home, CM to continue to follow for VN needs
[2025-11-15] MEDS: ROBITUSSIN AC 5 ML PO (16:43)
[2025-11-15 16:49] LABS: Glucose - Point of Care 181 mg/dl (70-99)
[2025-11-15] MEDS: NOVOLOG FLEXPEN-MODERATE RESISTANCE 1 UNITS SC (17:16)
[2025-11-15] MEDS: VITAMIN D3 (cholecalciferol) 50 MCG PO (17:16)
[2025-11-15 19:00] VITALS: BP 115/57
[2025-11-15] MEDS: FLOMAX 0.4 MG PO (20:59)
[2025-11-15] MEDS: FEOSOL 325 MG PO (20:59)
[2025-11-15] MEDS: ULTRAM 50 MG PO (20:59)
[2025-11-15] MEDS: NEURONTIN 200 MG PO (20:59)
[2025-11-15 21:05] LABS: Glucose - Point of Care 250 mg/dl (70-99)
[2025-11-15 23:00] VITALS: BP 105/48
[2025-11-16 03:00] VITALS: BP 101/54
[2025-11-16 03:23] VITALS: BMI 33.4
[2025-11-16 06:22] LABS: Hematocrit 27.9 % (39.0-52.0); Hemoglobin 9.3 g/dL (13.0-18.0); Mean Corp Hgb Conc. 33.3 g/dL (33.0-37.0); Mean Corpuscular Volume 98.2 fL (80.0-94.0); Platelet Count 143 10^3/uL (130-400); Red Cell Dist. Width 20.4 % (11.5-14.5)
[2025-11-16 06:43] LABS: Blood Urea Nitrogen 41 mg/dl (9-20); Calcium 8.3 mg/dl (8.4-10.2); Carbon Dioxide 27 mmol/L (22-30); Chloride 99 mmol/L (98-107); Estimated Creatinine Clearance 46 ml/min; Glucose 177 mg/dl (70-99); Potassium 3.5 mmol/L (3.5-5.1); Sodium 135 mmol/L (135-145); eGFR 42.30
[2025-11-16 07:15] VITALS: BP 112/61
[2025-11-16] MEDS: ZAROXOLYN 5 MG PO (07:21)
[2025-11-16] MEDS: ELIQUIS 5 MG PO ×2 (07:22→21:38)
[2025-11-16] MEDS: THERAGRAN 1 TABLET PO (07:22)
[2025-11-16] MEDS: COREG 12.5 MG PO ×2 (07:23→21:41)
[2025-11-16] MEDS: FARXIGA 10 MG PO (07:23)
[2025-11-16] MEDS: TESSALON PERLES 200 MG PO ×3 (07:23→21:38)
[2025-11-16] MEDS: AUGMENTIN 875 MG/125 MG 1 TABLET PO (07:23)
[2025-11-16] MEDS: LIPITOR 20 MG PO (07:23)
[2025-11-16] MEDS: KEFLEX 500 MG PO ×3 (07:23→21:38)
[2025-11-16] MEDS: PEPCID 20 MG PO (07:23)
[2025-11-16] MEDS: LASIX 80 MG IV ×2 (07:24→17:05)
[2025-11-16] MEDS: NON-FORMULARY ITEM 2 UNIT PO ×5 (07:24→21:38)
[2025-11-16 07:26] LABS: Glucose - Point of Care 227 mg/dl (70-99)
[2025-11-16] MEDS: BACTROBAN 2% OINTMENT 1 APPLIC NASAL ×3 (07:26→21:37)
[2025-11-16] MEDS: NOVOLOG FLEXPEN 10 UNITS SC ×3 (07:34→17:10)
[2025-11-16] MEDS: NOVOLOG FLEXPEN-MODERATE RESISTANCE 3 UNITS SC ×2 (07:35→11:54)
[2025-11-16] MEDS: LANTUS 0.15 UNITS SC ×2 (07:43→21:38)
[2025-11-16 11:30] VITALS: BP 113/62
[2025-11-16 11:49] LABS: Glucose - Point of Care 208 mg/dl (70-99)
[2025-11-16] MEDS: ROBITUSSIN AC 5 ML PO (12:01)
--- NOTE | 2025-11-16 12:47 | W.PN.NEPH.PH ---
Today's Communication / Plan
-
diurese
Assessment/Plan
-
Impression:
LAN (2.0) b/l 1.1
Congestive heart failure decompensation
Metabolic acidosis
Anemia
History of pancreatic cancer undergoing active chemotherapy with our friends at [facility]
Diabetes
BPH
History of infected AAA
Coronary artery disease with history of PCI
Leukocytosis
Plan:
follow BMP
metolazone daily
goal another ~10# diuresis
-
-
Date of Service: November 16, 2025
CC / HPI / ROS
-
Chief Complaint:
LAN
History of Present Illness:
LAN/Cr stable 1.7
BP stable
diuresing with lasix/metolazone
WBC up to 30
Review of Systems:
no cp or sob
weights down
Labs
-
Labs:
WBC 30.1 10^3/uL (4.8-10.8) H 11/16/25 05:47
RBC 2.84 10^6/uL (4.70-6.10) L 11/16/25 05:47
Hgb 9.3 g/dL (13.0-18.0) L 11/16/25 05:47
Hct 27.9 % (39.0-52.0) L 11/16/25 05:47
Plt Count 143 10^3/uL (130-400) D 11/16/25 05:47
Sodium 135 mmol/L (135-145) 11/16/25 05:47
Potassium 3.5 mmol/L (3.5-5.1) 11/16/25 05:47
Chloride 99 mmol/L (98-107) 11/16/25 05:47
Carbon Dioxide 27 mmol/L (22-30) 11/16/25 05:47
BUN 41 mg/dl (9-20) H 11/16/25 05:47
Creatinine 1.7 mg/dL (0.7-1.3) H 11/16/25 05:47
eGFR 42.30 11/16/25 05:47
Glucose 177 mg/dl (70-99) H 11/16/25 05:47
Calcium 8.3 mg/dl (8.4-10.2) L 11/16/25 05:47
Phosphorus 5.9 mg/dl (2.5-4.5) H 11/15/25 06:06
Jol-I-Bslqwtvunfg Pept 8720 pg/ml 11/09/25 03:39
Albumin 3.3 g/dl (3.5-5.0) L 11/09/25 03:39
Physical Exam
-
Vital Signs:
Vital Signs
Temp Pulse Resp BP Pulse Ox
97.9 F 76 18 113/62 99
11/16/25 11:30 11/16/25 11:30 11/16/25 11:30 11/16/25 11:30 11/16/25 11:30
Cardiovascular:: Regular rate and rhythm
Respiratory:: Bilateral: Coarse
Lung Excursion:: Normal
Abdomen:: Nontender and Soft
Bowel Sounds:: Normal
Extremity Edema:: +3: Bilateral:
--- NOTE | 2025-11-16 13:18 | W.PN.HOSP.TC ---
Today's Communication/Plan
-
stop augmentin
continue diuresis
Assessment / Plan
Assessment / Plan
Physical Exam
General: Obese, no acute distress
HEENT: Normocephalic, Atraumatic, EOMI, MMM
Respiratory: Clear to Auscultation bilaterally
Cardiac: Normal S1/S2, Regular Rate and Rhythm
GI: Soft, Nontender, Nondistended, Normal Bowel Sounds
Extremities: No Clubbing, Cyanosis
Severe bilateral lower extremity edema noted
Neuro: Nonfocal/Grossly Intact
HPI: 70 male history of pancreatic cancer actively undergoing chemotherapy at [facility], diabetes, HFrEF with known EF of 40 to 45% and stage III diastolic dysfunction who presents with evidence of volume overload with bilateral lower
extremity swelling and orthopnea. Last chemotherapy on 11 03. States typically after chemotherapy he develops volume overload usually improves however at this time did not. Lasix was increased recently from 40 mg to twice daily to 60 mg twice
daily without improvement. He states that his lowest weight was September 15 at 215 pound. Now he is 238 pounds.
#Acute heart failure with reduced ejection fraction
EF 43%; Grade 3 Diastolic dysfunction - no sig change from 08/2025
Lowest weight in September was 215 pounds, admission weight 238 pounds, weight is now downtrending; goal another 15 lb weight loss
Nephrology increased Lasix to 80 mg IV twice daily on 11/12, and added metolazone 5 mg daily on 11/13
Fluid restrict, trend creatinine, trend daily weights
#Acute kidney injury
Possibly due to cardiorenal syndrome in conjunction chemo/Bactrim use
stop Bactrim, hold Jardiance, hold metformin
Cr improving at 1.5 today, was 2.0 upon admission
Nephrology following, no nephrotoxic drugs/NSAIDs, trend creatinine
#New onset atrial fibrillation on 11/13
#NSVT
08/26/25 Echo EF inferior and inferolateral hypokinesis, EF 40-45%. Stage III DD with restrictive filling
Cardiology following here, he is known to Dr. Avery
Started on Eliquis 5 mg twice a day
Coreg increased to 12.5 mg twice a day
#Pancreatic cancer
Currently undergoing active chemo at [facility]
Last chemo 11/03, outpatient follow-up
#Chemo-induced diarrhea
Start Lomotil as needed, continue simethicone as needed
#Leukocytosis
Patient is afebrile, CXR neg
Likely related to chemo, last treatment 11/03
Likely had GCSF 48hours after chemo which we would expect increase in wbc 5-10 days after GCSF
Blood cultures/UA negative
#Thrombocytopenia
Appreciate hematology input, status post 1 unit platelets on 11/10 due to hemorrhoidal bleeding and epistaxis
Improving
#Iron deficiency anemia
Appreciate hematology input, hemoglobin improved to 8.1, from 7.1, status post 1 unit packed red blood cells on 11/10
Hemoglobin continues to trend upward
Continue ferrous sulfate
#Hypokalemia
Repleted and resolved
#ENT infection
#Epistaxis
Prescribed Bactrim by ENT
Changed to Augmentin while here due to LAN -completed 10-day course
Epistaxis resolved, continue mupirocin
#Hemorrhoidal bleeding
Resolved, monitor
#Non-anion gap metabolic acidosis
Resolved status post sodium bicarb
#Type 2 diabetes
Hold metformin/Jardiance
Continue reduced glargine 15 units twice daily, increased novoLog 10 units AC 3 times daily
Diabetic diet, sliding scale insulin
#Hyponatremia
Monitor
#Transaminitis
Likely hepatic congestion from CHF
#Nonmyocardial injury troponin elevation
Likely from CHF
#History of infected AAA
#Endovascular repair complicated by bacteremia requiring open repair
Lifelong suppression with Keflex
#CAD s/p PCI
Continue aspirin, statin, vascepa
#BPH
Continue Flomax
#SAM
CPAP HS
#Obesity due to excess calories
Affects all aspects of care
DVT prophylaxis�trial HSQ
Full code
Updated at bedside 11/14
Total time spent to see the patient on the floor, examine the patient, review data and lab results, discuss treatment plan with patient, nursing staff around 52 minutes.
Anticipated Discharge: 24 - 48 hours
Subjective/Interval History
-
Date of Service: November 16, 2025
No acute events overnight
Objective Data
-
Labs:
Laboratory Results
11/16/25
05:47
WBC 30.1 H
Hgb 9.3 L
Hct 27.9 L
Plt Count 143 D
Sodium 135
Potassium 3.5
Chloride 99
Carbon Dioxide 27
BUN 41 H
Creatinine 1.7 H
Glucose 177 H
Calcium 8.3 L
Vital Signs:
Vital Signs
Temp Pulse Resp BP Pulse Ox
97.9 F 76 18 113/62 99
11/16/25 11:30 11/16/25 11:30 11/16/25 11:30 11/16/25 11:30 11/16/25 11:30
I&O
11/15/25 11/16/25 11/17/25
06:59 06:59 06:59
Intake Total 2160 / 2160 780 / 780
Output Total 3025 / 3025 5050 / 5050
Balance -865 / -865 -4270 / -4270
Review of Systems
-
History Source: Patient
All other systems: Not reviewed unless documented
Data Reviewed
-
Total Time Spent with Patient (in minutes): 41
Medical Tests (Nuc Med, Echo etc): Report Reviewed by me
Labs: Labs Reviewed by me
--- NOTE | 2025-11-16 14:57 | W.PN.CARDCBS ---
Addendum entered and electronically signed by Elvin Huber MD 11/16/25 15:12:
I saw and examined the patient.
The Torpedo Shooter's note was reviewed and I agree with the note.
Comment:
GEN: No distress, awake, Ox3
HEENT: supple, anicteric, mmm
LUNGS: CTA, no wheezes/rales
CV: Reg with ectopy, S1/S2, / syst LSB, no gallop
ABD: soft, BS+, NT/ND
EXT: ++ edema
NEURO: Gross non-focal
SKIN: No rash
Plan:
He remains volume overloaded. Will continue IV diuresis with metolazone
Continue Farxiga.
Continue Coreg and Eliquis for paroxysmal atrial fibrillation. He currently is in sinus rhythm today. He also has a history of nonsustained VT
Creatinine overall stable at 1.7.
Continue medical therapy for coronary artery disease
Original Note:
Today's Communication / Plan
-
Ongoing attempts at IV diuresis with a goal weight of 212 lbs
Impression / Plan
-
PCP: Dr. Gomez Gunderson
Cardiology: Dr. Avery
Vascular: Dr. Newell
Impression:
Admitted with acute HF 11/09/2025
Acute on chronic HFrEF
Possible chemotherapy toxicity precipitating acute HF
Newly diagnosed paroxysmal atrial fibrillation starting 11/13/2025
NSVT
LAN
Pancreatic cancer managed at [facility]
Unable to have Whipple in 2023 due to liver mets down at time of surgery
Currently enrolled in trial at [facility] with gemcitabine, Abraxane and study drug (Quemliclustat) vs placebo since 05/2025
PAT
h/o PVCs
Mixed ischemic and nonischemic CM EF 40 to 45% by echo 08/26/2025
EF 50 to 55% by echo 12/16/2024
CAD s/p 3 mm Xience to mid Circ and 3 mm Xience to prox RCA 09/22/19
Flash pulmonary edema at time of cath 09/22/19
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
Endovascular AAA repair with graft 03/01/19
h/o MSSA bacteremia
DM 2
Hypertension
Hyperlipidemia
Obstructive sleep apnea on CPAP
Diffuse fatty liver, hepatomegaly
Anemia
Obesity
Echo 12/16/2024: Ejection fraction 50 to 55%, basal to mid inferior and inferolateral hypokinesis, PA systolic 47 mmHg with mild to moderate TR
Echo 08/26/2025: EF 40 to 45%, stage III diastolic dysfunction, GLS reduced at -9.8%, mild MR, aortic sclerosis without stenosis, normal RV size and function, compared to echo 12/2024 for GLS was -11.3% and EF was 50 to 55%
Echo 11/15/2025: EF 43%, inferior and inferolateral hypokinesis, grade 3 diastolic dysfunction, normal RV size and function, aortic sclerosis without stenosis, mild MR, mild TR, trivial pericardial effusion
Plan:
-Patient was admitted with acute HF on 11/09/2025 and cardiology later consulted on 11/11/2025 for NSVT and PVCs.
-Telemetry reviewed by me 11/16/2025 shows SR and occasional PVCs
-Nephrology following and patient is being diuresed with Lasix 80 mg IV BID. Weight is down 1 lb overnight, overall patient has diuresed close to 16 lbs and weighs 222 lbs on my review of VS 11/16/2025. Dry weight is reportedly 212 lbs
-EF stable at 43% by echo 11/15/2025, EF had been 40 to 45% by echo 08/26/2025 and prior to that EF was 50 to 55% by echo 12/16/2024.
-Patient is new to Coreg 12.5 mg BID this admission. Patient was previously intolerant to Toprol-XL back in 2019 due to fatigue.
-Patient cannot receive RAY/ARB due to a history of angioedema with both lisinopril and Benicar in the past.
-Outpatient dose of Jardiance 10 mg daily was changed to Farxiga due to formulary reasons and Jardiance should be resumed upon discharge to home.
-NSVT earlier this admission was associated with normal potassium and magnesium despite IV diuresis.
-Patient is tolerating the addition of Coreg 12.5 mg
-No plans for ischemic evaluation at this time given pancreatic cancer and current concerns for chemotherapy toxicity
-Patient has a history of CAD with circumflex and RCA PCI in 2018 and when EF was low with PVCs and NSVT in 2019 there was consideration for EP study and ICD implantation, but this was deferred because EF improved and there was concern for recurrent
endovascular infection. EF is now down again, but now receiving intermittent transfusions of PRBCs and platelets related to his cancer treatment.
-Patient noted to have newly diagnosed A-fib on 11/13/2025 and then spontaneously converted to SR on 11/14/2025. Patient was asymptomatic with A-fib.
-New to Eliquis 5 mg BID (age 70, Cre 1.6, wt 101.5 kg)
HPI: Patient came to the ER on Saturday with weight gain and LE edema concerning for acute HF prompting admission, cardiology is now consulted for NSVT. Patient was last seen in the cardiology office on 09/14/2025, he has been seen on a regular
basis due to intermittent edema and volume overload that seems to be associated with his chemotherapy treatment he is undergoing at [facility]. Patient was diagnosed with pancreatic cancer in 2023 and originally was going to have a Whipple procedure, but
at time of surgery he was found to have liver lesions and procedure was canceled, treatment since then has been chemotherapy only. Patient is currently involved in a trial at [facility] with possible drug cocktail outlined above. Patient's reports
that treatment was supposed to be every Saturday for 3 weeks and then off 1 week, but patient has never successfully completed 3 eydo-jj-nigr treatments with infusions being canceled for anemia and thrombocytopenia. During the patient's last
several rounds of chemotherapy he has had increased LE edema and weight gain which has been treated with escalating doses of Lasix as an outpatient. Patient was taking Lasix 40 mg PO BID and then the dose was increased to 60 mg PO BID through this
past weekend without any improvement in edema so he came to the ER. Patient is about 30 pounds above his dry weight. Patient had LAN with Cre as high as 2.0 on admission and nephrology was consulted and has been managing volume status. Cre
improved to 1.7 on my review of labs 11/11/2025. LE edema is improved and weight is down about 8 lbs with Lasix 60 mg IV BID diuresis. Cardiology was consulted today because of NSVT on telemetry. Patient also noted to have an episode of PAT.
Patient has a history of NSVT and PVCs prompting EP evaluation in the office back on 02/02/2020, at that time his EF was 40 to 45% and he was recommended EP study for consideration of ICD, but this was ultimately deferred due to his previous
endovascular infection involving his AAA endograft from 2019. In that time the EF improved to 50 to 55%. Patient had previously been treated with Toprol-XL but was intolerant due to fatigue. Patient denies any palpitations or lightheadedness.
Progress Note - Travel Ticketing Reviewer
Subjective
Date of Service: November 16, 2025
Patient denies chest pain or palpitations
Objective
Labs:
11/16/25 05:47
11/16/25 05:47
Labs
Hgb 9.3 g/dL (13.0-18.0) L 11/16/25 05:47
Hct 27.9 % (39.0-52.0) L 11/16/25 05:47
Plt Count 143 10^3/uL (130-400) D 11/16/25 05:47
Sodium 135 mmol/L (135-145) 11/16/25 05:47
Potassium 3.5 mmol/L (3.5-5.1) 11/16/25 05:47
BUN 41 mg/dl (9-20) H 11/16/25 05:47
Creatinine 1.7 mg/dL (0.7-1.3) H 11/16/25 05:47
Glucose 177 mg/dl (70-99) H 11/16/25 05:47
Vital Signs and I&O:
Vital Signs
Temp Pulse Resp BP Pulse Ox
97.9 F 76 18 113/62 99
11/16/25 11:30 11/16/25 11:30 11/16/25 11:30 11/16/25 11:30 11/16/25 11:30
Vital Signs
Temp Pulse Resp BP Pulse Ox
97.9 F 76 18 113/62 99
11/16/25 11:30 11/16/25 11:30 11/16/25 11:30 11/16/25 11:30 11/16/25 11:30
Intake & Output
11/14/25 11/15/25 11/16/25 11/17/25
06:59 06:59 06:59 06:59
Intake Total 1440 / 1440 2160 / 2160 780 / 780
Output Total 3925 / 3925 3025 / 3025 5050 / 5050
Balance -2485 / -2485 -865 / -865 -4270 / -4270
Physical Exam
Physical Exam
GEN: NAD, AAO x 3
LUNGS: RA. No audible wheeze
CV: SR on telemetry. Reg
EXT: +1 B/L LE edema.
NEURO: Gross non-focal
SKIN: Warm, dry and pink. No rash
[2025-11-16 15:22] VITALS: BP 103/53
[2025-11-16 16:26] LABS: Glucose - Point of Care 370 mg/dl (70-99)
[2025-11-16] MEDS: VITAMIN D3 (cholecalciferol) 50 MCG PO (17:08)
[2025-11-16] MEDS: NOVOLOG FLEXPEN-MODERATE RESISTANCE 9 UNITS SC (17:10)
[2025-11-16] MEDS: LOMOTIL 1 TABLET PO (17:26)
[2025-11-16 19:00] VITALS: BP 113/61
[2025-11-16 20:56] LABS: Glucose - Point of Care 221 mg/dl (70-99)
[2025-11-16] MEDS: NEURONTIN 200 MG PO (21:38)
[2025-11-16] MEDS: FLOMAX 0.4 MG PO (21:38)
[2025-11-16] MEDS: FEOSOL 325 MG PO (21:38)
[2025-11-16] MEDS: ULTRAM 50 MG PO (21:39)
[2025-11-16 23:00] VITALS: BP 103/52
[2025-11-17] MEDS: MYLICON 80 MG PO ×3 (02:21→15:56)
[2025-11-17 03:01] VITALS: BP 104/53
[2025-11-17 06:00] VITALS: BMI 32.6
[2025-11-17 06:36] LABS: Hematocrit 27.8 % (39.0-52.0); Hemoglobin 9.4 g/dL (13.0-18.0); Mean Corp Hgb Conc. 33.8 g/dL (33.0-37.0); Mean Corpuscular Volume 98.6 fL (80.0-94.0); Platelet Count 155 10^3/uL (130-400); Red Cell Dist. Width 20.8 % (11.5-14.5)
[2025-11-17 07:03] VITALS: BP 107/55
[2025-11-17 07:05] LABS: Blood Urea Nitrogen 42 mg/dl (9-20); Calcium 8.2 mg/dl (8.4-10.2); Carbon Dioxide 29 mmol/L (22-30); Chloride 97 mmol/L (98-107); Estimated Creatinine Clearance 46 ml/min; Glucose 193 mg/dl (70-99); Potassium 3.4 mmol/L (3.5-5.1); Sodium 134 mmol/L (135-145); eGFR 42.30
[2025-11-17 07:22] LABS: Glucose - Point of Care 211 mg/dl (70-99)
[2025-11-17] MEDS: NOVOLOG FLEXPEN-MODERATE RESISTANCE 3 UNITS SC (07:33)
[2025-11-17] MEDS: NOVOLOG FLEXPEN 10 UNITS SC ×3 (07:34→17:36)
[2025-11-17] MEDS: NON-FORMULARY ITEM 2 UNIT PO ×5 (07:35→20:28)
[2025-11-17] MEDS: TESSALON PERLES 200 MG PO ×3 (07:36→21:34)
[2025-11-17] MEDS: BACTROBAN 2% OINTMENT 1 APPLIC NASAL ×3 (07:36→21:33)
[2025-11-17] MEDS: FARXIGA 10 MG PO (07:36)
[2025-11-17] MEDS: THERAGRAN 1 TABLET PO (07:37)
[2025-11-17] MEDS: PEPCID 20 MG PO (07:37)
[2025-11-17] MEDS: ELIQUIS 5 MG PO ×2 (07:37→20:27)
[2025-11-17] MEDS: KEFLEX 500 MG PO ×3 (07:37→21:34)
[2025-11-17] MEDS: LIPITOR 20 MG PO (07:38)
[2025-11-17] MEDS: LANTUS 0.15 UNITS SC ×2 (07:45→20:28)
[2025-11-17] MEDS: COREG 12.5 MG PO ×2 (08:24→20:27)
[2025-11-17] MEDS: LASIX 80 MG IV ×2 (08:25→15:55)
[2025-11-17] MEDS: ZAROXOLYN 5 MG PO (08:26)
--- NOTE | 2025-11-17 09:20 | W.PN.CARDCBS ---
Today's Communication / Plan
-
weight is improved and Creat stable at 1.7
Would diurese with IV Lasix for another 24 hours then switch to Lasix 60mg po bid
Cont Coreg/ Tele with sinus with PVCs.
Cont Eliquis
Impression / Plan
-
PCP: Dr. Gomez Gunderson
Cardiology: Dr. Avery
Vascular: Dr. Newell
Impression:
Admitted with acute HF 11/09/2025
Acute on chronic HFrEF
Possible chemotherapy toxicity precipitating acute HF
Newly diagnosed paroxysmal atrial fibrillation starting 11/13/2025
NSVT
LAN
Pancreatic cancer managed at [facility]
Unable to have Whipple in 2023 due to liver mets down at time of surgery
Currently enrolled in trial at [facility] with gemcitabine, Abraxane and study drug (Quemliclustat) vs placebo since 05/2025
PAT
h/o PVCs
Mixed ischemic and nonischemic CM EF 40 to 45% by echo 08/26/2025
EF 50 to 55% by echo 12/16/2024
CAD s/p 3 mm Xience to mid Circ and 3 mm Xience to prox RCA 09/22/19
Flash pulmonary edema at time of cath 09/22/19
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
Endovascular AAA repair with graft 03/01/19
h/o MSSA bacteremia
DM 2
Hypertension
Hyperlipidemia
Obstructive sleep apnea on CPAP
Diffuse fatty liver, hepatomegaly
Anemia
Obesity
Echo 12/16/2024: Ejection fraction 50 to 55%, basal to mid inferior and inferolateral hypokinesis, PA systolic 47 mmHg with mild to moderate TR
Echo 08/26/2025: EF 40 to 45%, stage III diastolic dysfunction, GLS reduced at -9.8%, mild MR, aortic sclerosis without stenosis, normal RV size and function, compared to echo 12/2024 for GLS was -11.3% and EF was 50 to 55%
Echo 11/15/2025: EF 43%, inferior and inferolateral hypokinesis, grade 3 diastolic dysfunction, normal RV size and function, aortic sclerosis without stenosis, mild MR, mild TR, trivial pericardial effusion
Plan:
-Patient was admitted with acute HF on 11/09/2025 and cardiology later consulted on 11/11/2025 for NSVT and PVCs.
-Telemetry reviewed by me 11/16/2025 shows SR and occasional PVCs
-Nephrology following and patient is being diuresed with Lasix 80 mg IV BID. Weight down to 217. Would diurese with IV lasix for another 24 hours then transition to po
-EF stable at 43% by echo 11/15/2025, EF had been 40 to 45% by echo 08/26/2025 and prior to that EF was 50 to 55% by echo 12/16/2024.
-Patient is new to Coreg 12.5 mg BID this admission. Patient was previously intolerant to Toprol-XL back in 2019 due to fatigue.
-Patient cannot receive RAY/ARB due to a history of angioedema with both lisinopril and Benicar in the past.
-Outpatient dose of Jardiance 10 mg daily was changed to Farxiga due to formulary reasons and Jardiance should be resumed upon discharge to home.
-NSVT earlier this admission was associated with normal potassium and magnesium despite IV diuresis.
-Patient is tolerating the addition of Coreg 12.5 mg
-No plans for ischemic evaluation at this time given pancreatic cancer and current concerns for chemotherapy toxicity
-Patient has a history of CAD with circumflex and RCA PCI in 2018 and when EF was low with PVCs and NSVT in 2019 there was consideration for EP study and ICD implantation, but this was deferred because EF improved and there was concern for recurrent
endovascular infection. EF is now down again, but now receiving intermittent transfusions of PRBCs and platelets related to his cancer treatment.
-Patient noted to have newly diagnosed A-fib on 11/13/2025 and then spontaneously converted to SR on 11/14/2025. Patient was asymptomatic with A-fib.
-New to Eliquis 5 mg BID (age 70, Cre 1.6, wt 101.5 kg)
HPI: Patient came to the ER on Saturday with weight gain and LE edema concerning for acute HF prompting admission, cardiology is now consulted for NSVT. Patient was last seen in the cardiology office on 09/14/2025, he has been seen on a regular
basis due to intermittent edema and volume overload that seems to be associated with his chemotherapy treatment he is undergoing at [facility]. Patient was diagnosed with pancreatic cancer in 2023 and originally was going to have a Whipple procedure, but
at time of surgery he was found to have liver lesions and procedure was canceled, treatment since then has been chemotherapy only. Patient is currently involved in a trial at [facility] with possible drug cocktail outlined above. Patient's reports
that treatment was supposed to be every Saturday for 3 weeks and then off 1 week, but patient has never successfully completed 3 [id number] treatments with infusions being canceled for anemia and thrombocytopenia. During the patient's last
several rounds of chemotherapy he has had increased LE edema and weight gain which has been treated with escalating doses of Lasix as an outpatient. Patient was taking Lasix 40 mg PO BID and then the dose was increased to 60 mg PO BID through this
past weekend without any improvement in edema so he came to the ER. Patient is about 30 pounds above his dry weight. Patient had LAN with Cre as high as 2.0 on admission and nephrology was consulted and has been managing volume status. Cre
improved to 1.7 on my review of labs 11/11/2025. LE edema is improved and weight is down about 8 lbs with Lasix 60 mg IV BID diuresis. Cardiology was consulted today because of NSVT on telemetry. Patient also noted to have an episode of PAT.
Patient has a history of NSVT and PVCs prompting EP evaluation in the office back on 02/02/2020, at that time his EF was 40 to 45% and he was recommended EP study for consideration of ICD, but this was ultimately deferred due to his previous
endovascular infection involving his AAA endograft from 2019. In that time the EF improved to 50 to 55%. Patient had previously been treated with Toprol-XL but was intolerant due to fatigue. Patient denies any palpitations or lightheadedness.
Progress Note - Chocolate Maker
Subjective
Date of Service: November 17, 2025
feeling better. Edema is improved. NO chest pains
Objective
Labs:
11/17/25 05:57
11/17/25 05:57
Labs
Hgb 9.4 g/dL (13.0-18.0) L 11/17/25 05:57
Hct 27.8 % (39.0-52.0) L 11/17/25 05:57
Plt Count 155 10^3/uL (130-400) 11/17/25 05:57
Sodium 134 mmol/L (135-145) L 11/17/25 05:57
Potassium 3.4 mmol/L (3.5-5.1) L 11/17/25 05:57
BUN 42 mg/dl (9-20) H 11/17/25 05:57
Creatinine 1.7 mg/dL (0.7-1.3) H 11/17/25 05:57
Glucose 193 mg/dl (70-99) H 11/17/25 05:57
Vital Signs and I&O:
Vital Signs
Temp Pulse Resp BP Pulse Ox
98.5 F 67 19 107/55 99
11/17/25 07:03 11/17/25 08:24 11/17/25 07:03 11/17/25 08:24 11/17/25 07:03
Vital Signs
Temp Pulse Resp BP Pulse Ox
98.5 F 67 19 107/55 99
11/17/25 07:03 11/17/25 08:24 11/17/25 07:03 11/17/25 08:24 11/17/25 07:03
Intake & Output
11/15/25 11/16/25 11/17/25 11/18/25
06:59 06:59 06:59 06:59
Intake Total 2160 / 2160 780 / 780 530 / 530 720 / 720
Output Total 3025 / 3025 5050 / 5050 1350 / 1350 3075 / 3075
Balance -865 / -865 -4270 / -4270 -820 / -820 -2355 / -2355
Physical Exam
Physical Exam
GEN: No distress, awake, Ox3
HEENT: supple, anicteric, mmm
LUNGS: CTA, no wheezes/rales
CV: Reg, S1/S2, 1/6 syst LSB, no gallop
ABD: soft, BS+, NT/ND
EXT: +1 edema
NEURO: Gross non-focal
SKIN: No rash
--- NOTE | 2025-11-17 10:35 | W.PN.ONC2 ---
Today's Communication / Plan
-
Oncology will sign off.
Impression
Impression
metastatic pancreatic cancer followed by Dr. Orestes Silva, receiving gemcitabine + Abraxane + study drug (QUEMLICLUSTAT) vs placebo, last dose 11/03 -restaging 11/05 improved/stable disease
Chemotherapy-induced anemia/thrombocytopenia s/p 1U PRBC & 1U SDP during hospitalization, counts recovering
HFrEF
new AF
Plan
Plan
Treatment of CHF per medicine/nephrology with diuresis, etc.
at bedside provided updates and questions answered
F/U with Dr. Silva scheduled Thursday 11/22.
Oncology will sign off.
Subjective/Objective
Chief Complaint
ACS Heme onc
Subjective
Continue diuresis.
Vital Signs:
Vital Signs
Temp Pulse Resp BP Pulse Ox
98.5 F 67 19 107/55 99
11/17/25 07:03 11/17/25 08:24 11/17/25 07:03 11/17/25 08:24 11/17/25 07:03
Lab Results:
Laboratory Data
WBC 27.0 10^3/uL (4.8-10.8) H 11/17/25 05:57
Hgb 9.4 g/dL (13.0-18.0) L 11/17/25 05:57
Plt Count 155 10^3/uL (130-400) 11/17/25 05:57
eGFR 42.30 11/17/25 05:57
Physical Exam
Cardiology: S1 and S2
Pulmonary: Clear
GI: Soft
[2025-11-17 11:05] VITALS: BP 105/55
[2025-11-17 11:54] LABS: Glucose - Point of Care 281 mg/dl (70-99)
[2025-11-17] MEDS: NOVOLOG FLEXPEN-MODERATE RESISTANCE 5 UNITS SC (12:15)
--- NOTE | 2025-11-17 13:22 | W.PN.NEPH.PH ---
Today's Communication / Plan
-
Replete potassium
Maintain IV diuretics
Assessment/Plan
-
Impression:
LAN (2.0) b/l 1.1
Congestive heart failure decompensation
Metabolic acidosis
Anemia
History of pancreatic cancer undergoing active chemotherapy with our friends at [place]
Diabetes
BPH
History of infected AAA
Coronary artery disease with history of PCI
Leukocytosis
Plan:
Likely discharge tomorrow
Will discharge on Lasix 80 mg p.o. twice daily
follow BMP
Replete potassium
metolazone daily with Lasix 80 IV twice daily for now
goal another ~10# diuresis
-
-
Date of Service: November 17, 2025
CC / HPI / ROS
-
Chief Complaint:
LAN
History of Present Illness:
LAN/Cr stable 1.7
BP stable
Potassium level
diuresing with lasix/metolazone
WBC up to 30
Review of Systems:
no cp or sob
weights down
Nonoliguric
Labs
-
Labs:
WBC 27.0 10^3/uL (4.8-10.8) H 11/17/25 05:57
RBC 2.82 10^6/uL (4.70-6.10) L 11/17/25 05:57
Hgb 9.4 g/dL (13.0-18.0) L 11/17/25 05:57
Hct 27.8 % (39.0-52.0) L 11/17/25 05:57
Plt Count 155 10^3/uL (130-400) 11/17/25 05:57
Sodium 134 mmol/L (135-145) L 11/17/25 05:57
Potassium 3.4 mmol/L (3.5-5.1) L 11/17/25 05:57
Chloride 97 mmol/L (98-107) L 11/17/25 05:57
Carbon Dioxide 29 mmol/L (22-30) 11/17/25 05:57
BUN 42 mg/dl (9-20) H 11/17/25 05:57
Creatinine 1.7 mg/dL (0.7-1.3) H 11/17/25 05:57
eGFR 42.30 11/17/25 05:57
Glucose 193 mg/dl (70-99) H 11/17/25 05:57
Calcium 8.2 mg/dl (8.4-10.2) L 11/17/25 05:57
Phosphorus 5.9 mg/dl (2.5-4.5) H 11/15/25 06:06
Dze-M-Bgolrmqaiyy Pept 8720 pg/ml 11/09/25 03:39
Albumin 3.3 g/dl (3.5-5.0) L 11/09/25 03:39
Physical Exam
-
Vital Signs:
Vital Signs
Temp Pulse Resp BP Pulse Ox
98.4 F 73 18 105/55 98
11/17/25 11:05 11/17/25 11:05 11/17/25 11:05 11/17/25 11:05 11/17/25 11:05
Cardiovascular:: Regular rate and rhythm
Respiratory:: Bilateral: CTA
Lung Excursion:: Normal
Abdomen:: Nontender and Soft
Bowel Sounds:: Normal
Extremity Edema:: +1: Bilateral:
Combs Catheter: No
[2025-11-17] MEDS: KCL 20 MEQ PO (13:32)
[2025-11-17] MEDS: ROBITUSSIN AC 5 ML PO (13:33)
--- NOTE | 2025-11-17 13:34 | W.PN.HOSP.TC ---
Today's Communication/Plan
-
Diuresis
K repletion
Monitor weights
Assessment / Plan
Assessment / Plan
Physical Exam
General: Obese, no acute distress
HEENT: Normocephalic, Atraumatic, EOMI, MMM
Respiratory: Clear to Auscultation bilaterally
Cardiac: Normal S1/S2, Regular Rate and Rhythm
GI: Soft, Nontender, Nondistended, Normal Bowel Sounds
Extremities: No Clubbing, Cyanosis
Severe bilateral lower extremity edema noted
Neuro: Nonfocal/Grossly Intact
HPI: 70 male history of pancreatic cancer actively undergoing chemotherapy at [facility], diabetes, HFrEF with known EF of 40 to 45% and stage III diastolic dysfunction who presents with evidence of volume overload with bilateral lower
extremity swelling and orthopnea. Last chemotherapy on 11 03. States typically after chemotherapy he develops volume overload usually improves however at this time did not. Lasix was increased recently from 40 mg to twice daily to 60 mg twice
daily without improvement. He states that his lowest weight was September 15 at 215 pound. Now he is 238 pounds.
#Acute heart failure with reduced ejection fraction
EF 43%; Grade 3 Diastolic dysfunction - no sig change from 08/2025
Lowest weight in September was 215 pounds, admission weight 238 pounds, weight is now downtrending;
Lasix to 80 mg IV twice daily on 11/12, and added metolazone 5 mg daily on 11/13
Fluid restrict, trend creatinine, trend daily weights
#Acute kidney injury
Possibly due to cardiorenal syndrome in conjunction chemo/Bactrim use
stop Bactrim, hold Jardiance, hold metformin
Cr improving at 1.5 today, was 2.0 upon admission
Nephrology following, no nephrotoxic drugs/NSAIDs, trend creatinine
#New onset atrial fibrillation on 11/13
#NSVT
08/26/25 Echo EF inferior and inferolateral hypokinesis, EF 40-45%. Stage III DD with restrictive filling
Cardiology following here, he is known to Dr. Avery
Started on Eliquis 5 mg twice a day
Coreg increased to 12.5 mg twice a day
#Hyponatremia
-monitor and replete
#Pancreatic cancer
Currently undergoing active chemo at [place]
Last chemo 11/03, outpatient follow-up
#Chemo-induced diarrhea
Start Lomotil as needed, continue simethicone as needed
#Leukocytosis
Patient is afebrile, CXR neg
Likely related to chemo, last treatment 11/03
Likely had GCSF 48hours after chemo which we would expect increase in wbc 5-10 days after GCSF
Blood cultures/UA negative
#Thrombocytopenia
Appreciate hematology input, status post 1 unit platelets on 11/10 due to hemorrhoidal bleeding and epistaxis
Improving
#Iron deficiency anemia
Appreciate hematology input, hemoglobin improved to 8.1, from 7.1, status post 1 unit packed red blood cells on 11/10
Hemoglobin continues to trend upward
Continue ferrous sulfate
#Hypokalemia
Repleted and resolved
#ENT infection
#Epistaxis
Prescribed Bactrim by ENT
Changed to Augmentin while here due to LAN -completed 10-day course
Epistaxis resolved, continue mupirocin
#Hemorrhoidal bleeding
Resolved, monitor
#Hyponatremia
-monitor
#Non-anion gap metabolic acidosis
Resolved status post sodium bicarb
#Type 2 diabetes
Hold metformin/Jardiance
Continue reduced glargine 15 units twice daily, increased novoLog 10 units AC 3 times daily
Diabetic diet, sliding scale insulin
#Hyponatremia
Monitor
#Transaminitis
Likely hepatic congestion from CHF
#Nonmyocardial injury troponin elevation
Likely from CHF
#History of infected AAA
#Endovascular repair complicated by bacteremia requiring open repair
Lifelong suppression with Keflex
#CAD s/p PCI
Continue aspirin, statin, vascepa
#BPH
Continue Flomax
#SAM
CPAP HS
#Obesity due to excess calories
Affects all aspects of care
DVT prophylaxis�trial HSQ
Full code
Updated at bedside 11/14
Total time spent on today's encounter was 51 minutes which included time spent in counseling the patient/family regarding diagnosis and treatment plan as listed above, goals of care, and symptom management. Case was discussed with nursing staff,
specialists, and care coordinators/case management. All labs and imaging personally reviewed by me. Remainder the time spent in detailed review of previous records, lab data, imaging, and other medical provider documentation.
Anticipated Discharge: 24 - 48 hours
Subjective/Interval History
-
Date of Service: November 17, 2025
No acute events overnight
Objective Data
-
Labs:
Laboratory Results
11/17/25
05:57
WBC 27.0 H
Hgb 9.4 L
Hct 27.8 L
Plt Count 155
Sodium 134 L
Potassium 3.4 L
Chloride 97 L
Carbon Dioxide 29
BUN 42 H
Creatinine 1.7 H
Glucose 193 H
Calcium 8.2 L
Vital Signs:
Vital Signs
Temp Pulse Resp BP Pulse Ox
98.4 F 73 18 105/55 98
11/17/25 11:05 11/17/25 11:05 11/17/25 11:05 11/17/25 11:05 11/17/25 11:05
I&O
11/16/25 11/17/25 11/18/25
06:59 06:59 06:59
Intake Total 780 / 780 530 / 530 720 / 720
Output Total 5050 / 5050 1350 / 1350 3075 / 3075
Balance -4270 / -4270 -820 / -820 -2355 / -2355
Review of Systems
-
History Source: Patient
All other systems: Not reviewed unless documented
Physical Exam
-
General: No Apparent Distress
HEENT: Normocephalic and Atraumatic
Respiratory: Negative Wheezes
Cardiac: Regular Rhythm and S1/S2
GI: Soft
Genito-urinary: No Costovertebral Tender
Musculoskeletal: No Edema
Neuro: AO x 3
Psych: Calm
Data Reviewed
-
Total Time Spent with Patient (in minutes): 41
Medical Tests (Nuc Med, Echo etc): Report Reviewed by me
Labs: Labs Reviewed by me
[2025-11-17 15:05] VITALS: BP 115/62
[2025-11-17] MEDS: NEURONTIN 100 MG PO (15:56)
[2025-11-17] MEDS: TYLENOL 650 MG PO (16:03)
[2025-11-17 16:58] LABS: Glucose - Point of Care 347 mg/dl (70-99)
--- NOTE | 2025-11-17 17:00 | CM ---
Spoke with patient in room .
Offered VN he declined need for VN at dc.
His will drive him home at dc.
PLAN Home no needs
[2025-11-17] MEDS: NOVOLOG FLEXPEN-MODERATE RESISTANCE 7 UNITS SC (17:36)
[2025-11-17] MEDS: VITAMIN D3 (cholecalciferol) 50 MCG PO (17:39)
[2025-11-17 19:00] VITALS: BP 109/57
[2025-11-17 20:34] LABS: Glucose - Point of Care 381 mg/dl (70-99)
[2025-11-17] MEDS: LOMOTIL 1 TABLET PO (20:37)
[2025-11-17] MEDS: NOVOLOG FLEXPEN 7 UNITS SC (20:42)
[2025-11-17 21:34] LABS: Glucose - Point of Care 338 mg/dl (70-99)
[2025-11-17] MEDS: FLOMAX 0.4 MG PO (21:34)
[2025-11-17] MEDS: NEURONTIN 200 MG PO (21:34)
[2025-11-17] MEDS: FEOSOL 325 MG PO (21:34)
[2025-11-17] MEDS: ULTRAM 50 MG PO (21:35)
[2025-11-17 23:00] VITALS: BP 100/54
[2025-11-18 03:00] VITALS: BP 104/59
[2025-11-18 06:00] VITALS: BMI 31.8
[2025-11-18 06:01] LABS: Hematocrit 30.6 % (39.0-52.0); Hemoglobin 9.9 g/dL (13.0-18.0); Mean Corp Hgb Conc. 32.4 g/dL (33.0-37.0); Mean Corpuscular Volume 99.0 fL (80.0-94.0); Platelet Count 180 10^3/uL (130-400); Red Cell Dist. Width 21.4 % (11.5-14.5)
[2025-11-18 06:25] LABS: Blood Urea Nitrogen 45 mg/dl (9-20); Calcium 7.9 mg/dl (8.4-10.2); Carbon Dioxide 29 mmol/L (22-30); Chloride 96 mmol/L (98-107); Estimated Creatinine Clearance 51 ml/min; Glucose 213 mg/dl (70-99); Potassium 3.4 mmol/L (3.5-5.1); Sodium 134 mmol/L (135-145); eGFR 49.16
[2025-11-18 07:05] VITALS: BP 120/63
[2025-11-18 07:50] LABS: Glucose - Point of Care 271 mg/dl (70-99)
[2025-11-18] MEDS: NOVOLOG FLEXPEN 10 UNITS SC ×2 (08:33→17:41)
[2025-11-18] MEDS: NON-FORMULARY ITEM PO ×3 (08:33→14:45)
[2025-11-18] MEDS: NOVOLOG FLEXPEN-MODERATE RESISTANCE 5 UNITS SC (08:34)
[2025-11-18] MEDS: BACTROBAN 2% OINTMENT 1 APPLIC NASAL ×3 (08:35→21:02)
[2025-11-18] MEDS: PEPCID 20 MG PO (08:36)
[2025-11-18] MEDS: TESSALON PERLES 200 MG PO ×3 (08:36→21:05)
[2025-11-18] MEDS: NON-FORMULARY ITEM 2 UNIT PO ×4 (08:36→21:03)
[2025-11-18] MEDS: KEFLEX 500 MG PO ×3 (08:37→21:01)
[2025-11-18] MEDS: FARXIGA 10 MG PO (08:37)
[2025-11-18] MEDS: LIPITOR 20 MG PO (08:37)
[2025-11-18] MEDS: ZAROXOLYN 5 MG PO (08:37)
[2025-11-18] MEDS: THERAGRAN 1 TABLET PO (08:37)
[2025-11-18] MEDS: ELIQUIS 5 MG PO ×2 (08:38→21:02)
[2025-11-18] MEDS: LASIX 80 MG IV (08:38)
[2025-11-18] MEDS: COREG 12.5 MG PO ×2 (08:38→21:04)
--- NOTE | 2025-11-18 09:26 | W.PN.CARDCBS ---
Addendum entered and electronically signed by Kirby Palomo MD 11/18/25 14:50:
I saw and examined the patient.
The Hand I Blocker's note was reviewed and I agree with the note.
Comment: Briefly, 70-year-old man past medical history of heart failure with mildly reduced ejection fraction (LVEF 40-45%) and pancreatic cancer on chemotherapy who presents in decompensated heart failure and found to have acute kidney injury
Appears nearly euvolemic with IV diuresis in combination with metolazone. Weight is down significantly.
Creatinine of 2.0 on admission downtrending now 1.5 suggestive of cardiorenal syndrome
Patient has had ongoing diarrhea which was worse overnight. Diuretics currently on hold to avoid precipitating intravascular volume depletion.
When diarrhea resolves would tentatively plan to transition back to oral Lasix. Appreciate nephrology input regarding diuretic dosing.
Discussed with at bedside as well as hospitalist
Original Note:
Today's Communication / Plan
-
Lasix IV and metolazone now on hold due to ongoing diarrhea
Weight is down as much as 26 lbs depending on accuracy of weights
Impression / Plan
-
PCP: Dr. Gomez Gunderson
Cardiology: Dr. Avery
Vascular: Dr. Newell
Impression:
Admitted with acute HF 11/09/2025
Acute on chronic HFrEF
Possible chemotherapy toxicity precipitating acute HF
Newly diagnosed paroxysmal atrial fibrillation starting 11/13/2025
NSVT
LAN
Pancreatic cancer managed at [facility]
Unable to have Whipple in 2023 due to liver mets down at time of surgery
Currently enrolled in trial at [facility] with gemcitabine, Abraxane and study drug (Quemliclustat) vs placebo since 05/2025
PAT
h/o PVCs
Mixed ischemic and nonischemic CM EF 40 to 45% by echo 08/26/2025
EF 50 to 55% by echo 12/16/2024
CAD s/p 3 mm Xience to mid Circ and 3 mm Xience to prox RCA 09/22/19
Flash pulmonary edema at time of cath 09/22/19
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
Endovascular AAA repair with graft 03/01/19
h/o MSSA bacteremia
DM 2
Hypertension
Hyperlipidemia
Obstructive sleep apnea on CPAP
Diffuse fatty liver, hepatomegaly
Anemia
Obesity
Echo 12/16/2024: Ejection fraction 50 to 55%, basal to mid inferior and inferolateral hypokinesis, PA systolic 47 mmHg with mild to moderate TR
Echo 08/26/2025: EF 40 to 45%, stage III diastolic dysfunction, GLS reduced at -9.8%, mild MR, aortic sclerosis without stenosis, normal RV size and function, compared to echo 12/2024 for GLS was -11.3% and EF was 50 to 55%
Echo 11/15/2025: EF 43%, inferior and inferolateral hypokinesis, grade 3 diastolic dysfunction, normal RV size and function, aortic sclerosis without stenosis, mild MR, mild TR, trivial pericardial effusion
Plan:
-Patient was admitted with acute HF on 11/09/2025 and cardiology later consulted on 11/11/2025 for NSVT and PVCs.
-Nephrology following and patient is being diuresed with Lasix 80 mg IV BID. Weight down to 212 lbs on my review of VS 11/18/2025. Patient received a dose of Lasix 80 mg IV plus metolazone 5 mg on the morning of 11/18/2025, those medications are
now on hold due to ongoing diarrhea.
-EF stable at 43% by echo 11/15/2025, EF had been 40 to 45% by echo 08/26/2025 and prior to that EF was 50 to 55% by echo 12/16/2024.
-Patient is new to Coreg 12.5 mg BID this admission. Patient was previously intolerant to Toprol-XL back in 2019 due to fatigue.
-Patient cannot receive RAY/ARB due to a history of angioedema with both lisinopril and Benicar in the past.
-Outpatient dose of Jardiance 10 mg daily was changed to Farxiga due to formulary reasons and Jardiance should be resumed upon discharge to home.
-NSVT earlier this admission was associated with normal potassium and magnesium despite IV diuresis.
-Patient is tolerating the addition of Coreg 12.5 mg
-No plans for ischemic evaluation at this time given pancreatic cancer and current concerns for chemotherapy toxicity
-Patient has a history of CAD with circumflex and RCA PCI in 2019 and when EF was low with PVCs and NSVT in 2019 there was consideration for EP study and ICD implantation, but this was deferred because EF improved and there was concern for recurrent
endovascular infection. EF is now down again, but now receiving intermittent transfusions of PRBCs and platelets related to his cancer treatment.
-Patient noted to have newly diagnosed A-fib on 11/13/2025 and then spontaneously converted to SR on 11/14/2025. Patient was asymptomatic with A-fib.
-New to Eliquis 5 mg BID (age 70, Cre 1.5, wt 96.298 kg)
HPI: Patient came to the ER on Saturday with weight gain and LE edema concerning for acute HF prompting admission, cardiology is now consulted for NSVT. Patient was last seen in the cardiology office on 09/14/2025, he has been seen on a regular
basis due to intermittent edema and volume overload that seems to be associated with his chemotherapy treatment he is undergoing at [facility]. Patient was diagnosed with pancreatic cancer in 2023 and originally was going to have a Whipple procedure, but
at time of surgery he was found to have liver lesions and procedure was canceled, treatment since then has been chemotherapy only. Patient is currently involved in a trial at [facility] with possible drug cocktail outlined above. Patient's reports
that treatment was supposed to be every Saturday for 3 weeks and then off 1 week, but patient has never successfully completed 3 [id number] treatments with infusions being canceled for anemia and thrombocytopenia. During the patient's last
several rounds of chemotherapy he has had increased LE edema and weight gain which has been treated with escalating doses of Lasix as an outpatient. Patient was taking Lasix 40 mg PO BID and then the dose was increased to 60 mg PO BID through this
past weekend without any improvement in edema so he came to the ER. Patient is about 30 pounds above his dry weight. Patient had LAN with Cre as high as 2.0 on admission and nephrology was consulted and has been managing volume status. Cre
improved to 1.7 on my review of labs 11/11/2025. LE edema is improved and weight is down about 8 lbs with Lasix 60 mg IV BID diuresis. Cardiology was consulted today because of NSVT on telemetry. Patient also noted to have an episode of PAT.
Patient has a history of NSVT and PVCs prompting EP evaluation in the office back on 02/02/2020, at that time his EF was 40 to 45% and he was recommended EP study for consideration of ICD, but this was ultimately deferred due to his previous
endovascular infection involving his AAA endograft from 2019. In that time the EF improved to 50 to 55%. Patient had previously been treated with Toprol-XL but was intolerant due to fatigue. Patient denies any palpitations or lightheadedness.
Progress Note - Retail Account Executive
Subjective
Date of Service: November 18, 2025
He has ongoing diarrhea
Objective
Labs:
11/18/25 05:36
11/18/25 05:36
Labs
Hgb 9.9 g/dL (13.0-18.0) L 11/18/25 05:36
Hct 30.6 % (39.0-52.0) L 11/18/25 05:36
Plt Count 180 10^3/uL (130-400) 11/18/25 05:36
Sodium 134 mmol/L (135-145) L 11/18/25 05:36
Potassium 3.4 mmol/L (3.5-5.1) L 11/18/25 05:36
BUN 45 mg/dl (9-20) H 11/18/25 05:36
Creatinine 1.5 mg/dL (0.7-1.3) H 11/18/25 05:36
Glucose 213 mg/dl (70-99) H 11/18/25 05:36
Vital Signs and I&O:
Vital Signs
Temp Pulse Resp BP Pulse Ox
97.7 F 74 18 120/63 99
11/18/25 07:05 11/18/25 08:37 11/18/25 07:05 11/18/25 08:37 11/18/25 07:05
Vital Signs
Temp Pulse Resp BP Pulse Ox
97.7 F 74 18 120/63 99
11/18/25 07:05 11/18/25 08:37 11/18/25 07:05 11/18/25 08:37 11/18/25 07:05
Intake & Output
11/16/25 11/17/25 11/18/25 11/19/25
06:59 06:59 06:59 06:59
Intake Total 780 / 780 530 / 530 1860 / 1860
Output Total 5050 / 5050 1350 / 1350 6895 / 6895
Balance -4270 / -4270 -820 / -820 -5035 / -5035
Physical Exam
Physical Exam
GEN: NAD, AAO x 3
LUNGS: Wearing CPAP while trying to take a nap in bed. No audible wheeze
CV: SR on telemetry. Reg
EXT: + trace B/L LE edema.
NEURO: Gross non-focal
SKIN: Warm, dry and pink. No rash
[2025-11-18] MEDS: KCL ELIXIR 40 MEQ PO (09:34)
[2025-11-18] MEDS: LANTUS 0.15 UNITS SC (09:34)
[2025-11-18 11:05] VITALS: BP 116/95
[2025-11-18 11:41] LABS: Glucose - Point of Care 268 mg/dl (70-99)
--- NOTE | 2025-11-18 12:31 | W.PN.NEPH.PH ---
Today's Communication / Plan
-
Hold diuretics with acute diarrhea and start p.o. twice daily tomorrow
Assessment/Plan
-
Impression:
LAN (2.0) b/l 1.1
Congestive heart failure decompensation
Metabolic acidosis
Anemia
History of pancreatic cancer undergoing active chemotherapy with our friends at [facility]
Diabetes
BPH
History of infected AAA
Coronary artery disease with history of PCI
Leukocytosis
Plan:
Will discharge on Lasix 80 mg p.o. twice daily
follow BMP
Replete potassium
Significant diarrhea last night hold for today and initiate p.o. tomorrow
Discussed with the family and primary hospitalist
-
-
Date of Service: November 18, 2025
CC / HPI / ROS
-
Chief Complaint:
LAN
History of Present Illness:
LAN/Cr stable
BP stable
Potassium level
diuresing with lasix/metolazone
WBC up to 30
Review of Systems:
no cp or sob
weights down
Nonoliguric
New diarrhea
Labs
-
Labs:
WBC 26.3 10^3/uL (4.8-10.8) H 11/18/25 05:36
RBC 3.09 10^6/uL (4.70-6.10) L 11/18/25 05:36
Hgb 9.9 g/dL (13.0-18.0) L 11/18/25 05:36
Hct 30.6 % (39.0-52.0) L 11/18/25 05:36
Plt Count 180 10^3/uL (130-400) 11/18/25 05:36
Sodium 134 mmol/L (135-145) L 11/18/25 05:36
Potassium 3.4 mmol/L (3.5-5.1) L 11/18/25 05:36
Chloride 96 mmol/L (98-107) L 11/18/25 05:36
Carbon Dioxide 29 mmol/L (22-30) 11/18/25 05:36
BUN 45 mg/dl (9-20) H 11/18/25 05:36
Creatinine 1.5 mg/dL (0.7-1.3) H 11/18/25 05:36
eGFR 49.16 11/18/25 05:36
Glucose 213 mg/dl (70-99) H 11/18/25 05:36
Calcium 7.9 mg/dl (8.4-10.2) L 11/18/25 05:36
Phosphorus 5.9 mg/dl (2.5-4.5) H 11/15/25 06:06
Nzj-Q-Dzxtlxtnxvj Pept 8720 pg/ml 11/09/25 03:39
Albumin 3.3 g/dl (3.5-5.0) L 11/09/25 03:39
Physical Exam
-
Vital Signs:
Vital Signs
Temp Pulse Resp BP Pulse Ox
97.3 F 70 17 116/95 99
11/18/25 11:05 11/18/25 11:05 11/18/25 11:05 11/18/25 11:05 11/18/25 11:05
Cardiovascular:: Regular rate and rhythm
Respiratory:: Bilateral: CTA
Lung Excursion:: Normal
Abdomen:: Nontender and Soft
Bowel Sounds:: Normal
Extremity Edema:: +1: Bilateral:
Combs Catheter: No
--- NOTE | 2025-11-18 14:09 | CM ---
patient declines VN
per note Hold diuretics with acute diarrhea and start p.o. twice daily tomorrow
tentative dc tomorrow
PLAN: Home, no needs, when stable
to transport
--- NOTE | 2025-11-18 14:12 | W.PN.HOSP.TC ---
Today's Communication/Plan
-
hold diuretics
monitor n/v/d
Assessment / Plan
Assessment / Plan
Physical Exam
General: Obese, no acute distress
HEENT: Normocephalic, Atraumatic, EOMI, MMM
Respiratory: Clear to Auscultation bilaterally
Cardiac: Normal S1/S2, Regular Rate and Rhythm
GI: Soft, Nontender, Nondistended, Normal Bowel Sounds
Extremities: No Clubbing, Cyanosis
Severe bilateral lower extremity edema noted
Neuro: Nonfocal/Grossly Intact
HPI: 70 male history of pancreatic cancer actively undergoing chemotherapy at [facility], diabetes, HFrEF with known EF of 40 to 45% and stage III diastolic dysfunction who presents with evidence of volume overload with bilateral lower
extremity swelling and orthopnea. Last chemotherapy on 11 03. States typically after chemotherapy he develops volume overload usually improves however at this time did not. Lasix was increased recently from 40 mg to twice daily to 60 mg twice
daily without improvement. He states that his lowest weight was September 15 at 215 pound. Now he is 238 pounds.
#Acute heart failure with reduced ejection fraction
EF 43%; Grade 3 Diastolic dysfunction - no sig change from 08/2025
Lowest weight in September was 215 pounds, admission weight 238 pounds, weight is now downtrending;
Lasix to 80 mg IV twice daily on 11/12, and added metolazone 5 mg daily on 11/13 - holding today due to diarrhea/vomiting
Fluid restrict, trend creatinine, trend daily weights
#Nausea, Vomtiing, Diarrhea
-likely viral-norovirus, cdiff negative
-F/u stool cultures
-CLD, ADAT
-Abd non tender, nondistended
-if worsening or abd becomes tender - ct imaging f/u
#Acute kidney injury
Possibly due to cardiorenal syndrome in conjunction chemo/Bactrim use
stop Bactrim, hold Jardiance, hold metformin
Cr improving at 1.5 today, was 2.0 upon admission
Nephrology following, no nephrotoxic drugs/NSAIDs, trend creatinine
#Hypokalemia
-monitor and replete
#New onset atrial fibrillation on 11/13
#NSVT
08/26/25 Echo EF inferior and inferolateral hypokinesis, EF 40-45%. Stage III DD with restrictive filling
Cardiology following here, he is known to Dr. Avery
Started on Eliquis 5 mg twice a day
Coreg increased to 12.5 mg twice a day
#Hyponatremia
-monitor
#Pancreatic cancer
Currently undergoing active chemo at [facility]
Last chemo 11/03, outpatient follow-up
#Chemo-induced diarrhea - current episode not similar to current one
Start Lomotil as needed, continue simethicone as needed
#Leukocytosis
Patient is afebrile, CXR neg
Likely related to chemo, last treatment 11/03
Likely had GCSF 48hours after chemo which we would expect increase in wbc 5-10 days after GCSF
Blood cultures/UA negative
#Thrombocytopenia
Appreciate hematology input, status post 1 unit platelets on 11/10 due to hemorrhoidal bleeding and epistaxis
Improving
#Iron deficiency anemia
Appreciate hematology input, hemoglobin improved to 8.1, from 7.1, status post 1 unit packed red blood cells on 11/10
Hemoglobin continues to trend upward
Continue ferrous sulfate
#Hypokalemia
Repleted and resolved
#ENT infection
#Epistaxis
Prescribed Bactrim by ENT
Changed to Augmentin while here due to LAN -completed 10-day course
Epistaxis resolved, continue mupirocin
#Hemorrhoidal bleeding
Resolved, monitor
#Hyponatremia
-monitor
#Non-anion gap metabolic acidosis
Resolved status post sodium bicarb
#Type 2 diabetes
Hold metformin/Jardiance
Continue reduced glargine 15 units twice daily, increased novoLog 10 units AC 3 times daily
Diabetic diet, sliding scale insulin
#Hyponatremia
Monitor
#Transaminitis
Likely hepatic congestion from CHF
#Nonmyocardial injury troponin elevation
Likely from CHF
#History of infected AAA
#Endovascular repair complicated by bacteremia requiring open repair
Lifelong suppression with Keflex
#CAD s/p PCI
Continue aspirin, statin, vascepa
#BPH
Continue Flomax
#SAM
CPAP HS
#Obesity due to excess calories
Affects all aspects of care
DVT prophylaxis�trial HSQ
Full code
Updated at bedside 11/14
Total time spent on today's encounter was 53 minutes which included time spent in counseling the patient/family regarding diagnosis and treatment plan as listed above, goals of care, and symptom management. Case was discussed with nursing staff,
specialists, and care coordinators/case management. All labs and imaging personally reviewed by me. Remainder the time spent in detailed review of previous records, lab data, imaging, and other medical provider documentation.
Anticipated Discharge: 24 - 48 hours
Subjective/Interval History
-
Date of Service: November 18, 2025
diarrhea, vomiting today
Objective Data
-
Labs:
Laboratory Results
11/18/25
05:36
WBC 26.3 H
Hgb 9.9 L
Hct 30.6 L
Plt Count 180
Sodium 134 L
Potassium 3.4 L
Chloride 96 L
Carbon Dioxide 29
BUN 45 H
Creatinine 1.5 H
Glucose 213 H
Calcium 7.9 L
Vital Signs:
Vital Signs
Temp Pulse Resp BP Pulse Ox
97.3 F 70 17 116/95 99
11/18/25 11:05 11/18/25 11:05 11/18/25 11:05 11/18/25 11:05 11/18/25 11:05
I&O
11/17/25 11/18/25 11/19/25
06:59 06:59 06:59
Intake Total 530 / 530 1860 / 1860
Output Total 1350 / 1350 6895 / 6895
Balance -820 / -820 -5035 / -5035
Review of Systems
-
History Source: Patient
All other systems: Not reviewed unless documented
Physical Exam
-
General: No Apparent Distress
HEENT: Normocephalic and Atraumatic
Respiratory: Negative Wheezes
Cardiac: Regular Rhythm and S1/S2
GI: Soft
Genito-urinary: No Costovertebral Tender
Musculoskeletal: No Edema
Neuro: AO x 3
Psych: Calm
Data Reviewed
-
Total Time Spent with Patient (in minutes): 41
Medical Tests (Nuc Med, Echo etc): Report Reviewed by me
Labs: Labs Reviewed by me
[2025-11-18] MEDS: NOVOLOG FLEXPEN SC (14:46)
[2025-11-18] MEDS: NOVOLOG FLEXPEN-MODERATE RESISTANCE SC (14:46)
[2025-11-18 15:05] VITALS: BP 105/54
[2025-11-18 17:28] LABS: Glucose - Point of Care 220 mg/dl (70-99)
[2025-11-18] MEDS: NOVOLOG FLEXPEN-MODERATE RESISTANCE 3 UNITS SC (17:42)
[2025-11-18] MEDS: VITAMIN D3 (cholecalciferol) 50 MCG PO (17:43)
[2025-11-18 19:00] VITALS: BP 109/56
[2025-11-18] MEDS: TUMS CHEWABLE TABLET 400 MG PO (20:59)
[2025-11-18] MEDS: FLOMAX 0.4 MG PO (21:00)
[2025-11-18] MEDS: ULTRAM 50 MG PO (21:00)
[2025-11-18] MEDS: FEOSOL 325 MG PO (21:00)
[2025-11-18] MEDS: NEURONTIN 200 MG PO (21:01)
[2025-11-18] MEDS: LANTUS 0.2 UNITS SC (21:07)
[2025-11-18 21:10] LABS: Glucose - Point of Care 220 mg/dl (70-99)
[2025-11-18 23:00] VITALS: BP 118/57
[2025-11-19 03:00] VITALS: BP 100/58
[2025-11-19 06:00] VITALS: BMI 31.4
[2025-11-19 06:19] LABS: Hematocrit 29.7 % (39.0-52.0); Hemoglobin 9.9 g/dL (13.0-18.0); Mean Corp Hgb Conc. 33.3 g/dL (33.0-37.0); Mean Corpuscular Volume 98.3 fL (80.0-94.0); Platelet Count 186 10^3/uL (130-400); Red Cell Dist. Width 21.5 % (11.5-14.5)
[2025-11-19 07:24] LABS: Blood Urea Nitrogen 47 mg/dl (9-20); Calcium 8.1 mg/dl (8.4-10.2); Carbon Dioxide 26 mmol/L (22-30); Chloride 93 mmol/L (98-107); Estimated Creatinine Clearance 44 ml/min; Glucose 185 mg/dl (70-99); Magnesium 2.4 mg/dl (1.6-2.3); Potassium 3.6 mmol/L (3.5-5.1); Sodium 132 mmol/L (135-145); eGFR 42.30
[2025-11-19 07:40] LABS: Glucose - Point of Care 223 mg/dl (70-99)
[2025-11-19 07:47] VITALS: BP 112/53
[2025-11-19] MEDS: NOVOLOG FLEXPEN 10 UNITS SC ×2 (07:47→12:08)
[2025-11-19] MEDS: NON-FORMULARY ITEM 2 UNIT PO ×2 (07:47→08:59)
[2025-11-19] MEDS: NOVOLOG FLEXPEN-MODERATE RESISTANCE 3 UNITS SC (07:48)
[2025-11-19] MEDS: LANTUS 0.15 UNITS SC (08:57)
[2025-11-19] MEDS: KEFLEX 500 MG PO (08:57)
[2025-11-19] MEDS: PEPCID 20 MG PO (08:57)
[2025-11-19] MEDS: LIPITOR 20 MG PO (08:58)
[2025-11-19] MEDS: ELIQUIS 5 MG PO (08:58)
[2025-11-19] MEDS: COREG 12.5 MG PO (08:58)
[2025-11-19] MEDS: TESSALON PERLES 200 MG PO (08:58)
[2025-11-19] MEDS: FARXIGA 10 MG PO (08:58)
[2025-11-19] MEDS: THERAGRAN 1 TABLET PO (08:58)
[2025-11-19] MEDS: BACTROBAN 2% OINTMENT 1 APPLIC NASAL (09:01)
--- NOTE | 2025-11-19 10:11 | W.PN.CARDCBS ---
Today's Communication / Plan
-
Resume PO lasix per nephrology recommendations.
Continue carvedilol 12.5mg BID, Jardiance 10mg daliy at discharge.
Continue Eliquis 5mg BID
Follow up arranged.
Impression / Plan
-
PCP: Dr. Gomez Gunderson
Cardiology: Dr. Avery
Vascular: Dr. Newell
Impression:
Admitted with acute HF 11/09/2025
Acute on chronic HFrEF
Possible chemotherapy toxicity precipitating acute HF
Newly diagnosed paroxysmal atrial fibrillation starting 11/13/2025
NSVT
LAN
Pancreatic cancer managed at [facility]
Unable to have Whipple in 2023 due to liver mets down at time of surgery
Currently enrolled in trial at [facility] with gemcitabine, Abraxane and study drug (Quemliclustat) vs placebo since 05/2025
PAT
h/o PVCs
Mixed ischemic and nonischemic CM EF 40 to 45% by echo 08/26/2025
EF 50 to 55% by echo 12/16/2024
CAD s/p 3 mm Xience to mid Circ and 3 mm Xience to prox RCA 09/22/19
Flash pulmonary edema at time of cath 09/22/19
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
Endovascular AAA repair with graft 03/01/19
h/o MSSA bacteremia
DM 2
Hypertension
Hyperlipidemia
Obstructive sleep apnea on CPAP
Diffuse fatty liver, hepatomegaly
Anemia
Obesity
Echo 12/16/2024: Ejection fraction 50 to 55%, basal to mid inferior and inferolateral hypokinesis, PA systolic 47 mmHg with mild to moderate TR
Echo 08/26/2025: EF 40 to 45%, stage III diastolic dysfunction, GLS reduced at -9.8%, mild MR, aortic sclerosis without stenosis, normal RV size and function, compared to echo 12/2024 for GLS was -11.3% and EF was 50 to 55%
Echo 11/15/2025: EF 43%, inferior and inferolateral hypokinesis, grade 3 diastolic dysfunction, normal RV size and function, aortic sclerosis without stenosis, mild MR, mild TR, trivial pericardial effusion
Plan:
-Patient was admitted with acute HF on 11/09/2025. Nephrology following.
-Diuresed earlier in admission with IV lasix 80mg BID, now on hold due to diarrhea. Weight down to 209 lbs on 11/19.
-Diarrhea resolved. Nephrology recommended restarting 80mg BID.
-EF 43% by echo 11/15 as noted above.
-Continue carvedilol 12.5mg BID and Jardiance 10mg daily (on Farxiga 10mg daily while inpt due to formulary)
-Not on RYA/ARB due to h/o angioedema w/ lisinopril and benicar in the past.
-No plans for ischemic evaluation at this time given pancreatic cancer and current concerns for chemotherapy toxicity.
-Known h/o CAD w/ prior circumflex and RCA PCI in 2018.
-Previously there had been consideration for EP study and ICD implantation, but deferred because EF improved and there was concern fo recurrent endovascular infection. Continue to follow EF.
-New afib noted this admission. Spontaneously converted to SR and remains in SR on review of tele. Asymptomatic w/ afib.
-Continue Eliquis 5mg BID
-Follow up arranged.
HPI: Patient came to the ER on Saturday with weight gain and LE edema concerning for acute HF prompting admission, cardiology is now consulted for NSVT. Patient was last seen in the cardiology office on 09/14/2025, he has been seen on a regular
basis due to intermittent edema and volume overload that seems to be associated with his chemotherapy treatment he is undergoing at [facility]. Patient was diagnosed with pancreatic cancer in 2023 and originally was going to have a Whipple procedure, but
at time of surgery he was found to have liver lesions and procedure was canceled, treatment since then has been chemotherapy only. Patient is currently involved in a trial at [facility] with possible drug cocktail outlined above. Patient's reports
that treatment was supposed to be every Saturday for 3 weeks and then off 1 week, but patient has never successfully completed 3 [id number] treatments with infusions being canceled for anemia and thrombocytopenia. During the patient's last
several rounds of chemotherapy he has had increased LE edema and weight gain which has been treated with escalating doses of Lasix as an outpatient. Patient was taking Lasix 40 mg PO BID and then the dose was increased to 60 mg PO BID through this
past weekend without any improvement in edema so he came to the ER. Patient is about 30 pounds above his dry weight. Patient had LAN with Cre as high as 2.0 on admission and nephrology was consulted and has been managing volume status. Cre
improved to 1.7 on my review of labs 11/11/2025. LE edema is improved and weight is down about 8 lbs with Lasix 60 mg IV BID diuresis. Cardiology was consulted today because of NSVT on telemetry. Patient also noted to have an episode of PAT.
Patient has a history of NSVT and PVCs prompting EP evaluation in the office back on 02/02/2020, at that time his EF was 40 to 45% and he was recommended EP study for consideration of ICD, but this was ultimately deferred due to his previous
endovascular infection involving his AAA endograft from 2019. In that time the EF improved to 50 to 55%. Patient had previously been treated with Toprol-XL but was intolerant due to fatigue. Patient denies any palpitations or lightheadedness.
Progress Note - Document Management Technician
Subjective
Date of Service: November 19, 2025
Feeling well. Diarrhea resolved. No SOB.
Objective
Labs:
11/19/25 06:10
11/19/25 06:10
Labs
Hgb 9.9 g/dL (13.0-18.0) L 11/19/25 06:10
Hct 29.7 % (39.0-52.0) L 11/19/25 06:10
Plt Count 186 10^3/uL (130-400) 11/19/25 06:10
Sodium 132 mmol/L (135-145) L 11/19/25 06:10
Potassium 3.6 mmol/L (3.5-5.1) 11/19/25 06:10
BUN 47 mg/dl (9-20) H 11/19/25 06:10
Creatinine 1.7 mg/dL (0.7-1.3) H 11/19/25 06:10
Glucose 185 mg/dl (70-99) H 11/19/25 06:10
Vital Signs and I&O:
Vital Signs
Temp Pulse Resp BP Pulse Ox
98.5 F 75 20 112/53 97
11/19/25 07:47 11/19/25 07:47 11/19/25 07:47 11/19/25 07:47 11/19/25 07:47
Vital Signs
Temp Pulse Resp BP Pulse Ox
98.5 F 75 20 112/53 97
11/19/25 07:47 11/19/25 07:47 11/19/25 07:47 11/19/25 07:47 11/19/25 07:47
Intake & Output
11/17/25 11/18/25 11/19/25 11/20/25
06:59 06:59 06:59 06:59
Intake Total 530 / 530 1860 / 1860 960 / 960
Output Total 1350 / 1350 6895 / 6895 1800 / 1800
Balance -820 / -820 -5035 / -5035 -840 / -840
Physical Exam
Physical Exam
GEN: No distress, awake, alert, oriented x3
HEENT: supple, anicteric, mmm
LUNGS: CTA b/l, no wheezes/rales
CV: Reg, S1/S2, no murmur
EXT: No clubbing or cyanosis +1 edema b/l LE
NEURO: Gross non-focal
SKIN: Warm, dry, no rash
[2025-11-19 11:11] VITALS: BP 103/60
[2025-11-19 11:41] LABS: Glucose - Point of Care 181 mg/dl (70-99)
--- NOTE | 2025-11-19 11:53 | W.PN.NEPH.PH ---
Today's Communication / Plan
-
dc
Assessment/Plan
-
Impression:
LAN (2.0) b/l 1.1
Congestive heart failure decompensation
Metabolic acidosis
Anemia
History of pancreatic cancer undergoing active chemotherapy with our friends at [facility]
Diabetes
BPH
History of infected AAA
Coronary artery disease with history of PCI
Leukocytosis
Plan:
lasix 40mg po daily for now given excellent UOP still
they can increase at home if needed
OP appt in our office with Dr. Suzanne Rowan
-
-
Date of Service: November 19, 2025
CC / HPI / ROS
-
Chief Complaint:
LAN
History of Present Illness:
LAN/Cr stable 1.7
BP stable
Potassium level nl 3.6
diuresing without lasix still
Review of Systems:
no cp or sob
weights down
Nonoliguric
no diarrhea
Labs
-
Labs:
WBC 20.0 10^3/uL (4.8-10.8) H 11/19/25 06:10
RBC 3.02 10^6/uL (4.70-6.10) L 11/19/25 06:10
Hgb 9.9 g/dL (13.0-18.0) L 11/19/25 06:10
Hct 29.7 % (39.0-52.0) L 11/19/25 06:10
Plt Count 186 10^3/uL (130-400) 11/19/25 06:10
Sodium 132 mmol/L (135-145) L 11/19/25 06:10
Potassium 3.6 mmol/L (3.5-5.1) 11/19/25 06:10
Chloride 93 mmol/L (98-107) L 11/19/25 06:10
Carbon Dioxide 26 mmol/L (22-30) 11/19/25 06:10
BUN 47 mg/dl (9-20) H 11/19/25 06:10
Creatinine 1.7 mg/dL (0.7-1.3) H 11/19/25 06:10
eGFR 42.30 11/19/25 06:10
Glucose 185 mg/dl (70-99) H 11/19/25 06:10
Calcium 8.1 mg/dl (8.4-10.2) L 11/19/25 06:10
Phosphorus 5.9 mg/dl (2.5-4.5) H 11/15/25 06:06
Ocs-T-Kpttmbebhph Pept 8720 pg/ml 11/09/25 03:39
Albumin 3.3 g/dl (3.5-5.0) L 11/09/25 03:39
Physical Exam
-
Vital Signs:
Vital Signs
Temp Pulse Resp BP Pulse Ox
99.0 F 74 20 103/60 98
11/19/25 11:11 11/19/25 11:11 11/19/25 11:11 11/19/25 11:11 11/19/25 11:11
Cardiovascular:: Regular rate and rhythm
Respiratory:: Bilateral: Coarse
Lung Excursion:: Normal
Abdomen:: Nontender and Soft
Bowel Sounds:: Normal
Extremity Edema:: +3: Bilateral:
[2025-11-19] MEDS: NON-FORMULARY ITEM 1 UNIT PO (12:06)
[2025-11-19] MEDS: NOVOLOG FLEXPEN-MODERATE RESISTANCE 1 UNITS SC (12:08)
--- NOTE | 2025-11-19 12:25 | W.PN.HOSP.TC ---
Addendum entered and electronically signed by Deondre Burgos MD 11/20/25 16:02:
[id number]
Original Note:
Today's Communication/Plan
-
Eliquis, jardiance
Resume home DM regimen
40mg lasix daily, titrate up if needed outpt
f/u nephro next saturday, f/u cards, pcp outpt
f/u labs next week
Assessment / Plan
Assessment / Plan
Physical Exam
General: Obese, no acute distress
HEENT: Normocephalic, Atraumatic, EOMI, MMM
Respiratory: Clear to Auscultation bilaterally
Cardiac: Normal S1/S2, Regular Rate and Rhythm
GI: Soft, Nontender, Nondistended, Normal Bowel Sounds
Extremities: No Clubbing, Cyanosis
Severe bilateral lower extremity edema noted
Neuro: Nonfocal/Grossly Intact
HPI: 70 male history of pancreatic cancer actively undergoing chemotherapy at [facility], diabetes, HFrEF with known EF of 40 to 45% and stage III diastolic dysfunction who presents with evidence of volume overload with bilateral lower
extremity swelling and orthopnea. Last chemotherapy on 11 03. States typically after chemotherapy he develops volume overload usually improves however at this time did not. Lasix was increased recently from 40 mg to twice daily to 60 mg twice
daily without improvement. He states that his lowest weight was September 15 at 215 pound. Now he is 238 pounds.
#Acute heart failure with reduced ejection fraction
EF 43%; Grade 3 Diastolic dysfunction - no sig change from 08/2025
Lowest weight in September was 215 pounds, admission weight 238 pounds, weight is now downtrending;
Lasix to 80 mg IV twice daily on 11/12, and added metolazone 5 mg daily on 11/13 - was held due to diarrhea/vomiting - resolved - can go on lasix 40mg daily
Fluid restrict, trend creatinine, trend daily weights
#Nausea, Vomtiing, Diarrhea, self resolved
-likely viral; norovirus, cdiff negative
-Toleratign LRD
-Abd non tender, nondistended
#Acute kidney injury
Possibly due to cardiorenal syndrome in conjunction chemo/Bactrim use
stop Bactrim, hold Jardiance, hold metformin
Cr improving; was 2.0 upon admission
Nephrology following, no nephrotoxic drugs/NSAIDs, trend creatinine
F/u bmp outpt; has renal appt next saturday
#Hypokalemia
-monitor and replete
#New onset atrial fibrillation on 11/13
#NSVT
08/26/25 Echo EF inferior and inferolateral hypokinesis, EF 40-45%. Stage III DD with restrictive filling
Cardiology following here, he is known to Dr. Avery
Started on Eliquis 5 mg twice a day
Coreg increased to 12.5 mg twice a day
#Hyponatremia
-monitor
#Pancreatic cancer
Currently undergoing active chemo at [facility]
Last chemo 11/03, outpatient follow-up
#Chemo-induced diarrhea - current episode not similar to current one
Start Lomotil as needed, continue simethicone as needed
#Leukocytosis
Patient is afebrile, CXR neg
Likely related to chemo, last treatment 11/03
Likely had GCSF 48hours after chemo which we would expect increase in wbc 5-10 days after GCSF
Blood cultures/UA negative
#Thrombocytopenia
Appreciate hematology input, status post 1 unit platelets on 11/10 due to hemorrhoidal bleeding and epistaxis
Improving
#Iron deficiency anemia
Appreciate hematology input, hemoglobin improved to 8.1, from 7.1, status post 1 unit packed red blood cells on 11/10
Hemoglobin continues to trend upward
Continue ferrous sulfate
#Hypokalemia
Repleted and resolved
#ENT infection
#Epistaxis
Prescribed Bactrim by ENT
Changed to Augmentin while here due to LAN -completed 10-day course
Epistaxis resolved, continue mupirocin
#Hemorrhoidal bleeding
Resolved, monitor
#Hyponatremia
-monitor
#Non-anion gap metabolic acidosis
Resolved status post sodium bicarb
#Type 2 diabetes
Resume metformin/Jardiance
Continue home insulin
Diabetic diet, sliding scale insulin
#Hyponatremia
Monitor
#Transaminitis
Likely hepatic congestion from CHF
#Nonmyocardial injury troponin elevation
Likely from CHF
#History of infected AAA
#Endovascular repair complicated by bacteremia requiring open repair
Lifelong suppression with Keflex
#CAD s/p PCI
Continue aspirin, statin, vascepa
#BPH
Continue Flomax
#SAM
CPAP HS
#Obesity due to excess calories
Affects all aspects of care
DVT prophylaxis�trial HSQ
Full code
Updated at bedside
More than 30 minutes spent in discharge including
Final examination of the patient
Summarizing hospital stay
Instructions for continuing care to all relevant caregivers
Preparation of discharge records, prescriptions, and referral forms
Total time spent (in minutes): 36
Anticipated Discharge: Today
Subjective/Interval History
-
Date of Service: November 19, 2025
GI symptoms improved
Objective Data
-
Labs:
Laboratory Results
11/19/25
06:10
WBC 20.0 H
Hgb 9.9 L
Hct 29.7 L
Plt Count 186
Sodium 132 L
Potassium 3.6
Chloride 93 L
Carbon Dioxide 26
BUN 47 H
Creatinine 1.7 H
Glucose 185 H
Calcium 8.1 L
Vital Signs:
Vital Signs
Temp Pulse Resp BP Pulse Ox
99.0 F 74 20 103/60 98
11/19/25 11:11 11/19/25 11:11 11/19/25 11:11 11/19/25 11:11 11/19/25 11:11
I&O
11/18/25 11/19/25 11/20/25
06:59 06:59 06:59
Intake Total 1860 / 1860 960 / 960 180 / 180
Output Total 6895 / 6895 1800 / 1800
Balance -5035 / -5035 -840 / -840 180 / 180
Review of Systems
-
History Source: Patient
All other systems: Not reviewed unless documented
Physical Exam
-
General: No Apparent Distress
HEENT: Normocephalic and Atraumatic
Respiratory: Negative Wheezes
Cardiac: Regular Rhythm and S1/S2
GI: Soft
Genito-urinary: No Costovertebral Tender
Musculoskeletal: No Edema
Neuro: AO x 3
Psych: Calm
Data Reviewed
-
Total Time Spent with Patient (in minutes): 41
Medical Tests (Nuc Med, Echo etc): Report Reviewed by me
Labs: Labs Reviewed by me
--- NOTE | 2025-11-19 12:40 | W.DS.TRANS ---
DC Summary - [facility]
-
Discharge Instructions:
Discharge Diagnosis/Procedures #Acute heart failure with reduced ejection
fraction
#Acute kidney injury
#Nausea, Vomtiing, Diarrhea
Diet Restrict fluids to 48 oz,Low Fat,Low Cholesterol
,Diabetic, Carb Controlled
Activity As tolerated
Blood Work cbc and bmp in approximately 5-7 days
Instructions:
Stand-Alone Forms:
Changes to Home Medications: Yes
Discharge Medications:
DC Medications w/original date entered in [facility]
empagliflozin 10 mg tablet (Jardiance) 10 mg PO DAILY diabetes 01/15/23
icosapent ethyl 1 gram capsule (Vascepa) 2 g PO BID High Cholesterol 01/15/23
metformin 1,000 mg tablet 1,000 mg PO BID diabetes 01/15/23
tamsulosin 0.4 mg capsule 0.4 mg PO HS Urinary Issue 06/16/24
cholecalciferol (vitamin D3) 50 mcg (2,000 unit) tablet 50 mcg PO QPM Supplement 10/01/24
atorvastatin 20 mg tablet 20 mg PO DAILY High Cholesterol 11/09/25
benzonatate 200 mg capsule 200 mg PO TID Cough 11/09/25
bisacodyl 5 mg tablet 5 mg PO TID Constipation 11/09/25
cephalexin 500 mg capsule 500 mg PO TID care home prophylaxis 11/09/25
docusate sodium 100 mg capsule (Colace) 100 mg PO DAILY Constipation 11/09/25
Held on 11/19/25. Instructions: Resume on 12/08/25.
ferrous sulfate 325 mg (65 mg iron) tablet 325 mg PO HS Supplement 11/09/25
gabapentin 100 mg capsule 200 mg PO HS Pain 11/09/25
insulin aspart U-100 100 unit/mL (3 mL) subcutaneous pen 16 unit SC DAILY Diabetes 11/09/25
insulin aspart U-100 100 unit/mL (3 mL) subcutaneous pen 20 unit SC QPM Diabetes 11/09/25
insulin glargine 100 unit/mL (3 mL) subcutaneous pen (Basaglar KwikPen U-100 Insulin) 20 unit SC BID Diabetes 11/09/25
elqbfy-jclljoqy-noskttr (pork)36,000-114,000-180k unit capsule,del rel (Creon) 72,000 cap PO TID pancreatic enzymes 11/09/25
ndluyi-llubpggh-kjiufjj(pork)12,000-38,000-60,000 unit capsule,del rel (Creon) 2 cap PO BIDPRN PRN snacks 11/09/25
mupirocin 2 % topical ointment 1 applic topical TID Skin Issues 11/09/25
pegfilgrastim-apgf 6 mg/0.6 mL subcutaneous syringe (Nyvepria) 6 mg SC DIRECTED Cancer 11/09/25
therapeutic multivitamin 1 tab PO DAILY Supplement 11/09/25
tramadol 50 mg tablet 50 mg PO HS Pain 11/09/25
apixaban 5 mg tablet (Eliquis) 5 mg PO BID 30 days #60 tabs 11/19/25
carvedilol 12.5 mg tablet 12.5 mg PO BID 30 days #60 tabs 11/19/25
famotidine 20 mg tablet 20 mg PO DAILY #30 tabs 11/19/25
furosemide 40 mg tablet (Lasix) 40 mg PO DAILY Fluid Retention/Swelling #30 tabs 11/19/25
gabapentin 100 mg capsule 100 mg PO DAILYPRN PRN NEUROPATHIC PAIN #0 caps 11/19/25
Home Medication Changes
apixaban 5 mg tablet (Eliquis) 5 mg PO BID 30 days #60 tabs 11/19/25
carvedilol 12.5 mg tablet 12.5 mg PO BID 30 days #60 tabs 11/19/25
famotidine 20 mg tablet 20 mg PO DAILY #30 tabs 11/19/25
furosemide 40 mg tablet (Lasix) 40 mg PO DAILY Fluid Retention/Swelling #30 tabs 11/19/25
gabapentin 100 mg capsule 100 mg PO DAILYPRN PRN NEUROPATHIC PAIN #0 caps 11/19/25
Pending Results: No
--- NOTE | 2025-11-19 13:50 | W.HF.CON ---
Heart Failure
- LV Function
Left ventricular function study result: LV Ejection fraction 41-49%
Ejection Fraction Percentage: 43
- ARNI
Patient already on ARNI: No
Heart Failure ARNI Not Indicated: LV Ejection Fraction >/= 40%
- ACEI/ARB
Patient already on ACEI/ARB: No
Heart Failure ACEI/ARB Not Indicated: LV Ejection Fraction > 40%
- Beta Jayy
Patient already on Evidence Based Beta Jayy: Yes
- Mineralocorticord Receptor Antagonist
Patient already on MRA: No
Heart Failure MRA Not Indicated: LV Ejection Fraction > 40%
- SGLT-2 Inhibitor
Patient already on SGLT-2 Inhibitor: Yes
- Afib Anticoagulation
Patient already on Anticoagulation for Afib: Yes
- NYHA CHF Classification
NYHA CHF Classification Level: Class III - Symptoms w/ min exertion, interferes w/ nml daily activity
- ACC/AHA Stage
ACC/AHA Stage: Stage C: Symptomatic Heart Failure
--- NOTE | 2025-11-19 14:07 | CM ---
patient discharge today
declined vn
IMM explained
PLAN: Home, no needs
to transport
== END 2025-11-19 13:42 | disposition home or self-care (01) | DRG 682 ==
LOC: 3 WEST ACU 05:51
PROVIDERS: Family Medicine; Internal Medicine; Specialist; ADMITTING PHYSICIAN Hospitalist; ATTENDING PHYSICIAN Internal Medicine; CONSULT PHYSICIAN Internal Medicine Cardiovascular Disease; CONSULT PHYSICIAN Specialist; EMERGENCY PHYSICIAN Student in an Organized Health Care Education/Training Program; FAMILY PHYSICIAN Internal Medicine; OTHER PHYSICIAN Internal Medicine Hematology & Oncology
PROC: 30233N1 Transfusion of Nonautologous Red Blood Cells into Peripheral Vein, Percutaneous Approach (ICD-10-PCS; 2025-11-10)
PROC: 30233R1 Transfusion of Nonautologous Platelets into Peripheral Vein, Percutaneous Approach (ICD-10-PCS; 2025-11-10)
DX: N17.9 Acute kidney failure, unspecified (principal); I50.43 Acute on chronic combined systolic (congestive) and diastolic (congestive) heart failure; C25.9 Malignant neoplasm of pancreas, unspecified; E87.20 Acidosis, unspecified; E87.1 Hypo-osmolality and hyponatremia; I5A Non-ischemic myocardial injury (non-traumatic); I47.20 Ventricular tachycardia, unspecified; K52.1 Toxic gastroenteritis and colitis; I42.8 Other cardiomyopathies; D61.818 Other pancytopenia; I11.0 Hypertensive heart disease with heart failure; N40.0 Benign prostatic hyperplasia without lower urinary tract symptoms; E11.9 Type 2 diabetes mellitus without complications; T45.1X5A Adverse effect of antineoplastic and immunosuppressive drugs, initial encounter; E87.6 Hypokalemia; E66.09 Other obesity due to excess calories; Z68.31 Body mass index [BMI] 31.0-31.9, adult; D64.81 Anemia due to antineoplastic chemotherapy; Z79.4 Long term (current) use of insulin; Z79.82 Long term (current) use of aspirin; Z79.899 Other long term (current) drug therapy
CPT/HCPCS: 51798; 71046; 76770; 80048; 80053; 81003; 81015; 81099; 82570; 82962; 83735; 83880; 84100; 84156; 84300; 84484; 85025; 85027; 85045; 86850; 86900; 86901; 86920; 87040; 87045; 87046; 87086; 87324; 87427; 87449; 87798; 93005; 93308; 93321; 93325; 94760; 96374; 99285; P9016; P9073